=== PATIENT | female | born 1960 | race Caucasian/White ===

== ENCOUNTER → 2016-12-08 | Outpatient (CLI) | payer OTHER ==
[~2016-12-08] MED LIST: /DULO30CA PO; AMBI12.52 PO; AUGM500T34 PO; BENZ200C PO; CALC500C8 PO; CIPR500T19 PO; CLON0.1D3 PO; CLONI1TA PO; FIORTAB PO; FLUT50SP; GABA100C PO; HYDR25T PO; HYDR25TAB PO; IODICRY PO; LUNE1TAB PO; LUNE3TAB PO; LYRI100C10 PO; MORP-39 PO; MORP60TA PO; OXYC1TAB16 PO; PAXI20TA3 PO; PERC7.5T12 PO; PREG50CA PO; PRIL20CA9 PO; PRIL20TA2 PO; PROBCAP4 PO; RELP40TA PO; ROXI1TAB2 PO; SOMA350T PO; TIZA4TAB3 PO; TRAZ50TA2 PO; TYLE650T25 PO; VITA250L SL; VITA500019 PO; VITATAB PO; ZOLP10TA2 PO
--- NOTE | 2016-12-17 23:21 | ECWPNPC ---
PATIENT NAME: ANGLE RASHEED : 1960 GENDER: FEMALE VISIT DATE: 12/08/2016 DISCHARGE DATE: 12/08/16 1306 VISIT LOCKED DATE TIME: PHYSICIAN: VERONICA FERGUSON RESOURCE: VERONICA FERGUSON REASON FOR APPOINTMENT 1. BACK HISTORY OF PRESENT ILLNESS HISTORY OF PRESENT ILLNESS: PAIN THE PATIENT DESCRIBES THE PAIN... 56 YEAR OLD FEMALE PATIENT WITH HISTORY OF CHRONIC BACK PAIN AND RIGHT SHOULDER PAIN. PATIENT DESCRIBES THE PAIN SHARP AND STABBING DEPENDING ON THE MOVEMENT, TENDER, SORE, SHOOTING, AND IT COMES AND GOES WITH A PAIN SCORE OF 8/10 ON TODAY'S VISIT. PATIENT REPORTS THAT SHE HAS BEEN SICK MULTIPLE TIMES SINCE [place]. PATIENT STATES THAT SHE SUFFERS FROM SCIATIC NERVE PAIN IN HER LOW BACK AREA. PATIENT REPORTS THAT HER CURRENT MEDICATION HELP TO MAKE THE PAIN SOMEWHAT TOLERABLE AND THAT WITHOUT THE MEDICATION HER PAIN WOULD BE WORST. , PATIENT DENIES UNEXPLAINABLE WEIGHT LOSS, FEVER, CHILLS, NEW CHANGES ON HER URINARY OR BOWEL CONTROL. FALL RISK SCREENING: SCREENING :NO FALLS IN THE PAST YEAR CURRENT MEDICATIONS TAKING PRILOSEC 40 MG CAPSULE DELAYED RELEASE 1 CAPSULE ORALLY BID TAKING ZOLPIDEM TARTRATE 10 MG TABLET 1 TABLET AT BEDTIME NEEDED ORALLY ONCE A DAY TAKING MILK OF MAGNESIA 7.75 % SUSPENSION 5 ML NEEDED ORALLY DAILY TAKING HYDROXYZINE HCL 25 MG TABLET 1 TABLET ORALLY EVERY 4 HOURS NEEDED, NOTES: 07/03/16 TAKING LISINOPRIL 10 MG TABLET 1 TABLET ORALLY ONCE A DAY, NOTES: 0330 TAKING GABAPENTIN 600 600 MG TABLET 1 TAB(S) ORALLY 600MG IN AM, 1200MG AFTERNOON AND AT BEDTIME, NOTES: 0330 TAKING PERCOCET 7.5-325 MG TABLET 1 ORALLY EVERY 8H PRN MDD3, NOTES: 0330 TAKING FENTANYL 50 MCG/HR PATCH 72 HOUR 1 PATCH TO SKIN TRANSDERMAL 1 Q 72H=MDD, NOTES: 07/01/16 TAKING TIZANIDINE HCL 4 MG TABLET 1 ORALLY Q6H PRN, NOTES: 0400 NOT-TAKING PAXIL 40 MG TABLET 1 TAB ORALLY ONCE A DAY, NOTES: 0330 DISCONTINUED PHENAZOPYRIDINE HCL 200 MG TABLET 1 TABLET AFTER MEALS ORALLY THREE TIMES A DAY MEDICATION LIST REVIEWED AND RECONCILED WITH THE PATIENT PAST MEDICAL HISTORY GLORY- USES CPAP KIDNEY STONES GERD CONSTIPATION CHRONIC BACK PAIN/NECK PAIN ANEMIA IBS FIBROMYALGIA RESTLESS LEG SYNDROME DEPRESSION ATROPHIC KIDNEY - S/P NEPHRECTOMY UTI ALLERGIES SULFA (FOR ALLERGY USE ONLY): UNKNOWN - CHILD: ALLERGY ENVIROMENTAL: SINUS INFECTION: ALLERGY SURGICAL HISTORY PARTIAL HYSTERECTOMY 1986 BREAST REDUCTION 2001 CHOLECYSTECTOMY 1982 GASTRIC BYPASS 2012 RIGHT, KNEE REPLACEMENT 2012 APPENDECTOMY 2010 ROBOTIC ASSISTED LEFT NEPHRECTOMY 03/18/2014 FAMILY HISTORY NO FAMILY HISTORY DOCUMENTED. SOCIAL HISTORY GENERAL: TOBACCO USE ARE YOU A:NONSMOKER LEARNING BARRIERS / SPECIAL NEEDS ORIENTED TO PLAN OF CARE: PATIENT, PAIN MANAGEMENT PATIENT, ORIENTED TO PLAN OF CARE: PATIENT, PAIN MANAGEMENT PATIENT. NEW PATIENT PAIN DIARY TODAY'S VISITNOTES FROM 0-10, WHAT LEVEL IS YOUR PAIN TODAY?0 PAIN CLINIC PFS, CLERGY, PUBLIC HEALTH REFERRALS PFS REFERRAL NEEDED?NO CLERGY REFERRAL NEEDED?NO PUBLIC HEALTH REFERRAL NEEDED?NO WAS THE PROVIDER NOTIFIED OF ANY PERTINENT INFO?NO PFS REFERRAL NEEDED?NO CLERGY REFERRAL NEEDED?NO PUBLIC HEALTH REFERRAL NEEDED?NO WAS THE PROVIDER NOTIFIED OF ANY PERTINENT INFO?NO HOSPITALIZATION/MAJOR DIAGNOSTIC PROCEDURE BACK PAIN - ([facility]) MULTIPLE BRONCHITIS 2013 REVIEW OF SYSTEMS CONSTITUTIONAL: ANY CHANGE IN YOUR MEDICAL CONDITION? NO . CHILLS NO . FEVER NO . INFECTION: DO YOU HAVE NEW INFECTIONS? YES UTI SINCE 09/16 . DO YOU HAVE HISTORY OF MRSA? NO . MUSCULOSKELETAL: ANY NEW PATTERNS OF PAIN OR NUMBNESS? NO . GASTROENTEROLOGY: ANY NEW CHANGE IN BOWEL CONTROL? NO . GENITOURINARY: ANY NEW CHANGE IN BLADDER CONTROL? NO . IS THERE A CHANCE YOU COULD BE ? NO . HEMATOLOGY/LYMPH: DO YOU TAKE ANY BLOOD THINNERS? (FOR EXAMPLE- COUMADIN, PLAVIX, AGGRENOX, PLATEL, PRADAXA, OR XARELTO) NO . WHEN WAS YOUR LAST DOSE? DATE: TIME: . NEUROLOGY: HAVE YOU FALLEN IN THE PAST 6 MONTHS? NO . ANY NEW EXTREMITY NUMBNESS OR WEAKNESS? NO . CARDIOLOGY: DO YOU HAVE A PACEMAKER OR DEFIBRILLATOR? NO . RESPIRATORY: HAVE YOU BEEN SICK IN THE PAST WEEK? YES CONGESTION . FEVER NO . FLU LIKE SYMPTOMS? NO . COUGH NO . INTEGUMENTARY: DO YOU HAVE ANY RASHES OR OPEN SORES? YES SCATTERED ON EXTREMITIES . ALLERGIC/IMMUNO: ARE YOU ALLERGIC TO SHELLFISH OR IV DYE? NO . ANY NEW ALLERGIES? NO . PSYCHIATRIC: DO YOU HAVE THOUGHTS OF HURTING YOURSELF OR SOMEONE ELSE? NO . ARE YOU ABUSED, NEGLECTED, OR IN AN UNSAFE ENVIRONMENT? NO . ENDOCRINOLOGY: ARE YOU DIABETIC? NO . OTHER: DO YOU NEED ANY PRESCRIPTIONS? YES OXYCODONE, FENTANYL PATCHES, TIZANIDINE . IF YES, PLEASE LIST: ____ . ANY NEW PROBLEMS WITH YOUR MEDICATIONS? NO . WHEN DID YOU LAST EAT? ____ . WHEN DID YOU LAST DRINK? ____ . WHAT DID YOU LAST DRINK? ____ . NAME OF PERSON DRIVING YOU HOME? ____ . DO YOU HAVE ANY OTHER QUESTIONS OR CONCERNS NO . REVIEWED BY: PROVIDER: VERONICA FERGUSON MD . VITAL SIGNS WT 222 LBS, HT 64 IN, BMI 38.10 INDEX, BP 167/75 MM HG, HR 91 /MIN, RR 18 /MIN, TEMP 97.3 F, OXYGEN SAT % 96, NA INITIALS TL 1138, REVIEWED BY: KENTRELL BP, TL. EXAMINATION : PATIENT IS ALERT O X 3 AND COOPERATIVE. PATIENT AMBULATES WITH A CANE ON THE LEFT HAND. PATIENT'S LEFT LEG IS WEAKER AT FLEXION AND EXTENSION COMPARED TO THE RIGHT LEG. PATIENT HAS TENDERNESS IN THE LOW BACK AND SACROILIAC AREA. BURSITIS OF THE LEFT GREATER TROCHANTER FEMUR. MRI OF THE LUMBAR SPINE DONE ON 12-04-2012 SHOWS CANAL STENOSIS AND DISC BULGES. ASSESSMENTS SACROILIITIS, NOT ELSEWHERE CLASSIFIED - M46.1 (PRIMARY) TROCHANTERIC BURSITIS, LEFT HIP - M70.62 TREATMENT SACROILIITIS, NOT ELSEWHERE CLASSIFIED NOTES: WE DISCUSSED SEVERAL ISSUES WITH MS. ANN'S PAIN MANAGEMENT CASE. AT THIS TIME I WILL REFILL PERCOCET, TIZANIDINE, AND FENTANYL PATCH AND THE PATIENT WILL START ON LYRICA TODAY. DUE TO THE SEVERE PAIN THE PATIENT IS EXPERIENCING IN HER LEFT PELVIS, I WILL ORDER A CT OF THE PELVIS. PATIENT WILL FOLLOW UP WITH IN 2 TO 3 WEEKS. INSTRUCTIONS WERE GIVEN, QUESTIONS WERE ANSWERED, PATIENT REPORTS UNDERSTANDING AND AGREES WITH THE PLAN. I, OREN BUCHANAN, DOCUMENTED THE ABOVE INFORMATION ACTING A SCRIBE FOR DR. FERGUSON. I HAVE REVIEWED THE ABOVE DOCUMENT, WRITTEN BY OREN BUCHANAN SCRIBE AND I VERIFY THAT IT IS ACCURATE. OTHERS START LYRICA CAPSULE, 75 MG, 1 CAPSULE, ORALLY FOR PAIN, TWICE A DAY, 30 DAY(S), 60 CAPSULE, REFILLS 0 REFILL PERCOCET TABLET, 7.5-325 MG, 1, ORALLY, EVERY 8H PRN MDD3, 30 DAYS, 90, REFILLS 0, NOTES: 0330 REFILL TIZANIDINE HCL TABLET, 4 MG, 1, ORALLY, Q6H PRN FOR SPASMS AND PAIN MDD3, 30 DAYS, 85, REFILLS 2, NOTES: 0400 REFILL FENTANYL PATCH 72 HOUR, 50 MCG/HR, 1 PATCH TO SKIN, TRANSDERMAL, 1 Q 72H=MDD, 30 DAY(S), 10, REFILLS 0, NOTES: 07/01/16 PROCEDURE CODES FA211 ESTABILISHED PATIENT [facility] CHARGE G8730 PAIN ASSESS POS TOOL F/U PLAN DOC G8427 DOC MEDS VERIFIED W/PT OR RE DISPOSITION & COMMUNICATION FOLLOW UP 3 WEEKS ELECTRONICALLY SIGNED BY VERONICA FERGUSON MD ON 12/17/2016 AT 09:20 PM EDT DISCLAIMER : THIS IS A VISIT SUMMARY EXTRACTED FROM THE [employer] CHART. IT IS NOT A COPY OF THE [employer] PROGRESS NOTE. MTDD
== END ==
LOC: M PAIN 11:20
PROVIDERS: ATTEND Anesthesiology
DX: Z09 Encounter for follow-up examination after completed treatment for conditions other than malignant neoplasm (principal); G89.29 Other chronic pain; M46.1 Sacroiliitis, not elsewhere classified; M70.62 Trochanteric bursitis, left hip; K21.9 Gastro-esophageal reflux disease without esophagitis; D64.9 Anemia, unspecified; M79.7 Fibromyalgia; G25.81 Restless legs syndrome; F32.9 Major depressive disorder, single episode, unspecified; G47.33 Obstructive sleep apnea (adult) (pediatric); N39.0 Urinary tract infection, site not specified; Z88.2 Allergy status to sulfonamides; J30.89 Other allergic rhinitis; Z79.891 Long term (current) use of opiate analgesic; Z79.899 Other long term (current) drug therapy; Z90.5 Acquired absence of kidney

== ENCOUNTER → 2017-01-09 | Outpatient (CLI) | payer OTHER ==
--- NOTE | 2017-01-15 23:26 | ECWPNPC ---
PATIENT NAME: ANGLE RASHEED : 1960 GENDER: FEMALE VISIT DATE: 01/09/2017 DISCHARGE DATE: 01/09/17 1331 VISIT LOCKED DATE TIME: PHYSICIAN: VERONICA FERGUSON RESOURCE: VERONICA FERGUSON REASON FOR APPOINTMENT 1. LOW BACK PAIN HISTORY OF PRESENT ILLNESS HISTORY OF PRESENT ILLNESS: PAIN THE PATIENT DESCRIBES THE PAIN... 56 YEAR OLD FEMALE PATIENT WITH HISTORY OF CHRONIC LOW BACK PAIN. PATIENT DESCRIBES THE PAIN ACHING, SHARP, STABBING, TENDER, SORE, SHOOTING, AND HAVING IT ALL THE TIME WITH A PAIN SCORE OF 5/10. PATIENT IS CURRENTLY USING LYRICA, PERCOCET, TIZANIDINE, AND FENTANYL PATCH AND REPORTS THAT THE MEDICATION KEEPS HER MOBILE AND FUNCTIONAL. PATIENT REPORTS HAVING PAIN OVER THE PELVIS AREA AND RECEIVED A CT. PATIENT DENIES UNEXPLAINABLE WEIGHT LOSS, FEVER, CHILLS, NEW CHANGES ON HER URINARY OR BOWEL CONTROL. FALL RISK SCREENING: SCREENING :NO FALLS IN THE PAST YEAR CURRENT MEDICATIONS TAKING LYRICA 75 MG CAPSULE 1 CAPSULE ORALLY FOR PAIN TWICE A DAY TAKING PERCOCET 7.5-325 MG TABLET 1 ORALLY EVERY 8H PRN MDD3, NOTES: 0330 TAKING TIZANIDINE HCL 4 MG TABLET 1 ORALLY Q6H PRN FOR SPASMS AND PAIN MDD3, NOTES: 0400 TAKING FENTANYL 50 MCG/HR PATCH 72 HOUR 1 PATCH TO SKIN TRANSDERMAL 1 Q 72H=MDD, NOTES: 07/01/16 TAKING PRILOSEC 40 MG CAPSULE DELAYED RELEASE 1 CAPSULE ORALLY BID TAKING MILK OF MAGNESIA 7.75 % SUSPENSION 5 ML NEEDED ORALLY DAILY TAKING HYDROXYZINE HCL 25 MG TABLET 1 TABLET ORALLY EVERY 4 HOURS NEEDED, NOTES: 07/03/16 TAKING LISINOPRIL 10 MG TABLET 1 TABLET ORALLY ONCE A DAY, NOTES: 0330 TAKING NITROFURANTOIN 100 MG CAPSULE 1 CAPSULE WITH FOOD ORALLY ONCE A DAY TAKING PYRIDIUM 200 MG TABLET 1 TABLET AFTER MEALS ORALLY THREE TIMES A DAY NOT-TAKING ZOLPIDEM TARTRATE 10 MG TABLET 1 TABLET AT BEDTIME NEEDED ORALLY ONCE A DAY NOT-TAKING GABAPENTIN 600 600 MG TABLET 1 TAB(S) ORALLY 600MG IN AM, 1200MG AFTERNOON AND AT BEDTIME, NOTES: 0330 NOT-TAKING KEFLEX 500 MG CAPSULE 1 CAPSULE ORALLY DIRECTED NOT-TAKING PAXIL 40 MG TABLET 1 TAB ORALLY ONCE A DAY, NOTES: 0330 MEDICATION LIST REVIEWED AND RECONCILED WITH THE PATIENT PAST MEDICAL HISTORY GLORY- USES CPAP KIDNEY STONES GERD CONSTIPATION CHRONIC BACK PAIN/NECK PAIN ANEMIA IBS FIBROMYALGIA RESTLESS LEG SYNDROME DEPRESSION ATROPHIC KIDNEY - S/P NEPHRECTOMY UTI ALLERGIES SULFA (FOR ALLERGY USE ONLY): UNKNOWN - CHILD: ALLERGY ENVIROMENTAL: SINUS INFECTION: ALLERGY SURGICAL HISTORY PARTIAL HYSTERECTOMY 1986 BREAST REDUCTION 2001 CHOLECYSTECTOMY 1981 GASTRIC BYPASS 2011 RIGHT, KNEE REPLACEMENT 2011 APPENDECTOMY 2010 ROBOTIC ASSISTED LEFT NEPHRECTOMY 03/18/2014 FAMILY HISTORY FATHER: ALIVE MOTHER: ALIVE 3 BROTHER(S) , 2 SISTER(S) . 1 SON(S) , 3 DAUGHTER(S) . FATHER HAD PROSTATE CANCER. SOCIAL HISTORY GENERAL: PAIN CLINIC PFS, CLERGY, PUBLIC HEALTH REFERRALS CLERGY REFERRAL NEEDED?NO WAS THE PROVIDER NOTIFIED OF ANY PERTINENT INFO?NO PFS REFERRAL NEEDED?NO PUBLIC HEALTH REFERRAL NEEDED?NO PATIENT: ____. HOSPITALIZATION/MAJOR DIAGNOSTIC PROCEDURE BACK PAIN - ([facility]) MULTIPLE BRONCHITIS 2012 REVIEW OF SYSTEMS CONSTITUTIONAL: ANY CHANGE IN YOUR MEDICAL CONDITION? YES DIAGNOSED WITH PNEUMONIA 01/04, ON ANTIBIOTICS. HAS A FEVER, COUGH PRODUCTIVE OF GREEN SPUTUM. PT STATES SHE HAS BEEN SICK SINCE ,BUT SYMPTOMS HAVE GOTTEN WORSE OVER LAST THREE WEEKS. . CHILLS YES . FEVER YES 102 THIS AM . INFECTION: DO YOU HAVE NEW INFECTIONS? YES PNEUMONIA, ALSO TREATED FOR UTI 12/31, TREATED WITH ANTIBIOTIC . DO YOU HAVE HISTORY OF MRSA? NO . MUSCULOSKELETAL: ANY NEW PATTERNS OF PAIN OR NUMBNESS? NO . GASTROENTEROLOGY: ANY NEW CHANGE IN BOWEL CONTROL? NO . GENITOURINARY: ANY NEW CHANGE IN BLADDER CONTROL? NO . IS THERE A CHANCE YOU COULD BE ? NO . HEMATOLOGY/LYMPH: DO YOU TAKE ANY BLOOD THINNERS? (FOR EXAMPLE- COUMADIN, PLAVIX, AGGRENOX, PLATEL, PRADAXA, OR XARELTO) NO . WHEN WAS YOUR LAST DOSE? DATE: TIME: . NEUROLOGY: HAVE YOU FALLEN IN THE PAST 6 MONTHS? NO . ANY NEW EXTREMITY NUMBNESS OR WEAKNESS? NO . CARDIOLOGY: DO YOU HAVE A PACEMAKER OR DEFIBRILLATOR? NO . RESPIRATORY: HAVE YOU BEEN SICK IN THE PAST WEEK? YES SEE ABOVE NOTE . FEVER NO . FLU LIKE SYMPTOMS? NO . COUGH NO . INTEGUMENTARY: DO YOU HAVE ANY RASHES OR OPEN SORES? NO . ALLERGIC/IMMUNO: ARE YOU ALLERGIC TO SHELLFISH OR IV DYE? NO . ANY NEW ALLERGIES? NO . PSYCHIATRIC: DO YOU HAVE THOUGHTS OF HURTING YOURSELF OR SOMEONE ELSE? NO . ARE YOU ABUSED, NEGLECTED, OR IN AN UNSAFE ENVIRONMENT? NO . ENDOCRINOLOGY: ARE YOU DIABETIC? NO . OTHER: DO YOU NEED ANY PRESCRIPTIONS? YES . IF YES, PLEASE LIST: ____OXYCODONE, TIZANIDINE, FENTANYL PATCHES, AND LYRICA TO [place] . ANY NEW PROBLEMS WITH YOUR MEDICATIONS? NO . WHEN DID YOU LAST EAT? ____ . WHEN DID YOU LAST DRINK? ____ . WHAT DID YOU LAST DRINK? ____ . NAME OF PERSON DRIVING YOU HOME? ____ . DO YOU HAVE ANY OTHER QUESTIONS OR CONCERNS NO . REVIEWED BY: PROVIDER: VERONICA FERGUSON MD . VITAL SIGNS WT 219 LBS, HT 64 IN, BMI 37.59 INDEX, BP 129/60 MM HG, HR 82 /MIN, RR 20 /MIN, TEMP 100 F, OXYGEN SAT % 95%, SAFE IN ENV? (Y/N) YES, REVIEWED BY: GIRMA. EXAMINATION : PATIENT IS ALERT O X 3 AND COOPERATIVE. PATIENT AMBULATES WITH A CANE ON THE LEFT HAND. PATIENT'S LEFT LEG IS WEAKER AT FLEXION AND EXTENSION COMPARED TO THE RIGHT LEG. PATIENT HAS TENDERNESS IN THE LOW BACK AND SACROILIAC AREA. BURSITIS OF THE LEFT GREATER TROCHANTER FEMUR. MRI OF THE LUMBAR SPINE DONE ON 12/04/2012 SHOWS CANAL STENOSIS AND DISC BULGES. CT OF THE PELVIS DONE ON 12/01/16 SHOWS NO ACUTE DISEASE. ASSESSMENTS SACROILIITIS, NOT ELSEWHERE CLASSIFIED - M46.1 (PRIMARY) RADICULOPATHY, LUMBAR REGION - M54.16 TREATMENT OTHERS REFILL LYRICA CAPSULE, 75 MG, 1 CAPSULE, ORALLY FOR PAIN, TWICE A DAY, 30 DAY(S), 60 CAPSULE, REFILLS 0 REFILL PERCOCET TABLET, 7.5-325 MG, 1, ORALLY, EVERY 8H PRN MDD3, 30 DAYS, 90, REFILLS 0, NOTES: 0330 REFILL TIZANIDINE HCL TABLET, 4 MG, 1, ORALLY, Q6H PRN FOR SPASMS AND PAIN MDD3, 30 DAYS, 85, REFILLS 2, NOTES: 0400 REFILL FENTANYL PATCH 72 HOUR, 50 MCG/HR, 1 PATCH TO SKIN, TRANSDERMAL, 1 Q 72H=MDD, 30 DAY(S), 10, REFILLS 0, NOTES: 07/01/16 NOTES: WE DISCUSSED SEVERAL ISSUES WITH MRS. RASHEED'S PAIN MANAGEMENT CASE. AT THIS TIME THE PATIENT WILL CONTINUE WITH THE SAME MEDICATION REGIME BEFORE. PATIENT DENIES ABUSE OF ANY MEDICATION, DENIES USE OF ILLEGAL SUBSTANCES, AND STATES THAT SHE IS ONLY USING THE MEDICATION FOR PAIN MANAGEMENT. URINE TOXICOLOGY REPORT DONE ON 04/13/16 SHOWS CONSISTENT RESULTS WITH THE PATIENT'S MEDICATION LIST. PATIENT IS A GOOD CANDIDATE FOR A LUMBAR EPIDURAL. AT THIS TIME THE PATIENT WOULD LIKE TO CONTINUE WITH MEDICATION MANAGEMENT AND HOLD OFF ON INTERVENTIONS AT THIS TIME. PATIENT WILL RETURN TO THE CLINIC IN 3 WEEKS TO FURTHER DISCUSS HER CASE. INSTRUCTIONS WERE GIVEN, QUESTIONS WERE ANSWERED, PATIENT REPORTS UNDERSTANDING AND AGREES WITH THE PLAN. I, VIRIDIANA RIDLEY, DOCUMENTED THE ABOVE INFORMATION ACTING A SCRIBE FOR DR. FERGUSON. I HAVE REVIEWED THE ABOVE DOCUMENT, WRITTEN BY VIRIDIANA MOTA AND I VERIFY THAT IT IS ACCURATE. PROCEDURE CODES FA211 ESTABILISHED PATIENT [facility] CHARGE G8427 DOC MEDS VERIFIED W/PT OR RE G8730 PAIN ASSESS POS TOOL F/U PLAN DOC DISPOSITION & COMMUNICATION FOLLOW UP 3 WEEKS ELECTRONICALLY SIGNED BY VERONICA FERGUSON MD ON 01/15/2017 AT 05:28 PM EDT DISCLAIMER : THIS IS A VISIT SUMMARY EXTRACTED FROM THE [employer] CHART. IT IS NOT A COPY OF THE [employer] PROGRESS NOTE. [facility]
== END ==
LOC: M PAIN 12:40
PROVIDERS: ATTEND Anesthesiology
DX: M46.1 Sacroiliitis, not elsewhere classified (principal); M54.16 Radiculopathy, lumbar region; G89.29 Other chronic pain; Z79.891 Long term (current) use of opiate analgesic; Z79.899 Other long term (current) drug therapy; Z88.2 Allergy status to sulfonamides; J30.2 Other seasonal allergic rhinitis; Z98.84 Bariatric surgery status; K21.9 Gastro-esophageal reflux disease without esophagitis; D64.9 Anemia, unspecified

== ENCOUNTER → 2017-02-10 | Outpatient (CLI) | payer OTHER ==
--- NOTE | 2017-02-22 01:54 | ECWPNPC ---
PATIENT NAME: ANGLE RASHEED : 1960 GENDER: FEMALE VISIT DATE: 02/10/2017 DISCHARGE DATE: 02/10/17 1324 VISIT LOCKED DATE TIME: PHYSICIAN: VERONICA FERGUSON RESOURCE: VERONICA FERGUSON REASON FOR APPOINTMENT 1. MEDS HISTORY OF PRESENT ILLNESS HISTORY OF PRESENT ILLNESS: PAIN THE PATIENT DESCRIBES THE PAIN... 56 YEAR OLD FEMALE PATIENT WITH HISTORY OF CHRONIC LOW BACK PAIN. PATIENT DESCRIBES THE PAIN ACHING, SHARP, STABBING, THROBBING, SORE, AND SHOOTING WITH A PAIN SCORE OF 5/10 ON TODAY'S VISIT. PATIENT IS CURRENTLY USING LYRICA, PERCOCET, TIZANIDINE, AND FENTANYL PATCH AND REPORTS THAT THE MEDICATION KEEPS HER MOBILE AND FUNCTIONAL. PATIENT REPORTS THAT SHE HAS DIFFICULTIES SLEEPING AT NIGHT DUE TO THE PAIN. PATIENT REPORTS THAT HER BACK HURTS THE MOST TODAY WITH A PAIN RADIATING DOWN THE BACK OF HER LEFT LEG AND SOMETIMES THE RIGHT LEG. PATIENT REPORTS THAT SHE CAN NOT TAKE NSAIDS DUE TO HAVING A GASTRIC BYPASS. PATIENT STATES THAT SOMETIMES HER LEFT LEG WILL GIVE OUT. PATIENT REPORTS THAT LYRICA HAS GREATLY HELPED WITH RESTLESS LEG SYNDROME. PATIENT DENIES UNEXPLAINABLE WEIGHT LOSS, FEVER, CHILLS, NEW CHANGES ON HER URINARY OR BOWEL CONTROL. FALL RISK SCREENING: SCREENING :NO FALLS IN THE PAST YEAR CURRENT MEDICATIONS TAKING PRILOSEC 40 MG CAPSULE DELAYED RELEASE 1 CAPSULE ORALLY BID TAKING MILK OF MAGNESIA 7.75 % SUSPENSION 5 ML NEEDED ORALLY DAILY TAKING HYDROXYZINE HCL 25 MG TABLET 1 TABLET ORALLY EVERY 4 HOURS NEEDED, NOTES: 07/03/16 TAKING LISINOPRIL 10 MG TABLET 1 TABLET ORALLY ONCE A DAY, NOTES: 0330 TAKING NITROFURANTOIN 100 MG CAPSULE 1 CAPSULE WITH FOOD ORALLY ONCE A DAY TAKING PYRIDIUM 200 MG TABLET 1 TABLET AFTER MEALS ORALLY THREE TIMES A DAY TAKING LYRICA 75 MG CAPSULE 1 CAPSULE ORALLY FOR PAIN TWICE A DAY TAKING LIDOCAINE HCL JELLY FDC 2 % JELLY 5 ML1 APPLICATION TO AFFECTED AREA NEEDED INTRAVESICALLY TIME AT CYSTOSCOPY TAKING TIZANIDINE HCL 4 MG TABLET 1 ORALLY Q6H PRN FOR SPASMS AND PAIN MDD3, NOTES: 0400 TAKING FENTANYL 50 MCG/HR PATCH 72 HOUR 1 PATCH TO SKIN TRANSDERMAL 1 Q 72H=MDD, NOTES: 07/01/16 TAKING PERCOCET 7.5-325 MG TABLET 1 ORALLY EVERY 8H PRN MDD3, NOTES: 329 TAKING RANITIDINE HCL 150 MG CAPSULE 1 CAPSULE AT BEDTIME ORALLY ONCE A DAY TAKING CETIRIZINE HCL 10 MG TABLET 1 TABLET ORALLY ONCE A DAY NOT-TAKING ZOLPIDEM TARTRATE 10 MG TABLET 1 TABLET AT BEDTIME NEEDED ORALLY ONCE A DAY NOT-TAKING GABAPENTIN 600 600 MG TABLET 1 TAB(S) ORALLY 600MG IN AM, 1200MG AFTERNOON AND AT BEDTIME, NOTES: 329 NOT-TAKING KEFLEX 500 MG CAPSULE 1 CAPSULE ORALLY DIRECTED NOT-TAKING PAXIL 40 MG TABLET 1 TAB ORALLY ONCE A DAY, NOTES: 329 MEDICATION LIST REVIEWED AND RECONCILED WITH THE PATIENT PAST MEDICAL HISTORY GLORY- USES CPAP KIDNEY STONES GERD CONSTIPATION CHRONIC BACK PAIN/NECK PAIN ANEMIA IBS FIBROMYALGIA RESTLESS LEG SYNDROME DEPRESSION ATROPHIC KIDNEY - S/P NEPHRECTOMY UTI ALLERGIES SULFA (FOR ALLERGY USE ONLY): UNKNOWN - CHILD: ALLERGY ENVIROMENTAL: SINUS INFECTION: ALLERGY SURGICAL HISTORY PARTIAL HYSTERECTOMY 1986 BREAST REDUCTION 2001 CHOLECYSTECTOMY 1981 GASTRIC BYPASS 2011 RIGHT, KNEE REPLACEMENT 2011 APPENDECTOMY 2010 ROBOTIC ASSISTED LEFT NEPHRECTOMY 03/18/2014 FAMILY HISTORY FATHER: ALIVE MOTHER: ALIVE 3 BROTHER(S) , 2 SISTER(S) . 1 SON(S) , 3 DAUGHTER(S) . FATHER HAD PROSTATE CANCER. SOCIAL HISTORY GENERAL: PAIN CLINIC PFS, CLERGY, PUBLIC HEALTH REFERRALS CLERGY REFERRAL NEEDED?NO WAS THE PROVIDER NOTIFIED OF ANY PERTINENT INFO?NO PFS REFERRAL NEEDED?NO PUBLIC HEALTH REFERRAL NEEDED?NO PATIENT: ____. HOSPITALIZATION/MAJOR DIAGNOSTIC PROCEDURE BACK PAIN - ([facility]) MULTIPLE BRONCHITIS 2012 REVIEW OF SYSTEMS CONSTITUTIONAL: ANY CHANGE IN YOUR MEDICAL CONDITION? HAS BEEN IN AND OUT OF THE HOSPITAL SINCE . BLADDER INFECTIONS. . CHILLS NO . FEVER NO . INFECTION: DO YOU HAVE NEW INFECTIONS? YES, BLADDER . DO YOU HAVE HISTORY OF MRSA? NO . MUSCULOSKELETAL: ANY NEW PATTERNS OF PAIN OR NUMBNESS? NO . GASTROENTEROLOGY: ANY NEW CHANGE IN BOWEL CONTROL? NO . GENITOURINARY: ANY NEW CHANGE IN BLADDER CONTROL? NO . IS THERE A CHANCE YOU COULD BE ? NO . HEMATOLOGY/LYMPH: DO YOU TAKE ANY BLOOD THINNERS? (FOR EXAMPLE- COUMADIN, PLAVIX, AGGRENOX, PLATEL, PRADAXA, OR XARELTO) NO . WHEN WAS YOUR LAST DOSE? DATE: TIME: . NEUROLOGY: HAVE YOU FALLEN IN THE PAST 6 MONTHS? NO . ANY NEW EXTREMITY NUMBNESS OR WEAKNESS? NO . CARDIOLOGY: DO YOU HAVE A PACEMAKER OR DEFIBRILLATOR? NO . RESPIRATORY: HAVE YOU BEEN SICK IN THE PAST WEEK? YES . FEVER NO . FLU LIKE SYMPTOMS? NO . COUGH NO . INTEGUMENTARY: DO YOU HAVE ANY RASHES OR OPEN SORES? NO . ALLERGIC/IMMUNO: ARE YOU ALLERGIC TO SHELLFISH OR IV DYE? NO . ANY NEW ALLERGIES? NO . PSYCHIATRIC: DO YOU HAVE THOUGHTS OF HURTING YOURSELF OR SOMEONE ELSE? NO . ARE YOU ABUSED, NEGLECTED, OR IN AN UNSAFE ENVIRONMENT? NO . ENDOCRINOLOGY: ARE YOU DIABETIC? NO . OTHER: DO YOU NEED ANY PRESCRIPTIONS? YES . IF YES, PLEASE LIST: MIRTHA SEND TO [facility] [place] . ANY NEW PROBLEMS WITH YOUR MEDICATIONS? NO . WHEN DID YOU LAST EAT? ____ . WHEN DID YOU LAST DRINK? ____ . WHAT DID YOU LAST DRINK? ____ . NAME OF PERSON DRIVING YOU HOME? ____ . DO YOU HAVE ANY OTHER QUESTIONS OR CONCERNS VOICES SHE PLANS TO QUIT SMOKING MARCH 02 . REVIEWED BY: PROVIDER: VERONICA FERGUSON MD . VITAL SIGNS WT 220.0 LBS, HT 64 IN, BMI 37.76 INDEX, BP 111/62 MM HG, HR 80 /MIN, RR 16 /MIN, TEMP 97.2 F, OXYGEN SAT % 96%, NA INITIALS TL 1250. EXAMINATION : PATIENT IS ALERT O X 3 AND COOPERATIVE. PATIENT AMBULATES WITH A CANE ON THE LEFT HAND. PATIENT'S LEFT LEG IS WEAKER AT FLEXION AND EXTENSION COMPARED TO THE RIGHT LEG. PATIENT HAS TENDERNESS IN THE LOW BACK AND SACROILIAC AREA. MRI OF THE LUMBAR SPINE DONE ON 12/04/2012 SHOWS CANAL STENOSIS AND DISC BULGES. CT OF THE PELVIS DONE ON 12/01/16 SHOWS NO ACUTE DISEASE. ASSESSMENTS SACROILIITIS, NOT ELSEWHERE CLASSIFIED - M46.1 (PRIMARY) RADICULOPATHY, LUMBAR REGION - M54.16 RADICULOPATHY, LUMBOSACRAL REGION - M54.17 TREATMENT SACROILIITIS, NOT ELSEWHERE CLASSIFIED NOTES: WE DISCUSSED SEVERAL ISSUES WITH MRS. RASHEED'S PAIN MANAGEMENT CASE. AT THIS TIME THE PATIENT WILL CONTINUE WITH THE SAME MEDICATION REGIME BEFORE. PATIENT DENIES ABUSE OF ANY MEDICATION, DENIES USE OF ILLEGAL SUBSTANCES, AND STATES THAT SHE IS ONLY USING THE MEDICATION FOR PAIN MANAGEMENT. URINE TOXICOLOGY REPORT DONE ON 04/13/16 SHOWS CONSISTENT RESULTS WITH THE PATIENT'S MEDICATION LIST. PATIENT BROUGHT HER MEDICATION TODAY INSTRUCTED. AFTER REVIEWING THE MRI AND EXAMINING THE PATIENT SHE IS A GOOD CANDIDATE FOR A LUMBAR EPIDURAL. I DISCUSSED THE RISK, BENEFITS, AND ALTERNATIVES WITH THE PATIENT AND THE PATIENT WOULD LIKE TO PROCEED FORWARD WITH THE INJECTION. PATIENT WILL BE BOOKED PENDING APPROVAL. I DISCUSSED WITH THE PATIENT THAT SHE CAN CALL IN FOR ONE REFILL BY PHONE FOR HER MEDICATION. PATIENT TO FOLLOW UP WITH ME IN 6 WEEKS. INSTRUCTIONS WERE GIVEN, QUESTIONS WERE ANSWERED, PATIENT REPORTS UNDERSTANDING AND AGREES WITH THE PLAN. I, OREN BUCHANAN, DOCUMENTED THE ABOVE INFORMATION ACTING A SCRIBE FOR DR. FERGUSON. I HAVE REVIEWED THE ABOVE DOCUMENT, WRITTEN BY OREN BUCHANAN SCRIBGaby AND I VERIFY THAT IT IS ACCURATE. OTHERS REFILL LYRICA CAPSULE, 75 MG, 1 CAPSULE, ORALLY FOR PAIN, TWICE A DAY, 30 DAY(S), 60 CAPSULE, REFILLS 0 REFILL TIZANIDINE HCL TABLET, 4 MG, 1, ORALLY, Q6H PRN FOR SPASMS AND PAIN MDD3, 30 DAYS, 85, REFILLS 2, NOTES: 0400 REFILL FENTANYL PATCH 72 HOUR, 50 MCG/HR, 1 PATCH TO SKIN, TRANSDERMAL, 1 Q 72H=MDD, 30 DAY(S), 10, REFILLS 0, NOTES: 07/01/16 REFILL PERCOCET TABLET, 7.5-325 MG, 1, ORALLY, EVERY 8H PRN MDD3, 30 DAYS, 90, REFILLS 0, NOTES: 0330 PREVENTIVE MEDICINE DISCUSSED PRE PROPRECEDURE CARE AND INSTRUCTIONS GIVEN TO PT. PT EXPRESSED UNDERSTANDING OF INSTRUCTIONNS. PROCEDURE CODES FA211 ESTABILISHED PATIENT [facility] FACILITY CHARGE G8730 PAIN ASSESS POS TOOL F/U PLAN DOC G8427 DOC MEDS VERIFIED W/PT OR RE DISPOSITION & COMMUNICATION FOLLOW UP 6 WEEKS ELECTRONICALLY SIGNED BY VERONICA FERGUSON MD ON 02/21/2017 AT 06:05 PM EDT DISCLAIMER : THIS IS A VISIT SUMMARY EXTRACTED FROM THE [employer] CHART. IT IS NOT A COPY OF THE [employer] PROGRESS NOTE. MTDD
== END ==
LOC: M PAIN 13:00
PROVIDERS: ATTEND Anesthesiology
DX: M46.1 Sacroiliitis, not elsewhere classified (principal); M54.16 Radiculopathy, lumbar region; M54.17 Radiculopathy, lumbosacral region; M89.29 Other disorders of bone development and growth, multiple sites; Z79.891 Long term (current) use of opiate analgesic; Z79.899 Other long term (current) drug therapy; Z88.2 Allergy status to sulfonamides; Z91.048 Other nonmedicinal substance allergy status

== ENCOUNTER → 2017-06-16 | Outpatient (CLI) | payer OTHER ==
[~2017-06-16] MED LIST changes: +FENT50PA TD; +HYDR-3363 PO; -HYDR25T PO; -LYRI100C10 PO; +MILKSUS PO; +OXYC1TAB15 PO; +PAXI20TA29 PO; -PAXI20TA3 PO; +PREG100CA PO; +RANI150T PO; +TIZA4CAP3 PO
--- NOTE | 2017-06-24 23:51 | ECWPNPC ---
PATIENT NAME: ANGLE RASHEED : 1960 GENDER: FEMALE VISIT DATE: 06/16/2017 DISCHARGE DATE: 06/16/17 1534 VISIT LOCKED DATE TIME: PHYSICIAN: VERONICA FERGUSON RESOURCE: VERONICA FERGUSON REASON FOR APPOINTMENT 1. LOW BACK PAIN HISTORY OF PRESENT ILLNESS HISTORY OF PRESENT ILLNESS: PAIN THE PATIENT DESCRIBES THE PAIN... 56 YEAR OLD FEMALE PATIENT WITH HISTORY OF CHRONIC LOW BACK PAIN. PATIENT DESCRIBES THE PAIN ACHING, SHARP, STABBING, THROBBING, SORE, AND SHOOTING WITH A PAIN SCORE OF 9/10 ON TODAY'S VISIT. PATIENT IS CURRENTLY USING LYRICA, PERCOCET, TIZANIDINE, AND FENTANYL PATCH AND REPORTS THAT THE MEDICATION KEEPS HER MOBILE AND FUNCTIONAL. PATIENT REPORTS THAT SHE HAS DIFFICULTIES SLEEPING AT NIGHT DUE TO THE PAIN. PATIENT REPORTS THAT HER BACK HURTS THE MOST TODAY WITH A PAIN RADIATING DOWN THE BACK OF HER LEFT LEG AND SOMETIMES THE RIGHT LEG. PATIENT REPORTS THAT SHE CAN NOT TAKE NSAID'S DUE TO HAVING A GASTRIC BYPASS. PATIENT STATES THAT SOMETIMES HER LEFT LEG WILL GIVE OUT. PATIENT REPORTS THAT LYRICA HAS GREATLY HELPED WITH RESTLESS LEG SYNDROME. PATIENT REPORTS CHRONIC UTI'S AND RECEIVES ANTIBIOTICS FOR THE INFECTION. PATIENT DENIES UNEXPLAINABLE WEIGHT LOSS, FEVER, CHILLS, NEW CHANGES ON HER URINARY OR BOWEL CONTROL. FALL RISK SCREENING: SCREENING :NO FALLS IN THE PAST YEAR CURRENT MEDICATIONS TAKING PRILOSEC 40 MG CAPSULE DELAYED RELEASE 1 CAPSULE ORALLY BID TAKING MILK OF MAGNESIA 7.75 % SUSPENSION 5 ML NEEDED ORALLY DAILY TAKING HYDROXYZINE HCL 25 MG TABLET 1 TABLET ORALLY EVERY 4 HOURS NEEDED TAKING RANITIDINE HCL 150 MG CAPSULE 1 CAPSULE AT BEDTIME ORALLY ONCE A DAY TAKING CETIRIZINE HCL 10 MG TABLET 1 TABLET ORALLY ONCE A DAY TAKING FENTANYL 50 MCG/HR PATCH 72 HOUR 1 PATCH TO SKIN TRANSDERMAL 1 Q 72H=MDD, NOTES: 07/01/16 TAKING TIZANIDINE HCL 4 MG TABLET 1 ORALLY Q6H PRN FOR SPASMS AND PAIN MDD3 TAKING PERCOCET 7.5-325 MG TABLET 1 ORALLY EVERY 8H PRN MDD3 TAKING LYRICA 75 MG CAPSULE 1 CAPSULE ORALLY FOR PAIN TWICE A DAY NOT-TAKING NITROFURANTOIN 100 MG CAPSULE 1 CAPSULE WITH FOOD ORALLY ONCE A DAY NOT-TAKING LIDOCAINE HCL JELLY LONGTERM 2 % JELLY 5 ML1 APPLICATION TO AFFECTED AREA NEEDED INTRAVESICALLY TIME AT CYSTOSCOPY NOT-TAKING LIDOCAINE HCL JELLY LONGTERM 2 % JELLY 5 ML1 APPLICATION TO AFFECTED AREA NEEDED INTRAVESICALLY TIME AT CYSTOSCOPY NOT-TAKING PYRIDIUM 200 MG TABLET 1 TABLET AFTER MEALS ORALLY THREE TIMES A DAY NOT-TAKING LIDOCAINE HCL JELLY LONGTERM 2 % JELLY 1 APPLICATION TO AFFECTED AREA NEEDED INTRAVESICALLY PRIOR TO PROCEDURE NOT-TAKING DIFLUCAN 150 MG TABLET 1 TABLET ORALLY NOT-TAKING LIDOCAINE HCL JELLY LONGTERM 2 % JELLY 1 APPLICATION TO AFFECTED AREA NEEDED INTRAVESICALLY PRIOR TO PROCEDURE DISCONTINUED LISINOPRIL 10 MG TABLET 1 TABLET ORALLY ONCE A DAY DISCONTINUED CIPRO 500 MG TABLET 1 TABLET ORALLY TWICE A DAY DISCONTINUED AMOXICILLIN-POT CLAVULANATE 875-125 MG TABLET 1 TABLET ORALLY EVERY 12 HRS DISCONTINUED CIPRO 500 MG TABLET 1 TABLET ORALLY TWICE A DAY DISCONTINUED CIPRO 500 MG TABLET 1 TABLET ORALLY TWICE A DAY DISCONTINUED ZOLPIDEM TARTRATE 10 MG TABLET 1 TABLET AT BEDTIME NEEDED ORALLY ONCE A DAY DISCONTINUED GABAPENTIN 600 600 MG TABLET 1 TAB(S) ORALLY 600MG IN AM, 1200MG AFTERNOON AND AT BEDTIME, NOTES: 0330 DISCONTINUED KEFLEX 500 MG CAPSULE 1 CAPSULE ORALLY DIRECTED DISCONTINUED PAXIL 40 MG TABLET 1 TAB ORALLY ONCE A DAY, NOTES: 0330 MEDICATION LIST REVIEWED AND RECONCILED WITH THE PATIENT PAST MEDICAL HISTORY GLORY- USES CPAP KIDNEY STONES GERD CONSTIPATION CHRONIC BACK PAIN/NECK PAIN ANEMIA IBS FIBROMYALGIA RESTLESS LEG SYNDROME DEPRESSION ATROPHIC KIDNEY - S/P NEPHRECTOMY UTI ALLERGIES SULFA (FOR ALLERGY USE ONLY): UNKNOWN - CHILD: ALLERGY ENVIROMENTAL: SINUS INFECTION: ALLERGY REVIEW OF SYSTEMS REVIEWED BY: PROVIDER: VERONICA FERGUSON MD . CONSTITUTIONAL: ANY CHANGE IN YOUR MEDICAL CONDITION? NO . CHILLS NO . FEVER NO . INFECTION: DO YOU HAVE NEW INFECTIONS? NO . DO YOU HAVE HISTORY OF MRSA? NO . MUSCULOSKELETAL: ANY NEW PATTERNS OF PAIN OR NUMBNESS? NO . GASTROENTEROLOGY: ANY NEW CHANGE IN BOWEL CONTROL? NO . GENITOURINARY: ANY NEW CHANGE IN BLADDER CONTROL? NO . IS THERE A CHANCE YOU COULD BE ? NO . HEMATOLOGY/LYMPH: DO YOU TAKE ANY BLOOD THINNERS? (FOR EXAMPLE- COUMADIN, PLAVIX, AGGRENOX, PLATEL, PRADAXA, OR XARELTO) NO . WHEN WAS YOUR LAST DOSE? DATE: TIME: . NEUROLOGY: HAVE YOU FALLEN IN THE PAST 6 MONTHS? NO . ANY NEW EXTREMITY NUMBNESS OR WEAKNESS? NO . CARDIOLOGY: DO YOU HAVE A PACEMAKER OR DEFIBRILLATOR? NO . RESPIRATORY: HAVE YOU BEEN SICK IN THE PAST WEEK? NO . FEVER NO . FLU LIKE SYMPTOMS? NO . COUGH NO . INTEGUMENTARY: DO YOU HAVE ANY RASHES OR OPEN SORES? NO . ALLERGIC/IMMUNO: ARE YOU ALLERGIC TO SHELLFISH OR IV DYE? NO . ANY NEW ALLERGIES? NO . PSYCHIATRIC: DO YOU HAVE THOUGHTS OF HURTING YOURSELF OR SOMEONE ELSE? NO . ARE YOU ABUSED, NEGLECTED, OR IN AN UNSAFE ENVIRONMENT? NO . ENDOCRINOLOGY: ARE YOU DIABETIC? NO . OTHER: DO YOU NEED ANY PRESCRIPTIONS? YES, . IF YES, PLEASE LIST: FENTANYL PATCHES, AND WOULD LIKE LIDODERM PATCHES . ANY NEW PROBLEMS WITH YOUR MEDICATIONS? NO . WHEN DID YOU LAST EAT? ____ . WHEN DID YOU LAST DRINK? ____ . WHAT DID YOU LAST DRINK? ____ . NAME OF PERSON DRIVING YOU HOME? ____ . DO YOU HAVE ANY OTHER QUESTIONS OR CONCERNS NO . VITAL SIGNS WT 195 LBS, HT 64 IN, BMI 33.47 INDEX, BP 137/72 MM HG, HR 67 /MIN, RR 18 /MIN, TEMP 98.0 F, OXYGEN SAT % 96%, NA INITIALS SC 14:49, REVIEWED BY: CYNTHIA. EXAMINATION : PATIENT IS ALERT O X 3 AND COOPERATIVE. PATIENT AMBULATES WITH A CANE ON THE LEFT HAND. PATIENT'S LEFT LEG IS WEAKER AT FLEXION AND EXTENSION COMPARED TO THE RIGHT LEG. PATIENT HAS TENDERNESS IN THE LOW BACK AND SACROILIAC AREA. MRI OF THE LUMBAR SPINE DONE ON 12/04/2012 SHOWS CANAL STENOSIS AND DISC BULGES. CT OF THE PELVIS DONE ON 12/01/16 SHOWS NO ACUTE DISEASE. ASSESSMENTS SACROILIITIS, NOT ELSEWHERE CLASSIFIED - M46.1 (PRIMARY) RADICULOPATHY OF LUMBAR REGION - M54.16 RADICULOPATHY OF LUMBOSACRAL REGION - M54.17 TREATMENT SACROILIITIS, NOT ELSEWHERE CLASSIFIED NOTES: WE DISCUSSED SEVERAL ISSUES WITH MRS. RASHEED'S PAIN MANAGEMENT CASE. AT THIS TIME THE PATIENT WILL CONTINUE WITH THE SAME MEDICATION REGIME BEFORE. PATIENT DENIES ABUSE OF ANY MEDICATION, DENIES USE OF ILLEGAL SUBSTANCES, AND STATES THAT SHE IS ONLY USING THE MEDICATION FOR PAIN MANAGEMENT. URINE TOXICOLOGY REPORT DONE ON 04/13/16 SHOWS CONSISTENT RESULTS WITH THE PATIENT'S MEDICATION LIST. PATIENT BROUGHT HER MEDICATION TODAY INSTRUCTED. AFTER REVIEWING THE MRI AND EXAMINING THE PATIENT SHE IS A GOOD CANDIDATE FOR A LUMBAR EPIDURAL. PRIOR TO THE INJECTION I WOULD LIKE THE PATIENT TO RECEIVE A CLEARANCE FROM THE PRIMARY CARE TO PROCEED WIT THE INJECTION. I DISCUSSED THE RISK, BENEFITS, AND ALTERNATIVES WITH THE PATIENT AND THE PATIENT WOULD LIKE TO PROCEED FORWARD WITH THE INJECTION. INSTRUCTIONS WERE GIVEN, QUESTIONS WERE ANSWERED, PATIENT REPORTS UNDERSTANDING AND AGREES WITH THE PLAN. I, VIRIDIANA RIDLEY, DOCUMENTED THE ABOVE INFORMATION ACTING A SCRIBE FOR DR. FERGUSON. I HAVE REVIEWED THE ABOVE DOCUMENT, WRITTEN BY VIRIDIANA MATAIBGaby AND I VERIFY THAT IT IS ACCURATE. OTHERS REFILL FENTANYL PATCH 72 HOUR, 50 MCG/HR, 1 PATCH TO SKIN, TRANSDERMAL, 1 Q 72H=MDD, 30 DAY(S), 10, REFILLS 0, NOTES: 07/01/16 PROCEDURE CODES FA211 ESTABILISHED PATIENT [facility] FACILITY CHARGE G8427 DOC MEDS VERIFIED W/PT OR RE G8730 PAIN ASSESS POS TOOL F/U PLAN DOC DISPOSITION & COMMUNICATION FOLLOW UP LESI AFTER APPROVAL/CLEARANCE ELECTRONICALLY SIGNED BY VERONICA FERGUSON MD ON 06/23/2017 AT 04:29 PM EDT DISCLAIMER : THIS IS A VISIT SUMMARY EXTRACTED FROM THE [employer] CHART. IT IS NOT A COPY OF THE [employer] PROGRESS NOTE. NATALIE
== END ==
LOC: M PAIN 13:45
PROVIDERS: ATTEND Anesthesiology
DX: M46.1 Sacroiliitis, not elsewhere classified (principal); M54.16 Radiculopathy, lumbar region; M54.17 Radiculopathy, lumbosacral region; G89.29 Other chronic pain; Z79.891 Long term (current) use of opiate analgesic; Z79.899 Other long term (current) drug therapy; Z88.2 Allergy status to sulfonamides; J30.9 Allergic rhinitis, unspecified

== ENCOUNTER → 2017-06-30 | Outpatient (REF) | payer OTHER | LOC: M LAB REF 16:44 | PROVIDERS: ATTEND Internal Medicine Nephrology | DX: N20.0 Calculus of kidney (principal); Z90.5 Acquired absence of kidney; N39.0 Urinary tract infection, site not specified ==

== ENCOUNTER → 2017-09-15 | Outpatient (CLI) | payer OTHER | LOC: M PAIN 11:30 | DX: G89.29 Other chronic pain (principal); M47.814 Spondylosis without myelopathy or radiculopathy, thoracic region; K21.9 Gastro-esophageal reflux disease without esophagitis; G47.33 Obstructive sleep apnea (adult) (pediatric); J45.909 Unspecified asthma, uncomplicated; F32.9 Major depressive disorder, single episode, unspecified; F17.200 Nicotine dependence, unspecified, uncomplicated; Z88.2 Allergy status to sulfonamides; Z79.891 Long term (current) use of opiate analgesic; Z79.899 Other long term (current) drug therapy | CPT/HCPCS: G0463 ==

== ENCOUNTER → 2017-11-01 | Outpatient (CLI) | payer OTHER | LOC: M PAIN 15:30 | DX: G89.29 Other chronic pain (principal); M47.814 Spondylosis without myelopathy or radiculopathy, thoracic region; G47.33 Obstructive sleep apnea (adult) (pediatric); K21.9 Gastro-esophageal reflux disease without esophagitis; M79.7 Fibromyalgia; G25.81 Restless legs syndrome; F32.9 Major depressive disorder, single episode, unspecified; F17.200 Nicotine dependence, unspecified, uncomplicated; J30.89 Other allergic rhinitis; Z79.891 Long term (current) use of opiate analgesic; Z79.899 Other long term (current) drug therapy; Z88.2 Allergy status to sulfonamides; Z90.5 Acquired absence of kidney; Z98.84 Bariatric surgery status | CPT/HCPCS: G0463 ==

== ENCOUNTER → 2017-12-11 | Outpatient (CLI) | payer OTHER | LOC: M PAIN 15:00 | DX: M47.814 Spondylosis without myelopathy or radiculopathy, thoracic region (principal); G89.29 Other chronic pain; G47.33 Obstructive sleep apnea (adult) (pediatric); K21.9 Gastro-esophageal reflux disease without esophagitis; M79.7 Fibromyalgia; G25.81 Restless legs syndrome; F32.9 Major depressive disorder, single episode, unspecified; J30.89 Other allergic rhinitis; Z79.891 Long term (current) use of opiate analgesic; Z79.899 Other long term (current) drug therapy; Z88.2 Allergy status to sulfonamides; Z90.5 Acquired absence of kidney | CPT/HCPCS: G0463 ==

== ENCOUNTER → 2018-01-03 | Outpatient (CLI) | payer OTHER ==
[~2018-01-03] MED LIST changes: -/DULO30CA PO; -AMBI12.52 PO; -AUGM500T34 PO; -BENZ200C PO; +BUPIVACAINE HCL 0.25% 30 ML VIAL As Ordered; -CALC500C8 PO; -CIPR500T19 PO; -CLON0.1D3 PO; -CLONI1TA PO; -FENT50PA TD; -FIORTAB PO; -FLUT50SP; -GABA100C PO; -HYDR-3363 PO; -HYDR25TAB PO; -IODICRY PO; +ISOVUE-M 300 61% 15ML VIAL (Q9967) As Ordered; +LIDOCAINE 1% SDV INJ 30 ML VIAL As Ordered; -LUNE1TAB PO; -LUNE3TAB PO; -MILKSUS PO; -MORP-39 PO; -MORP60TA PO; -OXYC1TAB15 PO; -OXYC1TAB16 PO; -PAXI20TA29 PO; -PERC7.5T12 PO; -PREG100CA PO; -PREG50CA PO; -PRIL20CA9 PO; -PRIL20TA2 PO; -PROBCAP4 PO; -RANI150T PO; -RELP40TA PO; -ROXI1TAB2 PO; -SOMA350T PO; -TIZA4CAP3 PO; -TIZA4TAB3 PO; -TRAZ50TA2 PO; +TRIAMCINOLONE ACETONIDE SUSP 40 MG/ML VIAL (J3301) As Ordered; -TYLE650T25 PO; -VITA250L SL; -VITA500019 PO; -VITATAB PO; -ZOLP10TA2 PO; +diazePAM 5 MG TAB As Ordered; +oxyCODONE 5MG TAB As Ordered
== END ==
LOC: M PAIN 11:00
DX: G89.29 Other chronic pain (principal); M47.814 Spondylosis without myelopathy or radiculopathy, thoracic region; G47.30 Sleep apnea, unspecified; K21.9 Gastro-esophageal reflux disease without esophagitis; M79.7 Fibromyalgia; G25.81 Restless legs syndrome; F32.9 Major depressive disorder, single episode, unspecified; L23.81 Allergic contact dermatitis due to animal (cat) (dog) dander; Z79.891 Long term (current) use of opiate analgesic; Z79.899 Other long term (current) drug therapy; Z88.2 Allergy status to sulfonamides; Z90.5 Acquired absence of kidney
CPT/HCPCS: J3301

== ENCOUNTER → 2018-01-26 | Outpatient (CLI) | payer OTHER | LOC: M PAIN 13:00 | DX: Z53.29 Procedure and treatment not carried out because of patient's decision for other reasons (principal) ==

== ENCOUNTER → 2018-01-26 | Outpatient (REF) | payer OTHER ==
[2018-01-26 14:26] LABS: BACTERIA, URINE LARGE AMOUNT; BLADDER EPITHELIAL CELLS, UR SMALL AMOUNT /hpf; HYALINE CAST, URINE NONE SEEN /lpf (0-1); TRANSITIONAL EPI CELLS, URINE SMALL AMOUNT /hpf; WBC, URINE 20-30 /hpf (0-3)
[2018-01-26 14:28] LABS: MICROSCOPIC EXAM PERFORMED; MUCUS, URINE SMALL AMOUNT (NEGATIVE); SQUAMOUS EPITHELIAL CELL URINE MOD AMOUNT /hpf (SMALL AMT)
== END ==
LOC: M SMT 13:34
DX: N39.0 Urinary tract infection, site not specified (principal)

== ENCOUNTER → 2018-02-15 | Outpatient (REF) | payer OTHER ==
[2018-02-15 14:23] LABS: BACTERIA, URINE AUTO NEGATIVE (NEGATIVE); MUCUS, URINE SMALL (NEGATIVE); RBC, URINE AUTO 2 /HPF (0-3); SQUAMOUS EPITHELIAL CELL UR AU 1 /HPF (0-6); WBC, URINE AUTO 17 /HPF (0-3)
== END ==
LOC: M SMT 13:23
DX: N30.10 Interstitial cystitis (chronic) without hematuria (principal)

== ENCOUNTER → 2018-02-20 | Outpatient (CLI) | payer OTHER | LOC: M PAIN 10:00 | DX: G89.29 Other chronic pain (principal); M46.1 Sacroiliitis, not elsewhere classified; K21.9 Gastro-esophageal reflux disease without esophagitis; M79.7 Fibromyalgia; G25.81 Restless legs syndrome; F32.9 Major depressive disorder, single episode, unspecified; F17.210 Nicotine dependence, cigarettes, uncomplicated; G47.33 Obstructive sleep apnea (adult) (pediatric); J30.89 Other allergic rhinitis; Z79.891 Long term (current) use of opiate analgesic; Z79.899 Other long term (current) drug therapy; Z88.2 Allergy status to sulfonamides | CPT/HCPCS: J3301 ==

== ENCOUNTER → 2018-03-06 | Outpatient (CLI) | payer OTHER | LOC: M PAIN 09:15 | DX: M46.1 Sacroiliitis, not elsewhere classified (principal); Z79.891 Long term (current) use of opiate analgesic; G47.33 Obstructive sleep apnea (adult) (pediatric); K21.9 Gastro-esophageal reflux disease without esophagitis; K59.00 Constipation, unspecified; M54.2 Cervicalgia; D64.9 Anemia, unspecified; K58.9 Irritable bowel syndrome, unspecified; M79.7 Fibromyalgia; G25.81 Restless legs syndrome; F32.9 Major depressive disorder, single episode, unspecified; N39.0 Urinary tract infection, site not specified; F17.210 Nicotine dependence, cigarettes, uncomplicated; Z79.899 Other long term (current) drug therapy; Z96.651 Presence of right artificial knee joint; Z98.84 Bariatric surgery status; Z90.5 Acquired absence of kidney; Z88.2 Allergy status to sulfonamides; J30.9 Allergic rhinitis, unspecified | CPT/HCPCS: G0463 ==

== ENCOUNTER → 2018-03-20 | Outpatient (CLI) | payer OTHER | LOC: M PAIN 10:15 | DX: M79.1 Myalgia (principal); M47.27 Other spondylosis with radiculopathy, lumbosacral region; G47.30 Sleep apnea, unspecified; G43.809 Other migraine, not intractable, without status migrainosus; K21.9 Gastro-esophageal reflux disease without esophagitis; F17.210 Nicotine dependence, cigarettes, uncomplicated; Z79.899 Other long term (current) drug therapy; Z79.891 Long term (current) use of opiate analgesic; Z88.8 Allergy status to other drugs, medicaments and biological substances; J30.2 Other seasonal allergic rhinitis; Z98.84 Bariatric surgery status; Z96.651 Presence of right artificial knee joint; Z90.711 Acquired absence of uterus with remaining cervical stump; Z90.49 Acquired absence of other specified parts of digestive tract; Z90.5 Acquired absence of kidney | CPT/HCPCS: G0463 ==

== ENCOUNTER → 2018-03-26 | Outpatient (CLI) | payer OTHER | LOC: M RAD 13:50 | DX: M51.26 Other intervertebral disc displacement, lumbar region (principal); M51.27 Other intervertebral disc displacement, lumbosacral region | CPT/HCPCS: 72148 ==

== ENCOUNTER → 2018-04-03 | Outpatient (CLI) | payer OTHER ==
[~2018-04-03] MED LIST changes: +BUPIVACAINE HCL 0.25% 10 ML VIAL As Ordered; -ISOVUE-M 300 61% 15ML VIAL (Q9967) As Ordered; -LIDOCAINE 1% SDV INJ 30 ML VIAL As Ordered; +diphenhydrAMINE 25 MG CAP As Ordered
== END ==
LOC: M PAIN 11:00
DX: G89.29 Other chronic pain (principal); M79.1 Myalgia; M54.5 Low back pain; G47.33 Obstructive sleep apnea (adult) (pediatric); K21.9 Gastro-esophageal reflux disease without esophagitis; G25.81 Restless legs syndrome; F32.9 Major depressive disorder, single episode, unspecified; F17.210 Nicotine dependence, cigarettes, uncomplicated; Z79.891 Long term (current) use of opiate analgesic; Z79.899 Other long term (current) drug therapy; Z88.2 Allergy status to sulfonamides; Z90.5 Acquired absence of kidney; Z98.84 Bariatric surgery status; Z96.651 Presence of right artificial knee joint
CPT/HCPCS: J3301

== ENCOUNTER → 2018-04-17 | Outpatient (CLI) | payer OTHER | LOC: M PAIN 10:00 | DX: M79.1 Myalgia (principal); K21.9 Gastro-esophageal reflux disease without esophagitis; F32.9 Major depressive disorder, single episode, unspecified; F17.210 Nicotine dependence, cigarettes, uncomplicated; Z79.891 Long term (current) use of opiate analgesic; Z79.899 Other long term (current) drug therapy; Z88.2 Allergy status to sulfonamides; J30.2 Other seasonal allergic rhinitis; Z98.84 Bariatric surgery status; Z90.5 Acquired absence of kidney; Z96.651 Presence of right artificial knee joint; Z90.49 Acquired absence of other specified parts of digestive tract; Z90.711 Acquired absence of uterus with remaining cervical stump | CPT/HCPCS: G0463 ==

== ENCOUNTER 2018-05-09 08:13 | Day surgery (SDC) | payer OTHER ==
[~2018-05-09 08:13] MED LIST changes: -BUPIVACAINE HCL 0.25% 10 ML VIAL As Ordered; -BUPIVACAINE HCL 0.25% 30 ML VIAL As Ordered; +LIDOCAINE 2% INJ 100 MG/5 ML SDV (FOR ANES.) As Ordered; +PROPOFOL 200 MG/20 ML VIAL As Ordered; -TRIAMCINOLONE ACETONIDE SUSP 40 MG/ML VIAL (J3301) As Ordered; -diazePAM 5 MG TAB As Ordered; -diphenhydrAMINE 25 MG CAP As Ordered; -oxyCODONE 5MG TAB As Ordered
[2018-05-09] MEDS: NS 1,000 ML IV (08:42)
[2018-05-09] MEDS ORDERED: PROPOFOL 200 MG/20 ML VIAL As Ordered (10:29)
[2018-05-09] MEDS ORDERED: ONDANSETRON 4MG/2ML VIAL (J2405) As Ordered (10:44)
== END 2018-05-09 11:15 | disposition home or self-care (01) ==
LOC: M OPP 08:13
DX: Z12.11 Encounter for screening for malignant neoplasm of colon (principal); K64.0 First degree hemorrhoids; R10.13 Epigastric pain; K22.8 Other specified diseases of esophagus; K28.9 Gastrojejunal ulcer, unspecified as acute or chronic, without hemorrhage or perforation; K44.9 Diaphragmatic hernia without obstruction or gangrene; Z98.84 Bariatric surgery status; Z98.0 Intestinal bypass and anastomosis status; R94.31 Abnormal electrocardiogram [ECG] [EKG]; Z86.79 Personal history of other diseases of the circulatory system; K57.30 Diverticulosis of large intestine without perforation or abscess without bleeding; I10 Essential (primary) hypertension; E78.5 Hyperlipidemia, unspecified; K57.32 Diverticulitis of large intestine without perforation or abscess without bleeding; K59.00 Constipation, unspecified; K21.9 Gastro-esophageal reflux disease without esophagitis; R12 Heartburn; M19.90 Unspecified osteoarthritis, unspecified site; M48.00 Spinal stenosis, site unspecified; M51.9 Unspecified thoracic, thoracolumbar and lumbosacral intervertebral disc disorder; F41.9 Anxiety disorder, unspecified; F32.9 Major depressive disorder, single episode, unspecified; G43.909 Migraine, unspecified, not intractable, without status migrainosus; D64.9 Anemia, unspecified; J44.9 Chronic obstructive pulmonary disease, unspecified; Z87.442 Personal history of urinary calculi; Z96.651 Presence of right artificial knee joint; Z90.5 Acquired absence of kidney; F17.210 Nicotine dependence, cigarettes, uncomplicated; Z88.2 Allergy status to sulfonamides; Z79.899 Other long term (current) drug therapy; Z80.3 Family history of malignant neoplasm of breast
CPT/HCPCS: G0121

== ENCOUNTER → 2018-05-16 | Outpatient (CLI) | payer OTHER ==
[~2018-05-16] MED LIST changes: +BUPIVACAINE HCL 0.25% 10 ML VIAL As Ordered; +BUPIVACAINE HCL 0.25% 30 ML VIAL As Ordered; -LIDOCAINE 2% INJ 100 MG/5 ML SDV (FOR ANES.) As Ordered; -PROPOFOL 200 MG/20 ML VIAL As Ordered; +TRIAMCINOLONE ACETONIDE SUSP 40 MG/ML VIAL (J3301) As Ordered; +diazePAM 5 MG TAB As Ordered; +oxyCODONE 5MG TAB As Ordered
== END ==
LOC: M PAIN 10:00
DX: G89.29 Other chronic pain (principal); M79.1 Myalgia; M54.2 Cervicalgia; K21.9 Gastro-esophageal reflux disease without esophagitis; G47.33 Obstructive sleep apnea (adult) (pediatric); G25.81 Restless legs syndrome; F32.9 Major depressive disorder, single episode, unspecified; F17.210 Nicotine dependence, cigarettes, uncomplicated; Z79.891 Long term (current) use of opiate analgesic; Z79.899 Other long term (current) drug therapy; Z88.2 Allergy status to sulfonamides; Z90.5 Acquired absence of kidney; Z98.84 Bariatric surgery status; Z96.651 Presence of right artificial knee joint
CPT/HCPCS: J3301

== ENCOUNTER → 2018-05-29 | Outpatient (CLI) | payer OTHER ==
[~2018-05-29] MED LIST changes: -BUPIVACAINE HCL 0.25% 10 ML VIAL As Ordered; +ISOVUE-M 300 61% 15ML VIAL (Q9967) As Ordered; +LIDOCAINE 1% SDV INJ 30 ML VIAL As Ordered; +diphenhydrAMINE 25 MG CAP As Ordered
== END ==
LOC: M PAIN 15:00
DX: M47.815 Spondylosis without myelopathy or radiculopathy, thoracolumbar region (principal); M47.816 Spondylosis without myelopathy or radiculopathy, lumbar region; G47.33 Obstructive sleep apnea (adult) (pediatric); K21.9 Gastro-esophageal reflux disease without esophagitis; K59.00 Constipation, unspecified; D64.9 Anemia, unspecified; K58.1 Irritable bowel syndrome with constipation; M79.7 Fibromyalgia; G25.81 Restless legs syndrome; F32.9 Major depressive disorder, single episode, unspecified; F17.210 Nicotine dependence, cigarettes, uncomplicated; J30.9 Allergic rhinitis, unspecified; N39.0 Urinary tract infection, site not specified; Z98.84 Bariatric surgery status; Z90.5 Acquired absence of kidney; Z90.49 Acquired absence of other specified parts of digestive tract; Z79.891 Long term (current) use of opiate analgesic; Z88.2 Allergy status to sulfonamides
CPT/HCPCS: J3301

== ENCOUNTER → 2018-06-08 | Outpatient (CLI) | payer OTHER | LOC: M PAIN 09:15 | DX: M51.26 Other intervertebral disc displacement, lumbar region (principal); M79.1 Myalgia; G47.33 Obstructive sleep apnea (adult) (pediatric); K21.9 Gastro-esophageal reflux disease without esophagitis; D64.9 Anemia, unspecified; K58.1 Irritable bowel syndrome with constipation; G25.81 Restless legs syndrome; F32.9 Major depressive disorder, single episode, unspecified; F17.210 Nicotine dependence, cigarettes, uncomplicated; J30.9 Allergic rhinitis, unspecified; Z79.899 Other long term (current) drug therapy; Z96.651 Presence of right artificial knee joint; Z90.49 Acquired absence of other specified parts of digestive tract; Z98.84 Bariatric surgery status; Z90.5 Acquired absence of kidney; Z88.2 Allergy status to sulfonamides; Z79.891 Long term (current) use of opiate analgesic | CPT/HCPCS: G0463 ==

== ENCOUNTER → 2018-06-19 | Outpatient (CLI) | payer OTHER ==
[~2018-06-19] MED LIST changes: -BUPIVACAINE HCL 0.25% 30 ML VIAL As Ordered; -TRIAMCINOLONE ACETONIDE SUSP 40 MG/ML VIAL (J3301) As Ordered; +methylPREDNISolone SUSP 40 MG/ML (DEPO-medrol) VIAL (J1030) As Ordered
== END ==
LOC: M PAIN 08:45
DX: M51.16 Intervertebral disc disorders with radiculopathy, lumbar region (principal); M48.061 Spinal stenosis, lumbar region without neurogenic claudication; G47.33 Obstructive sleep apnea (adult) (pediatric); K21.9 Gastro-esophageal reflux disease without esophagitis; K58.1 Irritable bowel syndrome with constipation; D64.9 Anemia, unspecified; F17.210 Nicotine dependence, cigarettes, uncomplicated; M79.7 Fibromyalgia; G25.81 Restless legs syndrome; J30.9 Allergic rhinitis, unspecified; F32.9 Major depressive disorder, single episode, unspecified; Z90.5 Acquired absence of kidney; Z87.442 Personal history of urinary calculi; Z96.651 Presence of right artificial knee joint; Z98.84 Bariatric surgery status; Z90.49 Acquired absence of other specified parts of digestive tract; Z79.891 Long term (current) use of opiate analgesic; Z79.899 Other long term (current) drug therapy; Z88.2 Allergy status to sulfonamides
CPT/HCPCS: J1030

== ENCOUNTER 2018-07-10 08:48 | Emergency (ER) | payer OTHER ==
[2018-07-10 09:15] LABS: BASO % 0.4 % (0.0-1.0); EOS # 0.1 10^3/uL (0.0-0.50); EOS % 0.5 % (0.0-3.0); HEMOGLOBIN 12.7 g/dl (12.0-15.5); IMMATURE GRANULOCYTE % 0.4 % (0-3.0); LYMPH # 3.1 10^3/uL (1.5-4.5); LYMPH % 31.2 % (24.0-44.0); MEAN CORPUSCULAR HEMOGLOBIN 27.3 pg (27.0-33.0); MEAN CORPUSCULAR HGB CONC 32.6 g/dl (32.0-36.5); MEAN CORPUSCULAR VOLUME 83.9 fl (80.0-96.0); MONO # 0.8 10^3/uL (0.0-0.8); MONO % 7.9 % (0.0-5.0); NEUTROPHILS # 5.9 10^3/uL (1.8-7.7); NEUTROPHILS % 59.6 % (36.0-66.0); PLATELET COUNT, AUTOMATED 203 10^3/uL (150-450); RED BLOOD COUNT 4.65 10^6/uL (4.00-5.40); RED CELL DISTRIBUTION WIDTH 15.2 % (11.5-14.5); WHITE BLOOD COUNT 9.9 10^3/uL (4.0-10.0)
[2018-07-10 09:35] LABS: INR 0.93; PROTHROMBIN TIME 12.6 SECONDS (12.1-14.4)
[2018-07-10 09:36] LABS: PARTIAL THROMBOPLASTIN TIME 25.6 SECONDS (25.4-37.6)
[2018-07-10 09:58] LABS: ALBUMIN 3.7 GM/DL (3.2-5.2); ALBUMIN/GLOBULIN RATIO 1.06 (1.00-1.93); ALKALINE PHOSPHATASE 92 U/L (45-117); ALT/SGPT 20 U/L (12-78); ANION GAP 7 MEQ/L (8-16); AST/SGOT 16 U/L (7-37); BILIRUBIN,DIRECT < 0.1 MG/DL (0.0-0.2); BILIRUBIN,TOTAL 0.3 MG/DL (0.2-1.0); BLOOD UREA NITROGEN 16 MG/DL (7-18); CALCIUM LEVEL 8.8 MG/DL (8.8-10.2); CARBON DIOXIDE LEVEL 27 MEQ/L (21-32); CHLORIDE LEVEL 107 MEQ/L (98-107); CPK CREATINE PHOSPHOKINASE 73 U/L (26-192); CREATININE FOR GFR 0.85 MG/DL (0.55-1.30); GLOMERULAR FILTRATION RATE > 60.0 (>45); GLUCOSE, FASTING 105 MG/DL (70-100); LIPASE 105 U/L (73-393); MB/CK RELATIVE INDEX 1.37 (< OR =4); POTASSIUM SERUM 3.9 MEQ/L (3.5-5.1); SODIUM LEVEL 141 MEQ/L (136-145); TOTAL PROTEIN 7.2 GM/DL (6.4-8.2); TROPONIN I < 0.02 NG/ML (< 0.10)
[2018-07-10] MEDS ORDERED: NITROGLYCERIN 0.4 MG SUBL TABLET As Ordered (10:08)
[2018-07-10] MEDS: NITROGLYCERIN 0.4 MG SUBL TABLET SL (10:11)
[2018-07-10] MEDS: CLOPIDOGREL 300 MG TAB (PLAVIX) PO (10:27)
[2018-07-10] MEDS: HEPARIN SOD (PORCINE) 5000 UNITS/ML VIAL IV (10:30)
[2018-07-10] MEDS: HEPARIN DRIP 25,000 UNITS in APPROPRIATE DILUENT 1 EA IV (10:31)
[2018-07-10] MEDS: ONDANSETRON 4MG/2ML VIAL (J2405) IV (10:38)
== END 2018-07-10 11:23 | disposition short-term general hospital (02) ==
LOC: M ED 08:48
DX: I24.9 Acute ischemic heart disease, unspecified (principal); I44.7 Left bundle-branch block, unspecified; F41.9 Anxiety disorder, unspecified; F32.9 Major depressive disorder, single episode, unspecified; M54.9 Dorsalgia, unspecified; G43.909 Migraine, unspecified, not intractable, without status migrainosus; Z87.442 Personal history of urinary calculi; Z98.84 Bariatric surgery status; Z72.0 Tobacco use
CPT/HCPCS: J2405

== ENCOUNTER → 2018-07-12 | Outpatient (CLI) | payer OTHER | LOC: M PAIN 11:15 | DX: M51.26 Other intervertebral disc displacement, lumbar region (principal); M79.18 Myalgia, other site; K21.9 Gastro-esophageal reflux disease without esophagitis; I10 Essential (primary) hypertension; G47.33 Obstructive sleep apnea (adult) (pediatric); G25.81 Restless legs syndrome; F32.9 Major depressive disorder, single episode, unspecified; J30.2 Other seasonal allergic rhinitis; F17.210 Nicotine dependence, cigarettes, uncomplicated; Z79.891 Long term (current) use of opiate analgesic; Z79.899 Other long term (current) drug therapy; Z88.2 Allergy status to sulfonamides; Z98.84 Bariatric surgery status; Z90.5 Acquired absence of kidney; Z96.651 Presence of right artificial knee joint; Z86.2 Personal history of diseases of the blood and blood-forming organs and certain disorders involving the immune mechanism; Z87.11 Personal history of peptic ulcer disease | CPT/HCPCS: G0463 ==

== ENCOUNTER → 2018-08-28 | Outpatient (CLI) | payer OTHER | LOC: M PAIN 09:15 | DX: M47.26 Other spondylosis with radiculopathy, lumbar region (principal); M46.94 Unspecified inflammatory spondylopathy, thoracic region; M79.7 Fibromyalgia; I10 Essential (primary) hypertension; G25.81 Restless legs syndrome; F32.9 Major depressive disorder, single episode, unspecified; G47.33 Obstructive sleep apnea (adult) (pediatric); K21.9 Gastro-esophageal reflux disease without esophagitis; J30.89 Other allergic rhinitis; Z79.891 Long term (current) use of opiate analgesic; Z79.899 Other long term (current) drug therapy; Z88.2 Allergy status to sulfonamides; Z90.5 Acquired absence of kidney; Z98.84 Bariatric surgery status; Z96.651 Presence of right artificial knee joint | CPT/HCPCS: G0463 ==

== ENCOUNTER → 2018-09-20 | Outpatient (CLI) | payer OTHER ==
[~2018-09-20] MED LIST changes: +/DULO30CA PO; +AMBI12.52 PO; +AUGM500T34 PO; +BENZ200C PO; +BUPIVACAINE HCL 0.25% 30 ML VIAL As Ordered ONE; +CALC500C8 PO; +CIPR500T19 PO; +CLON0.1D3 PO; +CLONI1TA PO; +FENT50PA TD; +FIORTAB PO; +FLUT50SP; +GABA100C PO; +HYDR-3363 PO; +HYDR25TAB PO; +IODICRY PO; -ISOVUE-M 300 61% 15ML VIAL (Q9967) As Ordered; +ISOVUE-M 300 61% 15ML VIAL (Q9967) As Ordered ONE; -LIDOCAINE 1% SDV INJ 30 ML VIAL As Ordered; +LIDOCAINE 1% SDV INJ 30 ML VIAL As Ordered ONE; +LUNE1TAB PO; +LUNE3TAB PO; +MILK120011 PO; +MORP-39 PO; +MORP60TA PO; +OXYC10TA3 PO; +OXYC1TAB15 PO; +PAXI20TA29 PO; +PERC7.5T12 PO; +PREG100CA PO; +PREG50CA PO; +PRIL20CA9 PO; +PRIL20TA2 PO; +PROBCAP4 PO; +PYRI1TAB5 PO; +RANI150T PO; +RELP40TA PO; +ROXI1TAB2 PO; +SERT-155 PO; +SOMA250T PO; +SOMA350T PO; +SUCR1TAB56 PO; +TIZA4CAP PO; +TIZA4TAB3 PO; +TRAZ50TA2 PO; +TRIAMCINOLONE ACETONIDE SUSP 40 MG/ML VIAL (J3301) As Ordered ONE; +TYLE650T25 PO; +VITA250L SL; +VITA500019 PO; +VITATAB PO; +ZOLP10TA2 PO; -diazePAM 5 MG TAB As Ordered; +diazePAM 5 MG TAB As Ordered ONE; -diphenhydrAMINE 25 MG CAP As Ordered; +diphenhydrAMINE 25 MG CAP As Ordered ONE; -methylPREDNISolone SUSP 40 MG/ML (DEPO-medrol) VIAL (J1030) As Ordered; -oxyCODONE 5MG TAB As Ordered; +oxyCODONE 5MG TAB As Ordered ONE
--- NOTE | 2018-09-20 13:54 | REP ---
Partial lumbar spine series: Two views . History: Injection procedure for pain. 14 seconds of fluoroscopy time is reported. Findings: A sequence of two fluoroscopically obtained last image hold procedural spot radiographs of the lumbar spine document needle position and contrast injection associated with injection procedure. Electronically Signed by Luis Paul MD 09/20/2018 01:45 P
--- NOTE | 2018-10-07 23:51 | ECWPNPC ---
PATIENT NAME: ANGLE RASHEED : 1960 GENDER: FEMALE VISIT DATE: 09/20/2018 DISCHARGE DATE: 09/20/18 1025 VISIT LOCKED DATE TIME: PHYSICIAN: VERONICA FERGUSON MD RESOURCE: VERONICA FERGUSON MD REASON FOR APPOINTMENT 1. BILAT.L3/4-L4/5 LUMBAR THERAPEUTIC FACET BLOCK. THANK YOU HISTORY OF PRESENT ILLNESS HISTORY OF PRESENT ILLNESS: PAIN THE PATIENT DESCRIBES THE PAIN... FALL RISK SCREENING: SCREENING :NO FALLS IN THE PAST YEAR CURRENT MEDICATIONS TAKING RELPAX 40 MG TABLET 1 TABLET NEEDED ONE TIME ORALLY ONCE A DAY, NOTES: 2 WEEKS AGO TAKING PYRIDIUM 100 MG TABLET 1 TABLETS AFTER MEALS ORALLY THREE TIMES A DAY, NOTES: 013 TAKING HYDROXYZINE HCL 25 MG TABLET 1 TABLET NEEDED ORALLY EVERY 8 HRS, NOTES: 013 TAKING OMEPRAZOLE 40 MG CAPSULE DELAYED RELEASE 1 CAPSULE ORALLY AT NIGHT, NOTES: 09/19/18@1900 TAKING SERTRALINE HCL 50 MG TABLET 1 TABLET ORALLY ONCE A DAY, NOTES: 013 TAKING SUCRALFATE 1 GM TABLET 1 TABLET ON AN EMPTY STOMACH BEFORE MEALS ORALLY TWICE A DAY, NOTES: 0330 TAKING METOPROLOL SUCCINATE 25 MG CAPSULE ER 24 HOUR SPRINKLE 1 CAPSULE ORALLY ONCE A DAY, NOTES: 013 TAKING LYRICA 75 MG CAPSULE 1 CAPSULE ORALLY BID, NOTES: 0130 TAKING FENTANYL 12 MCG/HR PATCH 72 HOUR 1 PATCH TO SKIN TRANSDERMAL 1 PATCH X13R=IXD, NOTES: 0630 TAKING OXYCODONE-ACETAMINOPHEN 7.5-325 MG TABLET 1-2 TABLET NEEDED ORALLY Q8H PRN MDD3, NOTES: 013 TAKING TIZANIDINE HCL 4 MG TABLET 1 TABLET NEEDED ORALLY THREE TIMES A DAY, NOTES: 09/19/18@1900 TAKING OMEPRAZOLE 10 MG CAPSULE DELAYED RELEASE 1 CAPSULE ORALLY ONCE A DAY IN THE AM NOT-TAKING SOMA 350 MG TABLET 1 TABLET NEEDED ORALLY BID MDD2, NOTES: 0130 DISCONTINUED MACROBID 100 MG CAPSULE 1 CAPSULE WITH FOOD ORALLY EVERY 12 HRS DISCONTINUED ESTRACE 0.1 MG/GM CREAM DIRECTED VAGINAL 3X/WEEK DISCONTINUED NORCO 7.5-325 MG TABLET 1 TABLET NEEDED ORALLY Q8H PRN MDD3 DISCONTINUED PREDNISONE 10 MG TABLET 1-5 TAB DIRECTED X10 DAYS ORALLY 5 TAB X2DAYS,4 TSBX2 DAYS,3TABX 2DAYS,2 [id number],1 TAB X2 DAYS.TAKE WITH FOOD IN AM DISCONTINUED ZANTAC 150 MG TABLET 1 TABLET AT BEDTIME ORALLY ONCE A DAY MEDICATION LIST REVIEWED AND RECONCILED WITH THE PATIENT PAST MEDICAL HISTORY GLORY- USES CPAP KIDNEY STONES GERD CONSTIPATION CHRONIC BACK PAIN/NECK PAIN ANEMIA IBS FIBROMYALGIA RESTLESS LEG SYNDROME DEPRESSION ATROPHIC KIDNEY - S/P NEPHRECTOMY UTI GASTRIC ULCER AND LESIONS HTN ALLERGIES SULFA (FOR ALLERGY USE ONLY): UNKNOWN - CHILD: ALLERGY ENVIROMENTAL: SINUS INFECTION: ALLERGY SURGICAL HISTORY PARTIAL HYSTERECTOMY 1986 BREAST REDUCTION 2001 CHOLECYSTECTOMY 1981 GASTRIC BYPASS 2011 RIGHT, KNEE REPLACEMENT 2011 APPENDECTOMY 2010 ROBOTIC ASSISTED LEFT NEPHRECTOMY 03/18/2014 COLONOSCOPY, EGD 05/08/18 HERNIA REPAIR 2015 FAMILY HISTORY FATHER: ALIVE, DIAGNOSED WITH CANCER MOTHER: ALIVE, DIAGNOSED WITH STROKE, CANCER 3 BROTHER(S) , 2 SISTER(S) . 1 SON(S) , 3 DAUGHTER(S) - HEALTHY. FATHER HAD PROSTATE CANCER, ROSALINO BARRE SYNDROME,MELANOMAMOTHER - SKIN CANCER, THYROID CA. SOCIAL HISTORY GENERAL: TOBACCO USE ARE YOU A:CURRENT SMOKER ARE YOU INTERESTED IN QUITTING?NOT READY TO QUIT COUNSELED THE PATIENT ON SMOKING EFFECTS, EDUCATION [id number]/20/2018 HOW MANY CIGARETTES A DAY DO YOU SMOKE?- PATIENT COUNSELED ON THE DANGERS OF TOBACCO USE AND URGED TO QUIT:09/20/2018 ALCOHOL SCREENING DID YOU HAVE A DRINK CONTAINING ALCOHOL IN THE PAST YEAR?NO POINTS0 INTERPRETATIONNEGATIVE RECREATIONAL DRUG USE DRUG USE?NO CAFFEINE CAFFEINE USE?YES HOW OFTEN AND HOW MUCH? 2 CUPS OF GREEN TEA 01/26/18 - 5-6 CUPS PER DAY SEXUAL HX HAD SEX IN THE LAST 12 MONTHS (VAGINAL, ORAL, OR ANAL)?YES WITHMEN ONLY USE PROTECTION?NO HAVE YOU EVER HAD AN STD?NO [id number] L[employer]UAGES SPOKEN:ARABIC EDUCATION LEVEL OF EDUCATION:COLLEGE LEARNING BARRIERS / SPECIAL NEEDS CHANGE FROM LAST VISIT?NO BARRIERS TO LEARNING?NO HEARING IMPAIRED?NO VISION IMPAIRED?NO COGNITIVELY IMPAIRED?NO READINESS TO LEARN?YES LEARNING PREFERENCES?YES :BOOKLETS, HANDOUTS LEARNING CAPABILITIES PRESENT?YES EMOTIONAL BARRIERS?NO SPECIAL DEVICES?NO STEAM BRUSH OPERATOR NEEDED?NO DOMESTIC VIOLENCE DO YOU FEEL SAFE IN YOUR ENVIRONMENT?YES DIET: REGULAR. EXERCISE: WALKS EVERY OTHER DAY. MARITAL STATUS: . PAIN CLINIC PFS, CLERGY, PUBLIC HEALTH REFERRALS PFS REFERRAL NEEDED?NO CLERGY REFERRAL NEEDED?NO PUBLIC HEALTH REFERRAL NEEDED?NO WAS THE PROVIDER NOTIFIED OF ANY PERTINENT INFO? N/A HAS THE PATIENT BEEN EDUCATED REGARDING HIS/HER PLAN OF CARE?YES HAS THE PATIENT BEEN EDUCATED REGARDING PAIN, THE RISK FOR PAIN, THE IMPORTANCE OF EFFECTIVE PAIN MANAGEMENT, AND THE PAIN ASSESSMENT PROCESS?YES ADVANCE DIRECTIVE ADVANCE DIRECTIVE DISCUSSED WITH PATIENT:YES DECLINED INFORMATION 09/20/18 REVIEWED VD 05/16/18 1044 REVIEWED WITH PT. AD REVIEWED WITH PATIENT 07/12/18 1140 JS. HOSPITALIZATION/MAJOR DIAGNOSTIC PROCEDURE BACK PAIN - ([facility]) MULTIPLE BRONCHITIS 2013 PNEUMONIA 2016 SURGERIES REVIEW OF SYSTEMS REVIEWED BY: PROVIDER: . CONSTITUTIONAL: ANY CHANGE IN YOUR MEDICAL CONDITION? NO . CHILLS NO . FEVER NO . INFECTION: DO YOU HAVE NEW INFECTIONS? NO . DO YOU HAVE HISTORY OF MRSA? NO . MUSCULOSKELETAL: ANY NEW PATTERNS OF PAIN OR NUMBNESS? NO . GASTROENTEROLOGY: ANY NEW CHANGE IN BOWEL CONTROL? NO . GENITOURINARY: ANY NEW CHANGE IN BLADDER CONTROL? NO . IS THERE A CHANCE YOU COULD BE ? NO . HEMATOLOGY/LYMPH: DO YOU TAKE ANY BLOOD THINNERS? (FOR EXAMPLE- COUMADIN, PLAVIX, AGGRENOX, PLATEL, PRADAXA, OR XARELTO) NO . WHEN WAS YOUR LAST DOSE? DATE: TIME: . NEUROLOGY: HAVE YOU FALLEN IN THE PAST 6 MONTHS? NO . ANY NEW EXTREMITY NUMBNESS OR WEAKNESS? NO . CARDIOLOGY: DO YOU HAVE A PACEMAKER OR DEFIBRILLATOR? NO . RESPIRATORY: HAVE YOU BEEN SICK IN THE PAST WEEK? NO . FEVER NO . FLU LIKE SYMPTOMS? NO . COUGH NO . INTEGUMENTARY: DO YOU HAVE ANY RASHES OR OPEN SORES? NO . ALLERGIC/IMMUNO: ARE YOU ALLERGIC TO SHELLFISH OR IV DYE? NO . ANY NEW ALLERGIES? NO . PSYCHIATRIC: DO YOU HAVE THOUGHTS OF HURTING YOURSELF OR SOMEONE ELSE? NO . ARE YOU ABUSED, NEGLECTED, OR IN AN UNSAFE ENVIRONMENT? NO . ENDOCRINOLOGY: ARE YOU DIABETIC? NO . OTHER: DO YOU NEED ANY PRESCRIPTIONS? NO . IF YES, PLEASE LIST: ____ . ANY NEW PROBLEMS WITH YOUR MEDICATIONS? NO . WHEN DID YOU LAST EAT? ____09/19/18 . WHEN DID YOU LAST DRINK? ____0100 . WHAT DID YOU LAST DRINK? ____WATER . NAME OF PERSON DRIVING YOU HOME? ____[facility] . DO YOU HAVE ANY OTHER QUESTIONS OR CONCERNS NO . VITAL SIGNS WT 208.7 LBS, HT 64 IN, BMI 35.82 INDEX, BP 141/73 MM HG, HR 71 /MIN, RR 18 /MIN, TEMP 96.9 F, OXYGEN SAT % 98%, SAFE IN ENV? (Y/N) Y, NA INITIALS WY 08:41, REVIEWED BY: VD. ASSESSMENTS SPONDYLOSIS OF LUMBAR REGION WITHOUT MYELOPATHY OR RADICULOPATHY - M47.816 (PRIMARY) PROCEDURES PN LUMBAR FACET BLOCK THERAPEUTIC PRE PROCEDURE DIAGNOSIS LUMBAR SPONDYLOSIS POST PROCEDURE DIAGNOSIS LUMBAR SPONDYLOSIS PROCEDURE BILATERAL L3-L4 AND BILATERAL L4-L5 LUMBAR FACET THERAPEUTIC BLOCK SURGEON DR. VERONICA FERGUSON TIER LIFT OPERATOR NONE ANESTHESIA LOCAL PRE PROCEDURE NOTE THE PATIENT HAS A HISTORY OF CHRONIC LOW BACK PAIN. I EVALUATE THE PATIENT AND REVIEWED THE CHART. I WENT OVER THE RISKS, ALTERNATIVES, AND BENEFITS ASSOCIATED WITH THIS PROCEDURE. THE PATIENT WOULD LIKE TO PROCEED AND GIVE CONSENT TO PERFORMED THE PROCEDURE. THE PATIENT DENIES UNEXPLAINABLE WEIGHT LOSS, FEVER, CHILLS, OR NEW CHANGES IN URINARY OR BOWEL CONTROL DESCRIPTION OF PROCEDURE THE PATIENT WAS BROUGHT TO THE PROCEDURE ROOM AND PLACED IN THE PRONE POSITION. THE LUMBOSACRAL AREA WAS CLEANED WITH CHLORAPREP SOLUTION AND DRAPED ASEPTICALLY. THE PROCEDURE WAS DONE UNDER STERILE CONDITIONS. I CHECKED LATERALITY AND THE LEVEL WHERE THE PROCEDURE WAS GOING TO BE PERFORMED WITH THE PATIENT AND THE SUPPORTING STAFF AT THE MOMENT OF THE TIME OUT IN THE PROCEDURE ROOM. UNDER FLUOROSCOPIC GUIDANCE, THE TARGET POINT WAS SELECTED AT THE RIGHT AND LEFT L3-L4 AND RIGHT AND LEFT L4-L5 FACET JOINT. TARGET POINT WAS SELECTED AFTER LATERAL ROTATION AND TILT OF THE MAGNIFIER OF THE C-ARM. LIDOCAINE 0.5% WAS USED TO NUMB THE SKIN AND THE SUBCUTANEOUS TISSUE BELOW IT. SPINAL NEEDLES, 22-GAUGE, WERE ADVANCED UNDER FLUOROSCOPIC GUIDANCE AND FOLLOWING PATIENT FEEDBACK UNTIL THE TARGETS WERE TOUCHED. THE POSITION OF THE NEEDLES WAS VERIFIED WITH AP AND LATERAL VIEWS. AFTER PROPER POSITION OF THE NEEDLES WAS ACHIEVED, ISOVUE-M DYE 30% 0.1 ML WAS INJECTED SHOWING ADEQUATE SPREAD OF THE DYE. THEN A SOLUTION OF 1.9 ML OF BUPIVACAINE 0.125% OF KENALOG 10 MG WAS INJECTED AT EACH SITE. THERE WAS NO EVIDENCE OF BLOOD, PARESTHESIA OR CEREBROSPINAL FLUID DURING THE PROCEDURE. THE PATIENT WAS SENT TO THE RECOVERY ROOM. THE PATIENT WAS MOVING THE EXTREMITIES AND DOING WELL. THERE WAS NO COMPLICATION DURING THE PROCEDURE. FLUOROSCOPY TIME WAS 33 SECONDS POST PROCEDURE NOTE THE PATIENT WILL BE SEEN IN A FOLLOW UP IN THE NEXT FEW WEEKS. INSTRUCTIONS WERE GIVEN, QUESTIONS WERE ANSWERED, AND THE PATIENT EXPRESSED UNDERSTANDING AND AGREES WITH THE PLAN. I, CARLA MEJIA, DOCUMENTED THE ABOVE INFORMATION ACTING A SCRIBE FOR DR. FERGUSON. I HAVE REVIEWED THE ABOVE DOCUMENT, WRITTEN BY CARLA MEJIA SCRIBGaby AND I VERIFY THAT IT IS ACCURATE. DIAGNOSTIC IMAGING [facility] FACET BLOCK (PAIN)[id number] PROCEDURE CODES 6045F RADXPS IN END [id number] PXD [id number] INJ PARAVERT F JNT L/S 1 LEV, MODIFIERS: 50 [id number] INJ PARAVERT F JNT L/S 2 LEV, MODIFIERS: 50 DISPOSITION & COMMUNICATION FOLLOW UP 3 WEEKS ELECTRONICALLY SIGNED BY VERONICA FERGUSON MD, MD ON 10/07/2018 AT 02:25 PM EST DISCLAIMER : THIS IS A VISIT SUMMARY EXTRACTED FROM THE [employer] CHART. IT IS NOT A COPY OF THE [employer] PROGRESS NOTE. MTDÁngel
== END ==
LOC: M PAIN 08:30
PROVIDERS: ATTEND Anesthesiology
DX: G89.29 Other chronic pain (principal); M47.816 Spondylosis without myelopathy or radiculopathy, lumbar region; K21.9 Gastro-esophageal reflux disease without esophagitis; G47.33 Obstructive sleep apnea (adult) (pediatric); M79.7 Fibromyalgia; I10 Essential (primary) hypertension; G25.81 Restless legs syndrome; F32.9 Major depressive disorder, single episode, unspecified; F17.210 Nicotine dependence, cigarettes, uncomplicated; J30.89 Other allergic rhinitis; E66.01 Morbid (severe) obesity due to excess calories; Z68.35 Body mass index [BMI] 35.0-35.9, adult; Z79.899 Other long term (current) drug therapy; Z88.2 Allergy status to sulfonamides; Z90.5 Acquired absence of kidney; Z98.84 Bariatric surgery status; Z96.651 Presence of right artificial knee joint
CPT/HCPCS: 64493; 64494; J3301; Q9967

== ENCOUNTER → 2019-04-18 | Outpatient (CLI) | payer OTHER ==
[~2019-04-18] MED LIST changes: -/DULO30CA PO; +CYMB1CAP5 PO; +FENT50DI33 TD; -FENT50PA TD; +HYDR-2541 PO; -HYDR25TAB PO; +ISOVUE-M 200 41% 20ML VIAL (Q9966) As Ordered ONE; -ISOVUE-M 300 61% 15ML VIAL (Q9967) As Ordered ONE
--- NOTE | 2019-04-18 14:15 | REP ---
Partial lumbar spine series: Four views . History: Injection procedure for pain. 33 seconds of fluoroscopy time is reported. Findings: A sequence of four fluoroscopically obtained last image hold procedural spot radiographs of the lumbar spine document needle position and contrast injection associated with injection procedure. Electronically Signed by Luis Paul MD 04/18/2019 02:06 P
--- NOTE | 2019-04-28 23:32 | ECWPNPC ---
PATIENT NAME: ANGLE RASHEED : 1960 GENDER: FEMALE VISIT DATE: 04/18/2019 DISCHARGE DATE: 04/18/19 1253 VISIT LOCKED DATE TIME: PHYSICIAN: VERONICA FERGUSON MD RESOURCE: VERONICA FERGUSON MD REASON FOR APPOINTMENT 1. BILAT.L2-L3, L3-L4, L4-L5 LFBT HISTORY OF PRESENT ILLNESS HISTORY OF PRESENT ILLNESS: PAIN THE PATIENT DESCRIBES THE PAIN... FALL RISK SCREENING: SCREENING :NO FALLS REPORTED IN THE LAST YEAR CURRENT MEDICATIONS TAKING PYRIDIUM 100 MG TABLET 1 TABLETS AFTER MEALS ORALLY THREE TIMES A DAY, NOTES: 2 WEEKS AGO TAKING HYDROXYZINE HCL 25 MG TABLET 1 TABLET NEEDED ORALLY EVERY 8 HRS, NOTES: WEEK AGO TAKING OMEPRAZOLE 20 MG CAPSULE DELAYED RELEASE 1 CAPSULE ORALLY AT NIGHT, NOTES: 329 TAKING SERTRALINE HCL 50 MG TABLET 1 TABLET ORALLY ONCE A DAY, NOTES: 04/17/19 1300 TAKING SUCRALFATE 1 GM TABLET 1 TABLET ON AN EMPTY STOMACH BEFORE MEALS ORALLY TWICE A DAY, NOTES: MONTH AGO TAKING MAY USE CBD OIL, NOTES: 04/17/19 2200 TAKING KETOGEN - POWDER DIRECTED ORALLY , NOTES: 04/17/19 0730 TAKING TIZANIDINE HCL 4 MG TABLET 1 TABLET NEEDED ORALLY THREE TIMES A DAY, NOTES: 0330 TAKING RELPAX 40 MG TABLET 1 TABLET NEEDED ONE TIME ORALLY ONCE A DAY, NOTES: MONTH AGO TAKING LYRICA 75 MG CAPSULE 1 CAPSULE ORALLY BID, NOTES: 0330 TAKING OXYCODONE-ACETAMINOPHEN 7.5-325 MG TABLET 1-2 TABLET NEEDED ORALLY Q8H PRN MDD3, NOTES: 0330 TAKING SOMA 350 MG TABLET 1 TABLET NEEDED ORALLY BID MDD2, NOTES: 0330 NOT-TAKING METOPROLOL SUCCINATE 25 MG CAPSULE ER 24 HOUR SPRINKLE 1 CAPSULE ORALLY ONCE A DAY NOT-TAKING OMEPRAZOLE 10 MG CAPSULE DELAYED RELEASE 1 CAPSULE ORALLY ONCE A DAY IN THE AM, NOTES: DUPLICATE NOT-TAKING TIZANIDINE HCL 4 MG TABLET 1 TABLET NEEDED ORALLY THREE TIMES A DAY, NOTES: DUPLICATE NOT-TAKING FENTANYL 12 MCG/HR PATCH 72 HOUR 1 PATCH TO SKIN TRANSDERMAL 1 PATCH [id number]=HVY MEDICATION LIST REVIEWED AND RECONCILED WITH THE PATIENT PAST MEDICAL HISTORY GLORY- USES CPAP KIDNEY STONES GERD CONSTIPATION CHRONIC BACK PAIN/NECK PAIN ANEMIA IBS FIBROMYALGIA RESTLESS LEG SYNDROME DEPRESSION ATROPHIC KIDNEY - S/P NEPHRECTOMY UTI GASTRIC ULCER AND LESIONS HTN ALLERGIES SULFA (FOR ALLERGY USE ONLY): UNKNOWN - CHILD - ALLERGY ENVIROMENTAL: SINUS INFECTION - ALLERGY SURGICAL HISTORY PARTIAL HYSTERECTOMY 1986 BREAST REDUCTION 2001 CHOLECYSTECTOMY 1981 GASTRIC BYPASS 2011 RIGHT, KNEE REPLACEMENT 2011 APPENDECTOMY 2010 ROBOTIC ASSISTED LEFT NEPHRECTOMY 03/18/2014 COLONOSCOPY, EGD 05/08/18 HERNIA REPAIR 2016 FAMILY HISTORY FATHER: ALIVE, DIAGNOSED WITH CANCER MOTHER: ALIVE, STROKE, CANCER 3 BROTHER(S) , 2 SISTER(S) . 1 SON(S) , 3 DAUGHTER(S) - HEALTHY. FATHER HAD PROSTATE CANCER, ROSALINO BARRE SYNDROME,MELANOMA\NMOTHER - SKIN CANCER, THYROID CA. SOCIAL HISTORY GENERAL: TOBACCO USE ARE YOU A:CURRENT SMOKER ARE YOU INTERESTED IN QUITTING?NOT READY TO QUIT COUNSELED THE PATIENT ON SMOKING EFFECTS, EDUCATION [id number]/18/2019 HOW MANY CIGARETTES A DAY DO YOU SMOKE?11-20 PATIENT COUNSELED ON THE DANGERS OF TOBACCO USE AND URGED TO QUIT:04/18/2019 EDUCATION LEVEL OF EDUCATION:COLLEGE DIET: REGULAR. LANGUAGE LANGUAGES SPOKEN:[place]IZEN OF [place] DOMESTIC VIOLENCE DO YOU FEEL SAFE IN YOUR ENVIRONMENT?YES RECREATIONAL DRUG USE DRUG USE?NO EXERCISE: WALKS EVERY OTHER DAY. LEARNING BARRIERS / SPECIAL NEEDS CHANGE FROM LAST VISIT?NO BARRIERS TO LEARNING?NO HEARING IMPAIRED?NO VISION IMPAIRED?NO COGNITIVELY IMPAIRED?NO READINESS TO LEARN?YES LEARNING PREFERENCES?YES :BOOKLETS, HANDOUTS LEARNING CAPABILITIES PRESENT?YES EMOTIONAL BARRIERS?NO SPECIAL DEVICES?NO BETTING AGENCY MANAGER NEEDED?NO PAIN CLINIC PFS, CLERGY, PUBLIC HEALTH REFERRALS PFS REFERRAL NEEDED?NO CLERGY REFERRAL NEEDED?NO PUBLIC HEALTH REFERRAL NEEDED?NO WAS THE PROVIDER NOTIFIED OF ANY PERTINENT INFO?YES N/A HAS THE PATIENT BEEN EDUCATED REGARDING HIS/HER PLAN OF CARE?YES HAS THE PATIENT BEEN EDUCATED REGARDING PAIN, THE RISK FOR PAIN, THE IMPORTANCE OF EFFECTIVE PAIN MANAGEMENT, AND THE PAIN ASSESSMENT PROCESS?YES LATEX QUESTIONNAIRE LATEX ALLERGY : HAVE YOU EVER DEVELOPED ANY TYPE OF REACTION AFTER HANDLING LATEX PRODUCTS SUCH RUBBER GLOVES, CONDOMS, DIAPHRAGMS, BALLOONS, SOCKS, OR UNDERWEAR?NO LATEX ALLERGY : HAVE YOU EVER DEVELOPED ANY TYPE OF REACTION DURING OR AFTER DENTAL APPOINTMENT, VAGINAL/RECTAL EXAMINATION, SURGICAL PROCEDURE, OR ANY OTHER EXPOSURE?NO LATEX RISK : HAVE YOU EVER HAD ANY DIFFICULTY BREATHING OR HIVES AFTER EATING OR HANDLING ANY FRUITS, OR VEGETABLES; SUCH KIWI, BANANAS, STONE FRUITS, OR CHESTNUTSNO LATEX RISK : DO YOU HAVE A PREVIOUS PERSONAL HISTORY OF MORE THAN NINE SURGERIES, SPINA BIFIDA, OR REPEATED CATHERIZATIONS? NO LATEX RISK : ARE YOU FREQUENTLY EXPOSED TO LATEX PRODUCTS IN YOUR OCCUPATION?NO DATE ASKED : 02/06/2019 CAFFEINE CAFFEINE USE?YES HOW OFTEN AND HOW MUCH? 2 CUPS OF GREEN TEA 01/26/18 - 5-6 CUPS PER DAY ADVANCE DIRECTIVE ADVANCE DIRECTIVE DISCUSSED WITH PATIENT:YES PATIENT DECLINED HCP INFORMATION AT THIS TIME. MUSLIM [id number] BAPTISM MARITAL STATUS: . ALCOHOL SCREENING DID YOU HAVE A DRINK CONTAINING ALCOHOL IN THE PAST YEAR?NO POINTS0 INTERPRETATIONNEGATIVE SEXUAL HX HAD SEX IN THE LAST 12 MONTHS (VAGINAL, ORAL, OR ANAL)?YES WITHMEN ONLY USE PROTECTION?NO HAVE YOU EVER HAD AN STD?NO 05/16/18 1044 REVIEWED WITH PT. AD REVIEWED WITH PATIENT 07/12/18 1140 JSREVIEWED WITH PATIENT 04/18/19 0944 JS. HOSPITALIZATION/MAJOR DIAGNOSTIC PROCEDURE BACK PAIN - ([facility]) MULTIPLE BRONCHITIS 2013 PNEUMONIA 2016 SURGERIES REVIEW OF SYSTEMS REVIEWED BY: PROVIDER: . CONSTITUTIONAL: ANY CHANGE IN YOUR MEDICAL CONDITION? NO . CHILLS NO . FEVER NO . INFECTION: DO YOU HAVE NEW INFECTIONS? NO . DO YOU HAVE HISTORY OF MRSA? NO . MUSCULOSKELETAL: ANY NEW PATTERNS OF PAIN OR NUMBNESS? NO . GASTROENTEROLOGY: ANY NEW CHANGE IN BOWEL CONTROL? NO . GENITOURINARY: ANY NEW CHANGE IN BLADDER CONTROL? YES, STATES URGENCY/FREQUENCY WITH SOME INCONTINENCE . IS THERE A CHANCE YOU COULD BE ? NO . HEMATOLOGY/LYMPH: DO YOU TAKE ANY BLOOD THINNERS? (FOR EXAMPLE- COUMADIN, PLAVIX, AGGRENOX, PLATEL, PRADAXA, OR XARELTO) NO . WHEN WAS YOUR LAST DOSE? DATE: TIME: . NEUROLOGY: HAVE YOU FALLEN IN THE PAST 12 MONTHS? YES, STATES PRIOR TO LAST VISIT, DISCUSSED AT PREVIOUS VISIT . ANY NEW EXTREMITY NUMBNESS OR WEAKNESS? YES, STATES INCREASED WEAKNESS TO LEFT LEG . CARDIOLOGY: DO YOU HAVE A PACEMAKER OR DEFIBRILLATOR? NO . RESPIRATORY: HAVE YOU BEEN SICK IN THE PAST WEEK? NO . FEVER NO . FLU LIKE SYMPTOMS? NO . COUGH NO . INTEGUMENTARY: DO YOU HAVE ANY RASHES OR OPEN SORES? NO . ALLERGIC/IMMUNO: ARE YOU ALLERGIC TO IV DYE? NO . ANY NEW ALLERGIES? NO . PSYCHIATRIC: DO YOU HAVE THOUGHTS OF HURTING YOURSELF OR SOMEONE ELSE? NO . ARE YOU ABUSED, NEGLECTED, OR IN AN UNSAFE ENVIRONMENT? NO . ENDOCRINOLOGY: ARE YOU DIABETIC? NO . OTHER: DO YOU NEED ANY PRESCRIPTIONS? NO . IF YES, PLEASE LIST: ____ . ANY NEW PROBLEMS WITH YOUR MEDICATIONS? NO . WHEN DID YOU LAST EAT? ____04/17/191999 . WHEN DID YOU LAST DRINK? ____04/18/19 0345 . WHAT DID YOU LAST DRINK? ____WATER . NAME OF PERSON DRIVING YOU HOME? ____WESTLEY OLVERAELL . DO YOU HAVE ANY OTHER QUESTIONS OR CONCERNS NO . VITAL SIGNS WT 207 LBS, HT 64 IN, BMI 35.53 INDEX, BP 165/73 MM HG, HR 83 /MIN, RR 18 /MIN, TEMP 96.3 F, OXYGEN SAT % 99%, SAFE IN ENV? (Y/N) YES, NA INITIALS [place] 09:32, REVIEWED BY: ALVAREZ. ASSESSMENTS SPONDYLOSIS OF LUMBAR REGION WITHOUT MYELOPATHY OR RADICULOPATHY - M47.816 (PRIMARY) PROCEDURES PN LUMBAR FACET BLOCK THERAPEUTIC PRE PROCEDURE DIAGNOSIS LUMBAR SPONDYLOSIS POST PROCEDURE DIAGNOSIS LUMBAR SPONDYLOSIS PROCEDURE BILATERAL L2-L3, BILATERAL L3-L4, AND BILATERAL L4-L5 LUMBAR FACET THERAPEUTIC BLOCK SURGEON DR. VERONICA FERGUSON MELT HOUSE SUPERVISOR NONE ANESTHESIA LOCAL PRE PROCEDURE NOTE THE PATIENT HAS A HISTORY OF CHRONIC LOW BACK PAIN. I EVALUATE THE PATIENT AND REVIEWED THE CHART. I WENT OVER THE RISKS, ALTERNATIVES, AND BENEFITS ASSOCIATED WITH THIS PROCEDURE. THE PATIENT WOULD LIKE TO PROCEED AND GIVE CONSENT TO PERFORMED THE PROCEDURE. THE PATIENT DENIES UNEXPLAINABLE WEIGHT LOSS, FEVER, CHILLS, OR NEW CHANGES IN URINARY OR BOWEL CONTROL DESCRIPTION OF PROCEDURE THE PATIENT WAS BROUGHT TO THE PROCEDURE ROOM AND PLACED IN THE PRONE POSITION. THE LUMBOSACRAL AREA WAS CLEANED WITH CHLORAPREP SOLUTION AND DRAPED ASEPTICALLY. THE PROCEDURE WAS DONE UNDER STERILE CONDITIONS. I CHECKED LATERALITY AND THE LEVEL WHERE THE PROCEDURE WAS GOING TO BE PERFORMED WITH THE PATIENT AND THE SUPPORTING STAFF AT THE MOMENT OF THE TIME OUT IN THE PROCEDURE ROOM. UNDER FLUOROSCOPIC GUIDANCE, THE TARGET POINT WAS SELECTED AT THE RIGHT AND LEFT L2-L3, RIGHT AND LEFT L3-L4, AND RIGHT AND LEFT L4-L5 FACET JOINT. TARGET POINT WAS SELECTED AFTER LATERAL ROTATION AND TILT OF THE MAGNIFIER OF THE C-ARM. LIDOCAINE 0.5% WAS USED TO NUMB THE SKIN AND THE SUBCUTANEOUS TISSUE BELOW IT. SPINAL NEEDLES, 22-GAUGE, WERE ADVANCED UNDER FLUOROSCOPIC GUIDANCE AND FOLLOWING PATIENT FEEDBACK UNTIL THE TARGETS WERE TOUCHED. THE POSITION OF THE NEEDLES WAS VERIFIED WITH AP AND LATERAL VIEWS. AFTER PROPER POSITION OF THE NEEDLES WAS ACHIEVED, ISOVUE M-200 DYE WAS INJECTED SHOWING ADEQUATE SPREAD OF THE DYE. THEN A SOLUTION OF 1.9 ML OF BUPIVACAINE 0.125% OF KENALOG 10 MG WAS INJECTED AT EACH SITE. THERE WAS NO EVIDENCE OF BLOOD, PARESTHESIA OR CEREBROSPINAL FLUID DURING THE PROCEDURE. THE PATIENT WAS SENT TO THE RECOVERY ROOM. THE PATIENT WAS MOVING THE EXTREMITIES AND DOING WELL. THERE WAS NO COMPLICATION DURING THE PROCEDURE. FLUOROSCOPY TIME WAS 33 SECONDS POST PROCEDURE NOTE THE PATIENT WILL BE SEEN IN A FOLLOW UP IN THE NEXT FEW WEEKS. INSTRUCTIONS WERE GIVEN, QUESTIONS WERE ANSWERED, AND THE PATIENT EXPRESSED UNDERSTANDING AND AGREES WITH THE PLAN. I, CARLA MEJIA, DOCUMENTED THE ABOVE INFORMATION ACTING A SCRIBE FOR DR. FERGUSON. I HAVE REVIEWED THE ABOVE DOCUMENT, WRITTEN BY CARLA MOTA AND I VERIFY THAT IT IS ACCURATE. DIAGNOSTIC IMAG[facility] FACET BLOCK (PAIN)[id number] PROCEDURE CODES 6045F RADXPS IN END [id number] PXD 16525 INJ PARAVERT F JNT L/S 1 LEV, MODIFIERS: 50 [id number] INJ PARAVERT F JNT L/S 2 LEV, MODIFIERS: 50 [id number] INJ PARAVERT F JNT L/S 3 LEV, MODIFIERS: 50 DISPOSITION & COMMUNICATION FOLLOW UP 3 WEEKS ELECTRONICALLY SIGNED BY VERONICA FERGUSON MD, MD ON 04/28/2019 AT 01:21 PM EDT DISCLAIMER : THIS IS A VISIT SUMMARY EXTRACTED FROM THE [employer] CHART. IT IS NOT A COPY OF THE [employer] PROGRESS NOTE. MTDD
== END ==
LOC: M PAIN 10:45
PROVIDERS: ATTEND Anesthesiology
DX: M47.816 Spondylosis without myelopathy or radiculopathy, lumbar region (principal); G47.33 Obstructive sleep apnea (adult) (pediatric); K21.9 Gastro-esophageal reflux disease without esophagitis; K59.00 Constipation, unspecified; F64.9 Gender identity disorder, unspecified; K58.9 Irritable bowel syndrome, unspecified; M79.7 Fibromyalgia; G25.81 Restless legs syndrome; F32.9 Major depressive disorder, single episode, unspecified; I10 Essential (primary) hypertension; Z98.84 Bariatric surgery status; Z96.651 Presence of right artificial knee joint; Z90.49 Acquired absence of other specified parts of digestive tract; F17.210 Nicotine dependence, cigarettes, uncomplicated; Z79.891 Long term (current) use of opiate analgesic; Z79.899 Other long term (current) drug therapy; Z88.2 Allergy status to sulfonamides; J30.9 Allergic rhinitis, unspecified
CPT/HCPCS: 64493; 64494; 64495; J3301; Q9966

== ENCOUNTER → 2019-05-07 | Outpatient (CLI) | payer OTHER ==
[~2019-05-07] MED LIST changes: -BUPIVACAINE HCL 0.25% 30 ML VIAL As Ordered ONE; -ISOVUE-M 200 41% 20ML VIAL (Q9966) As Ordered ONE; -LIDOCAINE 1% SDV INJ 30 ML VIAL As Ordered ONE; -TRIAMCINOLONE ACETONIDE SUSP 40 MG/ML VIAL (J3301) As Ordered ONE; -diazePAM 5 MG TAB As Ordered ONE; -diphenhydrAMINE 25 MG CAP As Ordered ONE; -oxyCODONE 5MG TAB As Ordered ONE
--- NOTE | 2019-05-09 01:15 | ECWPNPC ---
PATIENT NAME: ANGLE RASHEED : 1960 GENDER: FEMALE VISIT DATE: 05/07/2019 DISCHARGE DATE: 05/07/19 1422 VISIT LOCKED DATE TIME: PHYSICIAN: TAZ DUPREE RESOURCE: TAZ DUPREE REASON FOR APPOINTMENT 1. POST BILAT.L3/4-L4/5 LFBT THERAPEUTIC HISTORY OF PRESENT ILLNESS HISTORY OF PRESENT ILLNESS: PAIN THE PATIENT DESCRIBES THE PAIN... 59 YEAR OLD FEMALE IN FOR POST THERAPEUTIC FACET BLOCK. SHE STATES THE PROCEDURE WORKED REALLY WELL UNTIL SHE STARTED PACKING BOXES FOR A MOVE AND THEN HER PAIN RETURNED. SHE CURRENTLY RATES HER PAIN AT A 8.5/10 AND DESCRIBES IT ACHING, BURNING, STABBING, SHARP, TENDER, AND SHOOTING. FALL RISK SCREENING: SCREENING :NO FALLS REPORTED IN THE LAST YEAR CURRENT MEDICATIONS TAKING PYRIDIUM 100 MG TABLET 1 TABLETS AFTER MEALS ORALLY THREE TIMES A DAY NEEDED TAKING HYDROXYZINE HCL 25 MG TABLET 1 TABLET NEEDED ORALLY EVERY 8 HRS TAKING OMEPRAZOLE 20 MG CAPSULE DELAYED RELEASE 1 CAPSULE ORALLY AT NIGHT TAKING SERTRALINE HCL 50 MG TABLET 1 TABLET ORALLY ONCE A DAY TAKING SUCRALFATE 1 GM TABLET 1 TABLET ON AN EMPTY STOMACH BEFORE MEALS ORALLY TWICE A DAY TAKING MAY USE CBD OIL TAKING KETOGEN - POWDER DIRECTED ORALLY TAKING TIZANIDINE HCL 4 MG TABLET 1 TABLET NEEDED ORALLY THREE TIMES A DAY TAKING RELPAX 40 MG TABLET 1 TABLET NEEDED ONE TIME ORALLY ONCE A DAY TAKING LYRICA 75 MG CAPSULE 1 CAPSULE ORALLY BID TAKING OXYCODONE-ACETAMINOPHEN 7.5-325 MG TABLET 1-2 TABLET NEEDED ORALLY Q8H PRN MDD3 TAKING SOMA 350 MG TABLET 1 TABLET NEEDED ORALLY BID MDD2 NOT-TAKING METOPROLOL SUCCINATE 25 MG CAPSULE ER 24 HOUR SPRINKLE 1 CAPSULE ORALLY ONCE A DAY NOT-TAKING OMEPRAZOLE 10 MG CAPSULE DELAYED RELEASE 1 CAPSULE ORALLY ONCE A DAY IN THE AM, NOTES: DUPLICATE NOT-TAKING TIZANIDINE HCL 4 MG TABLET 1 TABLET NEEDED ORALLY THREE TIMES A DAY, NOTES: DUPLICATE NOT-TAKING FENTANYL 12 MCG/HR PATCH 72 HOUR 1 PATCH TO SKIN TRANSDERMAL 1 PATCH X12N=VUS MEDICATION LIST REVIEWED AND RECONCILED WITH THE PATIENT PAST MEDICAL HISTORY GLORY- USES CPAP KIDNEY STONES GERD CONSTIPATION CHRONIC BACK PAIN/NECK PAIN ANEMIA IBS FIBROMYALGIA RESTLESS LEG SYNDROME DEPRESSION ATROPHIC KIDNEY - S/P NEPHRECTOMY UTI GASTRIC ULCER AND LESIONS HTN ALLERGIES SULFA (FOR ALLERGY USE ONLY): UNKNOWN - CHILD - ALLERGY ENVIROMENTAL: SINUS INFECTION - ALLERGY SURGICAL HISTORY PARTIAL HYSTERECTOMY 1986 BREAST REDUCTION 2001 CHOLECYSTECTOMY 1981 GASTRIC BYPASS 2011 RIGHT, KNEE REPLACEMENT 2011 APPENDECTOMY 2010 ROBOTIC ASSISTED LEFT NEPHRECTOMY 03/18/2014 COLONOSCOPY, EGD 05/08/18 HERNIA REPAIR 2016 FAMILY HISTORY FATHER: ALIVE, DIAGNOSED WITH CANCER MOTHER: ALIVE, STROKE, CANCER 3 BROTHER(S) , 2 SISTER(S) . 1 SON(S) , 3 DAUGHTER(S) - HEALTHY. FATHER HAD PROSTATE CANCER, ROSALINO BARRE SYNDROME,MELANOMA\NMOTHER - SKIN CANCER, THYROID CA. SOCIAL HISTORY GENERAL: TOBACCO USE ARE YOU A:CURRENT SMOKER ARE YOU INTERESTED IN QUITTING?NOT READY TO QUIT COUNSELED THE PATIENT ON SMOKING EFFECTS, EDUCATION [id number]/18/2019 HOW MANY CIGARETTES A DAY DO YOU SMOKE?6-10 PATIENT COUNSELED ON THE DANGERS OF TOBACCO USE AND URGED TO QUIT:05/07/2019 EDUCATION LEVEL OF EDUCATION:COLLEGE DIET: REGULAR. LANGUAGE LANGUAGES SPOKEN:[place] DOMESTIC VIOLENCE DO YOU FEEL SAFE IN YOUR ENVIRONMENT?YES RECREATIONAL DRUG USE DRUG USE?NO EXERCISE: WALKS EVERY OTHER DAY. LEARNING BARRIERS / SPECIAL NEEDS CHANGE FROM LAST VISIT?NO BARRIERS TO LEARNING?NO HEARING IMPAIRED?NO VISION IMPAIRED?NO COGNITIVELY IMPAIRED?NO READINESS TO LEARN?YES LEARNING PREFERENCES?YES :BOOKLETS, HANDOUTS LEARNING CAPABILITIES PRESENT?YES EMOTIONAL BARRIERS?NO SPECIAL DEVICES?NO TONGUE LINING STITCHER NEEDED?NO PAIN CLINIC PFS, CLERGY, PUBLIC HEALTH REFERRALS PFS REFERRAL NEEDED?NO CLERGY REFERRAL NEEDED?NO PUBLIC HEALTH REFERRAL NEEDED?NO WAS THE PROVIDER NOTIFIED OF ANY PERTINENT INFO?YES N/A HAS THE PATIENT BEEN EDUCATED REGARDING HIS/HER PLAN OF CARE?YES HAS THE PATIENT BEEN EDUCATED REGARDING PAIN, THE RISK FOR PAIN, THE IMPORTANCE OF EFFECTIVE PAIN MANAGEMENT, AND THE PAIN ASSESSMENT PROCESS?YES LATEX QUESTIONNAIRE LATEX ALLERGY : HAVE YOU EVER DEVELOPED ANY TYPE OF REACTION AFTER HANDLING LATEX PRODUCTS SUCH RUBBER GLOVES, CONDOMS, DIAPHRAGMS, BALLOONS, SOCKS, OR UNDERWEAR?NO LATEX ALLERGY : HAVE YOU EVER DEVELOPED ANY TYPE OF REACTION DURING OR AFTER DENTAL APPOINTMENT, VAGINAL/RECTAL EXAMINATION, SURGICAL PROCEDURE, OR ANY OTHER EXPOSURE?NO LATEX RISK : HAVE YOU EVER HAD ANY DIFFICULTY BREATHING OR HIVES AFTER EATING OR HANDLING ANY FRUITS, OR VEGETABLES; SUCH KIWI, BANANAS, STONE FRUITS, OR CHESTNUTSNO LATEX RISK : DO YOU HAVE A PREVIOUS PERSONAL HISTORY OF MORE THAN NINE SURGERIES, SPINA BIFIDA, OR REPEATED CATHERIZATIONS? NO LATEX RISK : ARE YOU FREQUENTLY EXPOSED TO LATEX PRODUCTS IN YOUR OCCUPATION?NO DATE ASKED : 02/06/2019 CAFFEINE CAFFEINE USE?YES HOW OFTEN AND HOW MUCH? 2 CUPS OF GREEN TEA 01/26/18 - 5-6 CUPS PER DAY ADVANCE DIRECTIVE ADVANCE DIRECTIVE DISCUSSED WITH PATIENT:YES PATIENT DECLINED HCP INFORMATION AT THIS TIME. SIKH [id number] CONGREGATION MARITAL STATUS: . ALCOHOL SCREENING DID YOU HAVE A DRINK CONTAINING ALCOHOL IN THE PAST YEAR?NO POINTS0 INTERPRETATIONNEGATIVE SEXUAL HX HAD SEX IN THE LAST 12 MONTHS (VAGINAL, ORAL, OR ANAL)?YES WITHMEN ONLY USE PROTECTION?NO HAVE YOU EVER HAD AN STD?NO 05/16/18 1044 REVIEWED WITH PT. AD REVIEWED WITH PATIENT 07/12/18 1140 JSREVIEWED WITH PATIENT 05/07/16 1315 NLJ. HOSPITALIZATION/MAJOR DIAGNOSTIC PROCEDURE BACK PAIN - ([facility]) MULTIPLE BRONCHITIS 2013 PNEUMONIA 2016 SURGERIES REVIEW OF SYSTEMS REVIEWED BY: PROVIDER: AARON MENA . CONSTITUTIONAL: ANY CHANGE IN YOUR MEDICAL CONDITION? NO . CHILLS NO . FEVER NO . INFECTION: DO YOU HAVE NEW INFECTIONS? NO . DO YOU HAVE HISTORY OF MRSA? NO . MUSCULOSKELETAL: ANY NEW PATTERNS OF PAIN OR NUMBNESS? NO . GASTROENTEROLOGY: ANY NEW CHANGE IN BOWEL CONTROL? NO . GENITOURINARY: ANY NEW CHANGE IN BLADDER CONTROL? YES- EVER SINCE SHE PULLED A GROIN MUSCLE 3 MONTHS AGO SHE HAS HAD URGENCY . IS THERE A CHANCE YOU COULD BE ? NO . HEMATOLOGY/LYMPH: DO YOU TAKE ANY BLOOD THINNERS? (FOR EXAMPLE- COUMADIN, PLAVIX, AGGRENOX, PLATEL, PRADAXA, OR XARELTO) NO . WHEN WAS YOUR LAST DOSE? DATE: TIME: . NEUROLOGY: HAVE YOU FALLEN IN THE PAST 12 MONTHS? YES- MARCH 2019- BROKE LEFT ANKLE IN THE FALL, MEDICAL CARE FROM [facility] . ANY NEW EXTREMITY NUMBNESS OR WEAKNESS? NO . CARDIOLOGY: DO YOU HAVE A PACEMAKER OR DEFIBRILLATOR? NO . RESPIRATORY: HAVE YOU BEEN SICK IN THE PAST WEEK? NO . FEVER NO . FLU LIKE SYMPTOMS? NO . COUGH NO . INTEGUMENTARY: DO YOU HAVE ANY RASHES OR OPEN SORES? NO . ALLERGIC/IMMUNO: ARE YOU ALLERGIC TO IV DYE? NO . ANY NEW ALLERGIES? NO . PSYCHIATRIC: DO YOU HAVE THOUGHTS OF HURTING YOURSELF OR SOMEONE ELSE? NO . ARE YOU ABUSED, NEGLECTED, OR IN AN UNSAFE ENVIRONMENT? NO . ENDOCRINOLOGY: ARE YOU DIABETIC? NO . OTHER: DO YOU NEED ANY PRESCRIPTIONS? YES- NEEDS OXYCODONE, SOMA, AND LYRICA REFILLED . IF YES, PLEASE LIST: ____OXYCODONE, SOMA, LYRIA . ANY NEW PROBLEMS WITH YOUR MEDICATIONS? NO . WHEN DID YOU LAST EAT? ____ . WHEN DID YOU LAST DRINK? ____ . WHAT DID YOU LAST DRINK? ____ . NAME OF PERSON DRIVING YOU HOME? ____ . DO YOU HAVE ANY OTHER QUESTIONS OR CONCERNS YES- PROCEDURE WORKED WELL UP [employer] SHE PACKED BOXES WHILE MOVING, STATES PAIN WAS A 2-3 AFTER PROCEDURE, STATES NOW PAIN HAS RETURNED TO PRE-PROCEDURE LEVEL, FEELS LIKE SHE NEEDS ANOTHER PROCEDURE . VITAL SIGNS WT 203.8 LBS, HT 64 IN, BMI 34.98 INDEX, BP 163/70 MM HG, HR 75 /MIN, RR 18 /MIN, TEMP 96.2 F, OXYGEN SAT % 98%, SAFE IN ENV? (Y/N) YES, NA INITIALS [place] 13:23, REVIEWED BY: JANNIE. EXAMINATION GENERAL EXAMINATION: GENERALNO ACUTE DISTRESS, WELL NOURISHED AND HYDRATED. PSYCHAPPROPRIATE MOOD AND AFFECT . LUNGS:CLEAR TO AUSCULTATION BILATERALLY, NO WHEEZES, RHONCHI, RALES. HEART:NO MURMURS, REGULAR RATE AND RHYTHM. BACK:POINT TENDER OVER LUMBAR SPINE. ENDORSES INCREASED PAIN WITH FACET LOADING. SURROUNDING SKIN SHOWS NO ERYTHEMA, ECCHYMOSIS, INCREASED WARMTH, AND/OR SKIN ERUPTIONS. . ASSESSMENTS SPONDYLOSIS WITHOUT MYELOPATHY OR RADICULOPATHY, LUMBOSACRAL REGION - M47.817 (PRIMARY) TREATMENT SPONDYLOSIS WITHOUT MYELOPATHY OR RADICULOPATHY, LUMBOSACRAL REGION NOTES: BILATERAL DIAGNOSTIC FACET BLOCK L3-L4, L4-L5 #1. CLINICAL NOTES: 59 YEAR OLD FEMALE IN FOR FOLLOW UP FROM A THERAPEUTIC FACET BLOCK. GIVEN PRESENTING SYMPTOMS AND RESULTS OF PHYSICAL EXAMINATION RECOMMENDED DIAGNOSTIC FACET BLOCK FOR POTENTIAL RF PROCEDURE. DISCUSSED POSITIVE THC RESULT WITH PATIENT AND SHE DENIES MARIJUANA USE. SHE DOES ADMIT TO CBD USE AND WAS ENCOURAGED TO CHECK THE SOURCES OF HER CBD AND MAKE SURE TO GET IT FROM A REPUTABLE SOURCE. PATIENT HAS EXPRESSED UNDERSTANDING OF AND WAS IN AGREEMENT WITH TREATMENT PLAN. GIVEN TIME TO ASK QUESTIONS AND EXPRESS CONCERNS. , ISTOP REGISTRY REVIEWED AND DEMONSTRATES COMPLIANCE. (REF #[id number] ) BRINGS IN MEDICATIONS WHICH IS APPROPRIATE FOR WHAT WAS DISPENSED. RECENT URINE TOXICOLOGY REVIEWED. NO UNAUTHORIZED MEDICATIONS. NO ILLICIT SUBSTANCES AND PRESCRIBED MEDICATIONS WERE PRESENT. , RISKS AND BENEFITS OF NARCOTIC/OPIOID MEDICATIONS WERE REVIEWED WITH PATIENT - THIS INCLUDES BUT IS NOT LIMITED TO RISK OF DEPENDANCE/DEVELOPMENT OF ADDICTION, MOOD DISTURBANCE AND DEPRESSION, OSTEOPOROSIS, HORMONAL AND LABIDAL CHANGES, RESPIRATORY DEPRESSION AND . PATIENT IS ADVISED NOT TO DRIVE OR DRINK ALCOHOL WHILE ON THESE MEDICATIONS. PREVENTIVE MEDICINE PAIN CLINIC TEACHING: PROCEDURE TEACHING PROCEDURE REVIEWED WITH PT, PRE PROCEDURE INSTRUCTIONS REVIEWED. PT VERBALIZES UNDERSTANDING. LAS. PROCEDURE CODES FA211 ESTABILISHED PATIENT [facility] CHARGE DISPOSITION & COMMUNICATION FOLLOW UP POST PROCEDURE (REASON: BILATERAL DIAGNOSTIC FACET BLOCK L3-L4, L4-L5 #1) ELECTRONICALLY SIGNED BY SHAUN SARMIENTO ON 05/08/2019 AT 11:51 AM EDT DISCLAIMER : THIS IS A VISIT SUMMARY EXTRACTED FROM THE [employer] CHART. IT IS NOT A COPY OF THE [employer] PROGRESS NOTE. NATALIE
== END ==
LOC: M PAIN 13:45
PROVIDERS: ATTEND Family Medicine
DX: M47.817 Spondylosis without myelopathy or radiculopathy, lumbosacral region (principal); G47.33 Obstructive sleep apnea (adult) (pediatric); K21.9 Gastro-esophageal reflux disease without esophagitis; M79.7 Fibromyalgia; G25.81 Restless legs syndrome; Z86.59 Personal history of other mental and behavioral disorders; I10 Essential (primary) hypertension; Z98.84 Bariatric surgery status; Z96.651 Presence of right artificial knee joint; F17.210 Nicotine dependence, cigarettes, uncomplicated; Z88.2 Allergy status to sulfonamides; Z79.899 Other long term (current) drug therapy

== ENCOUNTER → 2019-06-26 | Outpatient (CLI) | payer OTHER ==
[~2019-06-26] MED LIST changes: +BUPIVACAINE HCL 0.25% 10 ML VIAL As Ordered ONE; +BUPIVACAINE HCL 0.25% 30 ML VIAL As Ordered ONE; +TRIAMCINOLONE ACETONIDE SUSP 40 MG/ML VIAL (J3301) As Ordered ONE; +diazePAM 5 MG TAB As Ordered ONE; +diphenhydrAMINE 25 MG CAP As Ordered ONE; +oxyCODONE 5MG TAB As Ordered ONE
--- NOTE | 2019-07-08 00:02 | ECWPNPC ---
PATIENT NAME: ANGLE RASHEED : 1960 GENDER: FEMALE VISIT DATE: 06/26/2019 DISCHARGE DATE: 06/26/19 1112 VISIT LOCKED DATE TIME: PHYSICIAN: VERONICA FERGUSON MD RESOURCE: VERONICA FERGUSON MD REASON FOR APPOINTMENT 1. RIGHT THORACIC TPI HISTORY OF PRESENT ILLNESS HISTORY OF PRESENT ILLNESS: PAIN THE PATIENT DESCRIBES THE PAIN... 59 YEAR OLD FEMALE PATIENT WITH A HISTORY OF CHRONIC LOW BACK PAIN. THE PATIENT DESCRIBES THE PAIN SORE, ACHING, AND STABBING WITH A PAIN SCORE OF 8-10/10 DEPENDING ON PHYSICAL ACTIVITY. THE PATIENT SAYS HER LOW BACK PAIN IS AFFECTING HER ABILITY TO PERFORM HER DAILY ACTIVITIES SUCH MOVING AROUND, SITTING, AND ENJOYING HER HOBBIES. PATIENT DENIES UNEXPLAINABLE WEIGHT LOSS, FEVER, CHILLS, NEW CHANGES ON HER URINARY OR BOWEL CONTROL. FALL RISK SCREENING: SCREENING :NO FALLS REPORTED IN THE LAST YEAR CURRENT MEDICATIONS TAKING PYRIDIUM 100 MG TABLET 1 TABLETS AFTER MEALS ORALLY THREE TIMES A DAY NEEDED, NOTES: NOT IN A MONTH TAKING HYDROXYZINE HCL 25 MG TABLET 1 TABLET NEEDED ORALLY EVERY 8 HRS TAKING OMEPRAZOLE 20 MG CAPSULE DELAYED RELEASE 1 CAPSULE ORALLY AT NIGHT TAKING SERTRALINE HCL 50 MG TABLET 1 TABLET ORALLY ONCE A DAY TAKING SUCRALFATE 1 GM TABLET 1 TABLET ON AN EMPTY STOMACH BEFORE MEALS ORALLY TWICE A DAY TAKING MAY USE CBD OIL TAKING KETOGEN - POWDER DIRECTED ORALLY TAKING RELPAX 40 MG TABLET 1 TABLET NEEDED ONE TIME ORALLY ONCE A DAY, NOTES: NOT IN A MONTH TAKING LYRICA 75 MG CAPSULE 1 CAPSULE ORALLY BID TAKING OXYCODONE-ACETAMINOPHEN 7.5-325 MG TABLET 1-2 TABLET NEEDED ORALLY Q8H PRN MDD3 TAKING SOMA 350 MG TABLET 1 TABLET NEEDED ORALLY BID MDD2 TAKING TIZANIDINE HCL 4 MG TABLET 1 TABLET NEEDED ORALLY THREE TIMES A DAY TAKING DILAUDID 2 MG TABLET 1 TABLET NEEDED ORALLY 1 TO 2X DAY NEEDED FOR SEVERE PAIN MDD2 UNKNOWN METOPROLOL SUCCINATE 25 MG CAPSULE ER 24 HOUR SPRINKLE 1 CAPSULE ORALLY ONCE A DAY UNKNOWN OMEPRAZOLE 10 MG CAPSULE DELAYED RELEASE 1 CAPSULE ORALLY ONCE A DAY IN THE AM, NOTES: DUPLICATE UNKNOWN TIZANIDINE HCL 4 MG TABLET 1 TABLET NEEDED ORALLY THREE TIMES A DAY, NOTES: DUPLICATE UNKNOWN FENTANYL 12 MCG/HR PATCH 72 HOUR 1 PATCH TO SKIN TRANSDERMAL 1 PATCH [id number] MEDICATION LIST REVIEWED AND RECONCILED WITH THE PATIENT PAST MEDICAL HISTORY GLORY- USES CPAP NOT USING KIDNEY STONES GERD CONSTIPATION CHRONIC BACK PAIN/NECK PAIN ANEMIA IBS FIBROMYALGIA RESTLESS LEG SYNDROME DEPRESSION ATROPHIC KIDNEY - S/P NEPHRECTOMY UTI GASTRIC ULCER AND LESIONS HTN ALLERGIES SULFA (FOR ALLERGY USE ONLY): UNKNOWN - CHILD - ALLERGY ENVIROMENTAL: SINUS INFECTION - ALLERGY SURGICAL HISTORY PARTIAL HYSTERECTOMY 1986 BREAST REDUCTION 2001 CHOLECYSTECTOMY 1981 GASTRIC BYPASS 2011 RIGHT, KNEE REPLACEMENT 2011 APPENDECTOMY 2010 ROBOTIC ASSISTED LEFT NEPHRECTOMY 03/18/2014 COLONOSCOPY, EGD 05/08/18 HERNIA REPAIR 2015 FAMILY HISTORY FATHER: ALIVE, DIAGNOSED WITH OTHER MALIGNANT NEOPLASM OF UNSPECIFIED SITE MOTHER: ALIVE, UNSPECIFIED CEREBRAL ARTERY OCCLUSION WITH CEREBRAL INFARCTION, OTHER MALIGNANT NEOPLASM OF UNSPECIFIED SITE 3 BROTHER(S) , 2 SISTER(S) . 1 SON(S) , 3 DAUGHTER(S) - HEALTHY. FATHER HAD PROSTATE CANCER, ROSALINO BARRE SYNDROME,MELANOMA\NMOTHER - SKIN CANCER, THYROID CA. SOCIAL HISTORY GENERAL: TOBACCO USE ARE YOU A:CURRENT SMOKER ARE YOU INTERESTED IN QUITTING?NOT READY TO QUIT COUNSELED THE PATIENT ON SMOKING EFFECTS, EDUCATION [id number]/18/2019 HOW MANY CIGARETTES A DAY DO YOU SMOKE?6-10 PATIENT COUNSELED ON THE DANGERS OF TOBACCO USE AND URGED TO QUIT:06/26/2019 EDUCATION LEVEL OF EDUCATION:COLLEGE DIET: REGULAR. LANGUAGE LANGUAGES SPOKEN:OCCITAN DOMESTIC VIOLENCE DO YOU FEEL SAFE IN YOUR ENVIRONMENT?YES RECREATIONAL DRUG USE DRUG USE?NO EXERCISE: WALKS EVERY OTHER DAY. LEARNING BARRIERS / SPECIAL NEEDS CHANGE FROM LAST VISIT?NO BARRIERS TO LEARNING?NO HEARING IMPAIRED?NO VISION IMPAIRED?NO COGNITIVELY IMPAIRED?NO READINESS TO LEARN?YES LEARNING PREFERENCES?YES :BOOKLETS, HANDOUTS LEARNING CAPABILITIES PRESENT?YES EMOTIONAL BARRIERS?NO SPECIAL DEVICES?NO SPINNER CONCRETE PIPE NEEDED?NO PAIN CLINIC PFS, CLERGY, PUBLIC HEALTH REFERRALS PFS REFERRAL NEEDED?NO CLERGY REFERRAL NEEDED?NO PUBLIC HEALTH REFERRAL NEEDED?NO WAS THE PROVIDER NOTIFIED OF ANY PERTINENT INFO?YES N/A HAS THE PATIENT BEEN EDUCATED REGARDING HIS/HER PLAN OF CARE?YES HAS THE PATIENT BEEN EDUCATED REGARDING PAIN, THE RISK FOR PAIN, THE IMPORTANCE OF EFFECTIVE PAIN MANAGEMENT, AND THE PAIN ASSESSMENT PROCESS?YES LATEX QUESTIONNAIRE LATEX ALLERGY : HAVE YOU EVER DEVELOPED ANY TYPE OF REACTION AFTER HANDLING LATEX PRODUCTS SUCH RUBBER GLOVES, CONDOMS, DIAPHRAGMS, BALLOONS, SOCKS, OR UNDERWEAR?NO LATEX ALLERGY : HAVE YOU EVER DEVELOPED ANY TYPE OF REACTION DURING OR AFTER DENTAL APPOINTMENT, VAGINAL/RECTAL EXAMINATION, SURGICAL PROCEDURE, OR ANY OTHER EXPOSURE?NO LATEX RISK : HAVE YOU EVER HAD ANY DIFFICULTY BREATHING OR HIVES AFTER EATING OR HANDLING ANY FRUITS, OR VEGETABLES; SUCH KIWI, BANANAS, STONE FRUITS, OR CHESTNUTSNO LATEX RISK : DO YOU HAVE A PREVIOUS PERSONAL HISTORY OF MORE THAN NINE SURGERIES, SPINA BIFIDA, OR REPEATED CATHERIZATIONS? NO LATEX RISK : ARE YOU FREQUENTLY EXPOSED TO LATEX PRODUCTS IN YOUR OCCUPATION?NO DATE ASKED : 02/06/2019 CAFFEINE CAFFEINE USE?YES HOW OFTEN AND HOW MUCH? 2 CUPS OF GREEN TEA 01/26/18 - 5-6 CUPS PER DAY ADVANCE DIRECTIVE ADVANCE DIRECTIVE DISCUSSED WITH PATIENT:YES PATIENT DECLINED HCP INFORMATION AT THIS TIME. [facility] [id number] PRESYBETERIAN MARITAL STATUS: . ALCOHOL SCREENING DID YOU HAVE A DRINK CONTAINING ALCOHOL IN THE PAST YEAR?NO POINTS0 INTERPRETATIONNEGATIVE SEXUAL HX HAD SEX IN THE LAST 12 MONTHS (VAGINAL, ORAL, OR ANAL)?YES WITHMEN ONLY USE PROTECTION?NO HAVE YOU EVER HAD AN STD?NO 05/16/18 1044 REVIEWED WITH PT. AD REVIEWED WITH PATIENT 07/12/18 1140 JSREVIEWED WITH PATIENT 05/07/16 1315 NLJ. HOSPITALIZATION/MAJOR DIAGNOSTIC PROCEDURE BACK PAIN - ([facility]) MULTIPLE BRONCHITIS 2013 PNEUMONIA 2016 SURGERIES REVIEW OF SYSTEMS REVIEWED BY: PROVIDER: VERONICA FERGUSON MD . CONSTITUTIONAL: ANY CHANGE IN YOUR MEDICAL CONDITION? NO . CHILLS NO . FEVER NO . INFECTION: DO YOU HAVE NEW INFECTIONS? NO . DO YOU HAVE HISTORY OF MRSA? NO . MUSCULOSKELETAL: ANY NEW PATTERNS OF PAIN OR NUMBNESS? YES WEARING A ABOOT ON LEFT FOOT/LEG . GASTROENTEROLOGY: ANY NEW CHANGE IN BOWEL CONTROL? NO . GENITOURINARY: ANY NEW CHANGE IN BLADDER CONTROL? NO . IS THERE A CHANCE YOU COULD BE ? NO . HEMATOLOGY/LYMPH: DO YOU TAKE ANY BLOOD THINNERS? (FOR EXAMPLE- COUMADIN, PLAVIX, AGGRENOX, PLATEL, PRADAXA, OR XARELTO) NO . WHEN WAS YOUR LAST DOSE? DATE: TIME: . NEUROLOGY: HAVE YOU FALLEN IN THE PAST 12 MONTHS? YES . ANY NEW EXTREMITY NUMBNESS OR WEAKNESS? NO . CARDIOLOGY: DO YOU HAVE A PACEMAKER OR DEFIBRILLATOR? NO . RESPIRATORY: HAVE YOU BEEN SICK IN THE PAST WEEK? NO . FEVER NO . FLU LIKE SYMPTOMS? NO . COUGH NO . INTEGUMENTARY: DO YOU HAVE ANY RASHES OR OPEN SORES? NO . ALLERGIC/IMMUNO: ARE YOU ALLERGIC TO IV DYE? NO . ANY NEW ALLERGIES? NO . PSYCHIATRIC: DO YOU HAVE THOUGHTS OF HURTING YOURSELF OR SOMEONE ELSE? NO . ARE YOU ABUSED, NEGLECTED, OR IN AN UNSAFE ENVIRONMENT? NO . ENDOCRINOLOGY: ARE YOU DIABETIC? NO . OTHER: DO YOU NEED ANY PRESCRIPTIONS? NO . IF YES, PLEASE LIST: ____ . ANY NEW PROBLEMS WITH YOUR MEDICATIONS? NO . WHEN DID YOU LAST EAT? ____11 AM 06-25-19 . WHEN DID YOU LAST DRINK? ____ . WHAT DID YOU LAST DRINK? ____06-25-19 11 PM Y MAY . NAME OF PERSON DRIVING YOU HOME? FATUMA LENNON____ . VITAL SIGNS WT 203.8 LBS, HT 64 IN, BMI 34.98 INDEX, BP 161/70 MM HG, HR 97 /MIN, RR 20 /MIN, TEMP 95.6 F, OXYGEN SAT % 98%, SAFE IN ENV? (Y/N) YES, NA INITIALS 09:03, REVIEWED BY: KG. ASSESSMENTS MYALGIA, OTHER SITE - M79.18 (PRIMARY) TREATMENT MYALGIA, OTHER SITE CLINICAL NOTES: WE DISCUSSED SEVERAL ISSUES WITH MS. RASHEED'S PAIN MANAGEMENT CASE. DUE TO THE TRIGGER POINTS, BANDS OF TISSUE, AND RESTRICTION OF MOVEMENT, I WOULD LIKE TO MOVE FORWARD WITH A LOW BACK TRIGGER POINT INJECTION AT THIS TIME. WE DISCUSSED THE BENEFITS, RISKS, AND ALTERNATIVES OF THE INJECTION AND THE PATIENT WOULD LIKE TO PROCEED. I AM LOOKING FOR LONG LASTING PAIN RELIEF FROM THIS INJECTION FOR THE PATIENT. THE PATIENT WILL FOLLOW UP IN SEVERAL WEEKS AFTER THE INJECTION. INSTRUCTIONS WERE GIVEN, QUESTIONS WERE ANSWERED, PATIENT REPORTS UNDERSTANDING AND AGREES WITH THE PLAN. I, DARCY YAN, DOCUMENTED THE ABOVE INFORMATION ACTING A SCRIBE FOR DR. FERGUSON. I HAVE REVIEWED THE ABOVE DOCUMENT, WRITTEN BY DARCY YAN [employer] AND I VERIFY THAT IT IS ACCURATE. . PROCEDURES PN TRIGGER POINT INJECTION WITH STEROIDS PRE PROCEDURE DIAGNOSIS 1. MYALGIA 2. PAIN AT RIGHT THORACIC AREA. POST PROCEDURE DIAGNOSIS 1. MYALGIA 2. PAIN AT RIGHT THORACIC AREA. PROCEDURE TRIGGER POINT INJECTION AT RIGHT THORACIC AREA. SURGEON DR. VERONICA FERGUSON PELT GRADER NONE ANESTHESIA LOCAL PRE PROCEDURE NOTE THE PATIENT HAS A HISTORY OF CHRONIC PAIN AT THE RIGHT THORACIC AREA. I EVALUATED THE PATIENT AND REVIEWED THE CHART. THERE IS EVIDENCE OF BANDS OF TISSUE WITH RESTRICTION OF MOVEMENT AND PRESENCE OF TRIGGER POINT AT THE AFFECTED AREA. I WENT OVER THE RISKS, ALTERNATIVES, AND BENEFITS ASSOCIATED WITH THIS PROCEDURE. THE PATIENT WOULD LIKE TO PROCEED AND GIVES CONSENT TO PERFORM THE PROCEDURE. THE PATIENT DENIES UNEXPLAINABLE WEIGHT LOSS, FEVER, CHILLS, OR NEW CHANGES IN URINARY OR BOWEL CONTROL DESCRIPTION OF PROCEDURE THE PATIENT WAS BROUGHT TO THE PROCEDURE ROOM AND PLACED IN THE SITTING POSITION. THE AREA WAS CLEANED WITH ALCOHOL. THE PROCEDURE WAS DONE USING ASEPTIC STERILE TECHNIQUE. I CHECKED LATERALITY AND THE LEVEL WHERE THE PROCEDURE WAS GOING TO BE PERFORMED WITH THE PATIENT AND THE SUPPORTING STAFF AT THE MOMENT OF THE TIME OUT IN THE PROCEDURE ROOM. USING A 25-GAUGE NEEDLE, TRIGGER POINTS WERE INJECTED AT THE RIGHT THORACIC AREA WITH A TOTAL OF 40 ML OF BUPIVACAINE 0.25% AND KENALOG 40 MG. THERE WAS NO EVIDENCE OF BLOOD, PARESTHESIA OR CEREBROSPINAL FLUID DURING THE PROCEDURE. THE PATIENT WAS SENT TO THE RECOVERY ROOM. THE PATIENT WAS MOVING THE EXTREMITIES AND DOING WELL. THERE WAS NO COMPLICATION DURING THE PROCEDURE POST PROCEDURE NOTE THE PATIENT WILL BE SEEN IN A FOLLOW UP IN THE NEXT FEW WEEKS. INSTRUCTIONS WERE GIVEN, QUESTIONS WERE ANSWERED, AND THE PATIENT EXPRESSED UNDERSTANDING AND AGREES WITH THE PLAN. I, DARCY AYN, DOCUMENTED THE ABOVE INFORMATION ACTING A SCRIBE FOR DR. FERGUSON. I HAVE REVIEWED THE ABOVE DOCUMENT, WRITTEN BY DARCY YAN [employer] AND I VERIFY THAT IT IS ACCURATE. PROCEDURE CODES 39923 INJ TRIGGER POINT 10/03 [facility] DISPOSITION & COMMUNICATION FOLLOW UP 3 WEEKS ELECTRONICALLY SIGNED BY VERONICA FERGUSON MD, MD ON 07/07/2019 AT 12:05 PM EDT DISCLAIMER : THIS IS A VISIT SUMMARY EXTRACTED FROM THE [employer] CHART. IT IS NOT A COPY OF THE [employer] PROGRESS NOTE. NATALIE
== END ==
LOC: M PAIN 09:15
PROVIDERS: ATTEND Anesthesiology
DX: M79.18 Myalgia, other site (principal); F17.210 Nicotine dependence, cigarettes, uncomplicated; G47.33 Obstructive sleep apnea (adult) (pediatric); K21.9 Gastro-esophageal reflux disease without esophagitis; K59.00 Constipation, unspecified; M54.2 Cervicalgia; D64.9 Anemia, unspecified; I10 Essential (primary) hypertension; K58.9 Irritable bowel syndrome, unspecified; J30.9 Allergic rhinitis, unspecified; M79.7 Fibromyalgia; G25.81 Restless legs syndrome; F32.9 Major depressive disorder, single episode, unspecified; Z90.5 Acquired absence of kidney; Z87.440 Personal history of urinary (tract) infections; Z90.49 Acquired absence of other specified parts of digestive tract; Z98.84 Bariatric surgery status; Z96.651 Presence of right artificial knee joint; Z79.891 Long term (current) use of opiate analgesic; Z79.899 Other long term (current) drug therapy; Z88.2 Allergy status to sulfonamides
CPT/HCPCS: 20552; J3301

== ENCOUNTER → 2019-07-12 | Outpatient (CLI) | payer OTHER ==
[~2019-07-12] MED LIST changes: -BUPIVACAINE HCL 0.25% 10 ML VIAL As Ordered ONE; -BUPIVACAINE HCL 0.25% 30 ML VIAL As Ordered ONE; -TRIAMCINOLONE ACETONIDE SUSP 40 MG/ML VIAL (J3301) As Ordered ONE; -diazePAM 5 MG TAB As Ordered ONE; -diphenhydrAMINE 25 MG CAP As Ordered ONE; -oxyCODONE 5MG TAB As Ordered ONE
== END ==
LOC: M PAIN 10:00
PROVIDERS: ATTEND Family Medicine
DX: M79.18 Myalgia, other site (principal); G47.33 Obstructive sleep apnea (adult) (pediatric); K21.9 Gastro-esophageal reflux disease without esophagitis; K59.00 Constipation, unspecified; M54.2 Cervicalgia; D64.9 Anemia, unspecified; K58.9 Irritable bowel syndrome, unspecified; M79.7 Fibromyalgia; G25.81 Restless legs syndrome; F32.9 Major depressive disorder, single episode, unspecified; N26.1 Atrophy of kidney (terminal); Z90.5 Acquired absence of kidney; I10 Essential (primary) hypertension; F17.210 Nicotine dependence, cigarettes, uncomplicated; K25.9 Gastric ulcer, unspecified as acute or chronic, without hemorrhage or perforation; Z79.891 Long term (current) use of opiate analgesic; Z79.899 Other long term (current) drug therapy; Z88.2 Allergy status to sulfonamides; J30.9 Allergic rhinitis, unspecified

== ENCOUNTER → 2019-07-26 | Outpatient (CLI) | payer OTHER ==
[~2019-07-26] MED LIST changes: -SERT-155 PO; +SERT50TA29 PO
--- NOTE | 2019-07-29 23:19 | ECWPNPC ---
PATIENT NAME: ANGLE RASHEED : 1960 GENDER: FEMALE VISIT DATE: 07/26/2019 DISCHARGE DATE: 07/26/19 1404 VISIT LOCKED DATE TIME: PHYSICIAN: TAZ DUPREE RESOURCE: TAZ DUPREE REASON FOR APPOINTMENT 1. INCREASED PAIN HISTORY OF PRESENT ILLNESS HISTORY OF PRESENT ILLNESS: PAIN THE PATIENT DESCRIBES THE PAIN... 59-YEAR-OLD FEMALE IN FOR CHRONIC PAIN FOLLOW-UP. SHE RATES HER PAIN CURRENTLY AT A 9 OUT OF 10 AND DESCRIBES IT SHARP, BURNING, STABBING, SORE, SHOOTING, AND TENDER. SHE FURTHER STATES THE PAIN IS CONTINUOUS IT WAKES HER FROM HER SLEEP AND HAPPENS MOSTLY AT NIGHT. FALL RISK SCREENING: SCREENING :NO FALLS REPORTED IN THE LAST YEAR CURRENT MEDICATIONS TAKING PYRIDIUM 100 MG TABLET 1 TABLETS AFTER MEALS ORALLY THREE TIMES A DAY NEEDED, NOTES: NOT IN A MONTH TAKING HYDROXYZINE HCL 25 MG TABLET 1 TABLET NEEDED ORALLY EVERY 8 HRS TAKING OMEPRAZOLE 20 MG CAPSULE DELAYED RELEASE 1 CAPSULE ORALLY AT NIGHT TAKING SERTRALINE HCL 50 MG TABLET 1 TABLET ORALLY ONCE A DAY TAKING SUCRALFATE 1 GM TABLET 1 TABLET ON AN EMPTY STOMACH BEFORE MEALS ORALLY TWICE A DAY, NOTES: HAS NOT BEEN TAKING TAKING MAY USE CBD OIL TAKING KETOGEN - POWDER DIRECTED ORALLY TAKING RELPAX 40 MG TABLET 1 TABLET NEEDED ONE TIME ORALLY ONCE A DAY, NOTES: NOT IN A MONTH TAKING TIZANIDINE HCL 4 MG TABLET 1 TABLET NEEDED ORALLY THREE TIMES A DAY TAKING DILAUDID 2 MG TABLET 1 TABLET NEEDED ORALLY 1 TO 2X DAY NEEDED FOR SEVERE PAIN MDD2 TAKING LYRICA 100 MG CAPSULE 1 CAPSULE ORALLY BID TAKING OXYCODONE-ACETAMINOPHEN 7.5-325 MG TABLET 1-2 TABLET NEEDED ORALLY Q8H PRN MDD3 TAKING SOMA 350 MG TABLET 1 TABLET NEEDED ORALLY BID MDD2 NOT-TAKING METOPROLOL SUCCINATE 25 MG CAPSULE ER 24 HOUR SPRINKLE 1 CAPSULE ORALLY ONCE A DAY NOT-TAKING OMEPRAZOLE 10 MG CAPSULE DELAYED RELEASE 1 CAPSULE ORALLY ONCE A DAY IN THE AM, NOTES: DUPLICATE NOT-TAKING TIZANIDINE HCL 4 MG TABLET 1 TABLET NEEDED ORALLY THREE TIMES A DAY, NOTES: DUPLICATE NOT-TAKING FENTANYL 12 MCG/HR PATCH 72 HOUR 1 PATCH TO SKIN TRANSDERMAL 1 PATCH [id number] MEDICATION LIST REVIEWED AND RECONCILED WITH THE PATIENT PAST MEDICAL HISTORY GLORY- USES CPAP NOT USING KIDNEY STONES GERD CONSTIPATION CHRONIC BACK PAIN/NECK PAIN ANEMIA IBS FIBROMYALGIA RESTLESS LEG SYNDROME DEPRESSION ATROPHIC KIDNEY - S/P NEPHRECTOMY UTI GASTRIC ULCER AND LESIONS HTN ALLERGIES SULFA (FOR ALLERGY USE ONLY): UNKNOWN - CHILD - ALLERGY ENVIROMENTAL: SINUS INFECTION - ALLERGY SURGICAL HISTORY PARTIAL HYSTERECTOMY 1986 BREAST REDUCTION 2001 CHOLECYSTECTOMY 1981 GASTRIC BYPASS 2011 RIGHT, KNEE REPLACEMENT 2011 APPENDECTOMY 2010 ROBOTIC ASSISTED LEFT NEPHRECTOMY 03/18/2014 COLONOSCOPY, EGD 05/08/18 HERNIA REPAIR 2016 FAMILY HISTORY FATHER: ALIVE, DIAGNOSED WITH OTHER MALIGNANT NEOPLASM OF UNSPECIFIED SITE MOTHER: ALIVE, UNSPECIFIED CEREBRAL ARTERY OCCLUSION WITH CEREBRAL INFARCTION, OTHER MALIGNANT NEOPLASM OF UNSPECIFIED SITE 3 BROTHER(S) , 2 SISTER(S) . 1 SON(S) , 3 DAUGHTER(S) - HEALTHY. FATHER HAD PROSTATE CANCER, ROSALINO BARRE SYNDROME,MELANOMA\NMOTHER - SKIN CANCER, THYROID CA. SOCIAL HISTORY GENERAL: TOBACCO USE ARE YOU A:CURRENT SMOKER ARE YOU INTERESTED IN QUITTING?NOT READY TO QUIT COUNSELED THE PATIENT ON SMOKING EFFECTS, EDUCATION [id number]/25/2019 HOW MANY CIGARETTES A DAY DO YOU SMOKE?6-10 PATIENT COUNSELED ON THE DANGERS OF TOBACCO USE AND URGED TO QUIT:07/26/2019 EDUCATION LEVEL OF EDUCATION:COLLEGE DIET: REGULAR. LANGUAGE LANGUAGES SPOKEN:MAORI DOMESTIC VIOLENCE DO YOU FEEL SAFE IN YOUR ENVIRONMENT?YES RECREATIONAL DRUG USE DRUG USE?NO EXERCISE: WALKS EVERY OTHER DAY. LEARNING BARRIERS / SPECIAL NEEDS CHANGE FROM LAST VISIT?NO BARRIERS TO LEARNING?NO HEARING IMPAIRED?NO VISION IMPAIRED?NO COGNITIVELY IMPAIRED?NO READINESS TO LEARN?YES LEARNING PREFERENCES?YES :BOOKLETS, HANDOUTS LEARNING CAPABILITIES PRESENT?YES EMOTIONAL BARRIERS?NO SPECIAL DEVICES?NO LOSS CONTROL REPRESENTATIVE NEEDED?NO PAIN CLINIC PFS, CLERGY, PUBLIC HEALTH REFERRALS PFS REFERRAL NEEDED?NO CLERGY REFERRAL NEEDED?NO PUBLIC HEALTH REFERRAL NEEDED?NO WAS THE PROVIDER NOTIFIED OF ANY PERTINENT INFO?YES N/A HAS THE PATIENT BEEN EDUCATED REGARDING HIS/HER PLAN OF CARE?YES HAS THE PATIENT BEEN EDUCATED REGARDING PAIN, THE RISK FOR PAIN, THE IMPORTANCE OF EFFECTIVE PAIN MANAGEMENT, AND THE PAIN ASSESSMENT PROCESS?YES LATEX QUESTIONNAIRE LATEX ALLERGY : HAVE YOU EVER DEVELOPED ANY TYPE OF REACTION AFTER HANDLING LATEX PRODUCTS SUCH RUBBER GLOVES, CONDOMS, DIAPHRAGMS, BALLOONS, SOCKS, OR UNDERWEAR?NO LATEX ALLERGY : HAVE YOU EVER DEVELOPED ANY TYPE OF REACTION DURING OR AFTER DENTAL APPOINTMENT, VAGINAL/RECTAL EXAMINATION, SURGICAL PROCEDURE, OR ANY OTHER EXPOSURE?NO LATEX RISK : HAVE YOU EVER HAD ANY DIFFICULTY BREATHING OR HIVES AFTER EATING OR HANDLING ANY FRUITS, OR VEGETABLES; SUCH KIWI, BANANAS, STONE FRUITS, OR CHESTNUTSNO LATEX RISK : DO YOU HAVE A PREVIOUS PERSONAL HISTORY OF MORE THAN NINE SURGERIES, SPINA BIFIDA, OR REPEATED CATHERIZATIONS? NO LATEX RISK : ARE YOU FREQUENTLY EXPOSED TO LATEX PRODUCTS IN YOUR OCCUPATION?NO DATE ASKED : 02/06/2019 CAFFEINE CAFFEINE USE?YES HOW OFTEN AND HOW MUCH? 2 CUPS OF GREEN TEA 01/26/18 - 5-6 CUPS PER DAY ADVANCE DIRECTIVE ADVANCE DIRECTIVE DISCUSSED WITH PATIENT:YES PATIENT DECLINED HCP INFORMATION AT THIS TIME. [employer] [id number] BUDDHISM MARITAL STATUS: . ALCOHOL SCREENING DID YOU HAVE A DRINK CONTAINING ALCOHOL IN THE PAST YEAR?NO POINTS0 INTERPRETATIONNEGATIVE SEXUAL HX HAD SEX IN THE LAST 12 MONTHS (VAGINAL, ORAL, OR ANAL)?YES WITHMEN ONLY USE PROTECTION?NO HAVE YOU EVER HAD AN STD?NO 05/16/18 1044 REVIEWED WITH PT. AD REVIEWED WITH PATIENT 07/12/18 1140 JSREVIEWED WITH PATIENT 05/07/16 1315 NLJREVIEWED WITH PATIENT 07/12/19 1020 NLJREVIEWED WITH PATIENT 07/26/19 1322 JS. HOSPITALIZATION/MAJOR DIAGNOSTIC PROCEDURE BACK PAIN - ([facility]) MULTIPLE BRONCHITIS 2013 PNEUMONIA 2016 SURGERIES REVIEW OF SYSTEMS REVIEWED BY: PROVIDER: AARON DUNN-Bubba . CONSTITUTIONAL: ANY CHANGE IN YOUR MEDICAL CONDITION? NO . CHILLS NO . FEVER NO . INFECTION: DO YOU HAVE NEW INFECTIONS? NO . DO YOU HAVE HISTORY OF MRSA? NO . MUSCULOSKELETAL: ANY NEW PATTERNS OF PAIN OR NUMBNESS? YES, PATIENT STATES PAIN HAS BECOME VERY SEVERE IN HER LOW BACK, CANNOT TOLERATE IT. STATES LOTS OF SPASMS. ALSO STATES PAIN NOW RADIATES TO HER RIGHT BUTTOCKS AND RIGHT LEG . GASTROENTEROLOGY: ANY NEW CHANGE IN BOWEL CONTROL? NO . GENITOURINARY: ANY NEW CHANGE IN BLADDER CONTROL? NO . IS THERE A CHANCE YOU COULD BE ? NO . HEMATOLOGY/LYMPH: DO YOU TAKE ANY BLOOD THINNERS? (FOR EXAMPLE- COUMADIN, PLAVIX, AGGRENOX, PLATEL, PRADAXA, OR XARELTO) NO . WHEN WAS YOUR LAST DOSE? DATE: TIME: . NEUROLOGY: HAVE YOU FALLEN IN THE PAST 12 MONTHS? NO, STATES PRIOR TO LAST VISIT, DISCUSSED AT PREVIOUS VISIT . ANY NEW EXTREMITY NUMBNESS OR WEAKNESS? YES. STATES NUMBNESS AND WEAKNESS TO ARMS AND HANDS . CARDIOLOGY: DO YOU HAVE A PACEMAKER OR DEFIBRILLATOR? NO . RESPIRATORY: HAVE YOU BEEN SICK IN THE PAST WEEK? NO . FEVER NO . FLU LIKE SYMPTOMS? NO . COUGH NO . INTEGUMENTARY: DO YOU HAVE ANY RASHES OR OPEN SORES? NO . ALLERGIC/IMMUNO: ARE YOU ALLERGIC TO IV DYE? NO . ANY NEW ALLERGIES? NO . PSYCHIATRIC: DO YOU HAVE THOUGHTS OF HURTING YOURSELF OR SOMEONE ELSE? NO . ARE YOU ABUSED, NEGLECTED, OR IN AN UNSAFE ENVIRONMENT? NO . ENDOCRINOLOGY: ARE YOU DIABETIC? NO . OTHER: DO YOU NEED ANY PRESCRIPTIONS? NO . IF YES, PLEASE LIST: ____ . ANY NEW PROBLEMS WITH YOUR MEDICATIONS? NO . WHEN DID YOU LAST EAT? ____ . WHEN DID YOU LAST DRINK? ____ . WHAT DID YOU LAST DRINK? ____ . NAME OF PERSON DRIVING YOU HOME? ____ . DO YOU HAVE ANY OTHER QUESTIONS OR CONCERNS NO . VITAL SIGNS WT 206 LBS, HT 64 IN, BMI 35.36 INDEX, BP 145/71 MM HG, HR 96 /MIN, RR 20 /MIN, TEMP 97.5 F, OXYGEN SAT % 100%, NA INITIALS SC 13:24. EXAMINATION GENERAL EXAMINATION: GENERALNO ACUTE DISTRESS, WELL NOURISHED AND HYDRATED. PSYCHAPPROPRIATE MOOD AND AFFECT . LUNGS:CLEAR TO AUSCULTATION BILATERALLY, NO WHEEZES, RHONCHI, RALES. HEART:NO MURMURS, REGULAR RATE AND RHYTHM. BACK:POINT TENDER ALONG LUMBAR SPINE, SURROUNDING SKIN SHOWS NO ERYTHEMA, ECCHYMOSIS, INCREASED WARMTH, AND/OR SKIN ERUPTIONS NOTED. PATIENT DOES ENDORSE INCREASED PAIN WITH FACET LOADING. . 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 CLINICAL NOTES: 59-YEAR-OLD FEMALE IN FOR CHRONIC PAIN FOLLOW-UP. GIVEN PRESENTING SYMPTOMS AND RESULTS OF PHYSICAL EXAMINATION RECOMMENDED BILATERAL THERAPEUTIC FACET BLOCK WITH POSTPROCEDURAL FOLLOW-UP. WE'LL START PATIENT ON ONDANSETRON WHEN NECESSARY NAUSEA RELATED TO PAIN. PATIENT HAS EXPRESSED UNDERSTANDING OF AND WAS IN AGREEMENT WITH TREATMENT PLAN. GIVEN TIME TO ASK QUESTIONS AND EXPRESS CONCERNS., ISTOP REGISTRY REVIEWED AND DEMONSTRATES COMPLLIANCE. (REF # [id number] ) BRINGS IN MEDICATIONS WHICH IS APPROPRIATE FOR WHAT WAS DISPENSED. RECENT URINE TOXICOLOGY REVIEWED. NO UNAUTHORIZED MEDICATIONS. NO ILLICIT SUBSTANCES AND PRESCRIBED MEDICATIONS WERE PRESENT. PROCEDURE CODES [id number] ESTABILISHED PATIENT [facility] CHARGE DISPOSITION & COMMUNICATION FOLLOW UP POSTPROCEDURE (REASON: BILATERAL THERAPEUTIC FACET BLOCK L3-L4 L4-L5 L5-S1) ELECTRONICALLY SIGNED BY SHAUN SARMIENTO ON 07/29/2019 AT 08:51 AM EDT DISCLAIMER : THIS IS A VISIT SUMMARY EXTRACTED FROM THE [employer] CHART. IT IS NOT A COPY OF THE [employer] PROGRESS NOTE. NATALIE
== END ==
LOC: M PAIN 13:15
PROVIDERS: ATTEND Family Medicine
DX: M47.817 Spondylosis without myelopathy or radiculopathy, lumbosacral region (principal); G89.29 Other chronic pain; G47.33 Obstructive sleep apnea (adult) (pediatric); K21.9 Gastro-esophageal reflux disease without esophagitis; M79.7 Fibromyalgia; G25.81 Restless legs syndrome; Z86.59 Personal history of other mental and behavioral disorders; I10 Essential (primary) hypertension; Z98.84 Bariatric surgery status; Z96.651 Presence of right artificial knee joint; F17.210 Nicotine dependence, cigarettes, uncomplicated; Z88.2 Allergy status to sulfonamides; Z79.899 Other long term (current) drug therapy

== ENCOUNTER → 2019-09-16 | Outpatient (CLI) | payer OTHER ==
[~2019-09-16] MED LIST changes: +BUPIVACAINE HCL 0.25% 30 ML VIAL As Ordered ONE; +ISOVUE-M 300 61% 15ML VIAL (Q9967) As Ordered ONE; +LIDOCAINE 1% SDV INJ 30 ML VIAL As Ordered ONE; +TRIAMCINOLONE ACETONIDE SUSP 40 MG/ML VIAL (J3301) As Ordered ONE; +diazePAM 5 MG TAB As Ordered ONE; +diphenhydrAMINE 25 MG CAP As Ordered ONE; +oxyCODONE 5MG TAB As Ordered ONE
--- NOTE | 2019-09-16 11:11 | REP ---
Partial lumbar spine series: Two views . History: Injection procedure for pain. 21 seconds of fluoroscopy time is reported. Findings: A sequence of two fluoroscopically obtained last image hold procedural spot radiographs of the lumbar spine document needle position and contrast injection associated with injection procedure. Electronically Signed by Luis Paul MD 09/16/2019 11:03 A
--- NOTE | 2019-09-18 02:35 | ECWPNPC ---
PATIENT NAME: ANGLE RASHEED : 1960 GENDER: FEMALE VISIT DATE: 09/16/2019 DISCHARGE DATE: 09/16/19 1111 VISIT LOCKED DATE TIME: PHYSICIAN: VERONICA FERGUSON MD RESOURCE: VERONICA FERGUSON MD REASON FOR APPOINTMENT 1. BILAT THERAPEUTIC FACET BLOCK L2-L3 L3-L4 L4-L5 HISTORY OF PRESENT ILLNESS HISTORY OF PRESENT ILLNESS: PAIN THE PATIENT DESCRIBES THE PAIN... FALL RISK SCREENING: SCREENING :NO FALLS REPORTED IN THE LAST YEAR CURRENT MEDICATIONS TAKING PYRIDIUM 100 MG TABLET 1 TABLETS AFTER MEALS ORALLY THREE TIMES A DAY NEEDED, NOTES: NOT IN A MONTH TAKING HYDROXYZINE HCL 25 MG TABLET 1 TABLET NEEDED ORALLY EVERY 8 HRS, NOTES: 09/16/1999 TAKING OMEPRAZOLE 40 MG CAPSULE DELAYED RELEASE 1 CAPSULE ORALLY BID, NOTES: 09/16/1999 TAKING SERTRALINE HCL 50 MG TABLET 1 TABLET ORALLY ONCE A DAY, NOTES: 09/15/191299 TAKING MAY USE CBD OIL, NOTES: 09/15/191999 TAKING KETOGEN - POWDER DIRECTED ORALLY , NOTES: 09/13/19 TAKING TIZANIDINE HCL 4 MG TABLET 1 TABLET NEEDED ORALLY THREE TIMES A DAY, NOTES: 09/16/1999 TAKING LYRICA 100 MG CAPSULE 1 CAPSULE ORALLY BID, NOTES: 09/16/1999 TAKING ONDANSETRON 8 MG TABLET DISINTEGRATING 1 TABLET ON THE TONGUE AND ALLOW TO DISSOLVE NEEDED ORALLY ONCE A DAY, NOTES: > 1 WEEK TAKING OXYCODONE-ACETAMINOPHEN 7.5-325 MG TABLET 1-2 TABLET NEEDED ORALLY Q8H PRN MDD3, NOTES: 09/16/1999 TAKING SOMA 350 MG TABLET 1 TABLET NEEDED ORALLY BID MDD2, NOTES: 09/16/1999 NOT-TAKING SUCRALFATE 1 GM TABLET 1 TABLET ON AN EMPTY STOMACH BEFORE MEALS ORALLY TWICE A DAY NOT-TAKING RELPAX 40 MG TABLET 1 TABLET NEEDED ONE TIME ORALLY ONCE A DAY, NOTES: NOT IN A MONTH NOT-TAKING DILAUDID 2 MG TABLET 1 TABLET NEEDED ORALLY 1 TO 2X DAY NEEDED FOR SEVERE PAIN MDD2 NOT-TAKING TIZANIDINE HCL 4 MG TABLET 1 TABLET NEEDED ORALLY THREE TIMES A DAY, NOTES: DUPLICATE NOT-TAKING METOPROLOL SUCCINATE 25 MG CAPSULE ER 24 HOUR SPRINKLE 1 CAPSULE ORALLY ONCE A DAY NOT-TAKING OMEPRAZOLE 10 MG CAPSULE DELAYED RELEASE 1 CAPSULE ORALLY ONCE A DAY IN THE AM, NOTES: DUPLICATE NOT-TAKING FENTANYL 12 MCG/HR PATCH 72 HOUR 1 PATCH TO SKIN TRANSDERMAL 1 PATCH K72C=CCH MEDICATION LIST REVIEWED AND RECONCILED WITH THE PATIENT PAST MEDICAL HISTORY GLORY- USES CPAP NOT USING KIDNEY STONES GERD CONSTIPATION CHRONIC BACK PAIN/NECK PAIN ANEMIA IBS FIBROMYALGIA RESTLESS LEG SYNDROME DEPRESSION ATROPHIC KIDNEY - S/P NEPHRECTOMY UTI GASTRIC ULCER AND LESIONS HTN ALLERGIES SULFA (FOR ALLERGY USE ONLY): UNKNOWN - CHILD - ALLERGY ENVIROMENTAL: SINUS INFECTION - ALLERGY SURGICAL HISTORY PARTIAL HYSTERECTOMY 1986 BREAST REDUCTION 2001 CHOLECYSTECTOMY 1981 GASTRIC BYPASS 2011 RIGHT, KNEE REPLACEMENT 2011 APPENDECTOMY 2010 ROBOTIC ASSISTED LEFT NEPHRECTOMY 03/18/2014 COLONOSCOPY, EGD 05/08/18 HERNIA REPAIR 2015 FAMILY HISTORY FATHER: ALIVE, DIAGNOSED WITH OTHER MALIGNANT NEOPLASM OF UNSPECIFIED SITE MOTHER: ALIVE, UNSPECIFIED CEREBRAL ARTERY OCCLUSION WITH CEREBRAL INFARCTION, OTHER MALIGNANT NEOPLASM OF UNSPECIFIED SITE 3 BROTHER(S) , 2 SISTER(S) . 1 SON(S) , 3 DAUGHTER(S) - HEALTHY. FATHER HAD PROSTATE CANCER, ROSALINO BARRE SYNDROME,MELANOMA\NMOTHER - SKIN CANCER, THYROID CA. SOCIAL HISTORY GENERAL: TOBACCO USE ARE YOU A:CURRENT SMOKER HOW MANY CIGARETTES A DAY DO YOU SMOKE?6-10 ARE YOU INTERESTED IN QUITTING?NOT READY TO QUIT PATIENT COUNSELED ON THE DANGERS OF TOBACCO USE AND URGED TO QUIT:07/26/2019 COUNSELED THE PATIENT ON SMOKING EFFECTS, EDUCATION [id number]/25/2019 EDUCATION LEVEL OF EDUCATION:COLLEGE DIET: REGULAR. LANGUAGE LANGUAGES SPOKEN:YI DOMESTIC VIOLENCE DO YOU FEEL SAFE IN YOUR ENVIRONMENT?YES RECREATIONAL DRUG USE DRUG USE?NO EXERCISE: WALKS EVERY OTHER DAY. LEARNING BARRIERS / SPECIAL NEEDS CHANGE FROM LAST VISIT?NO BARRIERS TO LEARNING?NO HEARING IMPAIRED?NO VISION IMPAIRED?NO COGNITIVELY IMPAIRED?NO READINESS TO LEARN?YES LEARNING PREFERENCES?YES :BOOKLETS, HANDOUTS LEARNING CAPABILITIES PRESENT?YES EMOTIONAL BARRIERS?NO SPECIAL DEVICES?NO FOOD SCIENCE TECHNICIAN NEEDED?NO PAIN CLINIC PFS, CLERGY, PUBLIC HEALTH REFERRALS PFS REFERRAL NEEDED?NO CLERGY REFERRAL NEEDED?NO PUBLIC HEALTH REFERRAL NEEDED?NO WAS THE PROVIDER NOTIFIED OF ANY PERTINENT INFO?YES N/A HAS THE PATIENT BEEN EDUCATED REGARDING HIS/HER PLAN OF CARE?YES HAS THE PATIENT BEEN EDUCATED REGARDING PAIN, THE RISK FOR PAIN, THE IMPORTANCE OF EFFECTIVE PAIN MANAGEMENT, AND THE PAIN ASSESSMENT PROCESS?YES LATEX QUESTIONNAIRE LATEX ALLERGY : HAVE YOU EVER DEVELOPED ANY TYPE OF REACTION AFTER HANDLING LATEX PRODUCTS SUCH RUBBER GLOVES, CONDOMS, DIAPHRAGMS, BALLOONS, SOCKS, OR UNDERWEAR?NO LATEX ALLERGY : HAVE YOU EVER DEVELOPED ANY TYPE OF REACTION DURING OR AFTER DENTAL APPOINTMENT, VAGINAL/RECTAL EXAMINATION, SURGICAL PROCEDURE, OR ANY OTHER EXPOSURE?NO LATEX RISK : HAVE YOU EVER HAD ANY DIFFICULTY BREATHING OR HIVES AFTER EATING OR HANDLING ANY FRUITS, OR VEGETABLES; SUCH KIWI, BANANAS, STONE FRUITS, OR CHESTNUTSNO LATEX RISK : DO YOU HAVE A PREVIOUS PERSONAL HISTORY OF MORE THAN NINE SURGERIES, SPINA BIFIDA, OR REPEATED CATHERIZATIONS? NO LATEX RISK : ARE YOU FREQUENTLY EXPOSED TO LATEX PRODUCTS IN YOUR OCCUPATION?NO DATE ASKED : 02/06/2019 CAFFEINE CAFFEINE USE?YES HOW OFTEN AND HOW MUCH? 2 CUPS OF GREEN TEA 01/26/18 - 5-6 CUPS PER DAY ADVANCE DIRECTIVE ADVANCE DIRECTIVE DISCUSSED WITH PATIENT:YES PATIENT DECLINED HCP INFORMATION AT THIS TIME. 09/06/19 DENOMINATIONAL [id number] DRUZE MARITAL STATUS: . ALCOHOL SCREENING DID YOU HAVE A DRINK CONTAINING ALCOHOL IN THE PAST YEAR?NO POINTS0 INTERPRETATIONNEGATIVE SEXUAL HX HAD SEX IN THE LAST 12 MONTHS (VAGINAL, ORAL, OR ANAL)?YES WITHMEN ONLY USE PROTECTION?NO HAVE YOU EVER HAD AN STD?NO 05/16/18 1044 REVIEWED WITH PT. AD REVIEWED WITH PATIENT 07/12/18 1140 JSREVIEWED WITH PATIENT 05/07/16 1315 NLJREVIEWED WITH PATIENT 07/12/19 1020 NLJREVIEWED WITH PATIENT 07/26/19 1322 JSPRE SCREEN PHONE CALL DONE 09/06/19 0845 BV. HOSPITALIZATION/MAJOR DIAGNOSTIC PROCEDURE BACK PAIN - ([facility]) MULTIPLE BRONCHITIS 2013 PNEUMONIA 2016 SURGERIES REVIEW OF SYSTEMS REVIEWED BY: PROVIDER: . CONSTITUTIONAL: ANY CHANGE IN YOUR MEDICAL CONDITION? NO . CHILLS NO . FEVER NO . INFECTION: DO YOU HAVE NEW INFECTIONS? NO . DO YOU HAVE HISTORY OF MRSA? NO . MUSCULOSKELETAL: ANY NEW PATTERNS OF PAIN OR NUMBNESS? YES PT REPORTS PAIN HAS INCREASED IN SEVERITY, AND IS ALSO NOW GOING DOWN THE SIDE OF HER LEFT LEG . GASTROENTEROLOGY: ANY NEW CHANGE IN BOWEL CONTROL? NO . GENITOURINARY: ANY NEW CHANGE IN BLADDER CONTROL? NO . IS THERE A CHANCE YOU COULD BE ? NO . HEMATOLOGY/LYMPH: DO YOU TAKE ANY BLOOD THINNERS? (FOR EXAMPLE- COUMADIN, PLAVIX, AGGRENOX, PLATEL, PRADAXA, OR XARELTO) NO . WHEN WAS YOUR LAST DOSE? DATE: TIME: . NEUROLOGY: HAVE YOU FALLEN IN THE PAST 12 MONTHS? YES PT FELL AND FRACTURED LEFT ANKLE spring, ALREADY REPORTED TO PRIMARY . ANY NEW EXTREMITY NUMBNESS OR WEAKNESS? YES NEW NUMBNESS DOWN LEFT LEG . CARDIOLOGY: DO YOU HAVE A PACEMAKER OR DEFIBRILLATOR? NO . RESPIRATORY: HAVE YOU BEEN SICK IN THE PAST WEEK? NO . FEVER NO . FLU LIKE SYMPTOMS? NO . COUGH NO . INTEGUMENTARY: DO YOU HAVE ANY RASHES OR OPEN SORES? NO . ALLERGIC/IMMUNO: ARE YOU ALLERGIC TO IV DYE? NO . ANY NEW ALLERGIES? NO . PSYCHIATRIC: DO YOU HAVE THOUGHTS OF HURTING YOURSELF OR SOMEONE ELSE? NO . ARE YOU ABUSED, NEGLECTED, OR IN AN UNSAFE ENVIRONMENT? NO . ENDOCRINOLOGY: ARE YOU DIABETIC? NO . OTHER: DO YOU NEED ANY PRESCRIPTIONS? NO . IF YES, PLEASE LIST: ____ . ANY NEW PROBLEMS WITH YOUR MEDICATIONS? NO . WHEN DID YOU LAST EAT? ____09/15/19 1845 . WHEN DID YOU LAST DRINK? ____09/16/19 0130 . WHAT DID YOU LAST DRINK? ____WATER . NAME OF PERSON DRIVING YOU HOME? ____ALICIA . DO YOU HAVE ANY OTHER QUESTIONS OR CONCERNS NO . VITAL SIGNS WT 208 LBS, HT 64 IN, BMI 35.70 INDEX, BP 136/69 MM HG, HR 86 /MIN, RR 18 /MIN, TEMP 97.4 F, OXYGEN SAT % 99%, NA INITIALS AK 09:19. ASSESSMENTS SPONDYLOSIS WITHOUT MYELOPATHY OR RADICULOPATHY, LUMBAR REGION - M47.816 (PRIMARY) SPONDYLOSIS WITHOUT MYELOPATHY OR RADICULOPATHY, LUMBOSACRAL REGION - M47.817 TREATMENT SPONDYLOSIS WITHOUT MYELOPATHY OR RADICULOPATHY, LUMBOSACRAL REGION SMC FACET BLOCK (PAIN)[id number] PROCEDURES PN LUMBAR FACET BLOCK THERAPEUTIC PRE PROCEDURE DIAGNOSIS LUMBAR SPONDYLOSIS POST PROCEDURE DIAGNOSIS LUMBAR SPONDYLOSIS PROCEDURE BILATERAL L2-L3, L3-L4, AND L4-L5 LUMBAR FACET THERAPEUTIC BLOCK SURGEON DR. VERONICA FERGUSON LIVING MANAGER NONE ANESTHESIA LOCAL PRE PROCEDURE NOTE THE PATIENT HAS A HISTORY OF CHRONIC LOW BACK PAIN. I EVALUATED THE PATIENT AND REVIEWED THE CHART. I WENT OVER THE RISKS, ALTERNATIVES, AND BENEFITS ASSOCIATED WITH THIS PROCEDURE. THE PATIENT WOULD LIKE TO PROCEED AND GIVES CONSENT TO PERFORM THE PROCEDURE. THE PATIENT DENIES UNEXPLAINABLE WEIGHT LOSS, FEVER, CHILLS, OR NEW CHANGES IN URINARY OR BOWEL CONTROL DESCRIPTION OF PROCEDURE THE PATIENT WAS BROUGHT TO THE PROCEDURE ROOM AND PLACED IN THE PRONE POSITION. THE LUMBOSACRAL AREA WAS CLEANED WITH CHLORAPREP SOLUTION AND DRAPED ASEPTICALLY. THE PROCEDURE WAS DONE UNDER STERILE CONDITIONS. I CHECKED LATERALITY AND THE LEVEL WHERE THE PROCEDURE WAS GOING TO BE PERFORMED WITH THE PATIENT AND THE SUPPORTING STAFF AT THE MOMENT OF THE TIME OUT IN THE PROCEDURE ROOM. UNDER FLUOROSCOPIC GUIDANCE, THE TARGET POINT WAS SELECTED AT THE RIGHT AND LEFT L2-L3, RIGHT AND LEFT L3-L4, AND RIGHT AND LEFT L4-L5 FACET JOINTS. TARGET POINT WAS SELECTED AFTER LATERAL ROTATION AND TILT OF THE MAGNIFIER OF THE C-ARM. LIDOCAINE 0.5% WAS USED TO NUMB THE SKIN AND THE SUBCUTANEOUS TISSUE BELOW IT. SPINAL NEEDLES, 22-GAUGE, WERE ADVANCED UNDER FLUOROSCOPIC GUIDANCE AND FOLLOWING PATIENT FEEDBACK UNTIL THE TARGETS WERE TOUCHED. THE POSITION OF THE NEEDLES WAS VERIFIED WITH AP AND LATERAL VIEWS. AFTER PROPER POSITION OF THE NEEDLES WAS ACHIEVED, ISOVUE-M DYE 30% 0.1 ML WAS INJECTED SHOWING ADEQUATE SPREAD OF THE DYE. THEN A SOLUTION OF 1.9 ML OF BUPIVACAINE 0.125% OF KENALOG 10 MG WAS INJECTED AT EACH SITE. THERE WAS NO EVIDENCE OF BLOOD, PARESTHESIA OR CEREBROSPINAL FLUID DURING THE PROCEDURE. THE PATIENT WAS SENT TO THE RECOVERY ROOM. THE PATIENT WAS MOVING THE EXTREMITIES AND DOING WELL. THERE WAS NO COMPLICATION DURING THE PROCEDURE. FLUOROSCOPY TIME WAS 21 SECONDS POST PROCEDURE NOTE I AM LOOKING FOR LONG LASTING PAIN RELIEF WITH THIS INTERVENTION. THE PATIENT WILL BE SEEN IN A FOLLOW UP IN THE NEXT FEW WEEKS. INSTRUCTIONS WERE GIVEN, QUESTIONS WERE ANSWERED, AND THE PATIENT EXPRESSED UNDERSTANDING AND AGREES WITH THE PLAN. I, DARCY YAN, DOCUMENTED THE ABOVE INFORMATION ACTING A SCRIBE FOR DR. FERGUSON. I HAVE REVIEWED THE ABOVE DOCUMENT, WRITTEN BY DARCY YNA SCRIBGaby AND I VERIFY THAT IT IS ACCURATE. PROCEDURE CODES 16808 INJ PARAVERT F JNT L/S 1 LEV, MODIFIERS: 50 [id number] INJ PARAVERT F JNT L/S 2 LEV, MODIFIERS: 50 [id number] INJ PARAVERT F JNT L/S 3 LEV, MODIFIERS: 50 [id number] RADXPS IN END [id number] PXD DISPOSITION & COMMUNICATION FOLLOW UP 3 WEEKS ELECTRONICALLY SIGNED BY VERONICA FERGUSON MD, MD ON 09/17/2019 AT 05:19 PM EST DISCLAIMER : THIS IS A VISIT SUMMARY EXTRACTED FROM THE [employer] CHART. IT IS NOT A COPY OF THE [employer] PROGRESS NOTE. MTDD
== END ==
LOC: M PAIN 09:00
PROVIDERS: ATTEND Anesthesiology
DX: M47.816 Spondylosis without myelopathy or radiculopathy, lumbar region (principal); M47.817 Spondylosis without myelopathy or radiculopathy, lumbosacral region; G47.33 Obstructive sleep apnea (adult) (pediatric); K21.9 Gastro-esophageal reflux disease without esophagitis; M79.7 Fibromyalgia; G25.81 Restless legs syndrome; Z86.59 Personal history of other mental and behavioral disorders; I10 Essential (primary) hypertension; Z98.84 Bariatric surgery status; Z96.651 Presence of right artificial knee joint; F17.210 Nicotine dependence, cigarettes, uncomplicated; Z88.2 Allergy status to sulfonamides; Z79.899 Other long term (current) drug therapy
CPT/HCPCS: 64493; 64494; 64495; J3301; Q9967

== ENCOUNTER → 2019-10-16 | Outpatient (CLI) | payer OTHER ==
[~2019-10-16] MED LIST changes: -BUPIVACAINE HCL 0.25% 30 ML VIAL As Ordered ONE; -ISOVUE-M 300 61% 15ML VIAL (Q9967) As Ordered ONE; -LIDOCAINE 1% SDV INJ 30 ML VIAL As Ordered ONE; -TRIAMCINOLONE ACETONIDE SUSP 40 MG/ML VIAL (J3301) As Ordered ONE; -diazePAM 5 MG TAB As Ordered ONE; -diphenhydrAMINE 25 MG CAP As Ordered ONE; -oxyCODONE 5MG TAB As Ordered ONE
--- NOTE | 2019-10-18 02:03 | ECWPNPC ---
PATIENT NAME: ANGLE RASHEED : 1960 GENDER: FEMALE VISIT DATE: 10/16/2019 DISCHARGE DATE: 10/16/19 1013 VISIT LOCKED DATE TIME: PHYSICIAN: TAZ DUPREE RESOURCE: TAZ DUPREE REASON FOR APPOINTMENT 1. POST BILAT FACET HISTORY OF PRESENT ILLNESS HISTORY OF PRESENT ILLNESS: PAIN THE PATIENT DESCRIBES THE PAIN... 59-YEAR-OLD FEMALE IN FOR BILATERAL FACET BLOCK FOLLOW-UP. SHE RATES HER PAIN PREPROCEDURE AT A 9 OUT OF 10 AND POST PROCEDURE TO 3 OUT OF 10 STATING THAT THIS LASTED FOR APPROXIMATELY 2 WEEKS. SHE RATES HER PAIN CURRENTLY AT A 8 OUT OF 10 AND DESCRIBES IT SHARP, BURNING, STABBING, SHOOTING, AND TENDER. FALL RISK SCREENING: SCREENING :NO FALLS REPORTED IN THE LAST YEAR CURRENT MEDICATIONS TAKING PYRIDIUM 100 MG TABLET 1 TABLETS AFTER MEALS ORALLY THREE TIMES A DAY NEEDED TAKING HYDROXYZINE HCL 25 MG TABLET 1 TABLET NEEDED ORALLY EVERY 8 HRS TAKING OMEPRAZOLE 40 MG CAPSULE DELAYED RELEASE 1 CAPSULE ORALLY BID TAKING SERTRALINE HCL 50 MG TABLET 1 TABLET ORALLY ONCE A DAY TAKING MAY USE CBD OIL TAKING KETOGEN - POWDER DIRECTED ORALLY TAKING ONDANSETRON 8 MG TABLET DISINTEGRATING 1 TABLET ON THE TONGUE AND ALLOW TO DISSOLVE NEEDED ORALLY ONCE A DAY TAKING TIZANIDINE HCL 4 MG TABLET 1 TABLET NEEDED ORALLY THREE TIMES A DAY TAKING LYRICA 100 MG CAPSULE 1 CAPSULE ORALLY BID TAKING OXYCODONE-ACETAMINOPHEN 7.5-325 MG TABLET 1-2 TABLET NEEDED ORALLY Q8H PRN MDD3 TAKING SOMA 350 MG TABLET 1 TABLET NEEDED ORALLY BID MDD2 TAKING MAY HAVE - - [facility] PAIN RELIEF OINTMENT DIRECTED NOT-TAKING SUCRALFATE 1 GM TABLET 1 TABLET ON AN EMPTY STOMACH BEFORE MEALS ORALLY TWICE A DAY NOT-TAKING RELPAX 40 MG TABLET 1 TABLET NEEDED ONE TIME ORALLY ONCE A DAY, NOTES: NOT IN A MONTH NOT-TAKING DILAUDID 2 MG TABLET 1 TABLET NEEDED ORALLY 1 TO 2X DAY NEEDED FOR SEVERE PAIN MDD2 NOT-TAKING TIZANIDINE HCL 4 MG TABLET 1 TABLET NEEDED ORALLY THREE TIMES A DAY, NOTES: DUPLICATE NOT-TAKING METOPROLOL SUCCINATE 25 MG CAPSULE ER 24 HOUR SPRINKLE 1 CAPSULE ORALLY ONCE A DAY NOT-TAKING OMEPRAZOLE 10 MG CAPSULE DELAYED RELEASE 1 CAPSULE ORALLY ONCE A DAY IN THE AM, NOTES: DUPLICATE NOT-TAKING FENTANYL 12 MCG/HR PATCH 72 HOUR 1 PATCH TO SKIN TRANSDERMAL 1 PATCH Q34R=IML MEDICATION LIST REVIEWED AND RECONCILED WITH THE PATIENT PAST MEDICAL HISTORY GOLRY- USES CPAP NOT USING KIDNEY STONES GERD CONSTIPATION CHRONIC BACK PAIN/NECK PAIN ANEMIA IBS FIBROMYALGIA RESTLESS LEG SYNDROME DEPRESSION ATROPHIC KIDNEY - S/P NEPHRECTOMY UTI GASTRIC ULCER AND LESIONS HTN ALLERGIES SULFA (FOR ALLERGY USE ONLY): UNKNOWN - CHILD - ALLERGY ENVIROMENTAL: SINUS INFECTION - ALLERGY SURGICAL HISTORY PARTIAL HYSTERECTOMY 1986 BREAST REDUCTION 2001 CHOLECYSTECTOMY 1981 GASTRIC BYPASS 2011 RIGHT, KNEE REPLACEMENT 2011 APPENDECTOMY 2010 ROBOTIC ASSISTED LEFT NEPHRECTOMY 03/18/2014 COLONOSCOPY, EGD 05/08/18 HERNIA REPAIR 2016 FAMILY HISTORY FATHER: ALIVE, DIAGNOSED WITH OTHER MALIGNANT NEOPLASM OF UNSPECIFIED SITE MOTHER: ALIVE, OTHER MALIGNANT NEOPLASM OF UNSPECIFIED SITE, UNSPECIFIED CEREBRAL ARTERY OCCLUSION WITH CEREBRAL INFARCTION 3 BROTHER(S) , 2 SISTER(S) . 1 SON(S) , 3 DAUGHTER(S) - HEALTHY. FATHER HAD PROSTATE CANCER, ROSALINO BARRE SYNDROME,MELANOMA\NMOTHER - SKIN CANCER, THYROID CA. SOCIAL HISTORY GENERAL: TOBACCO USE ARE YOU A:CURRENT SMOKER ARE YOU INTERESTED IN QUITTING?NOT READY TO QUIT COUNSELED THE PATIENT ON SMOKING EFFECTS, EDUCATION GLEBEEUR44/15/2020 HOW MANY CIGARETTES A DAY DO YOU SMOKE?6-10 PATIENT COUNSELED ON THE DANGERS OF TOBACCO USE AND URGED TO QUIT:10/16/2019 EDUCATION LEVEL OF EDUCATION:COLLEGE DIET: REGULAR. LANGUAGE LANGUAGES SPOKEN:INDONESIAN DOMESTIC VIOLENCE DO YOU FEEL SAFE IN YOUR ENVIRONMENT?YES RECREATIONAL DRUG USE DRUG USE?NO EXERCISE: WALKS EVERY OTHER DAY. LEARNING BARRIERS / SPECIAL NEEDS CHANGE FROM LAST VISIT?NO BARRIERS TO LEARNING?NO HEARING IMPAIRED?NO VISION IMPAIRED?NO COGNITIVELY IMPAIRED?NO READINESS TO LEARN?YES LEARNING PREFERENCES?YES :BOOKLETS, HANDOUTS LEARNING CAPABILITIES PRESENT?YES EMOTIONAL BARRIERS?NO SPECIAL DEVICES?NO HOUSING DIRECTOR NEEDED?NO PAIN CLINIC PFS, CLERGY, PUBLIC HEALTH REFERRALS PFS REFERRAL NEEDED?NO CLERGY REFERRAL NEEDED?NO PUBLIC HEALTH REFERRAL NEEDED?NO WAS THE PROVIDER NOTIFIED OF ANY PERTINENT INFO?YES N/A HAS THE PATIENT BEEN EDUCATED REGARDING HIS/HER PLAN OF CARE?YES HAS THE PATIENT BEEN EDUCATED REGARDING PAIN, THE RISK FOR PAIN, THE IMPORTANCE OF EFFECTIVE PAIN MANAGEMENT, AND THE PAIN ASSESSMENT PROCESS?YES LATEX QUESTIONNAIRE LATEX ALLERGY : HAVE YOU EVER DEVELOPED ANY TYPE OF REACTION AFTER HANDLING LATEX PRODUCTS SUCH RUBBER GLOVES, CONDOMS, DIAPHRAGMS, BALLOONS, SOCKS, OR UNDERWEAR?NO LATEX ALLERGY : HAVE YOU EVER DEVELOPED ANY TYPE OF REACTION DURING OR AFTER DENTAL APPOINTMENT, VAGINAL/RECTAL EXAMINATION, SURGICAL PROCEDURE, OR ANY OTHER EXPOSURE?NO LATEX RISK : HAVE YOU EVER HAD ANY DIFFICULTY BREATHING OR HIVES AFTER EATING OR HANDLING ANY FRUITS, OR VEGETABLES; SUCH KIWI, BANANAS, STONE FRUITS, OR CHESTNUTSNO LATEX RISK : DO YOU HAVE A PREVIOUS PERSONAL HISTORY OF MORE THAN NINE SURGERIES, SPINA BIFIDA, OR REPEATED CATHERIZATIONS? NO LATEX RISK : ARE YOU FREQUENTLY EXPOSED TO LATEX PRODUCTS IN YOUR OCCUPATION?NO DATE ASKED : 02/06/2019 CAFFEINE CAFFEINE USE?YES HOW OFTEN AND HOW MUCH? 2 CUPS OF GREEN TEA 01/26/18 - 5-6 CUPS PER DAY ADVANCE DIRECTIVE ADVANCE DIRECTIVE DISCUSSED WITH PATIENT:YES 10/16/2019 PATIENT HAS NO ADVANCED DIRECTIVES AND DECLINED HCP INFORMATION AT THIS TIME. JS [facility]PLE [id number] [facility] STATUS: . ALCOHOL SCREENING DID YOU HAVE A DRINK CONTAINING ALCOHOL IN THE PAST YEAR?NO POINTS0 INTERPRETATIONNEGATIVE SEXUAL HX HAD SEX IN THE LAST 12 MONTHS (VAGINAL, ORAL, OR ANAL)?YES WITHMEN ONLY USE PROTECTION?NO HAVE YOU EVER HAD AN STD?NO 05/16/18 1044 REVIEWED WITH PT. AD REVIEWED WITH PATIENT 07/12/18 1140 JSREVIEWED WITH PATIENT 05/07/16 1315 NLJREVIEWED WITH PATIENT 07/12/19 1020 NLJREVIEWED WITH PATIENT 07/26/19 1322 JSPRE SCREEN PHONE CALL DONE 09/06/19 0845 BVREVIEWED WITH PATIENT 10/16/2019 0931 JS. HOSPITALIZATION/MAJOR DIAGNOSTIC PROCEDURE BACK PAIN - ([facility]) MULTIPLE BRONCHITIS 2013 PNEUMONIA 2016 SURGERIES REVIEW OF SYSTEMS REVIEWED BY: PROVIDER: AARON DUNN-C . CONSTITUTIONAL: ANY CHANGE IN YOUR MEDICAL CONDITION? NO . CHILLS NO . FEVER NO . INFECTION: DO YOU HAVE NEW INFECTIONS? NO . DO YOU HAVE HISTORY OF MRSA? NO . MUSCULOSKELETAL: ANY NEW PATTERNS OF PAIN OR NUMBNESS? NO . GASTROENTEROLOGY: ANY NEW CHANGE IN BOWEL CONTROL? NO . GENITOURINARY: ANY NEW CHANGE IN BLADDER CONTROL? NO . IS THERE A CHANCE YOU COULD BE ? NO . HEMATOLOGY/LYMPH: DO YOU TAKE ANY BLOOD THINNERS? (FOR EXAMPLE- COUMADIN, PLAVIX, AGGRENOX, PLATEL, PRADAXA, OR XARELTO) NO . WHEN WAS YOUR LAST DOSE? DATE: TIME: . NEUROLOGY: HAVE YOU FALLEN IN THE PAST 12 MONTHS? YES, STATES PRIOR TO LAST VISIT, DISCUSSED AT PREVIOUS VISIT . ANY NEW EXTREMITY NUMBNESS OR WEAKNESS? YES, WEAKNESS AND NUMBNESS TO ALL EXTREMITIES, STATES LEFT LEG IS THE WORSE . CARDIOLOGY: DO YOU HAVE A PACEMAKER OR DEFIBRILLATOR? NO . RESPIRATORY: HAVE YOU BEEN SICK IN THE PAST WEEK? NO . FEVER NO . FLU LIKE SYMPTOMS? NO . COUGH NO . INTEGUMENTARY: DO YOU HAVE ANY RASHES OR OPEN SORES? NO . ALLERGIC/IMMUNO: ARE YOU ALLERGIC TO IV DYE? NO . ANY NEW ALLERGIES? NO . PSYCHIATRIC: DO YOU HAVE THOUGHTS OF HURTING YOURSELF OR SOMEONE ELSE? NO . ARE YOU ABUSED, NEGLECTED, OR IN AN UNSAFE ENVIRONMENT? NO . ENDOCRINOLOGY: ARE YOU DIABETIC? NO . OTHER: DO YOU NEED ANY PRESCRIPTIONS? NO . IF YES, PLEASE LIST: ____ . ANY NEW PROBLEMS WITH YOUR MEDICATIONS? NO . WHEN DID YOU LAST EAT? ____ . WHEN DID YOU LAST DRINK? ____ . WHAT DID YOU LAST DRINK? ____ . NAME OF PERSON DRIVING YOU HOME? ____ . DO YOU HAVE ANY OTHER QUESTIONS OR CONCERNS NO . VITAL SIGNS WT 207.6 LBS, HT 64 IN, BMI 35.63 INDEX, BP 180/83 MM HG, HR 104 /MIN, RR 18 /MIN, TEMP 96.6 F, OXYGEN SAT % 97%, SAFE IN ENV? (Y/N) YES, REVIEWED BY: ALVAREZ10/16/2019 DISCUSSED ELEVATED BP WITH PATIENT, STATES SHE IS IN A LOT OF PAIN TODAY AND THAT HER BP IS ALWAYS ELEVATED WHEN SHE IS IN THIS MUCH PAIN. INSTRUCTED PATIENT TO DISCUSS WITH PCP IF SHE CONSISTENLY HAS ELEVATED BP'S. JS. EXAMINATION GENERAL EXAMINATION: GENERALNO ACUTE DISTRESS, WELL NOURISHED AND HYDRATED. PSYCHAPPROPRIATE MOOD AND AFFECT . LUNGS:CLEAR TO AUSCULTATION BILATERALLY, NO WHEEZES, RHONCHI, RALES. HEART:NO MURMURS, REGULAR RATE AND RHYTHM. BACK:POINT TENDER BILATERAL THORACIC , SURROUNDING SKIN SHOWS NO ERYTHEMA, ECCHYMOSIS, INCREASED WARMTH, AND/OR SKIN ERUPTIONS NOTED. . ASSESSMENTS SPONDYLOSIS WITHOUT MYELOPATHY OR RADICULOPATHY, LUMBOSACRAL REGION - M47.817 (PRIMARY) MYALGIA, OTHER SITE - M79.18 TREATMENT SPONDYLOSIS WITHOUT MYELOPATHY OR RADICULOPATHY, LUMBOSACRAL REGION INCREASE LYRICA CAPSULE, 100 MG, 1 CAPSULE, ORALLY, TID, 30 DAYS, 90 CAPSULE NOTES: BILATERAL THORACIC TPI. CLINICAL NOTES: 59-YEAR-OLD FEMALE IN FOR POST FACET BLOCK FOLLOW-UP. GIVEN PRESENTING SYMPTOMS AND RESULTS OF PHYSICAL EXAMINATION RECOMMENDED BILATERAL THORACIC TRIGGER POINT INJECTIONS WITH POSTPROCEDURAL FOLLOW-UP. FURTHER RECOMMENDED INCREASING LYRICA TO 100 MG 3 TIMES A DAY. PATIENT HAS EXPRESSED UNDERSTANDING OF AND WAS IN AGREEMENT WITH TREATMENT PLAN. GIVEN TIME TO ASK QUESTIONS AND EXPRESS CONCERNS., ISTOP REGISTRY REVIEWED AND DEMONSTRATES COMPLLIANCE. (REF # [id number] ) BRINGS IN MEDICATIONS WHICH IS APPROPRIATE FOR WHAT WAS DISPENSED. RECENT URINE TOXICOLOGY REVIEWED. NO UNAUTHORIZED MEDICATIONS. NO ILLICIT SUBSTANCES AND PRESCRIBED MEDICATIONS WERE PRESENT. PROCEDURE CODES FA211 ESTABILISHED PATIENT [facility] CHARGE DISPOSITION & COMMUNICATION FOLLOW UP POSTPROCEDURE (REASON: BILATERAL THORACIC TPI) ELECTRONICALLY SIGNED BY SHAUN SARMIENTO ON 10/17/2019 AT 08:30 AM EST DISCLAIMER : THIS IS A VISIT SUMMARY EXTRACTED FROM THE [employer] CHART. IT IS NOT A COPY OF THE [employer] PROGRESS NOTE. NATALIE
== END ==
LOC: M PAIN 09:15
PROVIDERS: ATTEND Family Medicine
DX: M47.817 Spondylosis without myelopathy or radiculopathy, lumbosacral region (principal); M79.18 Myalgia, other site

== ENCOUNTER → 2019-10-30 | Outpatient (CLI) | payer OTHER ==
--- NOTE | 2019-11-08 00:41 | ECWPNPC ---
PATIENT NAME: ANGLE RASHEED : 1960 GENDER: FEMALE VISIT DATE: 10/30/2019 DISCHARGE DATE: 10/30/19 1025 VISIT LOCKED DATE TIME: PHYSICIAN: VERONICA FERGUSON MD RESOURCE: VERONICA FERGUSON MD REASON FOR APPOINTMENT 1. FOLLOWUP HISTORY OF PRESENT ILLNESS GENERAL: 59-YEAR-OLD FEMALE PATIENT WITH A HISTORY OF CHRONIC BACK AND LEFT LEG PAIN. THE PATIENT DESCRIBES THE PAIN BURNING, SORE, TENDER, SHARP, STABBING, SHOOTING, DAILY AND CONTINUOUS WITH A PAIN SCORE OF 5-8/10 DEPENDING ON PHYSICAL ACTIVITY. THE PATIENT HAS BEEN SUFFERING WITH THIS PAIN FOR MANY YEARS, AND SHE STATES THAT SHE IS PRESENTLY EXPERIENCING SEVERE PAIN IN HER LOWER BACK THAT RADIATES WITH A TINGLING SENSATION DOWN HER LEG. SHE STATES THAT SHE IS ALSO EXPERIENCING PAIN IN HER UPPER ARMS. THE PAIN IS INTERFERING WITH HER ABILITY TO WALK, CLEAN HER HOME AND PERFORM DAILY ACTIVITIES. PATIENT DENIES UNEXPLAINABLE WEIGHT LOSS, FEVER, CHILLS, NEW CHANGES ON HER URINARY OR BOWEL CONTROL. CURRENT MEDICATIONS TAKING PYRIDIUM 100 MG TABLET 1 TABLETS AFTER MEALS ORALLY THREE TIMES A DAY NEEDED, NOTES: HASN'T TAKEN FOR MONTHS TAKING HYDROXYZINE HCL 25 MG TABLET 1 TABLET NEEDED ORALLY EVERY 8 HRS, NOTES: 10/29/19 AROUND 9:00 PM TAKING OMEPRAZOLE 40 MG CAPSULE DELAYED RELEASE 1 CAPSULE ORALLY BID, NOTES: 10/29/19 AROUND 9:00 PM TAKING SERTRALINE HCL 50 MG TABLET 1 TABLET ORALLY ONCE A DAY, NOTES: 10/29/19 AT 1:00 PM TAKING MAY USE CBD OIL, NOTES: LAST NIGHT TAKING KETOGEN - POWDER DIRECTED ORALLY TAKING ONDANSETRON 8 MG TABLET DISINTEGRATING 1 TABLET ON THE TONGUE AND ALLOW TO DISSOLVE NEEDED ORALLY ONCE A DAY TAKING TIZANIDINE HCL 4 MG TABLET 1 TABLET NEEDED ORALLY THREE TIMES A DAY TAKING OXYCODONE-ACETAMINOPHEN 7.5-325 MG TABLET 1-2 TABLET NEEDED ORALLY Q8H PRN MDD3 TAKING SOMA 350 MG TABLET 1 TABLET NEEDED ORALLY BID MDD2 TAKING LYRICA 100 MG CAPSULE 1 CAPSULE ORALLY TID UNKNOWN MAY HAVE - - JAIN ORIGINS PAIN RELIEF OINTMENT DIRECTED UNKNOWN BENADRYL ALLERGY 25 MG TABLET 1 TABLET AT BEDTIME NEEDED ORALLY ONCE A DAY UNKNOWN SUCRALFATE 1 GM TABLET 1 TABLET ON AN EMPTY STOMACH BEFORE MEALS ORALLY TWICE A DAY UNKNOWN RELPAX 40 MG TABLET 1 TABLET NEEDED ONE TIME ORALLY ONCE A DAY, NOTES: NOT IN A MONTH UNKNOWN DILAUDID 2 MG TABLET 1 TABLET NEEDED ORALLY 1 TO 2X DAY NEEDED FOR SEVERE PAIN MDD2 UNKNOWN TIZANIDINE HCL 4 MG TABLET 1 TABLET NEEDED ORALLY THREE TIMES A DAY, NOTES: DUPLICATE UNKNOWN METOPROLOL SUCCINATE 25 MG CAPSULE ER 24 HOUR SPRINKLE 1 CAPSULE ORALLY ONCE A DAY UNKNOWN OMEPRAZOLE 10 MG CAPSULE DELAYED RELEASE 1 CAPSULE ORALLY ONCE A DAY IN THE AM, NOTES: DUPLICATE UNKNOWN FENTANYL 12 MCG/HR PATCH 72 HOUR 1 PATCH TO SKIN TRANSDERMAL 1 PATCH E70M=BXP PAST MEDICAL HISTORY GLORY- USES CPAP NOT USING KIDNEY STONES GERD CONSTIPATION CHRONIC BACK PAIN/NECK PAIN ANEMIA IBS FIBROMYALGIA RESTLESS LEG SYNDROME DEPRESSION ATROPHIC KIDNEY - S/P NEPHRECTOMY UTI GASTRIC ULCER AND LESIONS HTN ALLERGIES SULFA (FOR ALLERGY USE ONLY): UNKNOWN - CHILD - ALLERGY ENVIROMENTAL: SINUS INFECTION - ALLERGY SURGICAL HISTORY PARTIAL HYSTERECTOMY 1986 BREAST REDUCTION 2001 CHOLECYSTECTOMY 1981 GASTRIC BYPASS 2011 RIGHT, KNEE REPLACEMENT 2011 APPENDECTOMY 2010 ROBOTIC ASSISTED LEFT NEPHRECTOMY 03/18/2014 COLONOSCOPY, EGD 05/08/18 HERNIA REPAIR 2016 EXPLORATORY LAPAROSCOPY 2000 FAMILY HISTORY FATHER: ALIVE, DIAGNOSED WITH OTHER MALIGNANT NEOPLASM OF UNSPECIFIED SITE MOTHER: ALIVE, UNSPECIFIED CEREBRAL ARTERY OCCLUSION WITH CEREBRAL INFARCTION, OTHER MALIGNANT NEOPLASM OF UNSPECIFIED SITE 3 BROTHER(S) , 2 SISTER(S) . 1 SON(S) , 3 DAUGHTER(S) - HEALTHY. FATHER HAD PROSTATE CANCER, ROSALINO BARRE SYNDROME,MELANOMA, SEIZURE DISORDER\NMOTHER - SKIN CANCER, THYROID CA. SOCIAL HISTORY GENERAL: TOBACCO USE ARE YOU A:CURRENT SMOKER ARE YOU INTERESTED IN QUITTING?NOT READY TO QUIT COUNSELED THE PATIENT ON SMOKING EFFECTS, EDUCATION EHZVUPIP49/15/2020 HOW MANY CIGARETTES A DAY DO YOU SMOKE?6-10 PATIENT COUNSELED ON THE DANGERS OF TOBACCO USE AND URGED TO QUIT:10/28/2019 EDUCATION LEVEL OF EDUCATION:COLLEGE DIET: REGULAR. LANGUAGE LANGUAGES SPOKEN:GEORGIAN DOMESTIC VIOLENCE DO YOU FEEL SAFE IN YOUR ENVIRONMENT?YES RECREATIONAL DRUG USE DRUG USE?NO EXERCISE: WALKS EVERY OTHER DAY. LEARNING BARRIERS / SPECIAL NEEDS CHANGE FROM LAST VISIT?NO BARRIERS TO LEARNING?NO HEARING IMPAIRED?NO VISION IMPAIRED?NO COGNITIVELY IMPAIRED?NO READINESS TO LEARN?YES LEARNING PREFERENCES?YES :BOOKLETS, HANDOUTS LEARNING CAPABILITIES PRESENT?YES EMOTIONAL BARRIERS?NO SPECIAL DEVICES?NO INTERPRETER TRANSLATOR NEEDED?NO PAIN CLINIC PFS, CLERGY, PUBLIC HEALTH REFERRALS PFS REFERRAL NEEDED?NO CLERGY REFERRAL NEEDED?NO PUBLIC HEALTH REFERRAL NEEDED?NO WAS THE PROVIDER NOTIFIED OF ANY PERTINENT INFO?YES N/A HAS THE PATIENT BEEN EDUCATED REGARDING HIS/HER PLAN OF CARE?YES HAS THE PATIENT BEEN EDUCATED REGARDING PAIN, THE RISK FOR PAIN, THE IMPORTANCE OF EFFECTIVE PAIN MANAGEMENT, AND THE PAIN ASSESSMENT PROCESS?YES LATEX QUESTIONNAIRE LATEX ALLERGY : HAVE YOU EVER DEVELOPED ANY TYPE OF REACTION AFTER HANDLING LATEX PRODUCTS SUCH RUBBER GLOVES, CONDOMS, DIAPHRAGMS, BALLOONS, SOCKS, OR UNDERWEAR?NO LATEX ALLERGY : HAVE YOU EVER DEVELOPED ANY TYPE OF REACTION DURING OR AFTER DENTAL APPOINTMENT, VAGINAL/RECTAL EXAMINATION, SURGICAL PROCEDURE, OR ANY OTHER EXPOSURE?NO DATE ASKED : 02/06/2019 LATEX RISK : HAVE YOU EVER HAD ANY DIFFICULTY BREATHING OR HIVES AFTER EATING OR HANDLING ANY FRUITS, OR VEGETABLES; SUCH KIWI, BANANAS, STONE FRUITS, OR CHESTNUTSNO LATEX RISK : DO YOU HAVE A PREVIOUS PERSONAL HISTORY OF MORE THAN NINE SURGERIES, SPINA BIFIDA, OR REPEATED CATHERIZATIONS? NO LATEX RISK : ARE YOU FREQUENTLY EXPOSED TO LATEX PRODUCTS IN YOUR OCCUPATION?NO CAFFEINE CAFFEINE USE?YES HOW OFTEN AND HOW MUCH? 2 CUPS OF GREEN TEA 01/26/18 - 5-6 CUPS PER DAY ADVANCE DIRECTIVE ADVANCE DIRECTIVE DISCUSSED WITH PATIENT:YES 10/25/2019 PATIENT HAS NO ADVANCED DIRECTIVES AND DECLINED HCP INFORMATION AT THIS TIME. [facility] CONFUCIANIST [id number] BUDDHIST MARITAL STATUS: . ALCOHOL SCREENING DID YOU HAVE A DRINK CONTAINING ALCOHOL IN THE PAST YEAR?NO POINTS0 INTERPRETATIONNEGATIVE SEXUAL HX HAD SEX IN THE LAST 12 MONTHS (VAGINAL, ORAL, OR ANAL)?YES WITHMEN ONLY USE PROTECTION?NO HAVE YOU EVER HAD AN STD?NO 05/16/18 1044 REVIEWED WITH PT. AD REVIEWED WITH PATIENT 07/12/18 1140 JSREVIEWED WITH PATIENT 05/07/16 1315 NLJREVIEWED WITH PATIENT 07/12/19 1020 NLJREVIEWED WITH PATIENT 07/26/19 1322 JSPRE SCREEN PHONE CALL DONE 09/06/19 0845 BVREVIEWED WITH PATIENT 10/16/2019 0931 JSPRE PROCEDURE PHONE CALL 10/25/2019 LASPT REPORTS NO CHANGES IN PRE PROCEDURE INFORMATION 10/28/2019 1328 NLJ. HOSPITALIZATION/MAJOR DIAGNOSTIC PROCEDURE BACK PAIN - ([facility]) MULTIPLE BRONCHITIS 2012 PNEUMONIA 2016 SURGERIES REVIEW OF SYSTEMS REVIEWED BY: PROVIDER: VERONICA FERGUSON MD . VITAL SIGNS WT 207.6 LBS, HT 64 IN, BMI 35.63 INDEX, BP 136/63 MM HG, HR 90 /MIN, RR 18 /MIN, TEMP 97.8 F, OXYGEN SAT % 92, SAFE IN ENV? (Y/N) YESB. LAURENCE OPERATIONS RECRUITER. EXAMINATION GENERAL: PATIENT IS ALERT O X 3 AND COOPERATIVE. ANTALGIC GAIT. PATIENT IS LIMPING FROM THE LEFT LEG, WHICH IS WEAKER AT EXTENSION AND FLEXION. STRAIGHT LEG RAISE OF THE LEFT LEG IS POSITIVE AT 10 DEGREES FOR RADICULOPATHY. THERE IS TENDERNESS IN THE LOWER BACK OVER PARASPINAL MUSCLE AREA. MRI OF THE LUMBAR SPINE DONE ON 03/26/18 SHOWS STENOSIS AT L4-L5 AND A BULGING DISC AT L5-S1. ASSESSMENTS RADICULOPATHY DUE TO LUMBAR INTERVERTEBRAL DISC DISORDER - M51.16 (PRIMARY) TREATMENT RADICULOPATHY DUE TO LUMBAR INTERVERTEBRAL DISC DISORDER CLINICAL NOTES: WE DISCUSSED SEVERAL ISSUES WITH MS. RASHEED'S PAIN MANAGEMENT CASE. DUE TO THE LUMBAR RADICULOPATHY, I WOULD LIKE TO MOVE FORWARD WITH A LUMBAR EPIDURAL STEROID INJECTION AT THIS TIME. MS. RASHEED EXPRESSED THAT A LUMBAR EPIDURAL SPINAL INJECTION HAS HELPED HER PAIN IN THE PAST. I AM LOOKING FOR LONG-LASTING PAIN RELIEF WITH THIS INTERVENTION. A REFERRAL WILL BE SENT TO DR. DALE'S OFFICE AT [facility] FOR A NERVE CONDUCTION STUDY OF THE UPPER EXTREMITIES AND LOWER EXTREMITIES. THE PATIENT IS ALSO EXPERIENCING A SITUATION WITH HER MEDICATION IN THAT IT WAS LEFT IN [place], AND IT WILL TAKE TWO DAYS FOR IT TO BE RETURNED TO THE PATIENT. I AM GOING TO INCREASE THE PATIENT'S MEDICATION FOR ONLY TWO DAYS, WHICH I DISCUSSED WITH HER PHARMACIST. INSTRUCTIONS WERE GIVEN, QUESTIONS WERE ANSWERED; THE PATIENT REPORTS UNDERSTANDING AND AGREES WITH THE PLAN. I, GRACIE REMY, DOCUMENTED THE ABOVE INFORMATION ACTING SCRIBE FOR DR. FERGUSON. I HAVE REVIEWED THE ABOVE DOCUMENT, WRITTEN BY GRACIE REMY, ESPERANZAIBGaby, AND VERIFY THAT IT IS ACCURATE. . OTHERS CONTINUE OXYCODONE-ACETAMINOPHEN TABLET, 7.5-325 MG, 1-2 TABLET NEEDED, ORALLY, Q6H PRN MDD4, 2 DAYS, 5, REFILLS 0 CONTINUE SOMA TABLET, 350 MG, 1 TABLET NEEDED, ORALLY, TID MDD3, 2 DAYS, 3, REFILLS 0 PREVENTIVE MEDICINE PAIN CLINIC TEACHING: PROCEDURE TEACHING PT GIVEN WRITTEN AND VERBAL PRE PROCEDURE INSTRUCTIONS FOR LUMBAR EPIDURAL, PT STATES SHE IS FAMILIAR WITH PROCEDURE AND WITH THE INSTRUCTIONS AND VERBALIZES UNDERSTANDING OF ALL INSTRUCTIONS. BETH HICKMAN 10/30/2019 10:21:39 AM > . PROCEDURE CODES G8427 CURRENT MEDS W/DOSAGES DOCUMENTED G8730 PAIN ASSESS POS TOOL F/U PLAN DOC FA211 ESTABILISHED PATIENT [facility] CHARGE DISPOSITION & COMMUNICATION ELECTRONICALLY SIGNED BY VERONICA FERGUSON MD, MD ON 11/07/2019 AT 05:40 PM EST DISCLAIMER : THIS IS A VISIT SUMMARY EXTRACTED FROM THE [employer] CHART. IT IS NOT A COPY OF THE [employer] PROGRESS NOTE. NATALIE
== END ==
LOC: M PAIN 09:30
PROVIDERS: ATTEND Anesthesiology
DX: M51.16 Intervertebral disc disorders with radiculopathy, lumbar region (principal)

== ENCOUNTER → 2020-01-06 | Outpatient (CLI) | payer OTHER ==
--- NOTE | 2020-01-20 00:02 | ECWPNPC ---
PATIENT NAME: ANGLE RASHEED : 1960 GENDER: FEMALE VISIT DATE: 01/06/2020 DISCHARGE DATE: 01/06/20 1403 VISIT LOCKED DATE TIME: PHYSICIAN: VERONICA FERGUSON MD RESOURCE: VERONICA FERGUSON MD REASON FOR APPOINTMENT 1. F/U PER DR. Miller - [facility] MGMT HISTORY OF PRESENT ILLNESS HISTORY OF PRESENT ILLNESS: PAIN THE PATIENT DESCRIBES THE PAIN... PERMISSION FROM PATIENT WAS RECEIVED TO DO TELEPHONE OFFICE VISIT. 59-YEAR-OLD FEMALE PATIENT WITH HISTORY OF CHRONIC LOW BACK AND LEG PAIN. THE PATIENT DESCRIBES THE PAIN ACHING, BURNING, SHARP, STABBING, TENDER, SHOOTING AND CONSTANT WITH A PAIN SCORE THAT RANGES FROM 7-9/10 DEPENDING ON PHYSICAL ACTIVITY. SHE IS CURRENTLY USING OXYCODONE, SOMA, AND PREGABALIN TO CONTROL THE PAIN. SHE WAS PREVIOUSLY SEEN IN [place], WHERE SHE LIVES, AT [facility] AND WAS PRESCRIBED CLONAZEPAM. THE PAIN IS MAINLY LOCATED IN THE LOW BACK AND LEFT LEG. THE PATIENT WAS ORIGINALLY SCHEDULED FOR AN EPIDURAL BUT DUE TO THE PRECAUTIONS FOR COVID-19, HER EPIDURAL WAS POSTPONE. THE PATIENT STATES THAT GIVEN THE PRESENT SITUATION, SHE CAN CURRENTLY HANDLE THE PAIN AND IT IS NOT URGENT. THE PATIENT STATES THAT SHE WAS SICK A FEW WEEKS AGO AND WAS TESTED FOR COVID-19. PER THE PATIENT, THE RESULTS WERE NEGATIVE. PATIENT DENIES UNEXPLAINABLE WEIGHT LOSS, FEVER, CHILLS, NEW CHANGES ON HER URINARY OR BOWEL CONTROL. FALL RISK SCREENING: SCREENING :NO FALLS REPORTED IN THE LAST YEAR CURRENT MEDICATIONS TAKING HYDROXYZINE HCL 25 MG TABLET 1 TABLET NEEDED ORALLY EVERY 8 HRS TAKING OMEPRAZOLE 20 MG CAPSULE DELAYED RELEASE 1 CAPSULE ORALLY BID TAKING SERTRALINE HCL 50 MG TABLET 1 TABLET ORALLY ONCE A DAY TAKING MAY USE CBD OIL TAKING KETOGEN - POWDER DIRECTED ORALLY DAILY TAKING ONDANSETRON 8 MG TABLET DISINTEGRATING 1 TABLET ON THE TONGUE AND ALLOW TO DISSOLVE NEEDED ORALLY ONCE A DAY TAKING TIZANIDINE HCL 4 MG TABLET 1 TABLET NEEDED ORALLY THREE TIMES A DAY TAKING OXYCODONE-ACETAMINOPHEN 7.5-325 MG TABLET 1-2 TABLET NEEDED ORALLY Q6H PRN MDD3, NOTES: TAKING 1/2 TAB TAKING LYRICA 100 MG CAPSULE 1 CAPSULE ORALLY TID TAKING MAY USE _ MEDICAL MARIJUANA 2 DROPS ORALLY EVERY 4-6 HOURS NEEDED TAKING CLONAZEPAM 1 MG TABLET 1 TABLET ORALLY TWICE DAILY NEEDED TAKING SOMA 350 MG TABLET 1 TABLET NEEDED ORALLY BID MDD2 TAKING MAY USE _ - 2 HC VAPE INHALED TAKE 2-3 PUFFS EVERY 2 HOURS NEEDED TAKING MAY HAVE - - MANDAEN ORIGINS PAIN RELIEF OINTMENT DIRECTED TAKING BENADRYL ALLERGY 25 MG TABLET 1 TABLET AT BEDTIME NEEDED ORALLY ONCE A DAY TAKING SUCRALFATE 1 GM TABLET 1 TABLET ON AN EMPTY STOMACH BEFORE MEALS ORALLY TWICE A DAY TAKING RELPAX 40 MG TABLET 1 TABLET NEEDED ONE TIME ORALLY ONCE A DAY NOT-TAKING PYRIDIUM 100 MG TABLET 1 TABLETS AFTER MEALS ORALLY THREE TIMES A DAY NEEDED, NOTES: HASN'T TAKEN FOR MONTHS NOT-TAKING DILAUDID 2 MG TABLET 1 TABLET NEEDED ORALLY 1 TO 2X DAY NEEDED FOR SEVERE PAIN MDD2 NOT-TAKING METOPROLOL SUCCINATE 25 MG CAPSULE ER 24 HOUR SPRINKLE 1 CAPSULE ORALLY ONCE A DAY NOT-TAKING FENTANYL 12 MCG/HR PATCH 72 HOUR 1 PATCH TO SKIN TRANSDERMAL 1 PATCH C13M=EVT DISCONTINUED TIZANIDINE HCL 4 MG TABLET 1 TABLET NEEDED ORALLY THREE TIMES A DAY, NOTES: DUPLICATE DISCONTINUED OMEPRAZOLE 10 MG CAPSULE DELAYED RELEASE 1 CAPSULE ORALLY ONCE A DAY IN THE AM, NOTES: DUPLICATE MEDICATION LIST REVIEWED AND RECONCILED WITH THE PATIENT PAST MEDICAL HISTORY GLORY- USES CPAP NOT USING KIDNEY STONES GERD CONSTIPATION CHRONIC BACK PAIN/NECK PAIN ANEMIA IBS FIBROMYALGIA RESTLESS LEG SYNDROME DEPRESSION ATROPHIC KIDNEY - S/P NEPHRECTOMY UTI GASTRIC ULCER AND LESIONS HTN ALLERGIES SULFA (FOR ALLERGY USE ONLY): UNKNOWN - CHILD - ALLERGY ENVIROMENTAL: SINUS INFECTION - ALLERGY SURGICAL HISTORY PARTIAL HYSTERECTOMY 1986 BREAST REDUCTION 2001 CHOLECYSTECTOMY 1981 GASTRIC BYPASS 2011 RIGHT, KNEE REPLACEMENT 2011 APPENDECTOMY 2010 ROBOTIC ASSISTED LEFT NEPHRECTOMY 03/18/2014 COLONOSCOPY, EGD 05/08/18 HERNIA REPAIR 2016 EXPLORATORY LAPAROSCOPY 2000 FAMILY HISTORY FATHER: ALIVE, DIAGNOSED WITH OTHER MALIGNANT NEOPLASM OF UNSPECIFIED SITE MOTHER: ALIVE, OTHER MALIGNANT NEOPLASM OF UNSPECIFIED SITE, UNSPECIFIED CEREBRAL ARTERY OCCLUSION WITH CEREBRAL INFARCTION 3 BROTHER(S) , 2 SISTER(S) . 1 SON(S) , 3 DAUGHTER(S) - HEALTHY. FATHER HAD PROSTATE CANCER, ROSALINO BARRE SYNDROME,MELANOMA, SEIZURE DISORDER\NMOTHER - SKIN CANCER, THYROID CA. SOCIAL HISTORY GENERAL: TOBACCO USE ARE YOU A:CURRENT SMOKER ARE YOU INTERESTED IN QUITTING?THINKING ABOUT QUITTING STATES SHE HAS CUT DOWN A LOT HOW MANY CIGARETTES A DAY DO YOU SMOKE?6-10 HOW SOON AFTER YOU WAKE UP DO YOU SMOKE YOUR FIRST CIGARETTE?WITHIN 5 MIN HOW OFTEN DO YOU SMOKE CIGARETTES?EVERY DAY PATIENT COUNSELED ON THE DANGERS OF TOBACCO USE AND URGED TO QUIT:01/06/2020 LATEX QUESTIONNAIRE LATEX ALLERGY : HAVE YOU EVER DEVELOPED ANY TYPE OF REACTION AFTER HANDLING LATEX PRODUCTS SUCH RUBBER GLOVES, CONDOMS, DIAPHRAGMS, BALLOONS, SOCKS, OR UNDERWEAR?NO LATEX ALLERGY : HAVE YOU EVER DEVELOPED ANY TYPE OF REACTION DURING OR AFTER DENTAL APPOINTMENT, VAGINAL/RECTAL EXAMINATION, SURGICAL PROCEDURE, OR ANY OTHER EXPOSURE?NO LATEX RISK : HAVE YOU EVER HAD ANY DIFFICULTY BREATHING OR HIVES AFTER EATING OR HANDLING ANY FRUITS, OR VEGETABLES; SUCH KIWI, BANANAS, STONE FRUITS, OR CHESTNUTSNO LATEX RISK : DO YOU HAVE A PREVIOUS PERSONAL HISTORY OF MORE THAN NINE SURGERIES, SPINA BIFIDA, OR REPEATED CATHERIZATIONS? NO LATEX RISK : ARE YOU FREQUENTLY EXPOSED TO LATEX PRODUCTS IN YOUR OCCUPATION?NO DATE ASKED : 01/06/2020 ALCOHOL SCREENING DID YOU HAVE A DRINK CONTAINING ALCOHOL IN THE PAST YEAR?NO POINTS0 INTERPRETATIONNEGATIVE RECREATIONAL DRUG USE DRUG USE?NO CAFFEINE CAFFEINE USE?YES HOW OFTEN AND HOW MUCH? 2 CUPS OF GREEN TEA , 2 CUPS COFFEE/DAY SEXUAL HX HAD SEX IN THE LAST 12 MONTHS (VAGINAL, ORAL, OR ANAL)?YES WITHMEN ONLY USE PROTECTION?NO HAVE YOU EVER HAD AN STD?NO GNOSTICIST [id number] SABIANISM LANGUAGE LANGUAGES SPOKEN:ICELANDIC EDUCATION LEVEL OF EDUCATION:COLLEGE LEARNING BARRIERS / SPECIAL NEEDS CHANGE FROM LAST VISIT?NO BARRIERS TO LEARNING?NO HEARING IMPAIRED?NO VISION IMPAIRED?NO COGNITIVELY IMPAIRED?NO READINESS TO LEARN?YES LEARNING PREFERENCES?YES :BOOKLETS, HANDOUTS LEARNING CAPABILITIES PRESENT?YES EMOTIONAL BARRIERS?NO SPECIAL DEVICES?NO SPECIALIZED DEVELOPER NEEDED?NO DOMESTIC VIOLENCE DO YOU FEEL SAFE IN YOUR ENVIRONMENT?YES OCCUPATION: DISABLED. DIET: REGULAR. EXERCISE: WALKS EVERY OTHER DAY. MARITAL STATUS: . NEW PATIENT PAIN DIARY TODAY'S VISIT 01/06/2020 PATIENT DESCRIBES PAIN :ACHING, BURNING, HAVE IT ALL THE TIME, SHARP, STABBING, TENDER, SHOOTING FROM 0-10, WHAT LEVEL IS YOUR PAIN TODAY?8 8 1/2 PRECIPITATING FACTORS ANY MOVEMENT, UNABLE TO DO ANYTHING ALLEVIATING FACTORS MEDS, REST, MANDAEN PAIN OINT., ICE IMPACT ON FUNCTION NOT ABLE TO DO ANYTHING INTENSITY SCALE REVIEWED AD PAIN CLINIC PFS, CLERGY, PUBLIC HEALTH REFERRALS PFS REFERRAL NEEDED?NO CLERGY REFERRAL NEEDED?NO PUBLIC HEALTH REFERRAL NEEDED?NO HAS THE PATIENT BEEN EDUCATED REGARDING HIS/HER PLAN OF CARE?YES HAS THE PATIENT BEEN EDUCATED REGARDING PAIN, THE RISK FOR PAIN, THE IMPORTANCE OF EFFECTIVE PAIN MANAGEMENT, AND THE PAIN ASSESSMENT PROCESS?YES ADVANCE DIRECTIVE ADVANCE DIRECTIVE DISCUSSED WITH PATIENT:YES 01/06/2020 PATIENT HAS NO ADVANCED DIRECTIVES AND DECLINED HCP INFORMATION AT THIS TIME. AD REVIEWED WITH PATIENT 07/12/18 1140 JSREVIEWED WITH PATIENT 05/07/16 1315 NLJREVIEWED WITH PATIENT 07/12/19 1020 NLJREVIEWED WITH PATIENT 07/26/19 1322 JSPRE SCREEN PHONE CALL DONE 09/06/19 0845 BVREVIEWED WITH PATIENT 10/16/2019 0931 JSPRE PROCEDURE PHONE CALL 10/25/2019 LASPT REPORTS NO CHANGES IN PRE PROCEDURE INFORMATION 10/28/2019 1328 NLJ. HOSPITALIZATION/MAJOR DIAGNOSTIC PROCEDURE BACK PAIN - ([facility]) MULTIPLE BRONCHITIS 2013 PNEUMONIA 2016 SURGERIES REVIEW OF SYSTEMS REVIEWED BY: PROVIDER: VERONICA FERGUSON MD . CONSTITUTIONAL: ANY CHANGE IN YOUR MEDICAL CONDITION? YES, HAS HAD URI FOR 3 WEEKS. WAS TREATED WITH ZPAK, MUCINEX. TESTED NEG. FOR COVID19 . CHILLS YES, LAST WEEK-NOT AT PRESENT TIME . FEVER YES, 102 HAD LAST WEEK DOESN'T HAVE AT THIS TIME . INFECTION: DO YOU HAVE NEW INFECTIONS? YES, URI NOTED ABOVE. . DO YOU HAVE HISTORY OF MRSA? NO . MUSCULOSKELETAL: ANY NEW PATTERNS OF PAIN OR NUMBNESS? YES, PAIN HAS INCREASED SINCE LAST NIGHT . GASTROENTEROLOGY: ANY NEW CHANGE IN BOWEL CONTROL? NO . GENITOURINARY: ANY NEW CHANGE IN BLADDER CONTROL? YES, HAS BEEN HAVING URGENCY FOR PAST 6 MONTHS . IS THERE A CHANCE YOU COULD BE ? NO . HEMATOLOGY/LYMPH: DO YOU TAKE ANY BLOOD THINNERS? (FOR EXAMPLE- COUMADIN, PLAVIX, AGGRENOX, PLATEL, PRADAXA, OR XARELTO) NO . WHEN WAS YOUR LAST DOSE? DATE: TIME: . NEUROLOGY: HAVE YOU FALLEN IN THE PAST 12 MONTHS? NO . ANY NEW EXTREMITY NUMBNESS OR WEAKNESS? YES, HANDS AND ARMS ARE GETTING REALLY WEAK- SHE DROPS HER COFFEE EVERYDAY. STARTED A YEAR AGO BUT HAS GOTTEN WORSE OVER THE PAST 2 MONTHS . CARDIOLOGY: DO YOU HAVE A PACEMAKER OR DEFIBRILLATOR? NO . RESPIRATORY: HAVE YOU BEEN SICK IN THE PAST WEEK? NO . FEVER NO . FLU LIKE SYMPTOMS? NO . COUGH NO . INTEGUMENTARY: DO YOU HAVE ANY RASHES OR OPEN SORES? NO . ALLERGIC/IMMUNO: ARE YOU ALLERGIC TO IV DYE? NO . ANY NEW ALLERGIES? NO . PSYCHIATRIC: DO YOU HAVE THOUGHTS OF HURTING YOURSELF OR SOMEONE ELSE? NO . ARE YOU ABUSED, NEGLECTED, OR IN AN UNSAFE ENVIRONMENT? NO . ENDOCRINOLOGY: ARE YOU DIABETIC? NO . OTHER: DO YOU NEED ANY PRESCRIPTIONS? NO . IF YES, PLEASE LIST: ____ . ANY NEW PROBLEMS WITH YOUR MEDICATIONS? NO . WHEN DID YOU LAST EAT? ____ . WHEN DID YOU LAST DRINK? ____ . WHAT DID YOU LAST DRINK? ____ . NAME OF PERSON DRIVING YOU HOME? ____ . DO YOU HAVE ANY OTHER QUESTIONS OR CONCERNS YES, HAS HAD AN INCREASE IN PAIN SINCE LAST NIGHT . EXAMINATION GENERAL EXAMINATION: TELEPHONE VISIT. PATIENT IS ALERT, O X 3 AND COOPERATIVE. MRI LUMBAR SPINE DATED MARCH 26, 2018 SHOWS BULGING DISC AT L4-L5 AND L5-S1. ASSESSMENTS INTERVERTEBRAL DISC DISORDERS WITH RADICULOPATHY, LUMBAR REGION - M51.16 (PRIMARY) TREATMENT INTERVERTEBRAL DISC DISORDERS WITH RADICULOPATHY, LUMBAR REGION CLINICAL NOTES: WE DISCUSSED SEVERAL ISSUES WITH MS. RASHEED'S PAIN MANAGEMENT CASE. THE PATIENT IS EXPERIENCING A NEW PAIN WITH NEW CHARACTERISTICS. ALTHOUGH THE PATIENT IS HAVING DIFFICULTY WITH AMBULATING, THE PATIENT AGREES THAT THE PROCEDURE IS NOT CURRENTLY URGENT, AND WE WILL WAIT UNTIL THE COVID-19 SITUATION IS OVER TO PERFORM THE EPIDURAL. I WILL ORDER A NEW MRI OF THE LUMBAR SPINE TO REASSESS THE PATIENT. THE PATIENT KNOWS THAT IF THE PAIN GETS WORSE, OR HER CONDITION WORSENS, SHE IS TO CALL THE OFFICE TO DETERMINE IF THE PROCEDURE NEEDS TO BE DONE SOONER. THE PATIENT WILL CALL WITH ANY QUESTIONS OR CONCERNS. I WILL DISCUSS THE CASE WITH TAZ DUPREE, NURSE PRACTITIONER. I HAD A LENGTHY CONVERSATION WITH THE PATIENT, AND THE TOTAL TIME OF THE TELEPHONE VISIT WAS 24 MINUTES. THE PATIENT UNDERSTANDS AND IS IN AGREEMENT WITH THE TREATMENT PLAN. I, CHRISTIANO MERAZ , DOCUMENTED THE ABOVE INFORMATION ACTING A SCRIBE FOR DR. FERGUSON. I HAVE REVIEWED THE ABOVE DOCUMENT, WRITTEN BY NAKUL POPE, AND I VERIFY THAT IT IS ACCURATE. OTHERS NOTES: V/S NOT TAKEN DUE TO TELEPHONE VISIT. DISPOSITION & COMMUNICATION FOLLOW UP 3 WEEKS ELECTRONICALLY SIGNED BY VERONICA FERGUSON MD, MD ON 01/19/2020 AT 04:01 PM EDT DISCLAIMER : THIS IS A VISIT SUMMARY EXTRACTED FROM THE [employer] CHART. IT IS NOT A COPY OF THE [employer] PROGRESS NOTE. MTDD
== END ==
LOC: M PAIN 09:15
PROVIDERS: ATTEND Anesthesiology
DX: M51.16 Intervertebral disc disorders with radiculopathy, lumbar region (principal); G89.29 Other chronic pain; G47.33 Obstructive sleep apnea (adult) (pediatric); K21.9 Gastro-esophageal reflux disease without esophagitis; M79.7 Fibromyalgia; G25.81 Restless legs syndrome; Z86.59 Personal history of other mental and behavioral disorders; I10 Essential (primary) hypertension; Z98.84 Bariatric surgery status; Z96.651 Presence of right artificial knee joint; F17.210 Nicotine dependence, cigarettes, uncomplicated; Z88.2 Allergy status to sulfonamides; Z79.899 Other long term (current) drug therapy

== ENCOUNTER → 2020-01-20 | Outpatient (CLI) | payer OTHER ==
--- NOTE | 2020-01-22 03:47 | ECWPNPC ---
PATIENT NAME: ANGLE RASHEED : 1960 GENDER: FEMALE VISIT DATE: 01/20/2020 DISCHARGE DATE: 01/20/20 1146 VISIT LOCKED DATE TIME: PHYSICIAN: TAZ DUPREE RESOURCE: TAZ DUPREE REASON FOR APPOINTMENT 1. POST PROCEDURE [phone] HISTORY OF PRESENT ILLNESS HISTORY OF PRESENT ILLNESS: PAIN THE PATIENT DESCRIBES THE PAIN... 59-YEAR-OLD FEMALE IN FOR CHRONIC PAIN FOLLOW-UP. SHE RATES HER PAIN CURRENTLY AT AN 8 OUT OF 10. PATIENT RECENTLY TESTED POSITIVE FOR FENTANYL IN HER URINE WHICH WAS DISCUSSED WITH PATIENT TODAY AND SHE ADMITS THAT SHE HAD USED AN OLD FENTANYL PATCH RECENTLY THAT SHE HAD LYING AROUND. PATIENT ALSO ADMITS TO RECENTLY BEING PRESCRIBED MEDICAL MARIJUANA BY HER MENTAL HEALTH COUNSELOR FOR FOR USE WITH ANXIETY. SHE WAS ALSO PRESCRIBED CLONAZEPAM AT THAT VISIT. FALL RISK SCREENING: SCREENING :NO FALLS REPORTED IN THE LAST YEAR CURRENT MEDICATIONS TAKING HYDROXYZINE HCL 25 MG TABLET 1 TABLET NEEDED ORALLY EVERY 8 HRS TAKING OMEPRAZOLE 20 MG CAPSULE DELAYED RELEASE 1 CAPSULE ORALLY BID TAKING KETOGEN - POWDER DIRECTED ORALLY DAILY TAKING ONDANSETRON 8 MG TABLET DISINTEGRATING 1 TABLET ON THE TONGUE AND ALLOW TO DISSOLVE NEEDED ORALLY ONCE A DAY TAKING TIZANIDINE HCL 4 MG TABLET 1 TABLET NEEDED ORALLY THREE TIMES A DAY TAKING OXYCODONE-ACETAMINOPHEN 7.5-325 MG TABLET 1-2 TABLET NEEDED ORALLY Q6H PRN MDD3, NOTES: TAKING 1/2 TAB TAKING LYRICA 100 MG CAPSULE 1 CAPSULE ORALLY TID TAKING MAY USE _ MEDICAL MARIJUANA 2 DROPS ORALLY EVERY 4-6 HOURS NEEDED TAKING CLONAZEPAM 1 MG TABLET 1 TABLET ORALLY TWICE DAILY NEEDED TAKING SOMA 350 MG TABLET 1 TABLET NEEDED ORALLY BID MDD2 TAKING MAY USE _ - 2 HC VAPE INHALED TAKE 2-3 PUFFS EVERY 2 HOURS NEEDED TAKING MAY HAVE - - EVANGELICAL ORIGINS PAIN RELIEF OINTMENT DIRECTED TAKING BENADRYL ALLERGY 25 MG TABLET 1 TABLET AT BEDTIME NEEDED ORALLY ONCE A DAY TAKING SUCRALFATE 1 GM TABLET 1 TABLET ON AN EMPTY STOMACH BEFORE MEALS ORALLY TWICE A DAY TAKING RELPAX 40 MG TABLET 1 TABLET NEEDED ONE TIME ORALLY ONCE A DAY TAKING DILAUDID 2 MG TABLET 1 TABLET NEEDED ORALLY FOR PAIN EVERY 8 HOURS NEEDED MDD2 NOT-TAKING PYRIDIUM 100 MG TABLET 1 TABLETS AFTER MEALS ORALLY THREE TIMES A DAY NEEDED, NOTES: HASN'T TAKEN FOR MONTHS NOT-TAKING METOPROLOL SUCCINATE 25 MG CAPSULE ER 24 HOUR SPRINKLE 1 CAPSULE ORALLY ONCE A DAY NOT-TAKING FENTANYL 12 MCG/HR PATCH 72 HOUR 1 PATCH TO SKIN TRANSDERMAL 1 PATCH [id number] NOT-TAKING SERTRALINE HCL 50 MG TABLET 1 TABLET ORALLY ONCE A DAY NOT-TAKING MAY USE CBD OIL MEDICATION LIST REVIEWED AND RECONCILED WITH THE PATIENT PAST MEDICAL HISTORY GLORY- USES CPAP NOT USING KIDNEY STONES GERD CONSTIPATION CHRONIC BACK PAIN/NECK PAIN ANEMIA IBS FIBROMYALGIA RESTLESS LEG SYNDROME DEPRESSION ATROPHIC KIDNEY - S/P NEPHRECTOMY UTI GASTRIC ULCER AND LESIONS HTN ALLERGIES SULFA (FOR ALLERGY USE ONLY): UNKNOWN - CHILD - ALLERGY ENVIROMENTAL: SINUS INFECTION - ALLERGY SURGICAL HISTORY PARTIAL HYSTERECTOMY 1986 BREAST REDUCTION 2001 CHOLECYSTECTOMY 1981 GASTRIC BYPASS 2011 RIGHT, KNEE REPLACEMENT 2011 APPENDECTOMY 2010 ROBOTIC ASSISTED LEFT NEPHRECTOMY 03/18/2014 COLONOSCOPY, EGD 05/08/18 HERNIA REPAIR 2015 EXPLORATORY LAPAROSCOPY 2000 FAMILY HISTORY FATHER: ALIVE, DIAGNOSED WITH OTHER MALIGNANT NEOPLASM OF UNSPECIFIED SITE MOTHER: ALIVE, UNSPECIFIED CEREBRAL ARTERY OCCLUSION WITH CEREBRAL INFARCTION, OTHER MALIGNANT NEOPLASM OF UNSPECIFIED SITE 3 BROTHER(S) , 2 SISTER(S) . 1 SON(S) , 3 DAUGHTER(S) - HEALTHY. FATHER HAD PROSTATE CANCER, ROSALINO BARRE SYNDROME,MELANOMA, SEIZURE DISORDER\NMOTHER - SKIN CANCER, THYROID CA. SOCIAL HISTORY GENERAL: TOBACCO USE ARE YOU A:CURRENT SMOKER ARE YOU INTERESTED IN QUITTING?THINKING ABOUT QUITTING STATES SHE HAS CUT DOWN A LOT COUNSELED THE PATIENT ON SMOKING CESSATION, EDUCATION [id number]/20/2020 HOW MANY CIGARETTES A DAY DO YOU SMOKE?6-10 HOW SOON AFTER YOU WAKE UP DO YOU SMOKE YOUR FIRST CIGARETTE?WITHIN 5 MIN HOW OFTEN DO YOU SMOKE CIGARETTES?EVERY DAY PATIENT COUNSELED ON THE DANGERS OF TOBACCO USE AND URGED TO QUIT:01/06/2020 LATEX QUESTIONNAIRE LATEX ALLERGY : HAVE YOU EVER DEVELOPED ANY TYPE OF REACTION AFTER HANDLING LATEX PRODUCTS SUCH RUBBER GLOVES, CONDOMS, DIAPHRAGMS, BALLOONS, SOCKS, OR UNDERWEAR?NO LATEX ALLERGY : HAVE YOU EVER DEVELOPED ANY TYPE OF REACTION DURING OR AFTER DENTAL APPOINTMENT, VAGINAL/RECTAL EXAMINATION, SURGICAL PROCEDURE, OR ANY OTHER EXPOSURE?NO DATE ASKED : 01/06/2020 LATEX RISK : HAVE YOU EVER HAD ANY DIFFICULTY BREATHING OR HIVES AFTER EATING OR HANDLING ANY FRUITS, OR VEGETABLES; SUCH KIWI, BANANAS, STONE FRUITS, OR CHESTNUTSNO LATEX RISK : DO YOU HAVE A PREVIOUS PERSONAL HISTORY OF MORE THAN NINE SURGERIES, SPINA BIFIDA, OR REPEATED CATHERIZATIONS? NO LATEX RISK : ARE YOU FREQUENTLY EXPOSED TO LATEX PRODUCTS IN YOUR OCCUPATION?NO ALCOHOL SCREENING DID YOU HAVE A DRINK CONTAINING ALCOHOL IN THE PAST YEAR?NO POINTS0 INTERPRETATIONNEGATIVE RECREATIONAL DRUG USE DRUG USE?NO CAFFEINE CAFFEINE USE?YES HOW OFTEN AND HOW MUCH? 2 CUPS OF GREEN TEA , 2 CUPS COFFEE/DAY SEXUAL HX HAD SEX IN THE LAST 12 MONTHS (VAGINAL, ORAL, OR ANAL)?YES WITHMEN ONLY USE PROTECTION?NO HAVE YOU EVER HAD AN STD?NO YAZDANISM [id number] EVANGELICAL LANGUAGE LANGUAGES SPOKEN:LUXEMBOURGISH EDUCATION LEVEL OF EDUCATION:COLLEGE LEARNING BARRIERS / SPECIAL NEEDS CHANGE FROM LAST VISIT?NO BARRIERS TO LEARNING?NO HEARING IMPAIRED?NO VISION IMPAIRED?NO COGNITIVELY IMPAIRED?NO READINESS TO LEARN?YES LEARNING PREFERENCES?YES :BOOKLETS, HANDOUTS LEARNING CAPABILITIES PRESENT?YES EMOTIONAL BARRIERS?NO SPECIAL DEVICES?NO UNIT OPERATOR NEEDED?NO DOMESTIC VIOLENCE DO YOU FEEL SAFE IN YOUR ENVIRONMENT?YES OCCUPATION: DISABLED. DIET: REGULAR. EXERCISE: WALKS EVERY OTHER DAY. MARITAL STATUS: . NEW PATIENT PAIN DIARY TODAY'S VISIT 01/20/2020 PATIENT DESCRIBES PAIN :ACHING, BURNING, HAVE IT ALL THE TIME, SHARP, STABBING, TENDER, SHOOTING FROM 0-10, WHAT LEVEL IS YOUR PAIN TODAY?8 8 1/2 PRECIPITATING FACTORS ANY MOVEMENT, UNABLE TO DO ANYTHING ALLEVIATING FACTORS MEDS, REST, EVANGELICAL PAIN OINT., ICE IMPACT ON FUNCTION NOT ABLE TO DO ANYTHING INTENSITY SCALE REVIEWED AD PAIN CLINIC PFS, CLERGY, PUBLIC HEALTH REFERRALS PFS REFERRAL NEEDED?NO CLERGY REFERRAL NEEDED?NO PUBLIC HEALTH REFERRAL NEEDED?NO HAS THE PATIENT BEEN EDUCATED REGARDING HIS/HER PLAN OF CARE?YES HAS THE PATIENT BEEN EDUCATED REGARDING PAIN, THE RISK FOR PAIN, THE IMPORTANCE OF EFFECTIVE PAIN MANAGEMENT, AND THE PAIN ASSESSMENT PROCESS?YES ADVANCE DIRECTIVE ADVANCE DIRECTIVE DISCUSSED WITH PATIENT:YES PATIENT HAS NO ADVANCED DIRECTIVES AND DECLINED HCP INFORMATION AT THIS TIME. REVIEWED WITH PATIENT 07/12/18 1140 JSREVIEWED WITH PATIENT 05/07/16 1315 NLJREVIEWED WITH PATIENT 07/12/19 1020 NLJREVIEWED WITH PATIENT 07/26/19 1322 JSPRE SCREEN PHONE CALL DONE 09/06/19 0845 BVREVIEWED WITH PATIENT 10/16/2019 0931 JSPRE PROCEDURE PHONE CALL 10/25/2019 LASPT REPORTS NO CHANGES IN PRE PROCEDURE INFORMATION 10/28/2019 1328 NLJ. HOSPITALIZATION/MAJOR DIAGNOSTIC PROCEDURE BACK PAIN - ([facility]) MULTIPLE BRONCHITIS 2013 PNEUMONIA 2016 SURGERIES REVIEW OF SYSTEMS REVIEWED BY: PROVIDER: AARON MENA . CONSTITUTIONAL: ANY CHANGE IN YOUR MEDICAL CONDITION? NO . CHILLS NO . FEVER NO . INFECTION: DO YOU HAVE NEW INFECTIONS? NO SINUS CONGESTION . DO YOU HAVE HISTORY OF MRSA? NO . MUSCULOSKELETAL: ANY NEW PATTERNS OF PAIN OR NUMBNESS? PAIN IS GETTING WORSE . GASTROENTEROLOGY: ANY NEW CHANGE IN BOWEL CONTROL? NO . GENITOURINARY: ANY NEW CHANGE IN BLADDER CONTROL? NO . IS THERE A CHANCE YOU COULD BE ? NO . HEMATOLOGY/LYMPH: DO YOU TAKE ANY BLOOD THINNERS? (FOR EXAMPLE- COUMADIN, PLAVIX, AGGRENOX, PLATEL, PRADAXA, OR XARELTO) NO . WHEN WAS YOUR LAST DOSE? DATE: TIME: . NEUROLOGY: HAVE YOU FALLEN IN THE PAST 12 MONTHS? YES, FELL LAST WEEK FROM LOSS OF BALANCE AND TRIPPED OVER CAT, PT WAS SEEN AT [facility], IMAGING DONE AND INJECTION GIVEN AND PILL TO TAKE HOME . ANY NEW EXTREMITY NUMBNESS OR WEAKNESS? NO . CARDIOLOGY: DO YOU HAVE A PACEMAKER OR DEFIBRILLATOR? NO . RESPIRATORY: HAVE YOU BEEN SICK IN THE PAST WEEK? NO . FEVER NO . FLU LIKE SYMPTOMS? NO . COUGH NO . INTEGUMENTARY: DO YOU HAVE ANY RASHES OR OPEN SORES? NO . ALLERGIC/IMMUNO: ARE YOU ALLERGIC TO IV DYE? NO . ANY NEW ALLERGIES? NO . PSYCHIATRIC: DO YOU HAVE THOUGHTS OF HURTING YOURSELF OR SOMEONE ELSE? NO . ARE YOU ABUSED, NEGLECTED, OR IN AN UNSAFE ENVIRONMENT? NO . ENDOCRINOLOGY: ARE YOU DIABETIC? NO . OTHER: DO YOU NEED ANY PRESCRIPTIONS? YES, OXY, SOMA, TIZANIDINE, DILAUDID . IF YES, PLEASE LIST: ____ . ANY NEW PROBLEMS WITH YOUR MEDICATIONS? NO . WHEN DID YOU LAST EAT? ____ . WHEN DID YOU LAST DRINK? ____ . WHAT DID YOU LAST DRINK? ____ . NAME OF PERSON DRIVING YOU HOME? ____ . DO YOU HAVE ANY OTHER QUESTIONS OR CONCERNS NO . EXAMINATION GENERAL EXAMINATION: GENERALNO ACUTE DISTRESS, WELL NOURISHED AND HYDRATED. PSYCHAPPROPRIATE MOOD AND AFFECT , ORIENTED X 3 . ASSESSMENTS SPONDYLOSIS WITHOUT MYELOPATHY OR RADICULOPATHY, LUMBOSACRAL REGION - M47.817 (PRIMARY) TREATMENT SPONDYLOSIS WITHOUT MYELOPATHY OR RADICULOPATHY, LUMBOSACRAL REGION REFILL TIZANIDINE HCL TABLET, 4 MG, 1 TABLET NEEDED, ORALLY, THREE TIMES A DAY, 30 DAY(S), 90 TABLET, REFILLS 2 REFILL LYRICA CAPSULE, 150 MG, 1 CAPSULE, ORALLY, TID, 30 DAYS, 90 CAPSULE CLINICAL NOTES: 59-YEAR-OLD FEMALE IN FOR CHRONIC PAIN FOLLOW-UP. I DISCUSSED WITH PATIENT REGARDING USE OF FENTANYL PATCHES THAT WERE PRESCRIBED TO HER PRIOR AND INFORMED PATIENT THAT SHE CANNOT TAKE MEDICATIONS THAT ARE NOT CURRENTLY PRESCRIBED FOR HER THEY POTENTIALLY COULD HARM HER GIVEN HER CURRENT SCRIPTS. DISCUSSED CURRENT MEDICAL MARIJUANA USE AND INFORMED PATIENT THAT I COULD NOT PRESCRIBE OPIATES FOR HER SHOULD SHE CONTINUE WITH HER CURRENT MEDICAL MARIJUANA USE. PATIENT ADMITS THAT SHE DOES NOT USE THE MEDICAL MARIJUANA AT THIS TIME. GIVEN PRESENTING SYMPTOMS RECOMMEND INCREASING LYRICA TO 150 MG 3 TIMES A DAY WITH FOLLOW-UP IN 2 MONTHS TO DETERMINE EFFICACY OF TREATMENT. PATIENT HAS EXPRESSED UNDERSTANDING OF AND WAS IN AGREEMENT WITH TREATMENT PLAN. GIVEN TIME TO ASK QUESTIONS AND EXPRESS CONCERNS. , ISTOP REGISTRY REVIEWED AND DEMONSTRATES COMPLLIANCE. (REF # [id number] ) BRINGS IN MEDICATIONS WHICH IS APPROPRIATE FOR WHAT WAS DISPENSED. RECENT URINE TOXICOLOGY REVIEWED. NO UNAUTHORIZED MEDICATIONS. NO ILLICIT SUBSTANCES AND PRESCRIBED MEDICATIONS WERE PRESENT. TELEHEALTH VISIT PERFORMED VIA ZOOM. TIME SPENT WITH PATIENT 12 MINUTES. LEV ZEPEDA PRESENT DURING VISIT WITH PATIENT. DISPOSITION & COMMUNICATION FOLLOW UP 2 MONTHS (REASON: BACK PAIN) ELECTRONICALLY SIGNED BY SHAUN SARMIENTO ON 01/21/2020 AT 08:39 AM EDT DISCLAIMER : THIS IS A VISIT SUMMARY EXTRACTED FROM THE [employer] CHART. IT IS NOT A COPY OF THE [employer] PROGRESS NOTE. NATALIE
== END ==
LOC: M PAIN 10:45
PROVIDERS: ATTEND Family Medicine
DX: M47.817 Spondylosis without myelopathy or radiculopathy, lumbosacral region (principal); G89.29 Other chronic pain; G47.33 Obstructive sleep apnea (adult) (pediatric); K21.9 Gastro-esophageal reflux disease without esophagitis; M79.7 Fibromyalgia; G25.81 Restless legs syndrome; Z86.59 Personal history of other mental and behavioral disorders; I10 Essential (primary) hypertension; Z98.84 Bariatric surgery status; Z96.651 Presence of right artificial knee joint; F17.210 Nicotine dependence, cigarettes, uncomplicated; Z88.2 Allergy status to sulfonamides; Z79.899 Other long term (current) drug therapy

== ENCOUNTER → 2020-02-14 | Outpatient (CLI) | payer OTHER | LOC: M LABSMTC 09:39 | PROVIDERS: ATTEND Anesthesiology | DX: Z11.59 Encounter for screening for other viral diseases (principal) | CPT/HCPCS: C9803; U0003 ==

== ENCOUNTER → 2020-02-17 | Outpatient (CLI) | payer OTHER ==
[~2020-02-17] MED LIST changes: +ISOVUE-M 300 61% 15ML VIAL As Ordered ONE; +LIDOCAINE 1% SDV 30ML VIAL As Ordered ONE; +dexameTHASONE 10MG/1ML VIAL PRES.FREE (J1100 PER 1MG) As Ordered ONE; +diazePAM 5 MG TAB As Ordered ONE; +diphenhydrAMINE 25MG CAP As Ordered ONE; +oxyCODONE 5MG TAB As Ordered ONE
--- NOTE | 2020-02-17 16:35 | REP ---
C-ARM VIEW LUMBAR SPINE: CLINICAL HISTORY: Pain. A C-arm view of the lower lumbar spine performed during an epidural injection performed by Dr. Zuniga. A needle is seen at the L4-5 level. 11 seconds of fluoroscopy time is utilized. Electronically Signed by Linwood Clemons MD 02/17/2020 07:32 P
--- NOTE | 2020-02-21 01:52 | ECWPNPC ---
PATIENT NAME: ANGLE RASHEED : 1960 GENDER: FEMALE VISIT DATE: 02/17/2020 DISCHARGE DATE: 02/17/20 141 VISIT LOCKED DATE TIME: PHYSICIAN: VERONICA FERGUSON MD RESOURCE: VERONICA FERGUSON MD REASON FOR APPOINTMENT 1. LESI HISTORY OF PRESENT ILLNESS HISTORY OF PRESENT ILLNESS: PAIN THE PATIENT DESCRIBES THE PAIN... FALL RISK SCREENING: SCREENING :NO FALLS REPORTED IN THE LAST YEAR CURRENT MEDICATIONS TAKING HYDROXYZINE HCL 25 MG TABLET 1 TABLET NEEDED ORALLY EVERY 8 HRS, NOTES: 02/16/20202029 TAKING OMEPRAZOLE 20 MG CAPSULE DELAYED RELEASE 1 CAPSULE ORALLY BID, NOTES: 02/17/2020299 TAKING ONDANSETRON 8 MG TABLET DISINTEGRATING 1 TABLET ON THE TONGUE AND ALLOW TO DISSOLVE NEEDED ORALLY ONCE A DAY, NOTES: HAS NOT USED IN A LONG TIME TAKING CLONAZEPAM 1 MG TABLET 1 TABLET ORALLY TWICE DAILY NEEDED, NOTES: 02/17/2020299 TAKING MAY HAVE - - WILLIE ORIGINS PAIN RELIEF OINTMENT DIRECTED, NOTES: 02/17/2020299 TAKING BENADRYL ALLERGY 25 MG TABLET 1 TABLET AT BEDTIME NEEDED ORALLY ONCE A DAY, NOTES: 02/16/20202029 TAKING RELPAX 40 MG TABLET 1 TABLET NEEDED ONE TIME ORALLY ONCE A DAY, NOTES: HAS NOT USED IN ABOUT A MONTH TAKING TIZANIDINE HCL 4 MG TABLET 1 TABLET NEEDED ORALLY THREE TIMES A DAY, NOTES: 02/17/2020299 TAKING LYRICA 150 MG CAPSULE 1 CAPSULE ORALLY TID, NOTES: 02/17/2020299 TAKING OXYCODONE-ACETAMINOPHEN 7.5-325 MG TABLET 1-2 TABLET NEEDED ORALLY Q6H PRN MDD3, NOTES: 02/17/2020299 TAKING SOMA 350 MG TABLET 1 TABLET NEEDED ORALLY BID MDD2, NOTES: 02/16/20202029 NOT-TAKING PYRIDIUM 100 MG TABLET 1 TABLETS AFTER MEALS ORALLY THREE TIMES A DAY NEEDED, NOTES: HASN'T TAKEN FOR MONTHS NOT-TAKING METOPROLOL SUCCINATE 25 MG CAPSULE ER 24 HOUR SPRINKLE 1 CAPSULE ORALLY ONCE A DAY NOT-TAKING FENTANYL 12 MCG/HR PATCH 72 HOUR 1 PATCH TO SKIN TRANSDERMAL 1 PATCH [id number] NOT-TAKING SERTRALINE HCL 50 MG TABLET 1 TABLET ORALLY ONCE A DAY NOT-TAKING MAY USE CBD OIL NOT-TAKING KETOGEN - POWDER DIRECTED ORALLY DAILY NOT-TAKING MAY USE _ MEDICAL MARIJUANA 2 DROPS ORALLY EVERY 4-6 HOURS NEEDED, NOTES: NOT USING YET NOT-TAKING MAY USE _ - 2 HC VAPE INHALED TAKE 2-3 PUFFS EVERY 2 HOURS NEEDED, NOTES: CBD OIL-02/17/2020 0300 NOT-TAKING SUCRALFATE 1 GM TABLET 1 TABLET ON AN EMPTY STOMACH BEFORE MEALS ORALLY TWICE A DAY NOT-TAKING DILAUDID 2 MG TABLET 1 TABLET NEEDED ORALLY FOR PAIN EVERY 8 HOURS NEEDED MDD2 MEDICATION LIST REVIEWED AND RECONCILED WITH THE PATIENT PAST MEDICAL HISTORY GLORY- USES CPAP NOT USING KIDNEY STONES GERD CONSTIPATION CHRONIC BACK PAIN/NECK PAIN ANEMIA IBS FIBROMYALGIA RESTLESS LEG SYNDROME DEPRESSION ATROPHIC KIDNEY - S/P NEPHRECTOMY UTI GASTRIC ULCER AND LESIONS HTN ALLERGIES SULFA (FOR ALLERGY USE ONLY): UNKNOWN - CHILD - ALLERGY ENVIROMENTAL: SINUS INFECTION - ALLERGY SURGICAL HISTORY PARTIAL HYSTERECTOMY 1986 BREAST REDUCTION 2001 CHOLECYSTECTOMY 1981 GASTRIC BYPASS 2011 RIGHT, KNEE REPLACEMENT 2011 APPENDECTOMY 2010 ROBOTIC ASSISTED LEFT NEPHRECTOMY 03/18/2014 COLONOSCOPY, EGD 05/08/18 HERNIA REPAIR 2015 EXPLORATORY LAPAROSCOPY 2000 FAMILY HISTORY FATHER: ALIVE, DIAGNOSED WITH OTHER MALIGNANT NEOPLASM OF UNSPECIFIED SITE MOTHER: ALIVE, UNSPECIFIED CEREBRAL ARTERY OCCLUSION WITH CEREBRAL INFARCTION, OTHER MALIGNANT NEOPLASM OF UNSPECIFIED SITE 3 BROTHER(S) , 2 SISTER(S) . 1 SON(S) , 3 DAUGHTER(S) - HEALTHY. FATHER HAD PROSTATE CANCER, ROSALINO BARRE SYNDROME,MELANOMA, SEIZURE DISORDER\NMOTHER - SKIN CANCER, THYROID CA. SOCIAL HISTORY GENERAL: TOBACCO USE ARE YOU A:CURRENT SMOKER ARE YOU INTERESTED IN QUITTING?NOT READY TO QUIT STATES SHE HAS CUT DOWN A LOT HOW MANY CIGARETTES A DAY DO YOU SMOKE?6-10 HOW SOON AFTER YOU WAKE UP DO YOU SMOKE YOUR FIRST CIGARETTE?WITHIN 5 MIN HOW OFTEN DO YOU SMOKE CIGARETTES?EVERY DAY PATIENT COUNSELED ON THE DANGERS OF TOBACCO USE AND URGED TO QUIT:02/17/2020 LATEX QUESTIONNAIRE LATEX ALLERGY : HAVE YOU EVER DEVELOPED ANY TYPE OF REACTION AFTER HANDLING LATEX PRODUCTS SUCH RUBBER GLOVES, CONDOMS, DIAPHRAGMS, BALLOONS, SOCKS, OR UNDERWEAR?NO LATEX ALLERGY : HAVE YOU EVER DEVELOPED ANY TYPE OF REACTION DURING OR AFTER DENTAL APPOINTMENT, VAGINAL/RECTAL EXAMINATION, SURGICAL PROCEDURE, OR ANY OTHER EXPOSURE?NO LATEX RISK : HAVE YOU EVER HAD ANY DIFFICULTY BREATHING OR HIVES AFTER EATING OR HANDLING ANY FRUITS, OR VEGETABLES; SUCH KIWI, BANANAS, STONE FRUITS, OR CHESTNUTSNO LATEX RISK : DO YOU HAVE A PREVIOUS PERSONAL HISTORY OF MORE THAN NINE SURGERIES, SPINA BIFIDA, OR REPEATED CATHERIZATIONS? NO LATEX RISK : ARE YOU FREQUENTLY EXPOSED TO LATEX PRODUCTS IN YOUR OCCUPATION?NO DATE ASKED : 02/17/2020 ALCOHOL SCREENING DID YOU HAVE A DRINK CONTAINING ALCOHOL IN THE PAST YEAR?NO POINTS0 INTERPRETATIONNEGATIVE RECREATIONAL DRUG USE DRUG USE?NO CAFFEINE CAFFEINE USE?YES HOW OFTEN AND HOW MUCH? 2 CUPS OF GREEN TEA , 2 CUPS COFFEE/DAY SEXUAL HX HAD SEX IN THE LAST 12 MONTHS (VAGINAL, ORAL, OR ANAL)?YES WITHMEN ONLY USE PROTECTION?NO HAVE YOU EVER HAD AN STD?NO HINDU [id number] RASTAFARI LANGUAGE LANGUAGES SPOKEN:IRISH EDUCATION LEVEL OF EDUCATION:COLLEGE LEARNING BARRIERS / SPECIAL NEEDS CHANGE FROM LAST VISIT?NO BARRIERS TO LEARNING?NO HEARING IMPAIRED?NO VISION IMPAIRED?NO COGNITIVELY IMPAIRED?NO READINESS TO LEARN?YES LEARNING PREFERENCES?YES :BOOKLETS, HANDOUTS LEARNING CAPABILITIES PRESENT?YES EMOTIONAL BARRIERS?NO SPECIAL DEVICES?NO INVOICE CONTROL CLERK NEEDED?NO DOMESTIC VIOLENCE DO YOU FEEL SAFE IN YOUR ENVIRONMENT?YES OCCUPATION: DISABLED. DIET: REGULAR. EXERCISE: WALKS EVERY OTHER DAY. MARITAL STATUS: . NEW PATIENT PAIN DIARY TODAY'S VISIT 02/17/2020 PATIENT DESCRIBES PAIN :ACHING, BURNING, HAVE IT ALL THE TIME, SHARP, STABBING, TENDER, SHOOTING FROM 0-10, WHAT LEVEL IS YOUR PAIN TODAY?7 8 1/2 PRECIPITATING FACTORS ANY MOVEMENT, UNABLE TO DO ANYTHING ALLEVIATING FACTORS MEDS, REST, WILLIE PAIN OINT., ICE IMPACT ON FUNCTION NOT ABLE TO DO ANYTHING INTENSITY SCALE REVIEWED AD PAIN CLINIC PFS, CLERGY, PUBLIC HEALTH REFERRALS PFS REFERRAL NEEDED?NO CLERGY REFERRAL NEEDED?NO PUBLIC HEALTH REFERRAL NEEDED?NO HAS THE PATIENT BEEN EDUCATED REGARDING HIS/HER PLAN OF CARE?YES HAS THE PATIENT BEEN EDUCATED REGARDING PAIN, THE RISK FOR PAIN, THE IMPORTANCE OF EFFECTIVE PAIN MANAGEMENT, AND THE PAIN ASSESSMENT PROCESS?YES ADVANCE DIRECTIVE ADVANCE DIRECTIVE DISCUSSED WITH PATIENT:YES PATIENT HAS NO ADVANCED DIRECTIVES AND DECLINED HCP INFORMATION AT THIS TIME. REVIEWED WITH PATIENT 07/12/18 1140 JSREVIEWED WITH PATIENT 05/07/16 1315 NLJREVIEWED WITH PATIENT 07/12/19 1020 NLJREVIEWED WITH PATIENT 07/26/19 1322 JSPRE SCREEN PHONE CALL DONE 09/06/19 0845 BVREVIEWED WITH PATIENT 10/16/2019 0931 JSPRE PROCEDURE PHONE CALL 10/25/2019 [facility]PT REPORTS NO CHANGES IN PRE PROCEDURE INFORMATION 10/28/2019 1328 NLJ. HOSPITALIZATION/MAJOR DIAGNOSTIC PROCEDURE BACK PAIN - ([facility]) MULTIPLE BRONCHITIS 2013 PNEUMONIA 2016 SURGERIES REVIEW OF SYSTEMS REVIEWED BY: PROVIDER: VERONICA FERGUSON MD . CONSTITUTIONAL: ANY CHANGE IN YOUR MEDICAL CONDITION? NO . CHILLS NO . FEVER NO . INFECTION: DO YOU HAVE NEW INFECTIONS? NO . DO YOU HAVE HISTORY OF MRSA? NO . MUSCULOSKELETAL: ANY NEW PATTERNS OF PAIN OR NUMBNESS? NO . GASTROENTEROLOGY: ANY NEW CHANGE IN BOWEL CONTROL? NO . GENITOURINARY: ANY NEW CHANGE IN BLADDER CONTROL? NO . IS THERE A CHANCE YOU COULD BE ? NO . HEMATOLOGY/LYMPH: DO YOU TAKE ANY BLOOD THINNERS? (FOR EXAMPLE- COUMADIN, PLAVIX, AGGRENOX, PLATEL, PRADAXA, OR XARELTO) NO . WHEN WAS YOUR LAST DOSE? DATE: TIME: . NEUROLOGY: HAVE YOU FALLEN IN THE PAST 12 MONTHS? YES- TRIPPED AND FELL, TRIPPED OVER HER CAT, STATES SHE WAS SEEN IN THE ER AND STATES SHE HAD A XRAY OF HER ELBOW, STATES ER TOLD HER SHE HAD NO INJURIES IN HER ELBOW BUT SHE HAS RIGHT SHOULDER PAIN, RIGHT WRIST PAIN AND RIGHT ELBOW PAIN, STATES SHE WAS REFFERED [place] [facility] [place] STATES SHE HAS HEARD NOTHING . ANY NEW EXTREMITY NUMBNESS OR WEAKNESS? YES- RIGHT HAND IS WEAK . CARDIOLOGY: DO YOU HAVE A PACEMAKER OR DEFIBRILLATOR? NO . RESPIRATORY: HAVE YOU BEEN SICK IN THE PAST WEEK? NO . FEVER NO . FLU LIKE SYMPTOMS? NO . COUGH NO . INTEGUMENTARY: DO YOU HAVE ANY RASHES OR OPEN SORES? NO . ALLERGIC/IMMUNO: ARE YOU ALLERGIC TO IV DYE? NO . ANY NEW ALLERGIES? NO . PSYCHIATRIC: DO YOU HAVE THOUGHTS OF HURTING YOURSELF OR SOMEONE ELSE? NO . ARE YOU ABUSED, NEGLECTED, OR IN AN UNSAFE ENVIRONMENT? NO . ENDOCRINOLOGY: ARE YOU DIABETIC? NO . OTHER: DO YOU NEED ANY PRESCRIPTIONS? NO . IF YES, PLEASE LIST: ____ . ANY NEW PROBLEMS WITH YOUR MEDICATIONS? NO . WHEN DID YOU LAST EAT? 02/16/2020 1500 . WHEN DID YOU LAST DRINK? 02/17/2020 0300 . WHAT DID YOU LAST DRINK? WATER . NAME OF PERSON DRIVING YOU HOME? MOTHER- YUMIKO . DO YOU HAVE ANY OTHER QUESTIONS OR CONCERNS NO . VITAL SIGNS WT 207.6 LBS, HT 64 IN, BMI 35.63 INDEX, BP 141/68 MM HG, HR 94 /MIN, RR 18 /MIN, TEMP 97.6 F, OXYGEN SAT % 97%, NA INITIALS AW 1158. ASSESSMENTS INTERVERTEBRAL DISC DISORDERS WITH RADICULOPATHY, LUMBAR REGION - M51.16 PROCEDURES PRE PROCEDURE DIAGNOSIS LUMBAR DISC DISORDER WITH RADICULOPATHY POST PROCEDURE DIAGNOSIS LUMBAR DISC DISORDER WITH RADICULOPATHY PROCEDURE LUMBAR EPIDURAL STEROID INJECTION UNDER FLUOROSCOPIC GUIDANCE SURGEON DR. VERONICA FERGUSON INTERMISSION COORDINATOR NONE ANESTHESIA LOCAL PRE PROCEDURE NOTE THE PATIENT HAS A HISTORY OF CHRONIC LOW BACK PAIN. I EVALUATED THE PATIENT AND REVIEWED THE CHART. I WENT OVER THE RISKS, ALTERNATIVES, AND BENEFITS ASSOCIATED WITH THIS PROCEDURE. I DISCUSSED WITH THE PATIENT THAT THE USE OF STEROIDS MAY CONTRIBUTE TO IMMUNOSUPPRESSION OF HER BODY AGAINST INFECTIONS SUCH THE MCDOWELL VIRUS, COVID-19. SHE IS AWARE OF THE POTENTIAL COMPLICATIONS ASSOCIATED WITH AN INFECTION OF THIS VIRUS INCLUDING . THE PATIENT WOULD LIKE TO PROCEED AND GIVE CONSENT TO PERFORMED THE PROCEDURE. THE PATIENT DENIES UNEXPLAINABLE WEIGHT LOSS, FEVER, CHILLS, OR NEW CHANGES IN URINARY OR BOWEL CONTROL. THE PATIENT IS COVID-19 NEGATIVE DESCRIPTION OF PROCEDURE THE PATIENT WAS BROUGHT TO THE PROCEDURE ROOM AND PLACED IN THE PRONE POSITION. THE LUMBOSACRAL AREA WAS CLEANED WITH BETADINE SOLUTION AND DRAPED ASEPTICALLY. THE PROCEDURE WAS DONE UNDER STERILE CONDITIONS. I CHECKED LATERALITY AND THE LEVEL WHERE THE PROCEDURE WAS GOING TO BE PERFORMED WITH THE PATIENT AND THE SUPPORTING STAFF AT THE MOMENT OF THE TIME OUT IN THE PROCEDURE ROOM. UNDER FLUOROSCOPIC GUIDANCE, THE TARGET POINT WAS SELECTED AT THE INTERLAMINAR LEVEL OF L4-L5. LIDOCAINE WAS USED TO NUMB THE SKIN AND THE SUBCUTANEOUS TISSUE BELOW IT. EPIDURAL TUOHY NEEDLE, 17-GAUGE, WAS ADVANCED UNDER FLUOROSCOPIC GUIDANCE AND FOLLOWING PATIENT FEEDBACK UNTIL THE EPIDURAL SPACE WAS REACHED, 13 CM DEEP INTO THE SKIN BY THE LOSS OF RESISTANCE TECHNIQUE. ISOVUE M DYE 30%, 0.25 ML, WAS INJECTED SHOWING ADEQUATE SPREAD OF THE DYE. THEN, A SOLUTION OF 3 ML OF NORMAL SALINE WITH DEXAMETHASONE 10 MG WAS INJECTED SLOWLY FOLLOWING PATIENT FEEDBACK. THERE WAS NO EVIDENCE OF BLOOD, PARESTHESIA OR CEREBROSPINAL FLUID DURING THE PROCEDURE. THE PATIENT WAS SENT TO THE RECOVERY ROOM. THE PATIENT WAS MOVING THE EXTREMITIES AND DOING WELL. THERE WAS NO COMPLICATION DURING THE PROCEDURE. FLUOROSCOPY TIME WAS 11 SECONDS POST PROCEDURE NOTE THE PATIENT WILL BE SEEN IN A FOLLOW UP IN THE NEXT FEW WEEKS. I AM LOOKING FOR LONG LASTING PAIN RELIEF FOR THE PATIENT WITH THIS INJECTION. INSTRUCTIONS WERE GIVEN, QUESTIONS WERE ANSWERED, AND THE PATIENT EXPRESSED UNDERSTANDING AND AGREED WITH THE PLAN. THE PATIENT IS AWARE TO STAY HOME FOR THE NEXT WEEK, IF POSSIBLE, DUE TO COVID-19. I, CHRISTIANO MERAZ, DOCUMENTED THE ABOVE INFORMATION ACTING A SCRIBE FOR DR. FERGUSON. I HAVE REVIEWED THE ABOVE DOCUMENT, WRITTEN BY CHRISTIANO MERAZ, TAX AUDITOR, AND I VERIFY THAT IT IS [facility] FLUORO GUIDE SPINE INJECTION (PAIN)[id number] PROCEDURE CODES 95131 LUMBAR/SACRAL W/ IMAGING DISPOSITION & COMMUNICATION FOLLOW UP F/UP WITH [employer] STRIPPER (REASON: POST LESI L4-L5) ELECTRONICALLY SIGNED BY VERONICA FERGUSON MD, MD ON 02/20/2020 AT 11:29 AM EDT DISCLAIMER : THIS IS A VISIT SUMMARY EXTRACTED FROM THE [employer] CHART. IT IS NOT A COPY OF THE [employer] PROGRESS NOTE. NATALIE
== END ==
LOC: M PAIN 12:45
PROVIDERS: ATTEND Anesthesiology
DX: M51.16 Intervertebral disc disorders with radiculopathy, lumbar region (principal); I10 Essential (primary) hypertension; F17.210 Nicotine dependence, cigarettes, uncomplicated; Z79.891 Long term (current) use of opiate analgesic; Z79.899 Other long term (current) drug therapy; Z88.2 Allergy status to sulfonamides
CPT/HCPCS: 62323; J1100; Q9967

== ENCOUNTER → 2020-03-03 | Outpatient (CLI) | payer OTHER ==
[~2020-03-03] MED LIST changes: -ISOVUE-M 300 61% 15ML VIAL As Ordered ONE; -LIDOCAINE 1% SDV 30ML VIAL As Ordered ONE; -dexameTHASONE 10MG/1ML VIAL PRES.FREE (J1100 PER 1MG) As Ordered ONE; -diazePAM 5 MG TAB As Ordered ONE; -diphenhydrAMINE 25MG CAP As Ordered ONE; -oxyCODONE 5MG TAB As Ordered ONE
--- NOTE | 2020-03-05 02:55 | ECWPNPC ---
PATIENT NAME: ANGLE RASHEED : 1960 GENDER: FEMALE VISIT DATE: 03/03/2020 DISCHARGE DATE: 03/03/20 1121 VISIT LOCKED DATE TIME: PHYSICIAN: TAZ DUPREE RESOURCE: TAZ DUPREE REASON FOR APPOINTMENT 1. POST LESI HISTORY OF PRESENT ILLNESS GENERAL: PERMISSION REQUESTED AND RECEIVED FROM PATIENT TO PERFORM TELEPHONE VISIT. 59-YEAR-OLD FEMALE IN FOR POST LESI FOLLOW-UP. PATIENT FEELS THE PROCEDURE WAS INEFFECTIVE RATING HER PAIN CURRENTLY AT A 7 OUT OF 10. SHE FEELS HER MEDICATIONS ARE HELPFUL AND DENIES MED SIDE EFFECTS AT THIS TIME. PAIN SCREENING: PATIENT HAS A COMPLAINT OF ACUTE OR CHRONIC PAIN :YES [id number]/10, POST [id number]-0-0/10 LOCATION OF PAIN:LOW BACK RADIATES TO BUTTOCKS (LEFT) AND LEFT LEG INTENSITY OF PAIN (SCALE OF 1 TO 10):6 WHAT DOES YOUR PAIN FEEL LIKE:ACHING, BURNING, STABBING DURATION:CONTINOUS, CONSTANT, ALL DAY, AWAKENS FROM SLEEP PAIN IS INCREASED BY:ACTIVITIES, PROLONGED STANDING PAIN IS DECREASED BY:USE OF PAIN MEDICATIONS ICE PACK, LYING DOWN PAIN HAS INTERFERED WITH THE FOLLOWING:BATHING/DRESSING, MOOD, HOUSEWORK, SLEEP, RELATIONSHIP WITH OTHERS, ENJOYMENT OF LIFE PLAN/GOALS/TREATMENT/INTERVENTION/FOLLOW UP:SEE PLAN FALL RISK SCREENING: SCREENING :NO FALLS REPORTED IN THE LAST YEAR DEPRESSION SCREENING: PHQ-2 (2015 EDITION) LITTLE INTEREST OR PLEASURE IN DOING THINGS?NOT AT ALL FEELING DOWN, DEPRESSED, OR HOPELESS?NOT AT ALL TOTAL SCORE0 PAIN CENTER INTAKE QUESTIONS: DO YOU HAVE A HISTORY OF MRSA? :NO DO YOU TAKE A BLOOD THINNERS? :NO DO YOU HAVE ANY BLEEDING DISORDERS? :NO ANY NEW NUMBNESS OR WEAKNESS IN YOUR LEGS OR ARMS? :NO ANY PACEMAKER,DEFIBRILLATOR, OR DORSAL COLUMN STIMULATOR? :NO DO YOU HAVE ANY RASHES OR OPEN SORES? :NO ARE YOU ALLERGIC TO IV DYE? :NO ARE YOU DIABETIC? :NO ANY NEW PROBLEMS WITH YOUR MEDICATIONS? :NO HAVE YOU RECEIVED A VACCINE IN THE PAST 30 DAYS? :NO DO YOU PLAN TO RECEIVE A VACCINE IN THE NEXT 21 DAYS? :NO DO YOU NEED ANY PRESCRIPTION? :NO DO YOU TAKE ANY IMMUNOSUPPRESSIVE MEDICATIONS? :NO NURSING NOTE: -. CURRENT MEDICATIONS TAKING HYDROXYZINE HCL 25 MG TABLET 1 TABLET NEEDED ORALLY EVERY 8 HRS, NOTES: 02/16/20202029 TAKING OMEPRAZOLE 20 MG CAPSULE DELAYED RELEASE 1 CAPSULE ORALLY BID, NOTES: 02/17/2020299 TAKING ONDANSETRON 8 MG TABLET DISINTEGRATING 1 TABLET ON THE TONGUE AND ALLOW TO DISSOLVE NEEDED ORALLY ONCE A DAY, NOTES: HAS NOT USED IN A LONG TIME TAKING CLONAZEPAM 1 MG TABLET 1 TABLET ORALLY TWICE DAILY NEEDED, NOTES: 02/17/2020299 TAKING MAY HAVE - - VOODOO ORIGINS PAIN RELIEF OINTMENT DIRECTED, NOTES: 02/17/2020299 TAKING BENADRYL ALLERGY 25 MG TABLET 1 TABLET AT BEDTIME NEEDED ORALLY ONCE A DAY, NOTES: 02/16/20202029 TAKING RELPAX 40 MG TABLET 1 TABLET NEEDED ONE TIME ORALLY ONCE A DAY, NOTES: HAS NOT USED IN ABOUT A MONTH TAKING OXYCODONE-ACETAMINOPHEN 7.5-325 MG TABLET 1-2 TABLET NEEDED ORALLY Q6H PRN MDD3, NOTES: 02/17/2020299 TAKING TIZANIDINE HCL 4 MG TABLET 1 TABLET NEEDED ORALLY THREE TIMES A DAY, NOTES: 02/17/2020299 TAKING SOMA 350 MG TABLET 1 TABLET NEEDED ORALLY BID MDD2, NOTES: 02/16/20202029 TAKING LYRICA 150 MG CAPSULE 1 CAPSULE ORALLY TID, NOTES: 02/17/2020299 NOT-TAKING PYRIDIUM 100 MG TABLET 1 TABLETS AFTER MEALS ORALLY THREE TIMES A DAY NEEDED, NOTES: HASN'T TAKEN FOR MONTHS NOT-TAKING METOPROLOL SUCCINATE 25 MG CAPSULE ER 24 HOUR SPRINKLE 1 CAPSULE ORALLY ONCE A DAY NOT-TAKING FENTANYL 12 MCG/HR PATCH 72 HOUR 1 PATCH TO SKIN TRANSDERMAL 1 PATCH [id number]=WGL NOT-TAKING SERTRALINE HCL 50 MG TABLET 1 TABLET ORALLY ONCE A DAY NOT-TAKING MAY USE CBD OIL NOT-TAKING KETOGEN - POWDER DIRECTED ORALLY DAILY NOT-TAKING MAY USE _ MEDICAL MARIJUANA 2 DROPS ORALLY EVERY 4-6 HOURS NEEDED, NOTES: NOT USING YET NOT-TAKING MAY USE _ - 2 HC VAPE INHALED TAKE 2-3 PUFFS EVERY 2 HOURS NEEDED, NOTES: CBD OIL-02/17/2020299 NOT-TAKING SUCRALFATE 1 GM TABLET 1 TABLET ON AN EMPTY STOMACH BEFORE MEALS ORALLY TWICE A DAY NOT-TAKING DILAUDID 2 MG TABLET 1 TABLET NEEDED ORALLY FOR PAIN EVERY 8 HOURS NEEDED MDD2 MEDICATION LIST REVIEWED AND RECONCILED WITH THE PATIENT PAST MEDICAL HISTORY GLORY- USES CPAP NOT USING KIDNEY STONES GERD CONSTIPATION CHRONIC BACK PAIN/NECK PAIN ANEMIA IBS FIBROMYALGIA RESTLESS LEG SYNDROME DEPRESSION ATROPHIC KIDNEY - S/P NEPHRECTOMY UTI GASTRIC ULCER AND LESIONS HTN ALLERGIES SULFA (FOR ALLERGY USE ONLY): UNKNOWN - CHILD - ALLERGY ENVIROMENTAL: SINUS INFECTION - ALLERGY SURGICAL HISTORY PARTIAL HYSTERECTOMY 1986 BREAST REDUCTION 2001 CHOLECYSTECTOMY 1981 GASTRIC BYPASS 2011 RIGHT, KNEE REPLACEMENT 2011 APPENDECTOMY 2010 ROBOTIC ASSISTED LEFT NEPHRECTOMY 03/18/2014 COLONOSCOPY, EGD 05/08/18 HERNIA REPAIR 2016 EXPLORATORY LAPAROSCOPY 2000 FAMILY HISTORY FATHER: ALIVE, DIAGNOSED WITH OTHER MALIGNANT NEOPLASM OF UNSPECIFIED SITE MOTHER: ALIVE, UNSPECIFIED CEREBRAL ARTERY OCCLUSION WITH CEREBRAL INFARCTION, OTHER MALIGNANT NEOPLASM OF UNSPECIFIED SITE 3 BROTHER(S) , 2 SISTER(S) . 1 SON(S) , 3 DAUGHTER(S) - HEALTHY. FATHER HAD PROSTATE CANCER, ROSALINO BARRE SYNDROME,MELANOMA, SEIZURE DISORDER\NMOTHER - SKIN CANCER, THYROID CA. SOCIAL HISTORY GENERAL: TOBACCO USE ARE YOU A:CURRENT SMOKER ARE YOU INTERESTED IN QUITTING?NOT READY TO QUIT STATES SHE HAS CUT DOWN A LOT COUNSELED THE PATIENT ON SMOKING EFFECTS, EDUCATION [id number]/01/2020 HOW MANY CIGARETTES A DAY DO YOU SMOKE?6-10 HOW SOON AFTER YOU WAKE UP DO YOU SMOKE YOUR FIRST CIGARETTE?WITHIN 5 MIN HOW OFTEN DO YOU SMOKE CIGARETTES?EVERY DAY PATIENT COUNSELED ON THE DANGERS OF TOBACCO USE AND URGED TO QUIT:03/02/2020 SMOKING CESSATION INFORMATION GIVEN03/02/2020 LATEX QUESTIONNAIRE LATEX ALLERGY : HAVE YOU EVER DEVELOPED ANY TYPE OF REACTION AFTER HANDLING LATEX PRODUCTS SUCH RUBBER GLOVES, CONDOMS, DIAPHRAGMS, BALLOONS, SOCKS, OR UNDERWEAR?NO LATEX ALLERGY : HAVE YOU EVER DEVELOPED ANY TYPE OF REACTION DURING OR AFTER DENTAL APPOINTMENT, VAGINAL/RECTAL EXAMINATION, SURGICAL PROCEDURE, OR ANY OTHER EXPOSURE?NO DATE ASKED : 02/17/2020 LATEX RISK : HAVE YOU EVER HAD ANY DIFFICULTY BREATHING OR HIVES AFTER EATING OR HANDLING ANY FRUITS, OR VEGETABLES; SUCH KIWI, BANANAS, STONE FRUITS, OR CHESTNUTSNO LATEX RISK : DO YOU HAVE A PREVIOUS PERSONAL HISTORY OF MORE THAN NINE SURGERIES, SPINA BIFIDA, OR REPEATED CATHERIZATIONS? NO LATEX RISK : ARE YOU FREQUENTLY EXPOSED TO LATEX PRODUCTS IN YOUR OCCUPATION?NO ALCOHOL SCREENING DID YOU HAVE A DRINK CONTAINING ALCOHOL IN THE PAST YEAR?NO POINTS0 INTERPRETATIONNEGATIVE RECREATIONAL DRUG USE DRUG USE?NO CAFFEINE CAFFEINE USE?YES HOW OFTEN AND HOW MUCH? 2 CUPS OF GREEN TEA , 2 CUPS COFFEE/DAY SEXUAL HX HAD SEX IN THE LAST 12 MONTHS (VAGINAL, ORAL, OR ANAL)?YES WITHMEN ONLY USE PROTECTION?NO HAVE YOU EVER HAD AN STD?NO RESTORATIONIST [id number] HOLINESS LANGUAGE LANGUAGES SPOKEN:FRENCH EDUCATION LEVEL OF EDUCATION:COLLEGE LEARNING BARRIERS / SPECIAL NEEDS CHANGE FROM LAST VISIT?NO BARRIERS TO LEARNING?NO HEARING IMPAIRED?NO VISION IMPAIRED?NO COGNITIVELY IMPAIRED?NO READINESS TO LEARN?YES LEARNING PREFERENCES?YES :BOOKLETS, HANDOUTS LEARNING CAPABILITIES PRESENT?YES EMOTIONAL BARRIERS?NO SPECIAL DEVICES?NO MEDIA RELATIONS MANAGER NEEDED?NO DOMESTIC VIOLENCE DO YOU FEEL SAFE IN YOUR ENVIRONMENT?YES OCCUPATION: DISABLED. DIET: REGULAR. EXERCISE: WALKS EVERY OTHER DAY. MARITAL STATUS: . NEW PATIENT PAIN DIARY TODAY'S VISIT 02/17/2020 PATIENT DESCRIBES PAIN :ACHING, BURNING, HAVE IT ALL THE TIME, SHARP, STABBING, TENDER, SHOOTING FROM 0-10, WHAT LEVEL IS YOUR PAIN TODAY?7 8 1/2 PRECIPITATING FACTORS ANY MOVEMENT, UNABLE TO DO ANYTHING ALLEVIATING FACTORS MEDS, REST, VOODOO PAIN OINT., ICE IMPACT ON FUNCTION NOT ABLE TO DO ANYTHING INTENSITY SCALE REVIEWED AD PAIN CLINIC PFS, CLERGY, PUBLIC HEALTH REFERRALS PFS REFERRAL NEEDED?NO CLERGY REFERRAL NEEDED?NO PUBLIC HEALTH REFERRAL NEEDED?NO HAS THE PATIENT BEEN EDUCATED REGARDING HIS/HER PLAN OF CARE?YES HAS THE PATIENT BEEN EDUCATED REGARDING PAIN, THE RISK FOR PAIN, THE IMPORTANCE OF EFFECTIVE PAIN MANAGEMENT, AND THE PAIN ASSESSMENT PROCESS?YES ADVANCE DIRECTIVE ADVANCE DIRECTIVE DISCUSSED WITH PATIENT:YES PATIENT HAS NO ADVANCED DIRECTIVES AND DECLINED HCP INFORMATION AT THIS TIME. HOSPITALIZATION/MAJOR DIAGNOSTIC PROCEDURE BACK PAIN - ([facility]) MULTIPLE BRONCHITIS 2013 PNEUMONIA 2016 SURGERIES REVIEW OF SYSTEMS CONSTITUTIONAL: ANY RECENT FEVER OR ILLNESS NO . CHILLS NO . GASTROENTEROLOGY: BOWEL INCONTINENCE NO . ANY NEW CHANGE IN BOWEL CONTROL? NO . ABDOMINAL PAIN NO . CONSTIPATION NO . GENITOURINARY: ANY NEW CHANGE IN BLADDER CONTROL? NO . IS THERE A CHANCE YOU COULD BE ? NO . URINARY INCONTINENCE NO . CARDIOLOGY: CHEST PRESSURE NO . CHEST PAIN NO . RESPIRATORY: COUGH NO . SHORTNESS OF BREATH NO . EXAMINATION GENERAL EXAMINATION: PSYCHAPPROPRIATE MOOD AND AFFECT , ORIENTED X 3. ASSESSMENTS INTERVERTEBRAL DISC DISORDERS WITH RADICULOPATHY, LUMBAR REGION - M51.16 (PRIMARY) TREATMENT INTERVERTEBRAL DISC DISORDERS WITH RADICULOPATHY, LUMBAR REGION CLINICAL NOTES: 59-YEAR-OLD FEMALE IN FOR POST LESI FOLLOW-UP. GIVEN PRESENTING SYMPTOMS RECOMMEND FOLLOW-UP IN CLINIC IN 2 MONTHS. PATIENT HAS EXPRESSED UNDERSTANDING OF AND WAS IN AGREEMENT WITH TREATMENT PLAN. GIVEN TIME TO ASK QUESTIONS AND EXPRESS CONCERNS. , ISTOP REGISTRY REVIEWED AND DEMONSTRATES COMPLLIANCE. (REF # [id number] ) BRINGS IN MEDICATIONS WHICH IS APPROPRIATE FOR WHAT WAS DISPENSED. RECENT URINE TOXICOLOGY REVIEWED. NO UNAUTHORIZED MEDICATIONS. NO ILLICIT SUBSTANCES AND PRESCRIBED MEDICATIONS WERE PRESENT. VISIT TO BE BILLED BASED ON TIME SPENT WITH PATIENT. TIME SPENT WITH PATIENT 11 MINUTES. OTHERS NOTES: VITALS NOT OBTAINED DUE TO PHONE VISIT, PRE SCREENING COMPLETED, 03/02/20, NA . DISPOSITION & COMMUNICATION FOLLOW UP 2 MONTHS (REASON: BACK PAIN) ELECTRONICALLY SIGNED BY SHAUN SARMIENTO ON 03/04/2020 AT 08:10 AM EDT DISCLAIMER : THIS IS A VISIT SUMMARY EXTRACTED FROM THE [employer] CHART. IT IS NOT A COPY OF THE [employer] PROGRESS NOTE. NATALIE
== END ==
LOC: M PAIN 09:45
PROVIDERS: ATTEND Family Medicine
DX: M51.16 Intervertebral disc disorders with radiculopathy, lumbar region (principal); I10 Essential (primary) hypertension; F17.210 Nicotine dependence, cigarettes, uncomplicated; Z79.891 Long term (current) use of opiate analgesic; Z79.899 Other long term (current) drug therapy; Z88.2 Allergy status to sulfonamides; Z98.84 Bariatric surgery status

== ENCOUNTER → 2020-08-11 | Outpatient (CLI) | payer OTHER ==
--- NOTE | 2020-08-12 23:07 | ECWPNPC ---
PATIENT NAME: ANGLE RASHEED : 1960 GENDER: FEMALE VISIT DATE: 08/11/2020 DISCHARGE DATE: 08/11/20 1133 VISIT LOCKED DATE TIME: PHYSICIAN: TAZ DUPREE RESOURCE: TAZ DUPREE REASON FOR APPOINTMENT 1. LOW BACK HISTORY OF PRESENT ILLNESS GENERAL: - 60-YEAR-OLD FEMALE IN FOR CHRONIC PAIN FOLLOW-UP. SHE RATES HER PAIN CURRENTLY AT AN 8 OUT OF 10 AND DESCRIBES IT CONTINUOUS, SHARP, STABBING, AND SHOOTING. PATIENT'S PAIN IS LOCATED IN HER THORACIC AND LUMBAR SPINE. SHE HAS HAD LUMBAR EPIDURALS BEFORE WITH GOOD RELIEF AND WE WILL DISCUSS REPEAT PROCEDURES TODAY. FALL RISK SCREENING: SCREENING :NO FALLS REPORTED IN THE LAST YEAR PAIN SCREENING: PATIENT HAS A COMPLAINT OF ACUTE OR CHRONIC PAIN :YES LOCATION OF PAIN:MID BACK, LOW BACK INTENSITY OF PAIN (SCALE OF 1 TO 10):8 WHAT DOES YOUR PAIN FEEL LIKE:CONTINOUS, SHARP, STABBING, SHOOTING DURATION:CONTINOUS, CONSTANT PAIN IS INCREASED BY:ACTIVITIES PAIN IS DECREASED BY:USE OF PAIN MEDICATIONS TREATMENT/MEDICATIONS USED TO MANAGE PAIN:OPIOIDS LEVEL OF RELIEF FROM PAIN TREATMENTS IN THE PAST:75% PAIN HAS INTERFERED WITH THE FOLLOWING:BATHING/DRESSING, WALKING ABILITY, HOUSEWORK, SLEEP, TRANSPORTATION, TOILETING NURSING NOTE: -. PAIN CENTER INTAKE QUESTIONS: DO YOU HAVE A HISTORY OF MRSA? :NO DO YOU TAKE A BLOOD THINNERS? :NO DO YOU HAVE ANY BLEEDING DISORDERS? :NO ANY NEW NUMBNESS OR WEAKNESS IN YOUR LEGS OR ARMS? :YES RIGHT HAND ANY PACEMAKER,DEFIBRILLATOR, OR DORSAL COLUMN STIMULATOR? :NO DO YOU HAVE ANY RASHES OR OPEN SORES? :YES BURN TO RIGHT HAND ARE YOU ALLERGIC TO IV DYE? :NO ARE YOU DIABETIC? :YES ANY NEW PROBLEMS WITH YOUR MEDICATIONS? :NO HAVE YOU RECEIVED A VACCINE IN THE PAST 30 DAYS? :NO DO YOU PLAN TO RECEIVE A VACCINE IN THE NEXT 21 DAYS? :NO DO YOU NEED ANY PRESCRIPTION? :NO DO YOU TAKE ANY IMMUNOSUPPRESSIVE MEDICATIONS? :NO IS THERE A CHANCE YOU COULD BE ? :NO ARE YOU BREAST FEEDING? :NO CURRENT MEDICATIONS TAKING PYRIDIUM 100 MG TABLET 1 TABLETS AFTER MEALS ORALLY THREE TIMES A DAY NEEDED TAKING HYDROXYZINE HCL 25 MG TABLET 1 TABLET NEEDED ORALLY EVERY 8 HRS TAKING OMEPRAZOLE 20 MG CAPSULE DELAYED RELEASE 1 CAPSULE ORALLY BID TAKING ONDANSETRON 8 MG TABLET DISINTEGRATING 1 TABLET ON THE TONGUE AND ALLOW TO DISSOLVE NEEDED ORALLY ONCE A DAY, NOTES: HAS NOT USED IN A LONG TIME TAKING MAY HAVE - - WILLIE ORIGINS PAIN RELIEF OINTMENT DIRECTED TAKING BENADRYL ALLERGY 25 MG TABLET 1 TABLET AT BEDTIME NEEDED ORALLY ONCE A DAY TAKING RELPAX 40 MG TABLET 1 TABLET NEEDED ONE TIME ORALLY ONCE A DAY, NOTES: HAS NOT USED IN ABOUT A MONTH TAKING SOMA 350 MG TABLET 1 TABLET NEEDED ORALLY FOUR TIMES A DAY TAKING MAY USE CBD OIL TAKING KETOGEN - POWDER DIRECTED ORALLY DAILY TAKING MAY USE _ - 2 HC VAPE INHALED TAKE 2-3 PUFFS EVERY 2 HOURS NEEDED, NOTES: CBD OIL-02/17/2020299 TAKING KLONOPIN 1 MG TABLET 1 TABLET ORALLY ONCE A DAY TAKING LYRICA 150 MG CAPSULE 1 CAPSULE ORALLY TID, NOTES: 02/17/2020299 TAKING OXYCODONE-ACETAMINOPHEN 7.5-325 MG TABLET 1-2 TABLET NEEDED ORALLY Q6H PRN MDD3, NOTES: 02/17/2020299 TAKING TIZANIDINE HCL 4 MG TABLET 1 TABLET NEEDED ORALLY THREE TIMES A DAY, NOTES: 02/17/2020299 TAKING SOMA 350 MG TABLET 1 TABLET NEEDED ORALLY BID MDD2, NOTES: 02/16/20202029 NOT-TAKING METOPROLOL SUCCINATE 25 MG CAPSULE ER 24 HOUR SPRINKLE 1 CAPSULE ORALLY ONCE A DAY NOT-TAKING FENTANYL 12 MCG/HR PATCH 72 HOUR 1 PATCH TO SKIN TRANSDERMAL 1 PATCH A60P=SVP NOT-TAKING SERTRALINE HCL 50 MG TABLET 1 TABLET ORALLY ONCE A DAY NOT-TAKING MAY USE _ MEDICAL MARIJUANA 2 DROPS ORALLY EVERY 4-6 HOURS NEEDED NOT-TAKING DILAUDID 2 MG TABLET 1 TABLET NEEDED ORALLY FOR PAIN EVERY 8 HOURS NEEDED MDD2 NOT-TAKING CLONAZEPAM 1 MG TABLET 1 TABLET ORALLY TWICE DAILY NEEDED NOT-TAKING SUCRALFATE 1 GM TABLET 1 TABLET ON AN EMPTY STOMACH BEFORE MEALS ORALLY TWICE A DAY MEDICATION LIST REVIEWED AND RECONCILED WITH THE PATIENT PAST MEDICAL HISTORY GLORY- USES CPAP NOT USING KIDNEY STONES GERD CONSTIPATION CHRONIC BACK PAIN/NECK PAIN ANEMIA IBS FIBROMYALGIA RESTLESS LEG SYNDROME DEPRESSION ATROPHIC KIDNEY - S/P NEPHRECTOMY UTI GASTRIC ULCER AND LESIONS HTN DIABETES ALLERGIES SULFA (FOR ALLERGY USE ONLY): UNKNOWN - CHILD - ALLERGY ENVIROMENTAL: SINUS INFECTION - ALLERGY SURGICAL HISTORY PARTIAL HYSTERECTOMY 1986 BREAST REDUCTION 2001 CHOLECYSTECTOMY 1981 GASTRIC BYPASS 2011 RIGHT, KNEE REPLACEMENT 2012 APPENDECTOMY 2010 ROBOTIC ASSISTED LEFT NEPHRECTOMY 03/18/2014 COLONOSCOPY, EGD 05/08/18 HERNIA REPAIR 2016 EXPLORATORY LAPAROSCOPY 2000 FAMILY HISTORY FATHER: ALIVE, DIAGNOSED WITH OTHER MALIGNANT NEOPLASM OF UNSPECIFIED SITE MOTHER: ALIVE, UNSPECIFIED CEREBRAL ARTERY OCCLUSION WITH CEREBRAL INFARCTION, OTHER MALIGNANT NEOPLASM OF UNSPECIFIED SITE 3 BROTHER(S) , 2 SISTER(S) . 1 SON(S) , 3 DAUGHTER(S) - HEALTHY. FATHER HAD PROSTATE CANCER, ROSALINO BARRE SYNDROME,MELANOMA, SEIZURE DISORDER\NMOTHER - SKIN CANCER, THYROID CA. SOCIAL HISTORY GENERAL: TOBACCO USE ARE YOU A:CURRENT SMOKER ARE YOU INTERESTED IN QUITTING?NOT READY TO QUIT STATES SHE HAS CUT DOWN A LOT COUNSELED THE PATIENT ON SMOKING EFFECTS, EDUCATION [id number]/10/2020 HOW MANY CIGARETTES A DAY DO YOU SMOKE?6-10 HOW SOON AFTER YOU WAKE UP DO YOU SMOKE YOUR FIRST CIGARETTE?WITHIN 5 MIN HOW OFTEN DO YOU SMOKE CIGARETTES?EVERY DAY PATIENT COUNSELED ON THE DANGERS OF TOBACCO USE AND URGED TO QUIT:03/02/2020 SMOKING CESSATION INFORMATION GIVEN03/02/2020 LATEX QUESTIONNAIRE LATEX ALLERGY : HAVE YOU EVER DEVELOPED ANY TYPE OF REACTION AFTER HANDLING LATEX PRODUCTS SUCH RUBBER GLOVES, CONDOMS, DIAPHRAGMS, BALLOONS, SOCKS, OR UNDERWEAR?NO LATEX ALLERGY : HAVE YOU EVER DEVELOPED ANY TYPE OF REACTION DURING OR AFTER DENTAL APPOINTMENT, VAGINAL/RECTAL EXAMINATION, SURGICAL PROCEDURE, OR ANY OTHER EXPOSURE?NO LATEX RISK : HAVE YOU EVER HAD ANY DIFFICULTY BREATHING OR HIVES AFTER EATING OR HANDLING ANY FRUITS, OR VEGETABLES; SUCH KIWI, BANANAS, STONE FRUITS, OR CHESTNUTSNO LATEX RISK : DO YOU HAVE A PREVIOUS PERSONAL HISTORY OF MORE THAN NINE SURGERIES, SPINA BIFIDA, OR REPEATED CATHERIZATIONS? NO LATEX RISK : ARE YOU FREQUENTLY EXPOSED TO LATEX PRODUCTS IN YOUR OCCUPATION?NO DATE ASKED : 07/03/2020 ALCOHOL SCREENING DID YOU HAVE A DRINK CONTAINING ALCOHOL IN THE PAST YEAR?NO POINTS0 INTERPRETATIONNEGATIVE RECREATIONAL DRUG USE DRUG USE?NO CAFFEINE CAFFEINE USE?YES HOW OFTEN AND HOW MUCH? 2 CUPS OF GREEN TEA , 2 CUPS COFFEE/DAY SEXUAL HX HAD SEX IN THE LAST 12 MONTHS (VAGINAL, ORAL, OR ANAL)?YES WITHMEN ONLY USE PROTECTION?NO HAVE YOU EVER HAD AN STD?NO TAOISM [id number] [place] LANGUAGE LANGUAGES SPOKEN:ETHIOPIAN EDUCATION LEVEL OF EDUCATION:COLLEGE LEARNING BARRIERS / SPECIAL NEEDS CHANGE FROM LAST VISIT?NO BARRIERS TO LEARNING?NO HEARING IMPAIRED?NO VISION IMPAIRED?NO COGNITIVELY IMPAIRED?NO READINESS TO LEARN?YES LEARNING PREFERENCES?YES :BOOKLETS, HANDOUTS LEARNING CAPABILITIES PRESENT?YES EMOTIONAL BARRIERS?NO SPECIAL DEVICES?NO DIRECTOR OF DEVELOPMENT NEEDED?NO DOMESTIC VIOLENCE DO YOU FEEL SAFE IN YOUR ENVIRONMENT?YES OCCUPATION: DISABLED. DIET: REGULAR. EXERCISE: WALKS EVERY OTHER DAY. MARITAL STATUS: . TODAY'S VISIT 02/17/2020 PATIENT DESCRIBES PAIN :ACHING, BURNING, HAVE IT ALL THE TIME, SHARP, STABBING, TENDER, SHOOTING FROM 0-10, WHAT LEVEL IS YOUR PAIN TODAY?7 8 1/2 PRECIPITATING FACTORS ANY MOVEMENT, UNABLE TO DO ANYTHING ALLEVIATING FACTORS MEDS, REST, WILLIE PAIN OINT., ICE IMPACT ON FUNCTION NOT ABLE TO DO ANYTHING INTENSITY SCALE REVIEWED AD PAIN CLINIC PFS, CLERGY, PUBLIC HEALTH REFERRALS PFS REFERRAL NEEDED?NO CLERGY REFERRAL NEEDED?NO PUBLIC HEALTH REFERRAL NEEDED?NO HAS THE PATIENT BEEN EDUCATED REGARDING HIS/HER PLAN OF CARE?YES HAS THE PATIENT BEEN EDUCATED REGARDING PAIN, THE RISK FOR PAIN, THE IMPORTANCE OF EFFECTIVE PAIN MANAGEMENT, AND THE PAIN ASSESSMENT PROCESS?YES ADVANCE DIRECTIVE ADVANCE DIRECTIVE DISCUSSED WITH PATIENT:YES SON-NAVEEN GARCIA HOSPITALIZATION/MAJOR DIAGNOSTIC PROCEDURE BACK PAIN - ([facility]) MULTIPLE BRONCHITIS 2013 PNEUMONIA 2016 SURGERIES REVIEW OF SYSTEMS CONSTITUTIONAL: ANY RECENT FEVER NO . CHILLS NO . WEIGHT CHANGE OF UNKNOWN REASONS NO . GASTROENTEROLOGY: NEW UNEXPLAINABLE CHANGES IN BOWEL CONTROL NO . CONSTIPATION NO . GENITOURINARY: ANY NEW CHANGE IN BLADDER CONTROL? NO . NEUROLOGY: NEW ONSET DIZZINESS OR NEUROLOGICAL CHANGES NOT MENTIONED NO . NEW NUMBNESS OR PAIN PATTERNS NOT MENTIONED AND PERTINENT TO TODAY'S VISIT NO . CARDIOLOGY: NEW CHEST PRESSURE NO . NEW CHEST PAIN NO . RESPIRATORY: UNEXPLAINABLE COUGH NO . NEW SHORTNESS OF BREATH NO . VITAL SIGNS WT 210.6 LBS, HT 64 IN, BMI 36.15 INDEX, BP 168/75 MM HG, HR 105 /MIN, RR 20 /MIN, TEMP 95.6 F, OXYGEN SAT % 97%, SAFE IN ENV? (Y/N) Y, NA INITIALS NE 10:47, REVIEWED BY: EM. EXAMINATION GENERAL EXAMINATION: GENERALNO ACUTE DISTRESS, WELL NOURISHED AND HYDRATED. PSYCHAPPROPRIATE MOOD AND AFFECT . LUNGS:CLEAR TO AUSCULTATION BILATERALLY, NO WHEEZES, RHONCHI, RALES. HEART:NO MURMURS, REGULAR RATE AND RHYTHM. BACK:POINT TENDER ALONG LUMBAR SPINE POSITIVE MODIFIED SLR LEFT SIDE . ASSESSMENTS INTERVERTEBRAL DISC DISORDERS WITH RADICULOPATHY, LUMBAR REGION - M51.16 (PRIMARY) TREATMENT INTERVERTEBRAL DISC DISORDERS WITH RADICULOPATHY, LUMBAR REGION NOTES: 60-YEAR-OLD FEMALE IN FOR CHRONIC PAIN FOLLOW-UP. GIVEN PRESENTING SYMPTOMS AND RESULTS OF PHYSICAL EXAMINATION RECOMMEND LESI L4-L5 WITH POSTPROCEDURAL FOLLOW-UP. PATIENT HAS EXPRESSED UNDERSTANDING OF AND WAS IN AGREEMENT WITH TREATMENT PLAN. GIVEN TIME TO ASK QUESTIONS AND EXPRESS CONCERNS. , ISTOP REGISTRY REVIEWED AND DEMONSTRATES COMPLLIANCE. (REF # [id number] ) BRINGS IN MEDICATIONS WHICH IS APPROPRIATE FOR WHAT WAS DISPENSED. RECENT URINE TOXICOLOGY REVIEWED. NO UNAUTHORIZED MEDICATIONS. NO ILLICIT SUBSTANCES AND PRESCRIBED MEDICATIONS WERE PRESENT. 08/11/20 1130 PATIENT GIVEN HANDOUT FOR LUMBAR EPIDURAL STEROID INJECTION, REVIEWED PRE PROCEDURE INSTRUCTIONS WITH PATIENT, PATIENT VERBALIZES UNDERSTANDING. Vijay URIBE RN BSN. CLINICAL NOTES: LESI L4-L5. PROCEDURE CODES FA211 ESTABILISHED PATIENT [facility] FACILITY CHARGE DISPOSITION & COMMUNICATION FOLLOW UP POST PROCEDURE (REASON: LESI L4-L5) ELECTRONICALLY SIGNED BY SHAUN SARMIENTO ON 08/12/2020 AT 08:54 AM EST DISCLAIMER : THIS IS A VISIT SUMMARY EXTRACTED FROM THE [employer] CHART. IT IS NOT A COPY OF THE [employer] PROGRESS NOTE. NATALIE
== END ==
LOC: M PAIN 11:00
PROVIDERS: ATTEND Family Medicine
DX: M51.16 Intervertebral disc disorders with radiculopathy, lumbar region (principal); G89.29 Other chronic pain; E11.9 Type 2 diabetes mellitus without complications; G47.33 Obstructive sleep apnea (adult) (pediatric); K21.9 Gastro-esophageal reflux disease without esophagitis; M79.7 Fibromyalgia; G25.81 Restless legs syndrome; I10 Essential (primary) hypertension; F17.210 Nicotine dependence, cigarettes, uncomplicated; Z86.59 Personal history of other mental and behavioral disorders; Z98.84 Bariatric surgery status; Z96.651 Presence of right artificial knee joint; Z88.0 Allergy status to penicillin; Z79.899 Other long term (current) drug therapy

== ENCOUNTER → 2020-09-03 | Outpatient (CLI) | payer OTHER | LOC: M LABSMTC 09:37 | PROVIDERS: ATTEND Anesthesiology | DX: Z20.828 Contact with and (suspected) exposure to other viral communicable diseases (principal) ==

== ENCOUNTER → 2020-11-18 | Outpatient (CLI) | payer OTHER | LOC: M LABSMTC 09:31 | PROVIDERS: ATTEND Anesthesiology | DX: Z20.822 Contact with and (suspected) exposure to COVID-19 (principal) ==

== ENCOUNTER → 2020-11-23 | Outpatient (CLI) | payer OTHER ==
[~2020-11-23] MED LIST changes: +ISOVUE-M 300 61% 15ML VIAL As Ordered ONE; +LIDOCAINE 1% SDV 30ML VIAL As Ordered ONE; +diazePAM 5MG TABLET As Ordered ONE; +diphenhydrAMINE 25MG CAP As Ordered ONE; +methylPREDNISolone SUSP 40MG/ML 1ML VIAL (DEPO MEDROL) As Ordered ONE; +oxyCODONE 5MG TAB As Ordered ONE
--- NOTE | 2020-11-23 16:38 | REP ---
INDICATION: LUMBAR EPIDURAL STEROID INJECTION. COMPARISON: None. TECHNIQUE: Four views lower lumbar spine performed using a C-arm. FINDINGS: Needle is seen at the L4-5 level. IMPRESSION: 57 seconds of fluoroscopy time was utilized for the procedure. <Electronically signed by Linwood Clemons > 11/23/20 [id number]
--- NOTE | 2020-11-26 02:33 | ECWPNPC ---
PATIENT NAME: ANGLE RASHEED : 1960 GENDER: FEMALE VISIT DATE: 11/23/2020 DISCHARGE DATE: 11/23/20 1239 VISIT LOCKED DATE TIME: PHYSICIAN: VERONICA FERGUSON MD RESOURCE: VERONICA FERGUSON MD REASON FOR APPOINTMENT 1. LUMBAR EPIDURAL STEROID INJECTION HISTORY OF PRESENT ILLNESS GENERAL: -. FALL RISK SCREENING: SCREENING :NO FALLS REPORTED IN THE LAST YEAR PAIN SCREENING: PATIENT HAS A COMPLAINT OF ACUTE OR CHRONIC PAIN :YES INTENSITY OF PAIN (SCALE OF 1 TO 10):10 WHAT DOES YOUR PAIN FEEL LIKE:CONTINOUS, STABBING, BURNING DURATION:CONTINOUS PAIN IS INCREASED BY:ACTIVITIES, PROLONGED STANDING NURSING NOTE: -. PAIN CENTER INTAKE QUESTIONS: DO YOU HAVE A HISTORY OF MRSA? :NO DO YOU TAKE A BLOOD THINNERS? :NO DO YOU HAVE ANY BLEEDING DISORDERS? :NO ANY NEW NUMBNESS OR WEAKNESS IN YOUR LEGS OR ARMS? :NO ANY PACEMAKER,DEFIBRILLATOR, OR DORSAL COLUMN STIMULATOR? :NO DO YOU HAVE ANY RASHES OR OPEN SORES? :NO ARE YOU ALLERGIC TO IV DYE? :NO ARE YOU DIABETIC? :YES "PRE DIABETIC" IS ON METFORMIN DOES NOT DO FINGER STICKS ANY NEW PROBLEMS WITH YOUR MEDICATIONS? :NO HAVE YOU RECEIVED A VACCINE IN THE PAST 30 DAYS? :NO DO YOU PLAN TO RECEIVE A VACCINE IN THE NEXT 21 DAYS? :NO DO YOU TAKE ANY IMMUNOSUPPRESSIVE MEDICATIONS? :NO ANY HISTORY OF SEIZURES? :NO ANY HISTORY OF CARDIAC ISSUES OR EVENTS? :NO DO YOU HAVE SLEEP APNEA? :YES DO YOU WEAR A CPAP?NO ANY RECENT HEAD INJURY? :NO DO YOU HAVE ANY NEW INFECTIONS? :NO IS THERE A CHANCE YOU COULD BE ? :NO ARE YOU BREAST FEEDING? :NO WHEN DID YOU LAST EAT? : 11/22/20 WHEN DID YOU LAST DRINK? : 11/23/20 WHAT DID YOU LAST DRINK? : WATER NAME OF PERSON DRIVING YOU HOME? : -WESTLEY LENNON DO YOU HAVE ANY OTHER QUESTIONS OR CONCERNS? : NO CURRENT MEDICATIONS TAKING HYDROXYZINE HCL 25 MG TABLET 1 TABLET NEEDED ORALLY EVERY 8 HRS TAKING OMEPRAZOLE 20 MG CAPSULE DELAYED RELEASE 1 CAPSULE ORALLY BID TAKING MAY HAVE - - WILLIE ORIGINS PAIN RELIEF OINTMENT DIRECTED TAKING BENADRYL ALLERGY 25 MG TABLET 1 TABLET AT BEDTIME NEEDED ORALLY ONCE A DAY TAKING RELPAX 40 MG TABLET 1 TABLET NEEDED ONE TIME ORALLY ONCE A DAY, NOTES: HAS NOT USED IN ABOUT A MONTH TAKING MAY USE CBD OIL TAKING KETOGEN - POWDER DIRECTED ORALLY DAILY TAKING MAY USE _ - 2 HC VAPE INHALED TAKE 2-3 PUFFS EVERY 2 HOURS NEEDED, NOTES: CBD OIL- TAKING KLONOPIN 1 MG TABLET 1 TABLET ORALLY BID TAKING TIZANIDINE HCL 4 MG TABLET 1 TABLET NEEDED ORALLY THREE TIMES A DAY, NOTES: 11/22/20 TAKING SOMA 350 MG TABLET 1 TABLET NEEDED ORALLY BID MDD2, NOTES: 11/22/20 TAKING LYRICA 150 MG CAPSULE 1 CAPSULE ORALLY TID, NOTES: 11/22/20 TAKING OXYCODONE-ACETAMINOPHEN 7.5-325 MG TABLET 1-2 TABLET NEEDED ORALLY Q6H PRN MDD3, NOTES: 11/22/20 TAKING METFORMIN HCL 500 MG TABLET 1 TABLET WITH A MEAL ORALLY ONCE A DAY, NOTES: 11/22/20 NOT-TAKING PYRIDIUM 100 MG TABLET 1 TABLETS AFTER MEALS ORALLY THREE TIMES A DAY NEEDED, NOTES: NONE RECENT NOT-TAKING ONDANSETRON 8 MG TABLET DISINTEGRATING 1 TABLET ON THE TONGUE AND ALLOW TO DISSOLVE NEEDED ORALLY ONCE A DAY, NOTES: HAS NOT USED IN A LONG TIME NOT-TAKING METOPROLOL SUCCINATE 25 MG CAPSULE ER 24 HOUR SPRINKLE 1 CAPSULE ORALLY ONCE A DAY NOT-TAKING FENTANYL 12 MCG/HR PATCH 72 HOUR 1 PATCH TO SKIN TRANSDERMAL 1 PATCH [id number] NOT-TAKING SERTRALINE HCL 50 MG TABLET 1 TABLET ORALLY ONCE A DAY NOT-TAKING MAY USE _ MEDICAL MARIJUANA 2 DROPS ORALLY EVERY 4-6 HOURS NEEDED NOT-TAKING DILAUDID 2 MG TABLET 1 TABLET NEEDED ORALLY FOR PAIN EVERY 8 HOURS NEEDED MDD2 NOT-TAKING CLONAZEPAM 1 MG TABLET 1 TABLET ORALLY TWICE DAILY NEEDED NOT-TAKING SUCRALFATE 1 GM TABLET 1 TABLET ON AN EMPTY STOMACH BEFORE MEALS ORALLY TWICE A DAY MEDICATION LIST REVIEWED AND RECONCILED WITH THE PATIENT PAST MEDICAL HISTORY GLORY- DOESN'T USE CPAP- CAN'T TOLERATE KIDNEY STONES GERD CONSTIPATION CHRONIC BACK PAIN/NECK PAIN ANEMIA IBS FIBROMYALGIA RESTLESS LEG SYNDROME DEPRESSION ATROPHIC KIDNEY - S/P NEPHRECTOMY UTI GASTRIC ULCER AND LESIONS HTN DIABETES ALLERGIES SULFA (FOR ALLERGY USE ONLY): UNKNOWN - CHILD - ALLERGY ENVIROMENTAL: SINUS INFECTION - ALLERGY SOCIAL HISTORY GENERAL: TOBACCO USE ARE YOU A:CURRENT SMOKER ARE YOU INTERESTED IN QUITTING?NOT READY TO QUIT STATES SHE HAS CUT DOWN A LOT COUNSELED THE PATIENT ON SMOKING EFFECTS, EDUCATION [id number]/10/2020 HOW MANY CIGARETTES A DAY DO YOU SMOKE?6-10 HOW SOON AFTER YOU WAKE UP DO YOU SMOKE YOUR FIRST CIGARETTE?WITHIN 5 MIN HOW OFTEN DO YOU SMOKE CIGARETTES?EVERY DAY PATIENT COUNSELED ON THE DANGERS OF TOBACCO USE AND URGED TO QUIT:11/23/2020 SMOKING CESSATION INFORMATION GIVEN03/02/2020 LATEX QUESTIONNAIRE LATEX ALLERGY : HAVE YOU EVER DEVELOPED ANY TYPE OF REACTION AFTER HANDLING LATEX PRODUCTS SUCH RUBBER GLOVES, CONDOMS, DIAPHRAGMS, BALLOONS, SOCKS, OR UNDERWEAR?NO LATEX ALLERGY : HAVE YOU EVER DEVELOPED ANY TYPE OF REACTION DURING OR AFTER DENTAL APPOINTMENT, VAGINAL/RECTAL EXAMINATION, SURGICAL PROCEDURE, OR ANY OTHER EXPOSURE?NO DATE ASKED : 11/02/2020 LATEX RISK : HAVE YOU EVER HAD ANY DIFFICULTY BREATHING OR HIVES AFTER EATING OR HANDLING ANY FRUITS, OR VEGETABLES; SUCH KIWI, BANANAS, STONE FRUITS, OR CHESTNUTSNO LATEX RISK : DO YOU HAVE A PREVIOUS PERSONAL HISTORY OF MORE THAN NINE SURGERIES, SPINA BIFIDA, OR REPEATED CATHERIZATIONS? NO LATEX RISK : ARE YOU FREQUENTLY EXPOSED TO LATEX PRODUCTS IN YOUR OCCUPATION?NO ALCOHOL SCREENING DID YOU HAVE A DRINK CONTAINING ALCOHOL IN THE PAST YEAR?NO POINTS0 INTERPRETATIONNEGATIVE RECREATIONAL DRUG USE DRUG USE?NO CAFFEINE CAFFEINE USE?YES HOW OFTEN AND HOW MUCH? 2 CUPS OF GREEN TEA , 2 CUPS COFFEE/DAY SEXUAL HX HAD SEX IN THE LAST 12 MONTHS (VAGINAL, ORAL, OR ANAL)?YES WITHMEN ONLY USE PROTECTION?NO HAVE YOU EVER HAD AN STD?NO ZOROASTRIAN [id number] JEWISH LANGUAGE LANGUAGES SPOKEN:IRISH EDUCATION LEVEL OF EDUCATION:COLLEGE LEARNING BARRIERS / SPECIAL NEEDS CHANGE FROM LAST VISIT?NO BARRIERS TO LEARNING?NO HEARING IMPAIRED?NO VISION IMPAIRED?NO COGNITIVELY IMPAIRED?NO READINESS TO LEARN?YES LEARNING PREFERENCES?YES :BOOKLETS, HANDOUTS LEARNING CAPABILITIES PRESENT?YES EMOTIONAL BARRIERS?NO SPECIAL DEVICES?NO AN/SQQ 89(V)15 SONAR SYSTEM JOURNEYMAN NEEDED?NO DOMESTIC VIOLENCE DO YOU FEEL SAFE IN YOUR ENVIRONMENT?YES OCCUPATION: DISABLED. DIET: REGULAR. EXERCISE: WALKS EVERY OTHER DAY. MARITAL STATUS: . - PFS REFERRAL NEEDED?NO CLERGY REFERRAL NEEDED?NO PUBLIC HEALTH REFERRAL NEEDED?NO HAS THE PATIENT BEEN EDUCATED REGARDING HIS/HER PLAN OF CARE?YES HAS THE PATIENT BEEN EDUCATED REGARDING PAIN, THE RISK FOR PAIN, THE IMPORTANCE OF EFFECTIVE PAIN MANAGEMENT, AND THE PAIN ASSESSMENT PROCESS?YES ADVANCE DIRECTIVE ADVANCE DIRECTIVE DISCUSSED WITH PATIENT:YES PT STATES SHE HAS A BNR-VOF-[id number] DRELICK [phone] VITAL SIGNS WT 217.8 LBS, HT 64 IN, BMI 37.38 INDEX, BP 138/63 MM HG, HR 86 /MIN, RR 20 /MIN, TEMP 96.8 F, OXYGEN SAT % 96%, SAFE IN ENV? (Y/N) Y, NA INITIALS SC 09:50, REVIEWED BY: EM. EXAMINATION GENERAL EXAMINATION: THE PATIENT IS ALERT, ORIENTED TIMES THREE AND COOPERATIVE. LUNGS ARE CLEAR TO AUSCULTATION. HEART SHOWS REGULAR RHYTHM, NO MURMURS AND NO GALLOPS. ASSESSMENTS INTERVERTEBRAL DISC DISORDERS WITH RADICULOPATHY, LUMBAR REGION - M51.16 (PRIMARY) TREATMENT INTERVERTEBRAL DISC DISORDERS WITH RADICULOPATHY, LUMBAR REGION [facility] FLUORO GUIDE SPINE INJECTION (PAIN)[id number] MEDICATION: VALIUM TAB 10MG ORALLY (DIAZEPAM)ALYX,KACIE 11/23/2020 10:26:30 AM > VERIFIED CARLA BLUE 11/23/2020 10:30:44 AM > ADMINISTERED MEDICATION: OXYCODONE HCL TAB 10MG ORALLYBRADLEAngela,[facility] 11/23/2020 10:27:02 AM > VERIFIED CARLA BLUE 11/23/2020 10:31:08 AM > ADMINISTERED COMPLETION OF PROCEDURAL VISIT WHEN MEETS CRITERIACARLA BLUE 11/23/2020 11:41:27 AM > CRITERIA MET MED: PAIN BENADRYL TAB 25MG ORALLY DIPHENHYDRAMINEBRADLEY,KACIE 11/23/2020 10:27:29 AM > VERIFIED CARLA BLUE 11/23/2020 10:31:29 AM > ADMINISTERED OTHERS CLINICAL NOTES: PAT MILEY RAMIREZ RN. PROCEDURES PAIN NURSING RECORD PROCEDURE IN ROOM 1048, PHYSICIAN IN ROOM 1003, START 1108, FINISH 1115, PHYSICIAN OUT OF ROOM 1127, OUT OF ROOM 1133, ECG NORMAL SINUS, PATIENT SHIELDED YES, SAFETY STRAP YES, PREP BETADINE BY Dori SAEED RN, DRESSING TEGADERM BY DR CHEUNG LOC: CARLA BLUE 11/23/2020 10:59:18 AM > , 1. ALERT, ORIENTED RESP: CARLA BLUE 11/23/2020 10:59:21 AM > , 1. REGULAR, NO DYSPNEA COLOR: CARLA BLUE 11/23/2020 10:59:25 AM > , 1. PINK SKIN: CARLA BLUE 11/23/2020 10:59:28 AM > POSITION: CARLA BLUE 11/23/2020 10:59:32 AM > , 1. PRONE VITALS: CARLA BLUE 11/23/2020 10:59:36 AM > 141/67-79-18-94% , CARLA BLUE 11/23/2020 11:02:46 AM > 142/74-82-18-94% , CARLA BLUE 11/23/2020 11:14:45 AM > 134/69-74-18-93% 1139 123/60-75-18-95% NOTES Berenice SAEED RN COMPLETION OF PROCEDURE APPOINTMENT: POST PAIN 10 BILATERAL LOWER BACK, DRESSING SITE DRY AND INTACT MID LOW BACK, IV N/A, GAIT STEADY, TEACHING COMPLETED, PATIENT ACKNOWLEDGES UNDERSTANDING YES VERBALIZES UNDERSTANDING OF POST PROCEDURE INSTRUCTIONS, PROCEDURE APPOINTMENT COMPLETED AT 1142 BY: Berenice SAEED RN PRE PROCEDURE DIAGNOSIS LUMBAR DISC DISORDER WITH RADICULOPATHY POST PROCEDURE DIAGNOSIS LUMBAR DISC DISORDER WITH RADICULOPATHY PROCEDURE LUMBAR EPIDURAL STEROID INJECTION UNDER FLUOROSCOPIC GUIDANCE SURGEON DR. VERONICA FERGUSON POCKET SETTER NONE ANESTHESIA LOCAL PRE PROCEDURE NOTE THE PATIENT HAS A HISTORY OF CHRONIC LOW BACK PAIN. I EVALUATED THE PATIENT AND REVIEWED THE CHART. I WENT OVER THE RISKS, ALTERNATIVES, AND BENEFITS ASSOCIATED WITH THIS PROCEDURE. THE PATIENT WOULD LIKE TO PROCEED AND GIVE CONSENT TO PERFORMED THE PROCEDURE. THE PATIENT DENIES UNEXPLAINABLE WEIGHT LOSS, FEVER, CHILLS, OR NEW CHANGES IN URINARY OR BOWEL CONTROL. THE PATIENT IS COVID-19 NEGATIVE DESCRIPTION OF PROCEDURE THE PATIENT WAS BROUGHT TO THE PROCEDURE ROOM AND PLACED IN THE PRONE POSITION. THE LUMBOSACRAL AREA WAS CLEANED WITH BETADINE SOLUTION AND DRAPED ASEPTICALLY. THE PROCEDURE WAS DONE UNDER STERILE CONDITIONS. A TIMEOUT WAS PERFORMED WHERE THE CONSENTED SITE WAS VERIFIED WITH EVERYONE IN THE ROOM. UNDER FLUOROSCOPIC GUIDANCE, THE TARGET POINT WAS SELECTED AT THE INTERLAMINAR LEVEL OF L4-L5. I CONFIRMED AGAIN THE SITE OF TARGET. LIDOCAINE WAS USED TO NUMB THE SKIN AND THE SUBCUTANEOUS TISSUE BELOW IT. EPIDURAL TUOHY NEEDLE, 17-GAUGE, WAS ADVANCED UNDER FLUOROSCOPIC GUIDANCE AND FOLLOWING PATIENT FEEDBACK UNTIL THE EPIDURAL SPACE WAS REACHED 8 CM DEEP INTO THE SKIN BY THE LOSS OF RESISTANCE TECHNIQUE. ISOVUE-M DYE 30%, 0.25 ML, WAS INJECTED SHOWING ADEQUATE SPREAD OF THE DYE. THEN, A SOLUTION OF 3 ML OF NORMAL SALINE WITH DEPO-MEDROL 40 MG WAS INJECTED SLOWLY FOLLOWING PATIENT FEEDBACK. THE MEDICATIONS WERE VERIFIED WITH THE NURSE. THERE WAS NO EVIDENCE OF BLOOD, PARESTHESIA OR CEREBROSPINAL FLUID DURING THE PROCEDURE. THE PATIENT WAS SENT TO THE RECOVERY ROOM. THE PATIENT WAS MOVING THE EXTREMITIES AND DOING WELL. THERE WERE NO COMPLICATIONS DURING THE PROCEDURE. ESTIMATED BLOOD LOSS WAS LESS THAN 5 ML. FLUOROSCOPY TIME WAS 56 SECONDS POST PROCEDURE NOTE CONSIDER A RIGHT DIAGNOSTIC THORACIC FACET BLOCK T4-T5, T5-T6, T6-T7 TO CONSIDER RADIOFREQUENCY. WITH A SMALL AMOUNT OF VOLUME, THE PATIENT WAS FEELING THE SENSATION DOWN HER LEGS. SHE MAY BE A CANDIDATE FOR MILD/VERTIFLEX. THE PATIENT WILL BE SEEN IN A FOLLOW UP IN THE NEXT FEW WEEKS. I AM LOOKING FOR LONG LASTING RELIEF FOR THE PATIENT WITH THIS INTERVENTION. INSTRUCTIONS WERE GIVEN, QUESTIONS WERE ANSWERED, AND THE PATIENT EXPRESSED UNDERSTANDING AND AGREES WITH THE PLAN. I, CHRISTIANO MERAZ, DOCUMENTED THE ABOVE INFORMATION ACTING A SCRIBE FOR DR. FERGUSON. I HAVE REVIEWED THE ABOVE DOCUMENT, WRITTEN BY CHRISTIANO MERAZ, OFFICE CLERK, AND I VERIFY THAT IT IS ACCURATE PROCEDURE CODES 79749 LUMBAR/SACRAL W/ IMAGING DISPOSITION & COMMUNICATION FOLLOW UP FOLLOW UP WITH REPLENISHMENT BUYER (REASON: POST LUMBAR EPIDURAL STEROID INJECTION) ELECTRONICALLY SIGNED BY VERONICA FERGUSON MD, MD ON 11/25/2020 AT 01:11 PM EST DISCLAIMER : THIS IS A VISIT SUMMARY EXTRACTED FROM THE [employer] CHART. IT IS NOT A COPY OF THE [employer] PROGRESS NOTE. MTDD
== END ==
LOC: M PAIN 10:00
PROVIDERS: ATTEND Anesthesiology
DX: M51.16 Intervertebral disc disorders with radiculopathy, lumbar region (principal); R73.03 Prediabetes; G47.33 Obstructive sleep apnea (adult) (pediatric); K21.9 Gastro-esophageal reflux disease without esophagitis; M79.7 Fibromyalgia; G25.81 Restless legs syndrome; F17.210 Nicotine dependence, cigarettes, uncomplicated; Z86.59 Personal history of other mental and behavioral disorders; Z88.2 Allergy status to sulfonamides; Z79.84 Long term (current) use of oral hypoglycemic drugs; Z79.899 Other long term (current) drug therapy
CPT/HCPCS: 62323; J1030; Q9967

== ENCOUNTER → 2020-12-31 | Outpatient (CLI) | payer OTHER ==
[~2020-12-31] MED LIST changes: -ISOVUE-M 300 61% 15ML VIAL As Ordered ONE; -LIDOCAINE 1% SDV 30ML VIAL As Ordered ONE; -diazePAM 5MG TABLET As Ordered ONE; -diphenhydrAMINE 25MG CAP As Ordered ONE; -methylPREDNISolone SUSP 40MG/ML 1ML VIAL (DEPO MEDROL) As Ordered ONE; -oxyCODONE 5MG TAB As Ordered ONE
--- NOTE | 2021-01-02 04:08 | ECWPNPC ---
PATIENT NAME: ANGLE RASHEED : 1960 GENDER: FEMALE VISIT DATE: 12/31/2020 DISCHARGE DATE: 12/31/20 1006 VISIT LOCKED DATE TIME: PHYSICIAN: TAZ DUPREE RESOURCE: TAZ DUPREE REASON FOR APPOINTMENT 1. POST LUMBAR EPIDURAL STEROID INJECTION HISTORY OF PRESENT ILLNESS GENERAL: - 60-YEAR-OLD FEMALE IN FOR POST LUMBAR EPIDURAL STEROID INJECTION FOLLOW-UP. SHE RATES HER PAIN CURRENTLY AT AN 8 OUT OF 10 AND DESCRIBES IT TENDER, SORE, AND SHOOTING. PATIENT FEELS THE PROCEDURE WAS SUCCESSFUL FOR APPROXIMATELY 2 WEEKS RATING HER PAIN PREPROCEDURE AT A 8-9 OUT OF 10 AND POSTPROCEDURE AT A 4-5 OUT OF 10. FALL RISK SCREENING: SCREENING : NO FALLS REPORTED IN THE LAST YEAR. PAIN SCREENING: PATIENT HAS A COMPLAINT OF ACUTE OR CHRONIC PAIN :YES LOCATION OF PAIN:MID BACK, LOW BACK INTENSITY OF PAIN (SCALE OF 1 TO 10):8 WHAT DOES YOUR PAIN FEEL LIKE:TENDER, SORE, SHOOTING CONY INTO THE HIPS DURATION:CONTINOUS, CONSTANT, ALL DAY PAIN IS INCREASED BY:ACTIVITIES PAIN IS DECREASED BY:USE OF PAIN MEDICATIONS NURSING NOTE: -. PAIN CENTER INTAKE QUESTIONS: DO YOU HAVE A HISTORY OF MRSA? :YES 8 YEARS AGO DONE IN [place] DO YOU TAKE A BLOOD THINNERS? :NO DO YOU HAVE ANY BLEEDING DISORDERS? :NO ANY NEW NUMBNESS OR WEAKNESS IN YOUR LEGS OR ARMS? :NO ANY PACEMAKER,DEFIBRILLATOR, OR DORSAL COLUMN STIMULATOR? :NO DO YOU HAVE ANY RASHES OR OPEN SORES? :NO ARE YOU ALLERGIC TO IV DYE? :NO ARE YOU DIABETIC? :YES PRE DIABETIC ANY NEW PROBLEMS WITH YOUR MEDICATIONS? :NO HAVE YOU RECEIVED A VACCINE IN THE PAST 30 DAYS? :NO DO YOU PLAN TO RECEIVE A VACCINE IN THE NEXT 21 DAYS? :NO DO YOU NEED ANY PRESCRIPTION? :NO DO YOU TAKE ANY IMMUNOSUPPRESSIVE MEDICATIONS? :NO DO YOU HAVE ANY KIDNEY OR LIVER DISEASE? :NO IS THERE A CHANCE YOU COULD BE ? :NO ARE YOU BREAST FEEDING? :NO CURRENT MEDICATIONS TAKING HYDROXYZINE HCL 25 MG TABLET 1 TABLET NEEDED ORALLY EVERY 8 HRS TAKING OMEPRAZOLE 20 MG CAPSULE DELAYED RELEASE 1 CAPSULE ORALLY BID TAKING MAY HAVE - - WILLIE ORIGINS PAIN RELIEF OINTMENT DIRECTED TAKING BENADRYL ALLERGY 25 MG TABLET 1 TABLET AT BEDTIME NEEDED ORALLY ONCE A DAY TAKING RELPAX 40 MG TABLET 1 TABLET NEEDED ONE TIME ORALLY ONCE A DAY, NOTES: HAS NOT USED IN ABOUT A MONTH TAKING MAY USE CBD OIL TAKING KETOGEN - POWDER DIRECTED ORALLY DAILY TAKING MAY USE _ - 2 HC VAPE INHALED TAKE 2-3 PUFFS EVERY 2 HOURS NEEDED, NOTES: CBD OIL- TAKING KLONOPIN 1 MG TABLET 1 TABLET ORALLY BID TAKING METFORMIN HCL 500 MG TABLET 1 TABLET WITH A MEAL ORALLY ONCE A DAY, NOTES: 11/22/20 TAKING TIZANIDINE HCL 4 MG TABLET 1 TABLET NEEDED ORALLY THREE TIMES A DAY, NOTES: 11/22/20 TAKING SOMA 350 MG TABLET 1 TABLET NEEDED ORALLY BID MDD2, NOTES: 11/22/20 TAKING LYRICA 150 MG CAPSULE 1 CAPSULE ORALLY TID, NOTES: 11/22/20 TAKING OXYCODONE-ACETAMINOPHEN 7.5-325 MG TABLET 1-2 TABLET NEEDED ORALLY Q6H PRN MDD3, NOTES: 11/22/20 NOT-TAKING PYRIDIUM 100 MG TABLET 1 TABLETS AFTER MEALS ORALLY THREE TIMES A DAY NEEDED, NOTES: NONE RECENT NOT-TAKING ONDANSETRON 8 MG TABLET DISINTEGRATING 1 TABLET ON THE TONGUE AND ALLOW TO DISSOLVE NEEDED ORALLY ONCE A DAY, NOTES: HAS NOT USED IN A LONG TIME NOT-TAKING METOPROLOL SUCCINATE 25 MG CAPSULE ER 24 HOUR SPRINKLE 1 CAPSULE ORALLY ONCE A DAY NOT-TAKING FENTANYL 12 MCG/HR PATCH 72 HOUR 1 PATCH TO SKIN TRANSDERMAL 1 PATCH [id number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id number] PRESYBETERIAN LANGUAGE LANGUAGES SPOKEN:GEORGIAN EDUCATION LEVEL OF EDUCATION:COLLEGE LEARNING BARRIERS / SPECIAL NEEDS CHANGE FROM LAST VISIT?NO BARRIERS TO LEARNING?NO HEARING IMPAIRED?NO VISION IMPAIRED?YES :CORRECTIVE LENSES COGNITIVELY IMPAIRED?NO READINESS TO LEARN?YES LEARNING PREFERENCES?YES :BOOKLETS, HANDOUTS LEARNING CAPABILITIES PRESENT?YES EMOTIONAL BARRIERS?NO SPECIAL DEVICES?YES :CANE, WALKER NEEDED PIPE FITTER SUPERVISOR MAINTENANCE NEEDED?NO DOMESTIC VIOLENCE DO YOU FEEL SAFE IN YOUR ENVIRONMENT?YES OCCUPATION: DISABLED. DIET: REGULAR. EXERCISE: WALKS EVERY OTHER DAY. MARITAL STATUS: . - PFS REFERRAL NEEDED?NO CLERGY REFERRAL NEEDED?NO PUBLIC HEALTH REFERRAL NEEDED?NO HAS THE PATIENT BEEN EDUCATED REGARDING HIS/HER PLAN OF CARE?YES HAS THE PATIENT BEEN EDUCATED REGARDING PAIN, THE RISK FOR PAIN, THE IMPORTANCE OF EFFECTIVE PAIN MANAGEMENT, AND THE PAIN ASSESSMENT PROCESS?YES ADVANCE DIRECTIVE ADVANCE DIRECTIVE DISCUSSED WITH PATIENT:YES PT STATES SHE HAS A [id number] DRELICK [phone] REVIEW OF SYSTEMS CONSTITUTIONAL: ANY RECENT FEVER NO . CHILLS NO . WEIGHT CHANGE OF UNKNOWN REASONS NO . GASTROENTEROLOGY: NEW UNEXPLAINABLE CHANGES IN BOWEL CONTROL NO . CONSTIPATION NO . GENITOURINARY: ANY NEW CHANGE IN BLADDER CONTROL? NO . NEUROLOGY: NEW ONSET DIZZINESS OR NEUROLOGICAL CHANGES NOT MENTIONED NO . NEW NUMBNESS OR PAIN PATTERNS NOT MENTIONED AND PERTINENT TO TODAY'S VISIT NO . CARDIOLOGY: NEW CHEST PRESSURE NO . PATIENT DENIES NO . RESPIRATORY: UNEXPLAINABLE COUGH NO . NEW SHORTNESS OF BREATH NO . VITAL SIGNS WT 222.0 LBS, HT 64 IN, BMI 38.10 INDEX, BP 154/69 MM HG, HR 97 /MIN, RR 18 /MIN, TEMP 95.0 F, OXYGEN SAT % 97%, SAFE IN ENV? (Y/N) YES, NA INITIALS AW [id number] KAMINSKI. EXAMINATION GENERAL EXAMINATION: GENERALNO ACUTE DISTRESS, WELL NOURISHED AND HYDRATED. PSYCHAPPROPRIATE MOOD AND AFFECT . LUNGS:CLEAR TO AUSCULTATION BILATERALLY, NO WHEEZES, RHONCHI, RALES. HEART:NO MURMURS, REGULAR RATE AND RHYTHM. ASSESSMENTS OTHER CHRONIC PAIN - G89.29 (PRIMARY) CHRONIC PRESCRIPTION OPIATE USE - Z79.899 INTERVERTEBRAL DISC DISORDERS WITH RADICULOPATHY, LUMBAR REGION - M51.16 TREATMENT OTHER CHRONIC PAIN PAIN PROCEDURE LOGDATE OF [id number]/22/2021PROCEDURE:LUMBAR EPIDURAL STEROID INJECTIONAMOUNT OF PRE SEDATEVALIUM 0MG; OXYCODONE 10MG; BENADRYL 25MGRESULT:PRE- POST NOTES: 60-YEAR-OLD FEMALE IN FOR POST EPIDURAL STEROID INJECTION FOLLOW-UP. GIVEN PRESENTING SYMPTOMS RECOMMEND INCREASING LYRICA TO 200 MG 3 TIMES A DAY AND FOLLOW-UP WITH DR. FERGUSON TO DISCUSS X-RAYS PREVIOUSLY TAKEN AND OTHER PROCEDURES THAT MAY BE AVAILABLE TO PATIENT. PATIENT HAS EXPRESSED UNDERSTANDING OF AND WAS IN AGREEMENT WITH TREATMENT PLAN. GIVEN TIME TO ASK QUESTIONS AND EXPRESS CONCERNS. , ISTOP REGISTRY REVIEWED AND DEMONSTRATES COMPLLIANCE. (REF # [id number] ) BRINGS IN MEDICATIONS WHICH IS APPROPRIATE FOR WHAT WAS DISPENSED. RECENT URINE TOXICOLOGY REVIEWED. NO UNAUTHORIZED MEDICATIONS. NO ILLICIT SUBSTANCES AND PRESCRIBED MEDICATIONS WERE PRESENT. CHRONIC PRESCRIPTION OPIATE USE LAB: ORAL FLUID TEST GROUP SAUL OLIVO 12/31/2020 10:03:19 AM > LAST DOSE:SOMA 12/30/2020; LYRICA 12/30/2020; OXYCODONE 12/30/2020; CLONAZEPAM 12/30/2020 INTERVERTEBRAL DISC DISORDERS WITH RADICULOPATHY, LUMBAR REGION INCREASE LYRICA CAPSULE, 200 MG, 1 CAPSULE, ORALLY, TID, 30 DAYS, 90, NOTES: 11/22/20 PROCEDURE CODES FA211 ESTABILISHED PATIENT [facility] CHARGE DISPOSITION & COMMUNICATION FOLLOW UP DR. FERGUSON (REASON: BACK PAIN) ELECTRONICALLY SIGNED BY SHAUN SARMIENTO ON 01/01/2021 AT 08:39 AM EDT DISCLAIMER : THIS IS A VISIT SUMMARY EXTRACTED FROM THE [employer] CHART. IT IS NOT A COPY OF THE [employer] PROGRESS NOTE. MTDD
--- NOTE | 2021-01-02 04:10 | ECWPNPC ---
PATIENT NAME: ANGLE RASHEED : 1960 GENDER: FEMALE VISIT DATE: 12/31/2020 DISCHARGE DATE: 12/31/20 1006 VISIT LOCKED DATE TIME: PHYSICIAN: TAZ DUPREE RESOURCE: TAZ DUPREE REASON FOR APPOINTMENT 1. POST LUMBAR EPIDURAL STEROID INJECTION HISTORY OF PRESENT ILLNESS GENERAL: - 60-YEAR-OLD FEMALE IN FOR POST LUMBAR EPIDURAL STEROID INJECTION FOLLOW-UP. SHE RATES HER PAIN CURRENTLY AT AN 8 OUT OF 10 AND DESCRIBES IT TENDER, SORE, AND SHOOTING. PATIENT FEELS THE PROCEDURE WAS SUCCESSFUL FOR APPROXIMATELY 2 WEEKS RATING HER PAIN PREPROCEDURE AT A 8-9 OUT OF 10 AND POSTPROCEDURE AT A 4-5 OUT OF 10. FALL RISK SCREENING: SCREENING : NO FALLS REPORTED IN THE LAST YEAR. PAIN SCREENING: PATIENT HAS A COMPLAINT OF ACUTE OR CHRONIC PAIN :YES LOCATION OF PAIN:MID BACK, LOW BACK INTENSITY OF PAIN (SCALE OF 1 TO 10):8 WHAT DOES YOUR PAIN FEEL LIKE:TENDER, SORE, SHOOTING CONY INTO THE HIPS DURATION:CONTINOUS, CONSTANT, ALL DAY PAIN IS INCREASED BY:ACTIVITIES PAIN IS DECREASED BY:USE OF PAIN MEDICATIONS NURSING NOTE: -. PAIN CENTER INTAKE QUESTIONS: DO YOU HAVE A HISTORY OF MRSA? :YES 8 YEARS AGO DONE IN TEAXES DO YOU TAKE A BLOOD THINNERS? :NO DO YOU HAVE ANY BLEEDING DISORDERS? :NO ANY NEW NUMBNESS OR WEAKNESS IN YOUR LEGS OR ARMS? :NO ANY PACEMAKER,DEFIBRILLATOR, OR DORSAL COLUMN STIMULATOR? :NO DO YOU HAVE ANY RASHES OR OPEN SORES? :NO ARE YOU ALLERGIC TO IV DYE? :NO ARE YOU DIABETIC? :YES PRE DIABETIC ANY NEW PROBLEMS WITH YOUR MEDICATIONS? :NO HAVE YOU RECEIVED A VACCINE IN THE PAST 30 DAYS? :NO DO YOU PLAN TO RECEIVE A VACCINE IN THE NEXT 21 DAYS? :NO DO YOU NEED ANY PRESCRIPTION? :NO DO YOU TAKE ANY IMMUNOSUPPRESSIVE MEDICATIONS? :NO DO YOU HAVE ANY KIDNEY OR LIVER DISEASE? :NO IS THERE A CHANCE YOU COULD BE ? :NO ARE YOU BREAST FEEDING? :NO CURRENT MEDICATIONS TAKING HYDROXYZINE HCL 25 MG TABLET 1 TABLET NEEDED ORALLY EVERY 8 HRS TAKING OMEPRAZOLE 20 MG CAPSULE DELAYED RELEASE 1 CAPSULE ORALLY BID TAKING MAY HAVE - - WILLIE ORIGINS PAIN RELIEF OINTMENT DIRECTED TAKING BENADRYL ALLERGY 25 MG TABLET 1 TABLET AT BEDTIME NEEDED ORALLY ONCE A DAY TAKING RELPAX 40 MG TABLET 1 TABLET NEEDED ONE TIME ORALLY ONCE A DAY, NOTES: HAS NOT USED IN ABOUT A MONTH TAKING MAY USE CBD OIL TAKING KETOGEN - POWDER DIRECTED ORALLY DAILY TAKING MAY USE _ - 2 HC VAPE INHALED TAKE 2-3 PUFFS EVERY 2 HOURS NEEDED, NOTES: CBD OIL- TAKING KLONOPIN 1 MG TABLET 1 TABLET ORALLY BID TAKING METFORMIN HCL 500 MG TABLET 1 TABLET WITH A MEAL ORALLY ONCE A DAY, NOTES: 11/22/20 TAKING TIZANIDINE HCL 4 MG TABLET 1 TABLET NEEDED ORALLY THREE TIMES A DAY, NOTES: 11/22/20 TAKING SOMA 350 MG TABLET 1 TABLET NEEDED ORALLY BID MDD2, NOTES: 11/22/20 TAKING LYRICA 150 MG CAPSULE 1 CAPSULE ORALLY TID, NOTES: 11/22/20 TAKING OXYCODONE-ACETAMINOPHEN 7.5-325 MG TABLET 1-2 TABLET NEEDED ORALLY Q6H PRN MDD3, NOTES: 11/22/20 NOT-TAKING PYRIDIUM 100 MG TABLET 1 TABLETS AFTER MEALS ORALLY THREE TIMES A DAY NEEDED, NOTES: NONE RECENT NOT-TAKING ONDANSETRON 8 MG TABLET DISINTEGRATING 1 TABLET ON THE TONGUE AND ALLOW TO DISSOLVE NEEDED ORALLY ONCE A DAY, NOTES: HAS NOT USED IN A LONG TIME NOT-TAKING METOPROLOL SUCCINATE 25 MG CAPSULE ER 24 HOUR SPRINKLE 1 CAPSULE ORALLY ONCE A DAY NOT-TAKING FENTANYL 12 MCG/HR PATCH 72 HOUR 1 PATCH TO SKIN TRANSDERMAL 1 PATCH [id number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id number]/10/2020 SMOKING CESSATION INFORMATION GIVEN03/02/2020 LATEX QUESTIONNAIRE LATEX ALLERGY : HAVE YOU EVER DEVELOPED ANY TYPE OF REACTION AFTER HANDLING LATEX PRODUCTS SUCH RUBBER GLOVES, CONDOMS, DIAPHRAGMS, BALLOONS, SOCKS, OR UNDERWEAR?NO LATEX ALLERGY : HAVE YOU EVER DEVELOPED ANY TYPE OF REACTION DURING OR AFTER DENTAL APPOINTMENT, VAGINAL/RECTAL EXAMINATION, SURGICAL PROCEDURE, OR ANY OTHER EXPOSURE?NO DATE ASKED : 11/02/2020 LATEX RISK : HAVE YOU EVER HAD ANY DIFFICULTY BREATHING OR HIVES AFTER EATING OR HANDLING ANY FRUITS, OR VEGETABLES; SUCH KIWI, BANANAS, STONE FRUITS, OR CHESTNUTSNO LATEX RISK : DO YOU HAVE A PREVIOUS PERSONAL HISTORY OF MORE THAN NINE SURGERIES, SPINA BIFIDA, OR REPEATED CATHERIZATIONS? NO LATEX RISK : ARE YOU FREQUENTLY EXPOSED TO LATEX PRODUCTS IN YOUR OCCUPATION?NO ALCOHOL USE: NO. ALCOHOL SCREENING DID YOU HAVE A DRINK CONTAINING ALCOHOL IN THE PAST YEAR?NO POINTS0 INTERPRETATIONNEGATIVE RECREATIONAL DRUG USE DRUG USE?NO CAFFEINE CAFFEINE USE?YES HOW OFTEN AND HOW MUCH? 2 CUPS OF GREEN TEA , 2 CUPS COFFEE/DAY SEXUAL HX HAD SEX IN THE LAST 12 MONTHS (VAGINAL, ORAL, OR ANAL)?YES WITHMEN ONLY USE PROTECTION?NO HAVE YOU EVER HAD AN STD?NO ZOROASTRIAN [id number] CHRISTIANITY LANGUAGE LANGUAGES SPOKEN:[place] EDUCATION LEVEL OF EDUCATION:COLLEGE LEARNING BARRIERS / SPECIAL NEEDS CHANGE FROM LAST VISIT?NO BARRIERS TO LEARNING?NO HEARING IMPAIRED?NO VISION IMPAIRED?YES :CORRECTIVE LENSES COGNITIVELY IMPAIRED?NO READINESS TO LEARN?YES LEARNING PREFERENCES?YES :BOOKLETS, HANDOUTS LEARNING CAPABILITIES PRESENT?YES EMOTIONAL BARRIERS?NO SPECIAL DEVICES?YES :CANE, WALKER NEEDED STATISTICAL ENGINEER NEEDED?NO DOMESTIC VIOLENCE DO YOU FEEL SAFE IN YOUR ENVIRONMENT?YES OCCUPATION: DISABLED. DIET: REGULAR. EXERCISE: WALKS EVERY OTHER DAY. MARITAL STATUS: . - PFS REFERRAL NEEDED?NO CLERGY REFERRAL NEEDED?NO PUBLIC HEALTH REFERRAL NEEDED?NO HAS THE PATIENT BEEN EDUCATED REGARDING HIS/HER PLAN OF CARE?YES HAS THE PATIENT BEEN EDUCATED REGARDING PAIN, THE RISK FOR PAIN, THE IMPORTANCE OF EFFECTIVE PAIN MANAGEMENT, AND THE PAIN ASSESSMENT PROCESS?YES ADVANCE DIRECTIVE ADVANCE DIRECTIVE DISCUSSED WITH PATIENT:YES PT STATES SHE HAS A [id number] DRELICK [phone] REVIEW OF SYSTEMS CONSTITUTIONAL: ANY RECENT FEVER NO . CHILLS NO . WEIGHT CHANGE OF UNKNOWN REASONS NO . GASTROENTEROLOGY: NEW UNEXPLAINABLE CHANGES IN BOWEL CONTROL NO . CONSTIPATION NO . GENITOURINARY: ANY NEW CHANGE IN BLADDER CONTROL? NO . NEUROLOGY: NEW ONSET DIZZINESS OR NEUROLOGICAL CHANGES NOT MENTIONED NO . NEW NUMBNESS OR PAIN PATTERNS NOT MENTIONED AND PERTINENT TO TODAY'S VISIT NO . CARDIOLOGY: NEW CHEST PRESSURE NO . PATIENT DENIES NO . RESPIRATORY: UNEXPLAINABLE COUGH NO . NEW SHORTNESS OF BREATH NO . VITAL SIGNS WT 222.0 LBS, HT 64 IN, BMI 38.10 INDEX, BP 154/69 MM HG, HR 97 /MIN, RR 18 /MIN, TEMP 95.0 F, OXYGEN SAT % 97%, SAFE IN ENV? (Y/N) YES, NA INITIALS AW [id number].WM KAMINSKI. EXAMINATION GENERAL EXAMINATION: GENERALNO ACUTE DISTRESS, WELL NOURISHED AND HYDRATED. PSYCHAPPROPRIATE MOOD AND AFFECT . LUNGS:CLEAR TO AUSCULTATION BILATERALLY, NO WHEEZES, RHONCHI, RALES. HEART:NO MURMURS, REGULAR RATE AND RHYTHM. ASSESSMENTS OTHER CHRONIC PAIN - G89.29 (PRIMARY) CHRONIC PRESCRIPTION OPIATE USE - Z79.899 INTERVERTEBRAL DISC DISORDERS WITH RADICULOPATHY, LUMBAR REGION - M51.16 TREATMENT OTHER CHRONIC PAIN PAIN PROCEDURE LOGDATE OF [id number]/22/2021PROCEDURE:LUMBAR EPIDURAL STEROID INJECTIONAMOUNT OF PRE SEDATEVALIUM 0MG; OXYCODONE 10MG; BENADRYL 25MGRESULT:PRE- POST NOTES: 60-YEAR-OLD FEMALE IN FOR POST EPIDURAL STEROID INJECTION FOLLOW-UP. GIVEN PRESENTING SYMPTOMS RECOMMEND INCREASING LYRICA TO 200 MG 3 TIMES A DAY AND FOLLOW-UP WITH DR. FERGUSON TO DISCUSS X-RAYS PREVIOUSLY TAKEN AND OTHER PROCEDURES THAT MAY BE AVAILABLE TO PATIENT. PATIENT HAS EXPRESSED UNDERSTANDING OF AND WAS IN AGREEMENT WITH TREATMENT PLAN. GIVEN TIME TO ASK QUESTIONS AND EXPRESS CONCERNS. , ISTOP REGISTRY REVIEWED AND DEMONSTRATES COMPLLIANCE. (REF # [id number] ) BRINGS IN MEDICATIONS WHICH IS APPROPRIATE FOR WHAT WAS DISPENSED. RECENT URINE TOXICOLOGY REVIEWED. NO UNAUTHORIZED MEDICATIONS. NO ILLICIT SUBSTANCES AND PRESCRIBED MEDICATIONS WERE PRESENT. CHRONIC PRESCRIPTION OPIATE USE LAB: ORAL FLUID TEST GROUP SAUL OLIVO 12/31/2020 10:03:19 AM > LAST DOSE:SOMA 12/30/2020; LYRICA 12/30/2020; OXYCODONE 12/30/2020; CLONAZEPAM 12/30/2020 INTERVERTEBRAL DISC DISORDERS WITH RADICULOPATHY, LUMBAR REGION INCREASE LYRICA CAPSULE, 200 MG, 1 CAPSULE, ORALLY, TID, 30 DAYS, 90, NOTES: 11/22/20 PROCEDURE CODES FA211 ESTABILISHED PATIENT [facility] CHARGE DISPOSITION & COMMUNICATION FOLLOW UP DR. FERGUSON (REASON: BACK PAIN) ELECTRONICALLY SIGNED BY SHAUN SARMIENTO ON 01/01/2021 AT 08:39 AM EDT DISCLAIMER : THIS IS A VISIT SUMMARY EXTRACTED FROM THE [employer] CHART. IT IS NOT A COPY OF THE [employer] PROGRESS NOTE. MTDD
--- NOTE | 2021-01-02 04:11 | ECWPNPC ---
PATIENT NAME: ANGLE RASHEED : 1960 GENDER: FEMALE VISIT DATE: 12/31/2020 DISCHARGE DATE: 12/31/20 1006 VISIT LOCKED DATE TIME: PHYSICIAN: TAZ DUPREE RESOURCE: TAZ DUPREE REASON FOR APPOINTMENT 1. POST LUMBAR EPIDURAL STEROID INJECTION HISTORY OF PRESENT ILLNESS GENERAL: - 60-YEAR-OLD FEMALE IN FOR POST LUMBAR EPIDURAL STEROID INJECTION FOLLOW-UP. SHE RATES HER PAIN CURRENTLY AT AN 8 OUT OF 10 AND DESCRIBES IT TENDER, SORE, AND SHOOTING. PATIENT FEELS THE PROCEDURE WAS SUCCESSFUL FOR APPROXIMATELY 2 WEEKS RATING HER PAIN PREPROCEDURE AT A 8-9 OUT OF 10 AND POSTPROCEDURE AT A 4-5 OUT OF 10. FALL RISK SCREENING: SCREENING : NO FALLS REPORTED IN THE LAST YEAR. PAIN SCREENING: PATIENT HAS A COMPLAINT OF ACUTE OR CHRONIC PAIN :YES LOCATION OF PAIN:MID BACK, LOW BACK INTENSITY OF PAIN (SCALE OF 1 TO 10):8 WHAT DOES YOUR PAIN FEEL LIKE:TENDER, SORE, SHOOTING CONY INTO THE HIPS DURATION:CONTINOUS, CONSTANT, ALL DAY PAIN IS INCREASED BY:ACTIVITIES PAIN IS DECREASED BY:USE OF PAIN MEDICATIONS NURSING NOTE: -. PAIN CENTER INTAKE QUESTIONS: DO YOU HAVE A HISTORY OF MRSA? :YES 8 YEARS AGO DONE IN TEAXES DO YOU TAKE A BLOOD THINNERS? :NO DO YOU HAVE ANY BLEEDING DISORDERS? :NO ANY NEW NUMBNESS OR WEAKNESS IN YOUR LEGS OR ARMS? :NO ANY PACEMAKER,DEFIBRILLATOR, OR DORSAL COLUMN STIMULATOR? :NO DO YOU HAVE ANY RASHES OR OPEN SORES? :NO ARE YOU ALLERGIC TO IV DYE? :NO ARE YOU DIABETIC? :YES PRE DIABETIC ANY NEW PROBLEMS WITH YOUR MEDICATIONS? :NO HAVE YOU RECEIVED A VACCINE IN THE PAST 30 DAYS? :NO DO YOU PLAN TO RECEIVE A VACCINE IN THE NEXT 21 DAYS? :NO DO YOU NEED ANY PRESCRIPTION? :NO DO YOU TAKE ANY IMMUNOSUPPRESSIVE MEDICATIONS? :NO DO YOU HAVE ANY KIDNEY OR LIVER DISEASE? :NO IS THERE A CHANCE YOU COULD BE ? :NO ARE YOU BREAST FEEDING? :NO CURRENT MEDICATIONS TAKING HYDROXYZINE HCL 25 MG TABLET 1 TABLET NEEDED ORALLY EVERY 8 HRS TAKING OMEPRAZOLE 20 MG CAPSULE DELAYED RELEASE 1 CAPSULE ORALLY BID TAKING MAY HAVE - - WILLIE ORIGINS PAIN RELIEF OINTMENT DIRECTED TAKING BENADRYL ALLERGY 25 MG TABLET 1 TABLET AT BEDTIME NEEDED ORALLY ONCE A DAY TAKING RELPAX 40 MG TABLET 1 TABLET NEEDED ONE TIME ORALLY ONCE A DAY, NOTES: HAS NOT USED IN ABOUT A MONTH TAKING MAY USE CBD OIL TAKING KETOGEN - POWDER DIRECTED ORALLY DAILY TAKING MAY USE _ - 2 HC VAPE INHALED TAKE 2-3 PUFFS EVERY 2 HOURS NEEDED, NOTES: CBD OIL- TAKING KLONOPIN 1 MG TABLET 1 TABLET ORALLY BID TAKING METFORMIN HCL 500 MG TABLET 1 TABLET WITH A MEAL ORALLY ONCE A DAY, NOTES: 11/22/20 TAKING TIZANIDINE HCL 4 MG TABLET 1 TABLET NEEDED ORALLY THREE TIMES A DAY, NOTES: 11/22/20 TAKING SOMA 350 MG TABLET 1 TABLET NEEDED ORALLY BID MDD2, NOTES: 11/22/20 TAKING LYRICA 150 MG CAPSULE 1 CAPSULE ORALLY TID, NOTES: 11/22/20 TAKING OXYCODONE-ACETAMINOPHEN 7.5-325 MG TABLET 1-2 TABLET NEEDED ORALLY Q6H PRN MDD3, NOTES: 11/22/20 NOT-TAKING PYRIDIUM 100 MG TABLET 1 TABLETS AFTER MEALS ORALLY THREE TIMES A DAY NEEDED, NOTES: NONE RECENT NOT-TAKING ONDANSETRON 8 MG TABLET DISINTEGRATING 1 TABLET ON THE TONGUE AND ALLOW TO DISSOLVE NEEDED ORALLY ONCE A DAY, NOTES: HAS NOT USED IN A LONG TIME NOT-TAKING METOPROLOL SUCCINATE 25 MG CAPSULE ER 24 HOUR SPRINKLE 1 CAPSULE ORALLY ONCE A DAY NOT-TAKING FENTANYL 12 MCG/HR PATCH 72 HOUR 1 PATCH TO SKIN TRANSDERMAL 1 PATCH [id number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id number]/10/2020 SMOKING CESSATION INFORMATION GIVEN03/02/2020 LATEX QUESTIONNAIRE LATEX ALLERGY : HAVE YOU EVER DEVELOPED ANY TYPE OF REACTION AFTER HANDLING LATEX PRODUCTS SUCH RUBBER GLOVES, CONDOMS, DIAPHRAGMS, BALLOONS, SOCKS, OR UNDERWEAR?NO LATEX ALLERGY : HAVE YOU EVER DEVELOPED ANY TYPE OF REACTION DURING OR AFTER DENTAL APPOINTMENT, VAGINAL/RECTAL EXAMINATION, SURGICAL PROCEDURE, OR ANY OTHER EXPOSURE?NO DATE ASKED : 11/02/2020 LATEX RISK : HAVE YOU EVER HAD ANY DIFFICULTY BREATHING OR HIVES AFTER EATING OR HANDLING ANY FRUITS, OR VEGETABLES; SUCH KIWI, BANANAS, STONE FRUITS, OR CHESTNUTSNO LATEX RISK : DO YOU HAVE A PREVIOUS PERSONAL HISTORY OF MORE THAN NINE SURGERIES, SPINA BIFIDA, OR REPEATED CATHERIZATIONS? NO LATEX RISK : ARE YOU FREQUENTLY EXPOSED TO LATEX PRODUCTS IN YOUR OCCUPATION?NO ALCOHOL USE: NO. ALCOHOL SCREENING DID YOU HAVE A DRINK CONTAINING ALCOHOL IN THE PAST YEAR?NO POINTS0 INTERPRETATIONNEGATIVE RECREATIONAL DRUG USE DRUG USE?NO CAFFEINE CAFFEINE USE?YES HOW OFTEN AND HOW MUCH? 2 CUPS OF GREEN TEA , 2 CUPS COFFEE/DAY SEXUAL HX HAD SEX IN THE LAST 12 MONTHS (VAGINAL, ORAL, OR ANAL)?YES WITHMEN ONLY USE PROTECTION?NO HAVE YOU EVER HAD AN STD?NO SHINTO [id number] SCIENTOLOGIST LANGUAGE LANGUAGES SPOKEN:INDONESIAN EDUCATION LEVEL OF EDUCATION:COLLEGE LEARNING BARRIERS / SPECIAL NEEDS CHANGE FROM LAST VISIT?NO BARRIERS TO LEARNING?NO HEARING IMPAIRED?NO VISION IMPAIRED?YES :CORRECTIVE LENSES COGNITIVELY IMPAIRED?NO READINESS TO LEARN?YES LEARNING PREFERENCES?YES :BOOKLETS, HANDOUTS LEARNING CAPABILITIES PRESENT?YES EMOTIONAL BARRIERS?NO SPECIAL DEVICES?YES :CANE, WALKER NEEDED TRAFFIC COURT MAGISTRATE NEEDED?NO DOMESTIC VIOLENCE DO YOU FEEL SAFE IN YOUR ENVIRONMENT?YES OCCUPATION: DISABLED. DIET: REGULAR. EXERCISE: WALKS EVERY OTHER DAY. MARITAL STATUS: . - PFS REFERRAL NEEDED?NO CLERGY REFERRAL NEEDED?NO PUBLIC HEALTH REFERRAL NEEDED?NO HAS THE PATIENT BEEN EDUCATED REGARDING HIS/HER PLAN OF CARE?YES HAS THE PATIENT BEEN EDUCATED REGARDING PAIN, THE RISK FOR PAIN, THE IMPORTANCE OF EFFECTIVE PAIN MANAGEMENT, AND THE PAIN ASSESSMENT PROCESS?YES ADVANCE DIRECTIVE ADVANCE DIRECTIVE DISCUSSED WITH PATIENT:YES PT STATES SHE HAS A [id number] DRELICK [phone] REVIEW OF SYSTEMS CONSTITUTIONAL: ANY RECENT FEVER NO . CHILLS NO . WEIGHT CHANGE OF UNKNOWN REASONS NO . GASTROENTEROLOGY: NEW UNEXPLAINABLE CHANGES IN BOWEL CONTROL NO . CONSTIPATION NO . GENITOURINARY: ANY NEW CHANGE IN BLADDER CONTROL? NO . NEUROLOGY: NEW ONSET DIZZINESS OR NEUROLOGICAL CHANGES NOT MENTIONED NO . NEW NUMBNESS OR PAIN PATTERNS NOT MENTIONED AND PERTINENT TO TODAY'S VISIT NO . CARDIOLOGY: NEW CHEST PRESSURE NO . PATIENT DENIES NO . RESPIRATORY: UNEXPLAINABLE COUGH NO . NEW SHORTNESS OF BREATH NO . VITAL SIGNS WT 222.0 LBS, HT 64 IN, BMI 38.10 INDEX, BP 154/69 MM HG, HR 97 /MIN, RR 18 /MIN, TEMP 95.0 F, OXYGEN SAT % 97%, SAFE IN ENV? (Y/N) YES, NA INITIALS AW [id number].WM KAMINSKI. EXAMINATION GENERAL EXAMINATION: GENERALNO ACUTE DISTRESS, WELL NOURISHED AND HYDRATED. PSYCHAPPROPRIATE MOOD AND AFFECT . LUNGS:CLEAR TO AUSCULTATION BILATERALLY, NO WHEEZES, RHONCHI, RALES. HEART:NO MURMURS, REGULAR RATE AND RHYTHM. ASSESSMENTS OTHER CHRONIC PAIN - G89.29 (PRIMARY) CHRONIC PRESCRIPTION OPIATE USE - Z79.899 INTERVERTEBRAL DISC DISORDERS WITH RADICULOPATHY, LUMBAR REGION - M51.16 TREATMENT OTHER CHRONIC PAIN PAIN PROCEDURE LOGDATE OF [id number]/22/2021PROCEDURE:LUMBAR EPIDURAL STEROID INJECTIONAMOUNT OF PRE SEDATEVALIUM 0MG; OXYCODONE 10MG; BENADRYL 25MGRESULT:PRE- POST NOTES: 60-YEAR-OLD FEMALE IN FOR POST EPIDURAL STEROID INJECTION FOLLOW-UP. GIVEN PRESENTING SYMPTOMS RECOMMEND INCREASING LYRICA TO 200 MG 3 TIMES A DAY AND FOLLOW-UP WITH DR. FERGUSON TO DISCUSS X-RAYS PREVIOUSLY TAKEN AND OTHER PROCEDURES THAT MAY BE AVAILABLE TO PATIENT. PATIENT HAS EXPRESSED UNDERSTANDING OF AND WAS IN AGREEMENT WITH TREATMENT PLAN. GIVEN TIME TO ASK QUESTIONS AND EXPRESS CONCERNS. , ISTOP REGISTRY REVIEWED AND DEMONSTRATES COMPLLIANCE. (REF # [id number] ) BRINGS IN MEDICATIONS WHICH IS APPROPRIATE FOR WHAT WAS DISPENSED. RECENT URINE TOXICOLOGY REVIEWED. NO UNAUTHORIZED MEDICATIONS. NO ILLICIT SUBSTANCES AND PRESCRIBED MEDICATIONS WERE PRESENT. CHRONIC PRESCRIPTION OPIATE USE LAB: ORAL FLUID TEST GROUP SAUL OLIVO 12/31/2020 10:03:19 AM > LAST DOSE:SOMA 12/30/2020; LYRICA 12/30/2020; OXYCODONE 12/30/2020; CLONAZEPAM 12/30/2020 INTERVERTEBRAL DISC DISORDERS WITH RADICULOPATHY, LUMBAR REGION INCREASE LYRICA CAPSULE, 200 MG, 1 CAPSULE, ORALLY, TID, 30 DAYS, 90, NOTES: 11/22/20 PROCEDURE CODES FA211 ESTABILISHED PATIENT [facility] CHARGE DISPOSITION & COMMUNICATION FOLLOW UP DR. FERGUSON (REASON: BACK PAIN) ELECTRONICALLY SIGNED BY SHAUN SARMINETO ON 01/01/2021 AT 08:39 AM EDT DISCLAIMER : THIS IS A VISIT SUMMARY EXTRACTED FROM THE [employer] CHART. IT IS NOT A COPY OF THE [employer] PROGRESS NOTE. MTDD
== END ==
LOC: M PAIN 09:15
PROVIDERS: ATTEND Family Medicine
DX: G89.29 Other chronic pain (principal); M51.16 Intervertebral disc disorders with radiculopathy, lumbar region; G47.33 Obstructive sleep apnea (adult) (pediatric); K21.9 Gastro-esophageal reflux disease without esophagitis; K59.00 Constipation, unspecified; D64.9 Anemia, unspecified; K58.9 Irritable bowel syndrome, unspecified; M79.7 Fibromyalgia; G25.81 Restless legs syndrome; F32.9 Major depressive disorder, single episode, unspecified; J30.9 Allergic rhinitis, unspecified; I10 Essential (primary) hypertension; E11.9 Type 2 diabetes mellitus without complications; F17.210 Nicotine dependence, cigarettes, uncomplicated; Z79.899 Other long term (current) drug therapy; Z79.891 Long term (current) use of opiate analgesic; Z88.2 Allergy status to sulfonamides

== ENCOUNTER → 2021-02-16 | Outpatient (CLI) | payer OTHER ==
--- NOTE | 2021-02-18 00:22 | ECWPNPC ---
PATIENT NAME: ANGLE RASHEED : 1960 GENDER: FEMALE VISIT DATE: 02/16/2021 DISCHARGE DATE: 02/16/21 1449 VISIT LOCKED DATE TIME: PHYSICIAN: VERONICA FERGUSON MD RESOURCE: VERONICA FERGUSON MD REASON FOR APPOINTMENT 1. BACK PAIN PER TAZ HISTORY OF PRESENT ILLNESS GENERAL: 60-YEAR-OLD FEMALE PATIENT WITH A HISTORY OF CHRONIC THORACIC PAIN. THE PATIENT DESCRIBES THE PAIN SHARP, STABBING AND SHOOTING WITH A PAIN SCORE RANGING FROM 7-10/10 OVER THE RIGHT THORACIC AREA. SHE HAS BEEN SUFFERING FROM THIS FOR MANY YEARS. SHE HAS RECEIVED MEDICATION MANAGEMENT AND INJECTIONS BUT THE PAIN PERSISTS. THIS IS AFFECTING HER ABILITY TO DO ACTIVITIES SUCH CLEANING HER HOUSE AND ACTIVITIES OF DAILY LIVING. THE PATIENT DEVELOPED SHINGLES. SHE RECEIVED A PRESCRIPTION FOR THIS FROM HER PRIMARY. SHE IS GOING TO START IT TODAY. FALL RISK SCREENING: SCREENING : NO FALLS REPORTED IN THE LAST YEAR. PAIN SCREENING: PATIENT HAS A COMPLAINT OF ACUTE OR CHRONIC PAIN :YES LOCATION OF PAIN:LOW BACK, LEFT HIP, LEG(S) INTENSITY OF PAIN (SCALE OF 1 TO 10):8 WHAT DOES YOUR PAIN FEEL LIKE:SHARP, STABBING, SHOOTING DURATION:CONTINOUS PAIN IS INCREASED BY:ACTIVITIES PAIN IS DECREASED BY:USE OF PAIN MEDICATIONS NURSING NOTE: -. PAIN CENTER INTAKE QUESTIONS: DO YOU HAVE A HISTORY OF MRSA? :NO DO YOU TAKE A BLOOD THINNERS? :NO DO YOU HAVE ANY BLEEDING DISORDERS? :NO ANY NEW NUMBNESS OR WEAKNESS IN YOUR LEGS OR ARMS? :YES RIGHT SHOULDER AND ARM ANY PACEMAKER,DEFIBRILLATOR, OR DORSAL COLUMN STIMULATOR? :NO DO YOU HAVE ANY RASHES OR OPEN SORES? :YES LEFT POSTERIOR SHOULDER SHINGLES ARE YOU ALLERGIC TO IV DYE? :NO ARE YOU DIABETIC? :YES ANY NEW PROBLEMS WITH YOUR MEDICATIONS? :NO HAVE YOU RECEIVED A VACCINE IN THE PAST 30 DAYS? :NO DO YOU PLAN TO RECEIVE A VACCINE IN THE NEXT 21 DAYS? :NO DO YOU NEED ANY PRESCRIPTION? :NO DO YOU TAKE ANY IMMUNOSUPPRESSIVE MEDICATIONS? :NO DO YOU HAVE ANY KIDNEY OR LIVER DISEASE? :NO PT HAS 1 KIDNEY, 1 KIDNEY WAS REMOVED 6 YEARS AGO IS THERE A CHANCE YOU COULD BE ? :NO ARE YOU BREAST FEEDING? :NO CURRENT MEDICATIONS TAKING HYDROXYZINE HCL 25 MG TABLET 1 TABLET NEEDED ORALLY EVERY 8 HRS TAKING OMEPRAZOLE 20 MG CAPSULE DELAYED RELEASE 1 CAPSULE ORALLY BID TAKING MAY HAVE - - DENOMINATIONAL ORIGINS PAIN RELIEF OINTMENT DIRECTED TAKING BENADRYL ALLERGY 25 MG TABLET 1 TABLET AT BEDTIME NEEDED ORALLY ONCE A DAY TAKING RELPAX 40 MG TABLET 1 TABLET NEEDED ONE TIME ORALLY ONCE A DAY, NOTES: HAS NOT USED IN ABOUT A MONTH TAKING MAY USE CBD OIL TAKING KETOGEN - POWDER DIRECTED ORALLY DAILY TAKING MAY USE _ - 2 HC VAPE INHALED TAKE 2-3 PUFFS EVERY 2 HOURS NEEDED, NOTES: CBD OIL- TAKING KLONOPIN 1 MG TABLET 1 TABLET ORALLY BID TAKING METFORMIN HCL 500 MG TABLET 1 TABLET WITH A MEAL ORALLY ONCE A DAY TAKING TIZANIDINE HCL 4 MG TABLET 1 TABLET NEEDED ORALLY THREE TIMES A DAY TAKING SOMA 350 MG TABLET 1 TABLET NEEDED ORALLY BID MDD2 TAKING OXYCODONE-ACETAMINOPHEN 7.5-325 MG TABLET 1-2 TABLET NEEDED ORALLY Q6H PRN MDD3 TAKING LYRICA 200 MG CAPSULE 1 CAPSULE ORALLY TID TAKING VALACYCLOVIR HCL 1 GM TABLET 1 TABLET ORALLY ONCE A DAY NOT-TAKING PYRIDIUM 100 MG TABLET 1 TABLETS AFTER MEALS ORALLY THREE TIMES A DAY NEEDED, NOTES: NONE RECENT NOT-TAKING ONDANSETRON 8 MG TABLET DISINTEGRATING 1 TABLET ON THE TONGUE AND ALLOW TO DISSOLVE NEEDED ORALLY ONCE A DAY, NOTES: HAS NOT USED IN A LONG TIME NOT-TAKING METOPROLOL SUCCINATE 25 MG CAPSULE ER 24 HOUR SPRINKLE 1 CAPSULE ORALLY ONCE A DAY NOT-TAKING FENTANYL 12 MCG/HR PATCH 72 HOUR 1 PATCH TO SKIN TRANSDERMAL 1 PATCH [id number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id number]/10/2020 SMOKING CESSATION INFORMATION GIVEN03/02/2020 LATEX QUESTIONNAIRE LATEX ALLERGY : HAVE YOU EVER DEVELOPED ANY TYPE OF REACTION AFTER HANDLING LATEX PRODUCTS SUCH RUBBER GLOVES, CONDOMS, DIAPHRAGMS, BALLOONS, SOCKS, OR UNDERWEAR?NO LATEX ALLERGY : HAVE YOU EVER DEVELOPED ANY TYPE OF REACTION DURING OR AFTER DENTAL APPOINTMENT, VAGINAL/RECTAL EXAMINATION, SURGICAL PROCEDURE, OR ANY OTHER EXPOSURE?NO DATE ASKED : 11/02/2020 LATEX RISK : HAVE YOU EVER HAD ANY DIFFICULTY BREATHING OR HIVES AFTER EATING OR HANDLING ANY FRUITS, OR VEGETABLES; SUCH KIWI, BANANAS, STONE FRUITS, OR CHESTNUTSNO LATEX RISK : DO YOU HAVE A PREVIOUS PERSONAL HISTORY OF MORE THAN NINE SURGERIES, SPINA BIFIDA, OR REPEATED CATHERIZATIONS? NO LATEX RISK : ARE YOU FREQUENTLY EXPOSED TO LATEX PRODUCTS IN YOUR OCCUPATION?NO ALCOHOL USE: NO. ALCOHOL SCREENING DID YOU HAVE A DRINK CONTAINING ALCOHOL IN THE PAST YEAR?NO POINTS0 INTERPRETATIONNEGATIVE RECREATIONAL DRUG USE DRUG USE?NO CAFFEINE CAFFEINE USE?YES HOW OFTEN AND HOW MUCH? 2 CUPS OF GREEN TEA , 2 CUPS COFFEE/DAY SEXUAL HX HAD SEX IN THE LAST 12 MONTHS (VAGINAL, ORAL, OR ANAL)?YES WITHMEN ONLY USE PROTECTION?NO HAVE YOU EVER HAD AN STD?NO BAHAI [id number] JEW LANGUAGE LANGUAGES SPOKEN:GERMAN EDUCATION LEVEL OF EDUCATION:COLLEGE LEARNING BARRIERS / SPECIAL NEEDS CHANGE FROM LAST VISIT?NO BARRIERS TO LEARNING?NO HEARING IMPAIRED?NO VISION IMPAIRED?YES COGNITIVELY IMPAIRED?NO :CORRECTIVE LENSES READINESS TO LEARN?YES LEARNING PREFERENCES?YES :BOOKLETS, HANDOUTS LEARNING CAPABILITIES PRESENT?YES EMOTIONAL BARRIERS?NO SPECIAL DEVICES?YES :CANE, WALKER NEEDED CARE PROGRAM DIRECTOR NEEDED?NO DOMESTIC VIOLENCE DO YOU FEEL SAFE IN YOUR ENVIRONMENT?YES OCCUPATION: DISABLED. DIET: REGULAR. EXERCISE: WALKS EVERY OTHER DAY. MARITAL STATUS: . - PFS REFERRAL NEEDED?NO CLERGY REFERRAL NEEDED?NO PUBLIC HEALTH REFERRAL NEEDED?NO HAS THE PATIENT BEEN EDUCATED REGARDING HIS/HER PLAN OF CARE?YES HAS THE PATIENT BEEN EDUCATED REGARDING PAIN, THE RISK FOR PAIN, THE IMPORTANCE OF EFFECTIVE PAIN MANAGEMENT, AND THE PAIN ASSESSMENT PROCESS?YES ADVANCE DIRECTIVE ADVANCE DIRECTIVE DISCUSSED WITH PATIENT:YES PT STATES SHE HAS A [id number] DRELICK [phone] REVIEW OF SYSTEMS CONSTITUTIONAL: ANY RECENT FEVER PAST HISTORY OF FEVER WITH SHINGLES . CHILLS NO . WEIGHT CHANGE OF UNKNOWN REASONS NO . GASTROENTEROLOGY: NEW UNEXPLAINABLE CHANGES IN BOWEL CONTROL NO . CONSTIPATION NO . GENITOURINARY: ANY NEW CHANGE IN BLADDER CONTROL? NO . NEUROLOGY: NEW ONSET DIZZINESS OR NEUROLOGICAL CHANGES NOT MENTIONED NO . NEW NUMBNESS OR PAIN PATTERNS NOT MENTIONED AND PERTINENT TO TODAY'S VISIT NO . CARDIOLOGY: NEW CHEST PRESSURE NO . PATIENT DENIES NO . RESPIRATORY: UNEXPLAINABLE COUGH NO . NEW SHORTNESS OF BREATH NO . VITAL SIGNS WT 221.4 LBS, HT 64 IN, BMI 38.00 INDEX, BP 170/60 MM HG, HR 92 /MIN, RR 18 /MIN, TEMP 97.1 F, OXYGEN SAT % 92%, NA INITIALS [id number], REVIEWED BY: EM. EXAMINATION GENERAL: THE PATIENT IS ALERT, ORIENTED TIMES THREE AND COOPERATIVE. LUNGS ARE CLEAR TO AUSCULTATION. HEART SHOWS REGULAR RHYTHM, NO MURMURS AND NO GALLOPS. THERE ARE SOME DRY HERNANDEZ OF SHINGLES. I CHECKED HER UNDER X-RAY AND VERIFIED THAT HER PAIN IS COMING FROM THE FACET OF RIGHT T3-T4, T4-T5. THE PATIENT HAS TENDERNESS IN THE NECK ALSO. 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 RASHEED. I WILL ORDER A THORACIC MRI. I FEEL THAT WE SHOULD DO DIAGNOSTIC TESTS TO CONSIDER RADIOFREQUENCY AT RIGHT T3-T4, T4-T5, BUT I WOULD LIKE TO DO SOME MRIS FIRST. THE PATIENT HAS SOME SIGNS OF RADICULOPATHY. I WILL ALSO ORDER AN MRI OF HER CERVICAL SPINE. I WILL SEE HER IN A FOLLOW UP. SHE IS GOING TO USE HER MEDICATIONS FOR THE SHINGLES AND I WILL SEE HER IN THE NEXT FEW WEEKS. SHE WILL FOLLOW UP WITH THE NURSE PRACTITIONER FOR MEDICATION MANAGEMENT. THE PATIENT REPORTS UNDERSTANDING AND AGREES WITH THE PLAN. I, CHRISTIANO MERAZ, DOCUMENTED THE ABOVE INFORMATION ACTING A SCRIBE FOR DR. FERGUSON. I HAVE REVIEWED THE ABOVE DOCUMENT, WRITTEN BY CHRISTIANO MERAZ, MACHINE IRONER, AND I VERIFY THAT IT IS ACCURATE. NECK PAIN [facility] MRI SPINE, CERVICAL WITHOUT [id number] CERVICAL RADICULAR PAIN [facility] MRI SPINE, CERVICAL WITHOUT [id number] FACET ARTHROPATHY, THORACIC [facility] MRI SPINE,THORACIC WITHOUT [id number] PROCEDURE CODES FA211 ESTABILISHED PATIENT [facility] FACILITY CHARGE [id number] OFFICE/OUTPATIENT VISIT EST DISPOSITION & COMMUNICATION FOLLOW UP F/UP W/ SOLAR MAINTENANCE TECHNICIAN [facility]ON[facility]-MED MANAGEMENT (REASON: REQUEST AUTH FOR CERVICAL AND THORACIC MRI- F/UP W/ DR. Paul VELASQUEZ) ELECTRONICALLY SIGNED BY VERONICA FERGUSON MD, MD ON 02/17/2021 AT 05:04 PM EDT DISCLAIMER : THIS IS A VISIT SUMMARY EXTRACTED FROM THE [employer] CHART. IT IS NOT A COPY OF THE [employer] PROGRESS NOTE. LAURIED
== END ==
LOC: M PAIN 12:40
PROVIDERS: ATTEND Anesthesiology
DX: M54.6 Pain in thoracic spine (principal); G89.29 Other chronic pain; M54.12 Radiculopathy, cervical region; M47.814 Spondylosis without myelopathy or radiculopathy, thoracic region; E11.9 Type 2 diabetes mellitus without complications; G47.33 Obstructive sleep apnea (adult) (pediatric); K21.9 Gastro-esophageal reflux disease without esophagitis; M79.7 Fibromyalgia; G25.81 Restless legs syndrome; F17.210 Nicotine dependence, cigarettes, uncomplicated; Z86.59 Personal history of other mental and behavioral disorders; Z88.2 Allergy status to sulfonamides; Z79.84 Long term (current) use of oral hypoglycemic drugs; Z79.899 Other long term (current) drug therapy

== ENCOUNTER → 2021-02-23 | Outpatient (CLI) | payer OTHER ==
--- NOTE | 2021-02-25 00:02 | ECWPNPC ---
PATIENT NAME: ANGLE RASHEED : 1960 GENDER: FEMALE VISIT DATE: 02/23/2021 DISCHARGE DATE: 02/23/21 1112 VISIT LOCKED DATE TIME: PHYSICIAN: TAZ DUPREE RESOURCE: TAZ DUPREE REASON FOR APPOINTMENT 1. PER DR. Miller F/VINNIE W/ ROPE TIER [facility]-MED MANAGEMENT HISTORY OF PRESENT ILLNESS DEPRESSION SCREENING: PHQ-2 (2015 EDITION) LITTLE INTEREST OR PLEASURE IN DOING THINGS?DECLINED TO SPECIFY FEELING DOWN, DEPRESSED, OR HOPELESS?DECLINED TO SPECIFY TOTAL SCORE0 GENERAL: HPI 60-YEAR-OLD FEMALE IN FOR CHRONIC PAIN FOLLOW-UP. PATIENT WAS SEEN BY DR. FERGUSON RECENTLY WHO RECOMMENDED MEDICATION ADJUSTMENTS. SHE RATES HER PAIN CURRENTLY AT A 9 OUT OF 10 AND DESCRIBES IT ACHING, BURNING, CONTINUOUS, SHARP, STABBING, TENDER, THROBBING,, SORE, SHOOTING AND STATES IT IS EXTREMELY SENSITIVE TO TOUCH.. -. FALL RISK SCREENING: SCREENING : NO FALLS REPORTED IN THE LAST YEAR. PAIN SCREENING: PATIENT HAS A COMPLAINT OF ACUTE OR CHRONIC PAIN :YES LOCATION OF PAIN:LOW BACK, LEFT HIP, RIGHT HIP INTENSITY OF PAIN (SCALE OF 1 TO 10):9 WHAT DOES YOUR PAIN FEEL LIKE:ACHING, BURNING, CONTINOUS, SHARP, STABBING, TENDER, THROBBING, SORE, SHOOTING PATIENT STATES SHE IS "EXTREMELY SENSITIVE TO LIGHT TOUCH AND IT INCREASES THE PAIN." DURATION:CONTINOUS, CONSTANT, AWAKENS FROM SLEEP PAIN IS INCREASED BY:ACTIVITIES, PROLONGED STANDING PAIN IS DECREASED BY:USE OF PAIN MEDICATIONS, SITTING NURSING NOTE: -. PAIN CENTER INTAKE QUESTIONS: DO YOU HAVE A HISTORY OF MRSA? :YES 8 YEARS AGO DONE IN [place] DO YOU TAKE A BLOOD THINNERS? :NO DO YOU HAVE ANY BLEEDING DISORDERS? :NO ANY NEW NUMBNESS OR WEAKNESS IN YOUR LEGS OR ARMS? :NO ANY PACEMAKER,DEFIBRILLATOR, OR DORSAL COLUMN STIMULATOR? :NO DO YOU HAVE ANY RASHES OR OPEN SORES? :NO ARE YOU ALLERGIC TO IV DYE? :NO ARE YOU DIABETIC? :YES PRE DIABETIC ANY NEW PROBLEMS WITH YOUR MEDICATIONS? :NO HAVE YOU RECEIVED A VACCINE IN THE PAST 30 DAYS? :NO DO YOU PLAN TO RECEIVE A VACCINE IN THE NEXT 21 DAYS? :NO DO YOU NEED ANY PRESCRIPTION? :NO DO YOU TAKE ANY IMMUNOSUPPRESSIVE MEDICATIONS? :NO DO YOU HAVE ANY KIDNEY OR LIVER DISEASE? :NO IS THERE A CHANCE YOU COULD BE ? :NO ARE YOU BREAST FEEDING? :NO CURRENT MEDICATIONS TAKING HYDROXYZINE HCL 25 MG TABLET 1 TABLET NEEDED ORALLY EVERY 8 HRS TAKING OMEPRAZOLE 20 MG CAPSULE DELAYED RELEASE 1 CAPSULE ORALLY BID TAKING MAY HAVE - - WILLIE ORIGINS PAIN RELIEF OINTMENT DIRECTED TAKING BENADRYL ALLERGY 25 MG TABLET 1 TABLET AT BEDTIME NEEDED ORALLY ONCE A DAY TAKING RELPAX 40 MG TABLET 1 TABLET NEEDED ONE TIME ORALLY ONCE A DAY, NOTES: HAS NOT USED IN ABOUT A MONTH TAKING MAY USE CBD OIL TAKING KETOGEN - POWDER DIRECTED ORALLY DAILY TAKING MAY USE _ - 2 HC VAPE INHALED TAKE 2-3 PUFFS EVERY 2 HOURS NEEDED, NOTES: CBD OIL- TAKING KLONOPIN 1 MG TABLET 1 TABLET ORALLY BID TAKING METFORMIN HCL 500 MG TABLET 1 TABLET WITH A MEAL ORALLY ONCE A DAY TAKING TIZANIDINE HCL 4 MG TABLET 1 TABLET NEEDED ORALLY THREE TIMES A DAY TAKING SOMA 350 MG TABLET 1 TABLET NEEDED ORALLY BID MDD2 TAKING OXYCODONE-ACETAMINOPHEN 7.5-325 MG TABLET 1-2 TABLET NEEDED ORALLY Q6H PRN MDD3 TAKING LYRICA 200 MG CAPSULE 1 CAPSULE ORALLY TID TAKING VALACYCLOVIR HCL 1 GM TABLET 1 TABLET ORALLY THREE TIMES DAILY NOT-TAKING VALACYCLOVIR HCL 1 GM TABLET 1 TABLET ORALLY ONCE A DAY, NOTES: DUPLICATE NOT-TAKING PYRIDIUM 100 MG TABLET 1 TABLETS AFTER MEALS ORALLY THREE TIMES A DAY NEEDED, NOTES: NONE RECENT NOT-TAKING ONDANSETRON 8 MG TABLET DISINTEGRATING 1 TABLET ON THE TONGUE AND ALLOW TO DISSOLVE NEEDED ORALLY ONCE A DAY, NOTES: HAS NOT USED IN A LONG TIME NOT-TAKING METOPROLOL SUCCINATE 25 MG CAPSULE ER 24 HOUR SPRINKLE 1 CAPSULE ORALLY ONCE A DAY NOT-TAKING FENTANYL 12 MCG/HR PATCH 72 HOUR 1 PATCH TO SKIN TRANSDERMAL 1 PATCH A76L=ENB NOT-TAKING SERTRALINE HCL 50 MG TABLET 1 TABLET ORALLY ONCE A DAY NOT-TAKING MAY USE _ MEDICAL MARIJUANA 2 DROPS ORALLY EVERY 4-6 HOURS NEEDED NOT-TAKING DILAUDID 2 MG TABLET 1 TABLET NEEDED ORALLY FOR PAIN EVERY 8 HOURS NEEDED MDD2 NOT-TAKING CLONAZEPAM 1 MG TABLET 1 TABLET ORALLY TWICE DAILY NEEDED NOT-TAKING SUCRALFATE 1 GM TABLET 1 TABLET ON AN EMPTY STOMACH BEFORE MEALS ORALLY TWICE A DAY NOT-TAKING TIZANIDINE HCL 4 MG TABLET 1 TABLET NEEDED ORALLY THREE TIMES A DAY NOT-TAKING OXYCODONE-ACETAMINOPHEN 7.5-325 MG TABLET 1 TABLET NEEDED ORALLY EVERY 6 HRS NOT-TAKING LYRICA 150 MG CAPSULE 3 CAPSULE ORALLY THREE A DAY NOT-TAKING CARISOPRODOL 350 MG TABLET 2 TABLET NEEDED ORALLY TWICE TIMES A DAY NOT-TAKING OMEPRAZOLE 40 MG CAPSULE DELAYED RELEASE 1 CAPSULE 30 MINUTES BEFORE MORNING MEAL ORALLY ONCE A DAY NOT-TAKING METFORMIN HCL 500 MG TABLET 1 TABLET WITH A MEAL ORALLY ONCE A DAY NOT-TAKING HYDROXYZINE HCL 25 MG TABLET 1 TABLET NEEDED ORALLY EVERY 8 HRS MEDICATION LIST REVIEWED AND RECONCILED WITH THE PATIENT PAST MEDICAL HISTORY GLORY- DOESN'T USE CPAP- CAN'T TOLERATE KIDNEY STONES GERD CONSTIPATION CHRONIC BACK PAIN/NECK PAIN ANEMIA IBS FIBROMYALGIA RESTLESS LEG SYNDROME DEPRESSION ATROPHIC KIDNEY - S/P NEPHRECTOMY UTI GASTRIC ULCER AND LESIONS HTN DIABETES SHINGLES TO LEFT POSTRIOR SHOULDER ALLERGIES SULFA (FOR ALLERGY USE ONLY): UNKNOWN - CHILD - ALLERGY ENVIROMENTAL: SINUS INFECTION - ALLERGY SOCIAL HISTORY GENERAL: TOBACCO USE ARE YOU A:CURRENT SMOKER ARE YOU INTERESTED IN QUITTING?NOT READY TO QUIT STATES SHE HAS CUT DOWN A LOT COUNSELED THE PATIENT ON SMOKING EFFECTS, EDUCATION [id number]/25/2021 HOW MANY CIGARETTES A DAY DO YOU SMOKE?6-10 HOW SOON AFTER YOU WAKE UP DO YOU SMOKE YOUR FIRST CIGARETTE?WITHIN 5 MIN HOW OFTEN DO YOU SMOKE CIGARETTES?EVERY DAY PATIENT COUNSELED ON THE DANGERS OF TOBACCO USE AND URGED TO QUIT:11/23/2020 SMOKING CESSATION INFORMATION GIVEN03/02/2020 LATEX QUESTIONNAIRE LATEX ALLERGY : HAVE YOU EVER DEVELOPED ANY TYPE OF REACTION AFTER HANDLING LATEX PRODUCTS SUCH RUBBER GLOVES, CONDOMS, DIAPHRAGMS, BALLOONS, SOCKS, OR UNDERWEAR?NO LATEX ALLERGY : HAVE YOU EVER DEVELOPED ANY TYPE OF REACTION DURING OR AFTER DENTAL APPOINTMENT, VAGINAL/RECTAL EXAMINATION, SURGICAL PROCEDURE, OR ANY OTHER EXPOSURE?NO LATEX RISK : HAVE YOU EVER HAD ANY DIFFICULTY BREATHING OR HIVES AFTER EATING OR HANDLING ANY FRUITS, OR VEGETABLES; SUCH KIWI, BANANAS, STONE FRUITS, OR CHESTNUTSNO LATEX RISK : DO YOU HAVE A PREVIOUS PERSONAL HISTORY OF MORE THAN NINE SURGERIES, SPINA BIFIDA, OR REPEATED CATHERIZATIONS? NO LATEX RISK : ARE YOU FREQUENTLY EXPOSED TO LATEX PRODUCTS IN YOUR OCCUPATION?NO DATE ASKED : 02/23/2021 ALCOHOL USE: NO. ALCOHOL SCREENING DID YOU HAVE A DRINK CONTAINING ALCOHOL IN THE PAST YEAR?NO POINTS0 INTERPRETATIONNEGATIVE RECREATIONAL DRUG USE DRUG USE?NO CAFFEINE CAFFEINE USE?YES HOW OFTEN AND HOW MUCH? 2 CUPS OF GREEN TEA , 2 CUPS COFFEE/DAY SEXUAL HX HAD SEX IN THE LAST 12 MONTHS (VAGINAL, ORAL, OR ANAL)?YES WITHMEN ONLY USE PROTECTION?NO HAVE YOU EVER HAD AN STD?NO JEW [id number] SCIENTOLOGY LANGUAGE LANGUAGES SPOKEN:LAO EDUCATION LEVEL OF EDUCATION:COLLEGE LEARNING BARRIERS / SPECIAL NEEDS CHANGE FROM LAST VISIT?NO BARRIERS TO LEARNING?NO HEARING IMPAIRED?NO VISION IMPAIRED?YES :CORRECTIVE LENSES COGNITIVELY IMPAIRED?NO READINESS TO LEARN?YES LEARNING PREFERENCES?YES :BOOKLETS, HANDOUTS LEARNING CAPABILITIES PRESENT?YES EMOTIONAL BARRIERS?NO SPECIAL DEVICES?YES :CANE, WALKER NEEDED TOOL MARKER NEEDED?NO DOMESTIC VIOLENCE DO YOU FEEL SAFE IN YOUR ENVIRONMENT?YES OCCUPATION: DISABLED. DIET: REGULAR. EXERCISE: WALKS EVERY OTHER DAY. MARITAL STATUS: . - PFS REFERRAL NEEDED?NO CLERGY REFERRAL NEEDED?NO PUBLIC HEALTH REFERRAL NEEDED?NO HAS THE PATIENT BEEN EDUCATED REGARDING HIS/HER PLAN OF CARE?YES HAS THE PATIENT BEEN EDUCATED REGARDING PAIN, THE RISK FOR PAIN, THE IMPORTANCE OF EFFECTIVE PAIN MANAGEMENT, AND THE PAIN ASSESSMENT PROCESS?YES ADVANCE DIRECTIVE ADVANCE DIRECTIVE DISCUSSED WITH PATIENT:YES PT STATES SHE HAS A [id number] DRELICK [phone] REVIEW OF SYSTEMS CONSTITUTIONAL: ANY RECENT FEVER NO . CHILLS NO . WEIGHT CHANGE OF UNKNOWN REASONS NO . GASTROENTEROLOGY: NEW UNEXPLAINABLE CHANGES IN BOWEL CONTROL NO . CONSTIPATION NO . GENITOURINARY: ANY NEW CHANGE IN BLADDER CONTROL? NO . NEUROLOGY: NEW ONSET DIZZINESS OR NEUROLOGICAL CHANGES NOT MENTIONED NO . NEW NUMBNESS OR PAIN PATTERNS NOT MENTIONED AND PERTINENT TO TODAY'S VISIT NO . CARDIOLOGY: NEW CHEST PRESSURE NO . PATIENT DENIES NO . RESPIRATORY: UNEXPLAINABLE COUGH NO . NEW SHORTNESS OF BREATH NO . VITAL SIGNS WT 221.4 LBS, HT 64 IN, BMI 38.00 INDEX, BP 162/70 MM HG, HR 88 /MIN, RR 18 /MIN, TEMP 96.8 F, OXYGEN SAT % 97%, SAFE IN ENV? (Y/N) YES, NA INITIALS AW 1010, REVIEWED BY: NANCY OLIVO MA. EXAMINATION GENERAL EXAMINATION: GENERALNO ACUTE DISTRESS, WELL NOURISHED AND HYDRATED. PSYCHAPPROPRIATE MOOD AND AFFECT . LUNGS:CLEAR TO AUSCULTATION BILATERALLY, NO WHEEZES, RHONCHI, RALES. HEART:NO MURMURS, REGULAR RATE AND RHYTHM. ASSESSMENTS SPONDYLOSIS OF LUMBAR REGION WITHOUT MYELOPATHY OR RADICULOPATHY - M47.816 TREATMENT SPONDYLOSIS OF LUMBAR REGION WITHOUT MYELOPATHY OR RADICULOPATHY NOTES: 60-YEAR-OLD FEMALE IN FOR CHRONIC PAIN FOLLOW-UP. GIVEN PRESENTING SYMPTOMS RECOMMEND INCREASING PERCOCET TO 10/325 MG 3 TIMES A DAY NEEDED FOR PAIN WITH FOLLOW-UP IN 2 MONTHS TO DETERMINE EFFICACY OF TREATMENT. PATIENT EXPRESSED UNDERSTANDING OF AND WAS IN AGREEMENT WITH TREATMENT PLAN. GIVEN TIME TO ASK QUESTIONS AND EXPRESS CONCERNS. [employer] REGISTRY REVIEWED AND DEMONSTRATES COMPLLIANCE. (REF # [id number] ) BRINGS IN MEDICATIONS WHICH IS APPROPRIATE FOR WHAT WAS DISPENSED. RECENT URINE TOXICOLOGY REVIEWED. NO UNAUTHORIZED MEDICATIONS. NO ILLICIT SUBSTANCES AND PRESCRIBED MEDICATIONS WERE PRESENT. PROCEDURE CODES FA211 ESTABILISHED PATIENT [facility] FACILITY CHARGE DISPOSITION & COMMUNICATION FOLLOW UP 2 MONTHS (REASON: MED INCREASE) ELECTRONICALLY SIGNED BY SHAUN SARMIENTO ON 02/24/2021 AT 08:31 AM EDT DISCLAIMER : THIS IS A VISIT SUMMARY EXTRACTED FROM THE [employer] CHART. IT IS NOT A COPY OF THE [employer] PROGRESS NOTE. NATALIE
== END ==
LOC: M PAIN 10:30
PROVIDERS: ATTEND Family Medicine
DX: M47.816 Spondylosis without myelopathy or radiculopathy, lumbar region (principal); G47.33 Obstructive sleep apnea (adult) (pediatric); K21.9 Gastro-esophageal reflux disease without esophagitis; K59.00 Constipation, unspecified; D64.9 Anemia, unspecified; K58.9 Irritable bowel syndrome, unspecified; M79.7 Fibromyalgia; G25.81 Restless legs syndrome; F32.9 Major depressive disorder, single episode, unspecified; I10 Essential (primary) hypertension; J30.9 Allergic rhinitis, unspecified; E11.9 Type 2 diabetes mellitus without complications; F17.210 Nicotine dependence, cigarettes, uncomplicated; Z79.84 Long term (current) use of oral hypoglycemic drugs; Z79.891 Long term (current) use of opiate analgesic; Z79.899 Other long term (current) drug therapy; Z88.2 Allergy status to sulfonamides

== ENCOUNTER → 2021-04-26 | Outpatient (CLI) | payer OTHER ==
[~2021-04-26] MED LIST changes: -OXYC1TAB15 PO; +OXYC7.5T3 PO
--- NOTE | 2021-04-28 03:54 | ECWPNPC ---
PATIENT NAME: ANGLE RASHEED : 1960 GENDER: FEMALE VISIT DATE: 04/26/2021 DISCHARGE DATE: 04/26/21 1022 VISIT LOCKED DATE TIME: PHYSICIAN: TAZ DUPREE RESOURCE: TAZ DUPREE REASON FOR APPOINTMENT 1. MED INCREASE HISTORY OF PRESENT ILLNESS GENERAL: HPI 61-YEAR-OLD FEMALE IN FOR CHRONIC PAIN FOLLOW-UP. SHE RATES HER PAIN CURRENTLY AT A 7 OUT OF 10 AND DESCRIBES IT ACHING, BURNING, AND CONTINUOUS. PATIENT DOES ADMIT TO BEING HOSPITALIZED RECENTLY FOR AN OPEN WOUND TO HER ABDOMINAL AREA. SHE FEELS HER MEDICATIONS ARE HELPFUL TO INCLUDE THE RECENT INCREASE IN MEDICATIONS AND DENIES MED SIDE EFFECTS AT THIS TIME.. -. FALL RISK SCREENING: SCREENING : NO FALLS REPORTED IN THE LAST YEAR. PAIN SCREENING: PATIENT HAS A COMPLAINT OF ACUTE OR CHRONIC PAIN :YES LOCATION OF PAIN:LOW BACK INTENSITY OF PAIN (SCALE OF 1 TO 10):7 WHAT DOES YOUR PAIN FEEL LIKE:ACHING, BURNING, CONTINOUS, SHARP, STABBING, TENDER, THROBBING, SORE, SHOOTING DURATION:CONTINOUS, CONSTANT, AWAKENS FROM SLEEP PAIN IS INCREASED BY:ACTIVITIES, PROLONGED STANDING PAIN IS DECREASED BY:USE OF PAIN MEDICATIONS, SITTING LAYING DOWN NURSING NOTE: -. PAIN CENTER INTAKE QUESTIONS: DO YOU HAVE A HISTORY OF MRSA? :YES 8 YEARS AGO DONE IN [place] DO YOU TAKE A BLOOD THINNERS? :NO DO YOU HAVE ANY BLEEDING DISORDERS? :NO ANY NEW NUMBNESS OR WEAKNESS IN YOUR LEGS OR ARMS? :NO ANY PACEMAKER,DEFIBRILLATOR, OR DORSAL COLUMN STIMULATOR? :NO DO YOU HAVE ANY RASHES OR OPEN SORES? :YES ABDOMINAL WOUND. PATIENT IS CURRENTLY BEING TREATED FOR THIS OF 04/26/2021 ARE YOU ALLERGIC TO IV DYE? :NO ARE YOU DIABETIC? :YES PRE DIABETIC ANY NEW PROBLEMS WITH YOUR MEDICATIONS? :NO HAVE YOU RECEIVED A VACCINE IN THE PAST 30 DAYS? :NO SECOND COVID VACCINE 04/06/2021 DO YOU PLAN TO RECEIVE A VACCINE IN THE NEXT 21 DAYS? :NO DO YOU NEED ANY PRESCRIPTION? :YES OXYCODONE DO YOU TAKE ANY IMMUNOSUPPRESSIVE MEDICATIONS? :NO DO YOU HAVE ANY KIDNEY OR LIVER DISEASE? :NO IS THERE A CHANCE YOU COULD BE ? :NO ARE YOU BREAST FEEDING? :NO CURRENT MEDICATIONS TAKING HYDROXYZINE HCL 25 MG TABLET 1 TABLET NEEDED ORALLY EVERY 8 HRS TAKING OMEPRAZOLE 20 MG CAPSULE DELAYED RELEASE 1 CAPSULE ORALLY BID TAKING MAY HAVE - - WILLIE ORIGINS PAIN RELIEF OINTMENT DIRECTED TAKING BENADRYL ALLERGY 25 MG TABLET 1 TABLET AT BEDTIME NEEDED ORALLY ONCE A DAY TAKING RELPAX 40 MG TABLET 1 TABLET NEEDED ONE TIME ORALLY ONCE A DAY, NOTES: HAS NOT USED IN ABOUT A MONTH TAKING MAY USE CBD OIL TAKING KETOGEN - POWDER DIRECTED ORALLY DAILY TAKING MAY USE _ - 2 HC VAPE INHALED TAKE 2-3 PUFFS EVERY 2 HOURS NEEDED, NOTES: CBD OIL- TAKING KLONOPIN 1 MG TABLET 1 TABLET ORALLY BID TAKING METFORMIN HCL 500 MG TABLET 1 TABLET WITH A MEAL ORALLY ONCE A DAY TAKING TIZANIDINE HCL 4 MG TABLET 1 TABLET NEEDED ORALLY THREE TIMES A DAY TAKING VALIUM 5 MG TABLET 1 TABLET NEEDED ORALLY ON WAY TO MRI. MAY REPEAT UPON ARRIVING AT MRI UNIT. MDD2 TAKING SOMA 350 MG TABLET 1 TABLET NEEDED ORALLY BID MDD2 TAKING OXYCODONE-ACETAMINOPHEN 10-325 MG TABLET 1 TABLET ORALLY EVERY 8 HRS PRN PAIN MDD 3 TAKING LYRICA 200 MG CAPSULE 1 CAPSULE ORALLY TID NOT-TAKING VALACYCLOVIR HCL 1 GM TABLET 1 TABLET ORALLY THREE TIMES DAILY NOT-TAKING VALACYCLOVIR HCL 1 GM TABLET 1 TABLET ORALLY ONCE A DAY, NOTES: DUPLICATE NOT-TAKING PYRIDIUM 100 MG TABLET 1 TABLETS AFTER MEALS ORALLY THREE TIMES A DAY NEEDED, NOTES: NONE RECENT NOT-TAKING ONDANSETRON 8 MG TABLET DISINTEGRATING 1 TABLET ON THE TONGUE AND ALLOW TO DISSOLVE NEEDED ORALLY ONCE A DAY, NOTES: HAS NOT USED IN A LONG TIME NOT-TAKING METOPROLOL SUCCINATE 25 MG CAPSULE ER 24 HOUR SPRINKLE 1 CAPSULE ORALLY ONCE A DAY NOT-TAKING FENTANYL 12 MCG/HR PATCH 72 HOUR 1 PATCH TO SKIN TRANSDERMAL 1 PATCH [id number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id number] [employer] LANG[employer]AGE LANGUAGES SPOKEN:BAHAMIAN EDUCATION LEVEL OF EDUCATION:COLLEGE LEARNING BARRIERS / SPECIAL NEEDS CHANGE FROM LAST VISIT?NO BARRIERS TO LEARNING?NO HEARING IMPAIRED?NO VISION IMPAIRED?YES :CORRECTIVE LENSES COGNITIVELY IMPAIRED?NO READINESS TO LEARN?YES LEARNING PREFERENCES?YES :BOOKLETS, HANDOUTS LEARNING CAPABILITIES PRESENT?YES EMOTIONAL BARRIERS?NO SPECIAL DEVICES?YES :CANE, WALKER NEEDED [employer] CONSULTANT NEEDED?NO DOMESTIC VIOLENCE DO YOU FEEL SAFE IN YOUR ENVIRONMENT?YES OCCUPATION: DISABLED. DIET: REGULAR. EXERCISE: WALKS EVERY OTHER DAY. MARITAL STATUS: . - PFS REFERRAL NEEDED?NO CLERGY REFERRAL NEEDED?NO PUBLIC HEALTH REFERRAL NEEDED?NO HAS THE PATIENT BEEN EDUCATED REGARDING HIS/HER PLAN OF CARE?YES HAS THE PATIENT BEEN EDUCATED REGARDING PAIN, THE RISK FOR PAIN, THE IMPORTANCE OF EFFECTIVE PAIN MANAGEMENT, AND THE PAIN ASSESSMENT PROCESS?YES ADVANCE DIRECTIVE ADVANCE DIRECTIVE DISCUSSED WITH PATIENT:YES PT STATES SHE HAS A [id number] DRELICK [phone] HOSPITALIZATION/MAJOR DIAGNOSTIC PROCEDURE BACK PAIN - ([facility]) MULTIPLE BRONCHITIS 2012 PNEUMONIA 2016 SURGERIES ABDOMINAL WOUND ([place]) 2020 REVIEW OF SYSTEMS CONSTITUTIONAL: ANY RECENT FEVER NO . CHILLS NO . WEIGHT CHANGE OF UNKNOWN REASONS NO . GASTROENTEROLOGY: NEW UNEXPLAINABLE CHANGES IN BOWEL CONTROL NO . CONSTIPATION NO . GENITOURINARY: ANY NEW CHANGE IN BLADDER CONTROL? NO . NEUROLOGY: NEW ONSET DIZZINESS OR NEUROLOGICAL CHANGES NOT MENTIONED NO . NEW NUMBNESS OR PAIN PATTERNS NOT MENTIONED AND PERTINENT TO TODAY'S VISIT NO . CARDIOLOGY: NEW CHEST PRESSURE NO . PATIENT DENIES NO . RESPIRATORY: UNEXPLAINABLE COUGH NO . NEW SHORTNESS OF BREATH NO . VITAL SIGNS WT 230.0 LBS, HT 64 IN, BMI 39.48 INDEX, BP 168/73 MM HG, HR 65 /MIN, RR 18 /MIN, TEMP 95.5 F, OXYGEN SAT % 94%, SAFE IN ENV? (Y/N) YES, NA INITIALS AW 0953, REVIEWED BY: NANCY OLIVO MA. EXAMINATION GENERAL EXAMINATION: GENERALNO ACUTE DISTRESS, WELL NOURISHED AND HYDRATED. PSYCHAPPROPRIATE MOOD AND AFFECT . LUNGS:CLEAR TO AUSCULTATION BILATERALLY, NO WHEEZES, RHONCHI, RALES. HEART:NO MURMURS, REGULAR RATE AND RHYTHM. ASSESSMENTS INTERVERTEBRAL DISC DISORDERS WITH RADICULOPATHY, LUMBAR REGION - M51.16 (PRIMARY) TREATMENT INTERVERTEBRAL DISC DISORDERS WITH RADICULOPATHY, LUMBAR REGION NOTES: 61-YEAR-OLD FEMALE IN FOR CHRONIC PAIN FOLLOW-UP. DISCUSSED PATIENT'S WOUND WITH HER AND RECOMMENDED SHE DISCUSS IT WITH HER PRIMARY CARE PROVIDER SO THAT SHE MAY BE SET UP WITH WOUND CARE SERVICES.. GIVEN PRESENTING SYMPTOMS RECOMMEND CONTINUATION OF CURRENT MEDICATION REGIMEN WITH FOLLOW-UP IN 3 MONTHS. PATIENT HAS EXPRESSED UNDERSTANDING OF AND WAS IN AGREEMENT WITH TREATMENT PLAN. GIVEN TIME TO ASK QUESTIONS AND EXPRESS CONCERNS. [employer] REGISTRY REVIEWED AND DEMONSTRATES COMPLLIANCE. (REF # [id number] ) BRINGS IN MEDICATIONS WHICH IS APPROPRIATE FOR WHAT WAS DISPENSED. RECENT URINE TOXICOLOGY REVIEWED. NO UNAUTHORIZED MEDICATIONS. NO ILLICIT SUBSTANCES AND PRESCRIBED MEDICATIONS WERE PRESENT. CLINICAL NOTES: NARCOTIC AGREEMENT REVIEWED WITH AND SIGNED BY PATIENT. PATIENT VERBALIZED AN UNDERSTANDING. SAUL OLIVO MA. PROCEDURE CODES [id number] ESTABILISHED PATIENT [facility] CHARGE DISPOSITION & COMMUNICATION FOLLOW UP 3 MONTHS (REASON: BACK PAIN) ELECTRONICALLY SIGNED BY SHAUN SARMIENTO ON 04/27/2021 AT 08:44 AM EDT DISCLAIMER : THIS IS A VISIT SUMMARY EXTRACTED FROM THE [employer] CHART. IT IS NOT A COPY OF THE [employer] PROGRESS NOTE. MTDD
== END ==
LOC: M PAIN 10:00
PROVIDERS: ATTEND Family Medicine
DX: M51.16 Intervertebral disc disorders with radiculopathy, lumbar region (principal); G47.33 Obstructive sleep apnea (adult) (pediatric); K21.9 Gastro-esophageal reflux disease without esophagitis; K58.1 Irritable bowel syndrome with constipation; D64.9 Anemia, unspecified; M79.7 Fibromyalgia; G25.81 Restless legs syndrome; F32.9 Major depressive disorder, single episode, unspecified; I10 Essential (primary) hypertension; E11.9 Type 2 diabetes mellitus without complications; Z90.5 Acquired absence of kidney; F17.210 Nicotine dependence, cigarettes, uncomplicated; Z79.84 Long term (current) use of oral hypoglycemic drugs; Z79.891 Long term (current) use of opiate analgesic; Z79.899 Other long term (current) drug therapy; Z88.2 Allergy status to sulfonamides; J30.9 Allergic rhinitis, unspecified

== ENCOUNTER → 2021-06-11 | Outpatient (CLI) | payer OTHER | LOC: M PAIN 10:30 | PROVIDERS: ATTEND Anesthesiology | DX: M51.16 Intervertebral disc disorders with radiculopathy, lumbar region (principal); G47.33 Obstructive sleep apnea (adult) (pediatric); K21.9 Gastro-esophageal reflux disease without esophagitis; K59.00 Constipation, unspecified; D64.9 Anemia, unspecified; K58.9 Irritable bowel syndrome, unspecified; E11.9 Type 2 diabetes mellitus without complications; N26.1 Atrophy of kidney (terminal); I10 Essential (primary) hypertension; Z98.84 Bariatric surgery status; Z96.651 Presence of right artificial knee joint; Z90.49 Acquired absence of other specified parts of digestive tract; Z88.2 Allergy status to sulfonamides; J30.9 Allergic rhinitis, unspecified; Z79.891 Long term (current) use of opiate analgesic; Z79.899 Other long term (current) drug therapy ==

== ENCOUNTER → 2021-06-17 | Outpatient (CLI) | payer OTHER | LOC: M LABSMTC 09:03 | PROVIDERS: ATTEND Anesthesiology | DX: Z11.52 Encounter for screening for COVID-19 (principal); Z20.822 Contact with and (suspected) exposure to COVID-19 ==

== ENCOUNTER → 2021-06-22 | Outpatient (CLI) | payer OTHER ==
[~2021-06-22] MED LIST changes: +ISOVUE-M 300 61% 15ML VIAL As Ordered ONE; +LIDOCAINE 1% SDV 30ML VIAL As Ordered ONE; +diazePAM 5MG TABLET As Ordered ONE; +methylPREDNISolone SUSP 40MG/ML 1ML VIAL (DEPO MEDROL) As Ordered ONE; +oxyCODONE 5MG TAB As Ordered ONE
--- NOTE | 2021-06-22 11:38 | REP ---
INDICATION: LUMBAR EPIDURAL. COMPARISON: None. TECHNIQUE: Single C-arm view lower lumbar spine. FINDINGS: A needle is seen at the L4-5 level. A small amount of contrast is injected. IMPRESSION: 10 seconds fluoroscopy time utilized. <Electronically signed by Linwood Clemons > 06/22/21 [id number]
== END ==
LOC: M PAIN 10:20
PROVIDERS: ATTEND Anesthesiology
DX: M51.16 Intervertebral disc disorders with radiculopathy, lumbar region (principal); G47.33 Obstructive sleep apnea (adult) (pediatric); K21.9 Gastro-esophageal reflux disease without esophagitis; M79.7 Fibromyalgia; G25.81 Restless legs syndrome; F17.210 Nicotine dependence, cigarettes, uncomplicated; Z86.59 Personal history of other mental and behavioral disorders; Z98.84 Bariatric surgery status; Z88.2 Allergy status to sulfonamides; E66.01 Morbid (severe) obesity due to excess calories; Z68.41 Body mass index [BMI] 40.0-44.9, adult; Z79.891 Long term (current) use of opiate analgesic; Z79.899 Other long term (current) drug therapy
CPT/HCPCS: 62323; J1030; Q9967

== ENCOUNTER → 2021-12-17 | Outpatient (CLI) | payer OTHER ==
[~2021-12-17] MED LIST changes: -ISOVUE-M 300 61% 15ML VIAL As Ordered ONE; -LIDOCAINE 1% SDV 30ML VIAL As Ordered ONE; -diazePAM 5MG TABLET As Ordered ONE; -methylPREDNISolone SUSP 40MG/ML 1ML VIAL (DEPO MEDROL) As Ordered ONE; -oxyCODONE 5MG TAB As Ordered ONE
== END ==
LOC: M PAIN 09:30
PROVIDERS: ATTEND Nurse Practitioner Family
DX: M51.16 Intervertebral disc disorders with radiculopathy, lumbar region (principal); G47.33 Obstructive sleep apnea (adult) (pediatric); K21.9 Gastro-esophageal reflux disease without esophagitis; D64.9 Anemia, unspecified; K58.1 Irritable bowel syndrome with constipation; M79.7 Fibromyalgia; G25.81 Restless legs syndrome; F32.A Depression, unspecified; I10 Essential (primary) hypertension; J30.1 Allergic rhinitis due to pollen; E11.9 Type 2 diabetes mellitus without complications; Z79.891 Long term (current) use of opiate analgesic; Z79.899 Other long term (current) drug therapy; Z79.84 Long term (current) use of oral hypoglycemic drugs; Z88.2 Allergy status to sulfonamides

== ENCOUNTER → 2022-04-19 | Outpatient (CLI) | payer OTHER | LOC: M PLAIMG 12:39 | PROVIDERS: ATTEND Nurse Practitioner Family | DX: M51.16 Intervertebral disc disorders with radiculopathy, lumbar region (principal) ==

== ENCOUNTER → 2022-06-15 | Outpatient (CLI) | payer OTHER | LOC: M PAIN 09:30 | PROVIDERS: ATTEND Nurse Practitioner Family | DX: M51.16 Intervertebral disc disorders with radiculopathy, lumbar region (principal); G47.33 Obstructive sleep apnea (adult) (pediatric); K21.9 Gastro-esophageal reflux disease without esophagitis; K58.1 Irritable bowel syndrome with constipation; M54.2 Cervicalgia; D64.9 Anemia, unspecified; M79.7 Fibromyalgia; G25.81 Restless legs syndrome; F32.A Depression, unspecified; N26.1 Atrophy of kidney (terminal); I10 Essential (primary) hypertension; E11.9 Type 2 diabetes mellitus without complications; J30.1 Allergic rhinitis due to pollen; F17.210 Nicotine dependence, cigarettes, uncomplicated; F17.290 Nicotine dependence, other tobacco product, uncomplicated; Z79.891 Long term (current) use of opiate analgesic; Z79.84 Long term (current) use of oral hypoglycemic drugs; Z90.5 Acquired absence of kidney; Z79.899 Other long term (current) drug therapy; Z88.2 Allergy status to sulfonamides ==

== ENCOUNTER → 2022-12-06 | Outpatient (CLI) | payer OTHER ==
[~2022-12-06] MED LIST changes: -PAXI20TA29 PO; +PAXI20TA30 PO
== END ==
LOC: M PAIN 11:15
PROVIDERS: ATTEND Nurse Practitioner Family
DX: M51.16 Intervertebral disc disorders with radiculopathy, lumbar region (principal); G47.33 Obstructive sleep apnea (adult) (pediatric); K21.9 Gastro-esophageal reflux disease without esophagitis; K59.00 Constipation, unspecified; D64.9 Anemia, unspecified; M54.2 Cervicalgia; K58.9 Irritable bowel syndrome, unspecified; M79.7 Fibromyalgia; J30.1 Allergic rhinitis due to pollen; G25.81 Restless legs syndrome; F32.A Depression, unspecified; J30.81 Allergic rhinitis due to animal (cat) (dog) hair and dander; N26.1 Atrophy of kidney (terminal); I10 Essential (primary) hypertension; E11.9 Type 2 diabetes mellitus without complications; F17.210 Nicotine dependence, cigarettes, uncomplicated; F17.290 Nicotine dependence, other tobacco product, uncomplicated; Z79.891 Long term (current) use of opiate analgesic; Z79.899 Other long term (current) drug therapy; Z88.2 Allergy status to sulfonamides

== ENCOUNTER → 2023-01-25 | Outpatient (CLI) | payer OTHER | LOC: M PAIN 10:15 | PROVIDERS: ATTEND Anesthesiology | DX: Z79.899 Other long term (current) drug therapy (principal) ==

== ENCOUNTER → 2023-02-06 | Outpatient (REF) | payer OTHER | LOC: M SFHCDERM 14:15 | PROVIDERS: ATTEND Nurse Practitioner Family | DX: D49.2 Neoplasm of unspecified behavior of bone, soft tissue, and skin (principal) ==

== ENCOUNTER → 2023-02-14 | Outpatient (CLI) | payer OTHER | LOC: M PAIN 10:45 | PROVIDERS: ATTEND Nurse Practitioner Family | DX: M51.16 Intervertebral disc disorders with radiculopathy, lumbar region (principal); G89.29 Other chronic pain; G47.33 Obstructive sleep apnea (adult) (pediatric); K21.9 Gastro-esophageal reflux disease without esophagitis; M54.2 Cervicalgia; D64.9 Anemia, unspecified; M79.7 Fibromyalgia; K58.1 Irritable bowel syndrome with constipation; F32.A Depression, unspecified; N26.1 Atrophy of kidney (terminal); I10 Essential (primary) hypertension; E11.9 Type 2 diabetes mellitus without complications; F17.210 Nicotine dependence, cigarettes, uncomplicated; Z79.891 Long term (current) use of opiate analgesic; Z79.899 Other long term (current) drug therapy; Z88.2 Allergy status to sulfonamides; J30.1 Allergic rhinitis due to pollen; J30.81 Allergic rhinitis due to animal (cat) (dog) hair and dander ==

== ENCOUNTER → 2023-03-17 | Outpatient (CLI) | payer OTHER | LOC: M PAIN 10:30 | PROVIDERS: ATTEND Nurse Practitioner Family | DX: M51.16 Intervertebral disc disorders with radiculopathy, lumbar region (principal); G47.33 Obstructive sleep apnea (adult) (pediatric); K21.9 Gastro-esophageal reflux disease without esophagitis; M54.2 Cervicalgia; G89.29 Other chronic pain; D64.9 Anemia, unspecified; K58.1 Irritable bowel syndrome with constipation; M79.7 Fibromyalgia; G25.81 Restless legs syndrome; F32.A Depression, unspecified; N26.1 Atrophy of kidney (terminal); I10 Essential (primary) hypertension; E11.9 Type 2 diabetes mellitus without complications; F17.210 Nicotine dependence, cigarettes, uncomplicated; Z79.891 Long term (current) use of opiate analgesic; Z79.899 Other long term (current) drug therapy; Z88.2 Allergy status to sulfonamides; J30.1 Allergic rhinitis due to pollen; J30.81 Allergic rhinitis due to animal (cat) (dog) hair and dander ==

== ENCOUNTER → 2023-04-20 | Outpatient (CLI) | payer OTHER | LOC: M PAIN 11:00 | PROVIDERS: ATTEND Nurse Practitioner Family | DX: M51.16 Intervertebral disc disorders with radiculopathy, lumbar region (principal); G89.29 Other chronic pain; G47.33 Obstructive sleep apnea (adult) (pediatric); K21.9 Gastro-esophageal reflux disease without esophagitis; K59.00 Constipation, unspecified; M54.2 Cervicalgia; D64.9 Anemia, unspecified; K58.9 Irritable bowel syndrome, unspecified; M79.7 Fibromyalgia; G25.81 Restless legs syndrome; F32.A Depression, unspecified; N26.1 Atrophy of kidney (terminal); Z90.5 Acquired absence of kidney; I10 Essential (primary) hypertension; E11.9 Type 2 diabetes mellitus without complications; F17.210 Nicotine dependence, cigarettes, uncomplicated; Z79.891 Long term (current) use of opiate analgesic; Z79.899 Other long term (current) drug therapy; Z88.2 Allergy status to sulfonamides; J30.81 Allergic rhinitis due to animal (cat) (dog) hair and dander; J30.1 Allergic rhinitis due to pollen ==

== ENCOUNTER → 2023-05-18 | Outpatient (CLI) | payer OTHER | LOC: M PAIN 11:00 | PROVIDERS: ATTEND Nurse Practitioner Family | DX: M51.16 Intervertebral disc disorders with radiculopathy, lumbar region (principal); G89.29 Other chronic pain; G47.33 Obstructive sleep apnea (adult) (pediatric); K21.9 Gastro-esophageal reflux disease without esophagitis; M54.2 Cervicalgia; D64.9 Anemia, unspecified; K58.1 Irritable bowel syndrome with constipation; M79.7 Fibromyalgia; G25.81 Restless legs syndrome; F32.A Depression, unspecified; N26.1 Atrophy of kidney (terminal); I10 Essential (primary) hypertension; E11.9 Type 2 diabetes mellitus without complications; F17.210 Nicotine dependence, cigarettes, uncomplicated; Z79.891 Long term (current) use of opiate analgesic; Z79.899 Other long term (current) drug therapy; Z88.2 Allergy status to sulfonamides; J30.1 Allergic rhinitis due to pollen; J30.81 Allergic rhinitis due to animal (cat) (dog) hair and dander ==

== ENCOUNTER → 2023-07-10 | Outpatient (CLI) | payer OTHER ==
[~2023-07-10] MED LIST changes: +ISOVUE-M 300 61% 15ML VIAL As Ordered ONE; +LIDOCAINE 1% SDV 30ML VIAL As Ordered ONE; +diazePAM 5MG TABLET As Ordered ONE; +diphenhydrAMINE 25MG CAP As Ordered ONE; +methylPREDNISolone SUSP 40MG/ML 1ML VIAL (DEPO MEDROL) As Ordered ONE; +oxyCODONE 5MG TAB As Ordered ONE
== END ==
LOC: M PAIN 12:45
PROVIDERS: ATTEND Anesthesiology
DX: M51.16 Intervertebral disc disorders with radiculopathy, lumbar region (principal); G89.29 Other chronic pain; G47.33 Obstructive sleep apnea (adult) (pediatric); K21.9 Gastro-esophageal reflux disease without esophagitis; K59.00 Constipation, unspecified; M54.2 Cervicalgia; D64.9 Anemia, unspecified; K58.9 Irritable bowel syndrome, unspecified; M79.7 Fibromyalgia; G25.81 Restless legs syndrome; F32.A Depression, unspecified; N26.1 Atrophy of kidney (terminal); I10 Essential (primary) hypertension; E11.9 Type 2 diabetes mellitus without complications; F17.210 Nicotine dependence, cigarettes, uncomplicated; Z79.891 Long term (current) use of opiate analgesic; Z79.899 Other long term (current) drug therapy; Z88.2 Allergy status to sulfonamides; J30.1 Allergic rhinitis due to pollen; J30.81 Allergic rhinitis due to animal (cat) (dog) hair and dander
CPT/HCPCS: 62323; J1030; Q9967

== ENCOUNTER → 2023-11-24 | Outpatient (CLI) | payer OTHER ==
[~2023-11-24] MED LIST changes: -ISOVUE-M 300 61% 15ML VIAL As Ordered ONE; -LIDOCAINE 1% SDV 30ML VIAL As Ordered ONE; -diazePAM 5MG TABLET As Ordered ONE; -diphenhydrAMINE 25MG CAP As Ordered ONE; -methylPREDNISolone SUSP 40MG/ML 1ML VIAL (DEPO MEDROL) As Ordered ONE; -oxyCODONE 5MG TAB As Ordered ONE
== END ==
LOC: M PAIN 11:00
PROVIDERS: ATTEND Nurse Practitioner Family
DX: M51.16 Intervertebral disc disorders with radiculopathy, lumbar region (principal); Z79.891 Long term (current) use of opiate analgesic; G89.29 Other chronic pain; G47.33 Obstructive sleep apnea (adult) (pediatric); K21.9 Gastro-esophageal reflux disease without esophagitis; K59.00 Constipation, unspecified; M54.2 Cervicalgia; D64.9 Anemia, unspecified; K58.9 Irritable bowel syndrome, unspecified; M79.7 Fibromyalgia; G25.81 Restless legs syndrome; F32.A Depression, unspecified; I10 Essential (primary) hypertension; E11.9 Type 2 diabetes mellitus without complications; F17.210 Nicotine dependence, cigarettes, uncomplicated; Z79.899 Other long term (current) drug therapy; Z88.2 Allergy status to sulfonamides

== ENCOUNTER → 2023-12-25 | Outpatient (CLI) | payer OTHER | LOC: M PAIN 09:15 | PROVIDERS: ATTEND Nurse Practitioner Family | DX: M51.16 Intervertebral disc disorders with radiculopathy, lumbar region (principal); Z79.891 Long term (current) use of opiate analgesic; G89.29 Other chronic pain; G47.33 Obstructive sleep apnea (adult) (pediatric); K21.9 Gastro-esophageal reflux disease without esophagitis; K59.00 Constipation, unspecified; M54.2 Cervicalgia; D64.9 Anemia, unspecified; K58.9 Irritable bowel syndrome, unspecified; M79.7 Fibromyalgia; G25.81 Restless legs syndrome; F32.A Depression, unspecified; I10 Essential (primary) hypertension; E11.9 Type 2 diabetes mellitus without complications; F17.210 Nicotine dependence, cigarettes, uncomplicated; Z79.899 Other long term (current) drug therapy; Z88.2 Allergy status to sulfonamides ==

== ENCOUNTER → 2024-01-22 | Outpatient (CLI) | payer OTHER | LOC: M PAIN 09:15 | PROVIDERS: ATTEND Nurse Practitioner Family | DX: Z79.891 Long term (current) use of opiate analgesic (principal) ==

== ENCOUNTER → 2024-01-26 | Outpatient (CLI) | payer OTHER | LOC: M PAIN 09:15 | PROVIDERS: ATTEND Nurse Practitioner Family | DX: M51.16 Intervertebral disc disorders with radiculopathy, lumbar region (principal); Z79.891 Long term (current) use of opiate analgesic; G89.29 Other chronic pain; G47.33 Obstructive sleep apnea (adult) (pediatric); K21.9 Gastro-esophageal reflux disease without esophagitis; K59.00 Constipation, unspecified; M54.2 Cervicalgia; D64.9 Anemia, unspecified; K58.9 Irritable bowel syndrome, unspecified; M79.7 Fibromyalgia; G25.81 Restless legs syndrome; F32.A Depression, unspecified; I10 Essential (primary) hypertension; E11.9 Type 2 diabetes mellitus without complications; F17.210 Nicotine dependence, cigarettes, uncomplicated; Z79.899 Other long term (current) drug therapy; Z88.2 Allergy status to sulfonamides ==

== ENCOUNTER → 2024-03-05 | Outpatient (CLI) | payer OTHER | LOC: M PAIN 11:00 | PROVIDERS: ATTEND Nurse Practitioner Family | DX: M51.16 Intervertebral disc disorders with radiculopathy, lumbar region (principal); G89.29 Other chronic pain; G47.33 Obstructive sleep apnea (adult) (pediatric); K21.9 Gastro-esophageal reflux disease without esophagitis; K58.1 Irritable bowel syndrome with constipation; D64.9 Anemia, unspecified; M79.7 Fibromyalgia; G25.81 Restless legs syndrome; F32.A Depression, unspecified; I10 Essential (primary) hypertension; E11.9 Type 2 diabetes mellitus without complications; F17.210 Nicotine dependence, cigarettes, uncomplicated; Z79.891 Long term (current) use of opiate analgesic; Z79.899 Other long term (current) drug therapy; Z88.2 Allergy status to sulfonamides ==

== ENCOUNTER → 2024-04-12 | Outpatient (CLI) | payer OTHER ==
[~2024-04-12] MED LIST changes: +ISOVUE-M 300 61% 15ML VIAL As Ordered ONE; +LIDOCAINE 1% SDV 30ML VIAL As Ordered ONE; +dexAMETHasone 10MG/1ML VIAL PRES.FREE As Ordered ONE; +diazePAM 5MG TABLET As Ordered ONE; +diphenhydrAMINE 25MG CAP As Ordered ONE; +oxyCODONE 5MG TAB As Ordered ONE
== END ==
LOC: M PAIN 12:30
PROVIDERS: ATTEND Anesthesiology
DX: M51.16 Intervertebral disc disorders with radiculopathy, lumbar region (principal); G47.33 Obstructive sleep apnea (adult) (pediatric); K21.9 Gastro-esophageal reflux disease without esophagitis; K58.1 Irritable bowel syndrome with constipation; M54.2 Cervicalgia; G89.29 Other chronic pain; D64.9 Anemia, unspecified; M79.7 Fibromyalgia; G25.81 Restless legs syndrome; F32.A Depression, unspecified; R73.03 Prediabetes; F17.210 Nicotine dependence, cigarettes, uncomplicated; Z79.891 Long term (current) use of opiate analgesic; Z79.899 Other long term (current) drug therapy; Z88.2 Allergy status to sulfonamides; J30.1 Allergic rhinitis due to pollen; J30.81 Allergic rhinitis due to animal (cat) (dog) hair and dander
CPT/HCPCS: 62323; J1100; Q9967

== ENCOUNTER 2024-04-24 15:39 | Observation (INO) | payer OTHER ==
[~2024-04-24] VITALS: Ht 165.1 cm; Wt 85.9 kg
[~2024-04-24 15:39] MED LIST changes: -ISOVUE-M 300 61% 15ML VIAL As Ordered ONE; -LIDOCAINE 1% SDV 30ML VIAL As Ordered ONE; -dexAMETHasone 10MG/1ML VIAL PRES.FREE As Ordered ONE; -diazePAM 5MG TABLET As Ordered ONE; -diphenhydrAMINE 25MG CAP As Ordered ONE; -oxyCODONE 5MG TAB As Ordered ONE
[2024-04-24] MEDS ORDERED: CLON2TAB7 (15:46)
[2024-04-24] MEDS ORDERED: OXYC10TA3 (15:46)
[2024-04-24] MEDS ORDERED: ZOLP10TA2 (15:46)
[2024-04-24] MEDS: HYDROMORPHONE HCL 0.5 MG/ 0.5 ML SYRINGE IV ONE (20:01)
[2024-04-24] MEDS: diazePAM 5MG TABLET PO ONE (20:01)
[2024-04-24 20:27] LABS: BASO % 0.7 % (0.0-1.0); EOS # 0.1 10^3/uL (0.0-0.5); EOS % 2.3 % (0.0-3.0); HEMATOCRIT 31.5 % (36.0-47.0); HEMOGLOBIN 9.3 g/dl (12.0-15.5); LYMPH # 1.9 10^3/uL (1.5-5.0); LYMPH % 31.6 % (24.0-44.0); MEAN CORPUSCULAR HEMOGLOBIN 22.9 pg (27.0-33.0); MEAN CORPUSCULAR HGB CONC 29.5 g/dl (32.0-36.5); MEAN CORPUSCULAR VOLUME 77.4 fl (80.0-96.0); MONO # 0.5 10^3/uL (0.0-0.8); MONO % 8.1 % (2.0-8.0); NEUTROPHILS # 3.4 10^3/uL (1.5-8.5); NEUTROPHILS % 57.1 % (36.0-66.0); PLATELET COUNT, AUTOMATED 107 10^3/uL (150-450); RED BLOOD COUNT 4.07 10^6/uL (4.00-5.40)
[2024-04-24 20:44] LABS: ERYTHROCYTE SEDIMENTATION RATE 12 mm/hr (0-30)
[2024-04-24] MEDS ORDERED: PROHANCE 279.3MG/ML 15ML VIAL As Ordered ONE (20:45)
[2024-04-24] MEDS ORDERED: PROHANCE 279.3MG/ML 5ML VIAL As Ordered ONE (20:45)
[2024-04-24 20:48] LABS: C REACTIVE PROTEIN QUANTITATIV < 0.40 MG/DL (<1.0)
[2024-04-24 20:50] LABS: ALBUMIN 3.7 G/DL (3.2-5.2); ALKALINE PHOSPHATASE 80 U/L (46-116); ALT/SGPT 14 U/L (7.0-40); AST/SGOT 18 U/L (<34); BILIRUBIN,TOTAL 0.5 MG/DL (0.3-1.2); BLOOD UREA NITROGEN 18 MG/DL (9-23); CALCIUM LEVEL 8.6 MG/DL (8.3-10.6); CARBON DIOXIDE LEVEL 26 MMOL/L (20-31); CHLORIDE LEVEL 114 MMOL/L (98-107); CREATININE FOR GFR 0.69 MG/DL (0.55-1.30); GLOMERULAR FILTRATION RATE > 60.0 (>45); GLUCOSE, FASTING 91 MG/DL (74-106); MAGNESIUM LEVEL 1.8 MG/DL (1.8-2.4); POTASSIUM SERUM 3.8 MMOL/L (3.5-5.1); SODIUM LEVEL 145 MMOL/L (136-145); TOTAL PROTEIN 6.3 G/DL (5.7-8.2)
[2024-04-24] MEDS: ACETAMINOPHEN *IV* 1,000 MG in IV 1 EA IV ONE (22:18)
[2024-04-24] MEDS: MORPHINE 2 MG/ML 1ML VIAL IV ONE (22:18)
[2024-04-24] MEDS: METHOCARBAMOL 1,000 MG/10 ML VIAL IV ONE (22:40)
[2024-04-25] MEDS: LIDOCAINE 5% (LIDODERM) PATCH TD ONE (00:01)
[2024-04-25] MEDS ORDERED: MOM 30ML SUSPENSION UDC PO PRN (00:40)
[2024-04-25] MEDS ORDERED: ACETAMINOPHEN TAB 650MG DOSE (2X325MG) PO PRN (00:40)
[2024-04-25] MEDS: HYDROMORPHONE HCL 0.5 MG/ 0.5 ML SYRINGE IV PRN ×2 (00:56→16:59)
[2024-04-25] MEDS ORDERED: ESSE250T PO (00:59)
[2024-04-25] MEDS ORDERED: FERR1TAB8 PO (00:59)
[2024-04-25] MEDS ORDERED: LYRI200C PO (00:59)
[2024-04-25] MEDS ORDERED: CLON2TAB7 PO (00:59)
[2024-04-25] MEDS ORDERED: ZOLP10TA2 PO (00:59)
[2024-04-25] MEDS ORDERED: OMEP40CA5 PO (00:59)
[2024-04-25] MEDS ORDERED: OYST1TAB PO (00:59)
[2024-04-25] MEDS ORDERED: TIZA10TA PO (00:59)
[2024-04-25] MEDS ORDERED: OXYC10TA3 PO (00:59)
[2024-04-25] MEDS ORDERED: HOME MED LIST COMPLETE! XX SCH (01:00)
[2024-04-25] MEDS: PERCOCET 5MG/325MG TAB PO PRN (03:04)
[2024-04-25] MEDS: LIDOCAINE 5% (LIDODERM) PATCH TD SCH (03:13)
[2024-04-25 04:05] VITALS: BP 149/58; TEMP 97.3; O2SAT 100
[2024-04-25] MEDS: tiZANidine 4 MG TAB PO PRN (04:26)
[2024-04-25] MEDS: NICOTINE 21MG/24HR 1 EA TRANSDERMAL TD SCH (04:26)
[2024-04-25 07:11] LABS: HEMATOCRIT 31.5 % (36.0-47.0); HEMOGLOBIN 9.3 g/dl (12.0-15.5); MEAN CORPUSCULAR HEMOGLOBIN 22.9 pg (27.0-33.0); MEAN CORPUSCULAR HGB CONC 29.5 g/dl (32.0-36.5); MEAN CORPUSCULAR VOLUME 77.6 fl (80.0-96.0); PLATELET COUNT, AUTOMATED 109 10^3/uL (150-450); RED BLOOD COUNT 4.06 10^6/uL (4.00-5.40); WHITE BLOOD COUNT 5.1 10^3/uL (4.0-10.0)
[2024-04-25 07:34] LABS: PERCENT SATURATION 7.7 % (13.2-45.0)
[2024-04-25 07:37] LABS: FERRITIN 4.3 NG/ML (7.3-270.7)
[2024-04-25] MEDS: PREGABALIN 100 MG CAP (LYRICA) PO SCH (07:41)
[2024-04-25] MEDS: ENOXAPARIN 40MG/0.4ML SYRINGE (J1650 PER 10MG) SC SCH (07:41)
[2024-04-25 07:52] LABS: BLOOD UREA NITROGEN 17 MG/DL (9-23); CALCIUM LEVEL 8.8 MG/DL (8.3-10.6); CARBON DIOXIDE LEVEL 30 MMOL/L (20-31); CHLORIDE LEVEL 113 MMOL/L (98-107); CREATININE FOR GFR 0.71 MG/DL (0.55-1.30); GLOMERULAR FILTRATION RATE > 60.0 (>45); GLUCOSE, FASTING 91 MG/DL (74-106); MAGNESIUM LEVEL 1.9 MG/DL (1.8-2.4); POTASSIUM SERUM 3.8 MMOL/L (3.5-5.1); SODIUM LEVEL 145 MMOL/L (136-145)
[2024-04-25] MEDS ORDERED: NALOXONE INJ 0.4MG/1ML VIAL IV PRN (08:05)
[2024-04-25] MEDS ORDERED: tiZANidine 4 MG TAB PO PRN (09:00)
[2024-04-25] MEDS ORDERED: clonazePAM 1 MG TAB PO PRN (09:00)
[2024-04-25] MEDS: diazePAM 10MG/2ML SYRINGE IV ONE (09:03)
[2024-04-25] MEDS: ACETAMINOPHEN 500 MG TAB PO SCH (09:05)
[2024-04-25] MEDS: MORPHINE 15 MG SA TAB PO SCH (09:47)
[2024-04-25] MEDS ORDERED: PILL CUTTER 1 EACH XX PRN (10:45)
[2024-04-25] MEDS: MORPHINE 30 MG TAB **MSIR PO ONE ×2 (10:59→15:24)
[2024-04-25] MEDS: KETOROLAC 30 MG/ML 1ML VIAL IV SCH (12:16)
[2024-04-25 12:26] VITALS: BP 147/58; TEMP 97.5; O2SAT 98
[2024-04-25] MEDS: HYDROMORPHONE HCL 0.5 MG/ 0.5 ML SYRINGE IV ONE (13:09)
[2024-04-25] MEDS: MORPHINE 30 MG TAB **MSIR PO PRN (14:31)
[2024-04-25 20:00] VITALS: BP 159/80; TEMP 97.7; O2SAT 99
[2024-04-25] MEDS: traZODone 50 MG TAB PO PRN (21:10)
[2024-04-25 23:00] VITALS: O2SAT 84
[2024-04-25 23:04] VITALS: O2SAT 92
[2024-04-26 04:00] VITALS: BP 139/61; TEMP 97.5; O2SAT 97
[2024-04-26 12:00] VITALS: BP 153/68; TEMP 97.5; O2SAT 98
[2024-04-26] MEDS ORDERED: MSIR30TA PO ×2 (12:18→12:20)
[2024-04-26] MEDS ORDERED: MORP15TASA PO ×2 (12:18→12:20)
[2024-04-26] MEDS: MORPHINE 30 MG TAB **MSIR PO ONE (12:28)
[2024-04-26] MEDS ORDERED: MORP15TA2 PO (12:33)
[2024-04-26] MEDS: PREVNAR-20 VACCINE 0.5ML SYRINGE IM.IMMUN ONE (14:29)
[2024-04-26] MEDS ORDERED: PROMETHAZINE 25MG/ML 1ML VIAL IV PRN (15:50)
[2024-04-26] MEDS: NS 500 ML IV ONE (16:19)
[2024-04-26] MEDS ORDERED: BISACODYL 10MG SUPP PR PRN (16:40)
[2024-04-26 16:55] LABS: ALBUMIN 3.7 G/DL (3.2-5.2); ALKALINE PHOSPHATASE 80 U/L (46-116); ALT/SGPT 12 U/L (7.0-40); AST/SGOT 13 U/L (<34); BILIRUBIN,TOTAL 0.4 MG/DL (0.3-1.2); BLOOD UREA NITROGEN 19 MG/DL (9-23); CALCIUM LEVEL 9.2 MG/DL (8.3-10.6); CARBON DIOXIDE LEVEL 29 MMOL/L (20-31); CHLORIDE LEVEL 111 MMOL/L (98-107); GLOMERULAR FILTRATION RATE > 60.0 (>45); GLUCOSE, FASTING 88 MG/DL (74-106); MAGNESIUM LEVEL 1.9 MG/DL (1.8-2.4); PHOSPHORUS LEVEL 3.8 MG/DL (2.4-5.1); POTASSIUM SERUM 3.9 MMOL/L (3.5-5.1); SODIUM LEVEL 145 MMOL/L (136-145); TOTAL PROTEIN 6.4 G/DL (5.7-8.2)
[2024-04-26] MEDS: PROMETHAZINE 25MG/ML 1ML VIAL IV ONE (17:10)
[2024-04-26 20:00] VITALS: BP_SYST 133; BP_SYST 135; BP_DIAS 55; BP_DIAS 56; TEMP 97.5; O2SAT 95; O2SAT 96
[2024-04-27 03:46] VITALS: BP 163/75; TEMP 97.3; O2SAT 96
[2024-04-27 04:00] VITALS: BP 163/75; TEMP 97.3; O2SAT 96
== END 2024-04-27 12:35 | disposition home or self-care (01) ==
LOC: M ED 15:39 → INTOOBSV 04-25 00:36 → M ED INP 04-25 00:36 → M MSPAV 04-25 03:43
PROVIDERS: ADMIT Internal Medicine; ATTEND General Practice
DX: M54.50 Low back pain, unspecified (principal); G89.29 Other chronic pain; M51.36 Other intervertebral disc degeneration, lumbar region; M79.669 Pain in unspecified lower leg; W11.XXXA Fall on and from ladder, initial encounter; Y92.039 Unspecified place in apartment as the place of occurrence of the external cause; Y93.E9 Activity, other interior property and clothing maintenance; Y99.9 Unspecified external cause status; I10 Essential (primary) hypertension; D69.6 Thrombocytopenia, unspecified; K21.9 Gastro-esophageal reflux disease without esophagitis; D64.9 Anemia, unspecified; K58.9 Irritable bowel syndrome, unspecified; M79.7 Fibromyalgia; K59.00 Constipation, unspecified; G47.33 Obstructive sleep apnea (adult) (pediatric); G25.81 Restless legs syndrome; J30.1 Allergic rhinitis due to pollen; F32.A Depression, unspecified; Z90.5 Acquired absence of kidney; Z87.442 Personal history of urinary calculi; Z87.440 Personal history of urinary (tract) infections; K25.9 Gastric ulcer, unspecified as acute or chronic, without hemorrhage or perforation; F41.9 Anxiety disorder, unspecified; J44.9 Chronic obstructive pulmonary disease, unspecified; G47.00 Insomnia, unspecified; Z96.651 Presence of right artificial knee joint; Z98.84 Bariatric surgery status; Z90.89 Acquired absence of other organs; Z90.49 Acquired absence of other specified parts of digestive tract; Z90.711 Acquired absence of uterus with remaining cervical stump; Z98.51 Tubal ligation status; Z80.42 Family history of malignant neoplasm of prostate; Z83.49 Family history of other endocrine, nutritional and metabolic diseases; Z82.3 Family history of stroke; Z82.0 Family history of epilepsy and other diseases of the nervous system; Z84.0 Family history of diseases of the skin and subcutaneous tissue; F17.200 Nicotine dependence, unspecified, uncomplicated; Z88.2 Allergy status to sulfonamides; Z79.899 Other long term (current) drug therapy; Z23 Encounter for immunization
CPT/HCPCS: 36415; 72158; 74018; 80048; 80053; 82150; 82607; 82728; 83550; 83690; 83735; 84100; 85025; 85027; 85046; 85652; 86140; 90677; 96365; 96372; 96375; 96376; 97116; 97161; 97165; 97530; 99284; A9576; G0009; G0378; J0131; J1100; J1170; J1650; J1885; J2550; J2800; J3360

== ENCOUNTER 2024-05-14 12:50 | Emergency (ER) | payer OTHER ==
[~2024-05-14] VITALS: Ht 165.1 cm; Wt 78.7 kg
[~2024-05-14 12:50] MED LIST changes: -ONDA-282 PO; -PEPC1TAB5 PO
[2024-05-14] MEDS: ONDANSETRON 4MG 2ML VIAL IV ONE (17:00)
[2024-05-14] MEDS: NS 1,000 ML IV ONE (17:28)
[2024-05-14 18:01] LABS: BASO % 0.5 % (0.0-1.0); HEMATOCRIT 33.7 % (36.0-47.0); HEMOGLOBIN 10.4 g/dl (12.0-15.5); MEAN CORPUSCULAR HEMOGLOBIN 23.7 pg (27.0-33.0); MEAN CORPUSCULAR HGB CONC 30.9 g/dl (32.0-36.5); MEAN CORPUSCULAR VOLUME 76.8 fl (80.0-96.0); MONO # 0.4 10^3/uL (0.0-0.8); MONO % 6.4 % (2.0-8.0); NEUTROPHILS # 4.6 10^3/uL (1.5-8.5); NEUTROPHILS % 76.8 % (36.0-66.0); PLATELET COUNT, AUTOMATED 186 10^3/uL (150-450); RED BLOOD COUNT 4.39 10^6/uL (4.00-5.40); WHITE BLOOD COUNT 5.9 10^3/uL (4.0-10.0)
[2024-05-14] MEDS: NICOTINE 21MG/24HR 1 EA TRANSDERMAL TD ONE (18:08)
[2024-05-14 18:24] LABS: LIPASE 25 U/L (12-53)
[2024-05-14 18:25] LABS: AMYLASE 37 U/L (30-118)
[2024-05-14 18:26] LABS: ALBUMIN 4.3 G/DL (3.2-5.2); ALKALINE PHOSPHATASE 73 U/L (46-116); ALT/SGPT 13 U/L (7.0-40); AST/SGOT 15 U/L (<34); BILIRUBIN,DIRECT 0.2 MG/DL (<0.4); BILIRUBIN,TOTAL 0.6 MG/DL (0.3-1.2); BLOOD UREA NITROGEN 11 MG/DL (9-23); CALCIUM LEVEL 9.6 MG/DL (8.3-10.6); CARBON DIOXIDE LEVEL 27 MMOL/L (20-31); CHLORIDE LEVEL 108 MMOL/L (98-107); CREATININE FOR GFR 0.61 MG/DL (0.55-1.30); GLOMERULAR FILTRATION RATE > 60.0 (>45); GLUCOSE, FASTING 116 MG/DL (74-106); MAGNESIUM LEVEL 2.1 MG/DL (1.8-2.4); POTASSIUM SERUM 3.7 MMOL/L (3.5-5.1); SODIUM LEVEL 140 MMOL/L (136-145); TOTAL PROTEIN 7.3 G/DL (5.7-8.2)
[2024-05-14 18:46] LABS: AMPHETAMINES LEVEL URINE NEGATIVE (NEGATIVE); BARBITURATES URINE NEGATIVE (NEGATIVE); COCAINE METABOLITE URINE NEGATIVE (NEGATIVE); METHADONE URINE NEGATIVE (NEGATIVE); OPIATES URINE NEGATIVE (NEGATIVE); PHENCYCLIDINE URINE NEGATIVE (NEGATIVE)
[2024-05-14 18:47] LABS: BENZODIAZEPINES URINE POSITIVE (NEGATIVE); CANNABINOIDS URINE POSITIVE (NEGATIVE)
[2024-05-14] MEDS ORDERED: PEPC1TAB5 PO (19:21)
[2024-05-14] MEDS ORDERED: ONDA-282 PO (19:23)
[2024-05-14 19:42] VITALS: BP 162/70; TEMP 97.4; O2SAT 96
== END 2024-05-14 19:48 | disposition home or self-care (01) ==
LOC: M ED 12:50
DX: R11.2 Nausea with vomiting, unspecified (principal); D64.9 Anemia, unspecified; F41.9 Anxiety disorder, unspecified; Z88.2 Allergy status to sulfonamides; Z98.84 Bariatric surgery status; Z90.89 Acquired absence of other organs; Z87.891 Personal history of nicotine dependence; Z79.899 Other long term (current) drug therapy; Z79.83 Long term (current) use of bisphosphonates
CPT/HCPCS: 80048; 80076; 80307; 81001; 82150; 83605; 83690; 83735; 85025; 96361; 96374; 99284; G0463; J2405

== ENCOUNTER → 2024-05-14 | Outpatient (CLI) | payer OTHER ==
[~2024-05-14] MED LIST changes: +CLON2TAB7; +CLON2TAB7 PO; +ESSE250T PO; +FERR1TAB8 PO; +LYRI200C PO; +MORP15TA2 PO; +MORP15TASA PO; +MSIR30TA PO; +OMEP40CA5 PO; +ONDA-282 PO; +OXYC10TA3; +OYST1TAB PO; +PEPC1TAB5 PO; +TIZA10TA PO; +ZOLP10TA2
== END ==
LOC: M PAIN 11:00
PROVIDERS: ATTEND Nurse Practitioner Family
DX: G89.29 Other chronic pain (principal); M51.16 Intervertebral disc disorders with radiculopathy, lumbar region; G47.33 Obstructive sleep apnea (adult) (pediatric); K21.9 Gastro-esophageal reflux disease without esophagitis; K59.00 Constipation, unspecified; M54.2 Cervicalgia; D64.9 Anemia, unspecified; K58.9 Irritable bowel syndrome, unspecified; M79.7 Fibromyalgia; G25.81 Restless legs syndrome; F32.A Depression, unspecified; I10 Essential (primary) hypertension; R73.03 Prediabetes; F17.210 Nicotine dependence, cigarettes, uncomplicated; Z79.891 Long term (current) use of opiate analgesic; Z79.899 Other long term (current) drug therapy; Z88.2 Allergy status to sulfonamides